=== PATIENT | female | born 1950 | race Two or more races ===

== ENCOUNTER 2024-03-17 09:12 | Outpatient (RCR) | payer MEDICARE, MEDICAID, SELFPAY ==
[2024-03-17 10:40] LABS: Basophils # (Auto) 0.1 Thou/mm3 (0.0-0.2); Basophils % (Auto) 2 % (0-2.5); Eosinophils # (Auto) 0.1 Thou/mm3 (0.0-0.5); Eosinophils % (Auto) 2 % (0-10); Hematocrit 37.4 % (36.0-46.0); Immature Granulocytes % (Auto) 0 % (0-0); Immature Granulocytes Auto 0.01 Thou/mm3 (0.00-0.00); Lymphocytes % (Auto) 27 % (10-50); Mean Corpuscular HGB Conc 34.8 g/dl (31.0-37.0); Mean Corpuscular Hemoglobin 37.8 pg (25.0-35.0); Mean Corpuscular Volume 109 fL (80-100); Monocytes # (Auto) 0.4 Thou/mm3 (0.0-0.8); Monocytes % (Auto) 12 % (0-12); Neutrophils # (Auto) 2.1 Thou/mm3 (1.8-7.7); Neutrophils % (Auto) 57 % (37-80); Nucleated Red Blood Cell % 0 /100 WBC (0); Platelet Count 168 Thou/mm3 (140-440); RDW Standard Deviation 58.7 fL (36.4-46.3); Red Blood Count 3.44 Miln/mm3 (4.00-5.20); White Blood Count 3.6 Thou/mm3 (3.6-11.0)
[2024-03-17 10:59] LABS: Alanine Aminotransferase 16 U/L (10-49); Albumin, Serum 4.3 gm/dL (3.4-4.8); Albumin/Globulin Ratio 1.4 (1.2-2.2); Alkaline Phosphatase 94 U/L (46-116); Anion Gap 7 (7-16); Aspartate Amino Transferase 24 U/L (0-34); BUN/Creatinine Ratio 22 Ratio (12-20); Bilirubin,Total 1.1 mg/dL (0.3-1.2); Blood Urea Nitrogen 22 mg/dL (9-23); Calcium 9.2 mg/dL (8.3-10.6); Calcium (Corrected) 9.2 mg/dL (8.5-10.1); Carbon Dioxide 28.1 mMol/L (20.0-31.0); Chloride 105 mMol/L (98-107); Glucose 103 mg/dL (74-106); Osmolality,Calculated 282 (275-295); Potassium 3.9 mMol/L (3.4-5.1); Sodium 140 mMol/L (136-145); Total Protein 7.3 gm/dL (5.7-8.2); eGFR 59 See Note
== END 2024-03-20 23:59 | disposition home or self-care (01) ==
LOC: SCTC 09:12
PROVIDERS: PCP Internal Medicine; Referring Provider Internal Medicine; Visit Provider Internal Medicine Hematology & Oncology
DX: C50.212 Malignant neoplasm of upper-inner quadrant of left female breast (principal); Z17.0 Estrogen receptor positive status [ER+]; Z17.22 Progesterone receptor negative status; Z17.32 Human epidermal growth factor receptor 2 negative status; R91.8 Other nonspecific abnormal finding of lung field; R59.0 Localized enlarged lymph nodes; Z90.12 Acquired absence of left breast and nipple; Z79.811 Long term (current) use of aromatase inhibitors; N64.89 Other specified disorders of breast; E66.9 Obesity, unspecified; Z68.45 Body mass index [BMI] 70 or greater, adult
CPT/HCPCS: 36591; 80053; 85025; A4216; J1642

== ENCOUNTER 2024-04-16 09:35 | Outpatient (RCR) | payer MEDICARE, MEDICAID, SELFPAY ==
--- NOTE | 2024-04-04 18:53 | CTCFLWUP_ITS ---
Patient: JOSHUA HOWARD : 1950 Page 2 of 2 FOLLOW UP NOTE Echocardiogram MRI DATE OF SERVICE: 03/23/2024 NAME: JOSHUA HOWARD ACCOUNT: [id number] : 1950 AGE: 73 REASON FOR VISIT: Follow up ONCOLOGY HISTORY: DATE OF DIAGNOSIS: 12/30/2022 STAGE/TNM: Radiographic stage IV IN 2020 ER/TN positive HER2 negative locally advanced invasive ductal carcinoma of the left breast and found to be ER/TN HER2 positive in 2022 on the left breast mastectomy with th e s/p chemotherapy and noted to have reduce in size of pulmonary nodules and lymphadenopathy TREATMENT HISTORY: Care?Plan Start?Date Cycle Day Intent DOCEtaxel?75,?Cyclophosphamide?600 05/28/2021 1 21 Curative?(primary) Trastuzumab?6?mg/kg? 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 2019:Patient had bilateral mammograms according to her that were nondiagnostic. 10/10/2020: Patient was seen in the emergency room here at [facility] cancer center be cause of mid lower chest pain. 10/10/2020: Chest x-ray? 10/10/2020: CT scan of the chest abdomen and pelvis with IV contrast? 10/17/2020: Left breast ultrasound? 10/17/2020: Bilateral diagnostic mammograms? 10/05/2020: Core needle biopsy of the left breast mass? 02/16/2021: PET CT scan? 03/09/2021: CT scan of the chest without contrast? 03/22/2021 ultrasound of the extremity anterior pelvic wall? 04/18/2021: CT scan of the chest abdomen and pelvis with IV contrast? 04/19/2021: CT scan of the chest abdomen and pelvis with IV contrast? 04/19/2021: Echocardiogram? 05/28/2021: Ms. Howard received first cycle of TC chemotherapy. 05/31/2021?06/13/2021: Ms. Howard was admitted to [facility] because of diarrhea, nause a and vomiting as well as cytopenias. 07/10/2021: CT scan of the chest with IV contrast 07/24/2021: Patient is started on anastrozole as well as palbociclib. 08/11/2021: PET/CT scan which was compared to previous PET/CT scan of February 16, 2021 as well as CTA of the chest of July 24, 2021.? 02/08/2022: CT scan of the chest abdomen and pelvis with IV contrast? 10/31/2022: PET/CT scan? 12/30/2022: Ms. Howard had left modified radical mastectomy 04/02/2023: Ms. Howard had 1 infusion of Trastuzumab(Herceptin).-Into the infusion patient started de veloping chills, rigors as well as mild shortness of breath. Infusion was discontinued and patient w as sent to the emergency room. She was observed for few hours. 07/31/2023: PET/CT scan done 10/16/2023: Right breast mammogram? DIAGNOSIS: S/p left modified radical mastectomy (12/30/2022), ER positive, TN negative, HER2/zenia 3+ Radiographic stage IV ER positive TN positive HER-2/zenai negative locally advanced invasive ductal car cinoma of the left breast with suspicious right hilar adenopathy (02/16/2021). S/p 1 cycle of TC chemotherapy (05/28/2021) which was complicated by diarrhea, nausea and vomiting requ iring her to be admitted to the hospital Patient is started on anastrozole and Ibrance on 07/24/2021. Unable to tolerate Trastuzumab(Herceptin) which caused chills, rigors as well as mild shortness of br eath (04/02/2023) requiring her to go to the emergency room. Obesity. History of gastric bypass surgery in nineteen ninety. OTHER MEDICAL HISTORY/CONDITIONS: FAMILY HISTORY: ?Clone Family Hx? 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 albuterol sulfate - 0.63 mg/3 mL As directed 2. anastrozole - 1 mg 1 tab Daily 3. Benadryl - 50 mg 1 Capsule As directed 4. famotidine - 40 mg 1 tab Daily 5. gabapentin - 100 mg 2 Capsule Three times a day 6. Gemtesa - 75 mg 1 tab Every day before sleep 7. Ibrance - 125 mg 1 tab Daily 8. Lipitor - 10 mg 1 tab Every day before sleep 9. Maxzide-25mg - 37.5-25 mg 1 tab Daily 10. metoprolol succinate - 25 mg 1 tab Every day before sleep 11. metoprolol succinate - 50 mg 1 tab In the morning 12. multivitamin - 1 Capsule Daily 13. Oyster Calcium - 500 mg 1 tab Twice a Day 14. predniSONE - 50 mg 1 tab Daily 15. promethazine - 25 mg 1 tab As needed 16. tizanidine - 4 mg Every 6 Hours 17. Tylenol-Codeine No.3 - 300-30 mg 1 tab As directed 18. Vitamin D2 - 25,000 unit 1 Capsule Weekly 19. Zofran - 8 mg 1 tab As needed 20. Zoloft - 25 mg 1 tab Daily?Palabra Meds? Medications Last Reconciled by Liza Georges MA on 03/23/2024 ALLERGIES: nuts; alendronate; lisinopril; iodine REVIEW OF SYSTEMS: A complete 14-point review of systems was performed and is negative except as noted in interval histo ry. PHYSICAL EXAMINATION:?CloneBlock PE? VITAL SIGNS: Temperature?98.8, B/P?127/77, Oxygen?Saturation?97% Weight?271?lbs (Change?since? 4:?-1.2?lbs) PAIN: 2 - Mild pain Alert and oriented x 4 CHEST: Clear to auscultation. No wheezes or rales audible. No masses palpable on the left chest wall. No areas of tenderness. CARDIAC: Rhythm regular, no murmurs or gallops present. ABDOMEN: Soft. No hepatomegaly. No splenomegaly. EXTREMITIES: 1+ pitting LE. LABORATORY DATA: I have personally reviewed and interpreted each of the patient?s relevant lab tests, abnormal finding s are below: Date 03/17/24 ??WHITE?BLOOD?COUNT?(Thou/mm3) 3.6 ??RED?BLOOD?COUNT?(Miln/mm3) 3.44?L ??HEMOGLOBIN?(gm/dl) 13.0 ??HEMATOCRIT?(%) 37.4 ??PLATELET?COUNT?(Thou/mm3) 168 ??NEUTROPHILS?%,?AUTO?(%) 57 ??LYMPH?%,?AUTO?(%) 27 ??NEUTROPHILS,?AUTO?(Thou/mm3) 2.1 IMPRESSION/PLAN: Stage IV breast cancer ER/TN positive HER2 negative but later on mastectomy found to be HER2 positive in 2022 on initial biopsy in 2020 Patient had left breast mastectomy and was found to be ER/TN HER2 positive Lymph node and lung nodules were never biopsied but they reduced in size on the first cycle of chemot herapy Patient received first cycle of chemotherapy on May 2021 and was complicated with a diarrhea ranjith sea vomiting and admitted to the hospital and she decided not to take further chemotherapy Patient had great improvement with chemotherapy Patient underwent left radical mastectomy and at that time was noted to have HER2 positive disease Patient received Herceptin but had reaction in March 2023 and further treatment was stopped Patient was started on anastrozole and Ibrance PET CT scan in July 2023 shows 6 mm weekly hypermetabolic left lower lateral neck lymph node and no other metastatic disease Will repeat imaging now Continue Ibrance and anastrozole ORDERS: CT chest abdomen pelvis with IV contrast to evaluate for metastatic disease and response to treatmTo rule out metastatic disease MRI brain ordered CBC CMP CEA CA 15-3 RETURN TO CLINIC: I will see her back in the clinic in 2 months. With above imaging BILLING AND COMPLIANCE: I reviewed external records from providers outside my specialty as summarized above. I spent a total of 50 minutes on this patient?s care on the day of their visit excluding time spent related to any bi lled procedures. This time includes time spent with the patient as well as time spent documenting in the medical record, reviewing patients records and tests, obtaining history, placing orders, communi cating with other healthcare professionals, counseling the patient, family or caregiver, and/or care coordination for the diagnoses above. Electronically Signed by: Ranjit Andrade MD T: 6:51 PM CC: Eugene?WAYNE Dacosta PCP: Eugene Dacosta Referring: Eugene Dacosta This document was completed utilizing speech recognition software. Grammatical errors, random word in sertions, pronoun errors, and incomplete sentences are an occasional consequence of this system due t o software limitations, ambient noise, and hardware issues. Any formal questions or concerns about th e content, text or information contained within the body of this dictation should be directly address ed to the provider for clarification.
[2024-04-16 11:24] LABS: Basophils # (Auto) 0.1 Thou/mm3 (0.0-0.2); Basophils % (Auto) 2 % (0-2.5); Eosinophils # (Auto) 0.1 Thou/mm3 (0.0-0.5); Eosinophils % (Auto) 2 % (0-10); Hematocrit 38.7 % (36.0-46.0); Hemoglobin 13.1 g/dL (12.0-16.0); Immature Granulocytes % (Auto) 0 % (0-0); Immature Granulocytes Auto 0.01 Thou/mm3 (0.00-0.00); Lymphocytes # (Auto) 1.5 Thou/mm3 (1.0-4.8); Lymphocytes % (Auto) 46 % (10-50); Mean Corpuscular HGB Conc 33.9 g/dl (31.0-37.0); Mean Corpuscular Hemoglobin 36.3 pg (25.0-35.0); Mean Corpuscular Volume 107 fL (80-100); Monocytes # (Auto) 0.2 Thou/mm3 (0.0-0.8); Monocytes % (Auto) 6 % (0-12); Neutrophils # (Auto) 1.4 Thou/mm3 (1.8-7.7); Neutrophils % (Auto) 44 % (37-80); Nucleated Red Blood Cell % 0 /100 WBC (0); Platelet Count 123 Thou/mm3 (140-440); RDW Standard Deviation 55.8 fL (36.4-46.3); Red Blood Count 3.61 Miln/mm3 (4.00-5.20); White Blood Count 3.2 Thou/mm3 (3.6-11.0)
[2024-04-16 11:59] LABS: Alanine Aminotransferase 8 U/L (10-49); Albumin, Serum 4.5 gm/dL (3.4-4.8); Albumin/Globulin Ratio 1.5 (1.2-2.2); Alkaline Phosphatase 91 U/L (46-116); Anion Gap 8 (7-16); Aspartate Amino Transferase 13 U/L (0-34); BUN/Creatinine Ratio 32 Ratio (12-20); Bilirubin,Total 1.3 mg/dL (0.3-1.2); Blood Urea Nitrogen 32 mg/dL (9-23); Calcium 9.7 mg/dL (8.3-10.6); Calcium (Corrected) 9.7 mg/dL (8.5-10.1); Carbon Dioxide 26.7 mMol/L (20.0-31.0); Chloride 105 mMol/L (98-107); Globulin 3.1 gm/dL (2.3-3.5); Glucose 100 mg/dL (74-106); Osmolality,Calculated 286 (275-295); Sodium 140 mMol/L (136-145); Total Protein 7.6 gm/dL (5.7-8.2); eGFR 59 See Note
[2024-04-16 12:11] LABS: CA 15-3 25.9 U/mL (<32.4)
[2024-04-16 16:53] LABS: Basophils (Manual) 2 % (0-2); Eosinophils (Manual) 2 % (0-4); Lymphocytes (Manual) 52 % (20-44); Monocytes (Manual) 2 % (2-9); Neutrophils (Manual) 42 % (50-70)
== END 2024-04-20 23:59 | disposition home or self-care (01) ==
LOC: SCTC 09:35
PROVIDERS: PCP Internal Medicine; Referring Provider Internal Medicine; Visit Provider Internal Medicine Hematology & Oncology
DX: C50.212 Malignant neoplasm of upper-inner quadrant of left female breast (principal); Z17.0 Estrogen receptor positive status [ER+]; Z17.21 Progesterone receptor positive status; Z17.31 Human epidermal growth factor receptor 2 positive status; Z90.12 Acquired absence of left breast and nipple; Z79.811 Long term (current) use of aromatase inhibitors
CPT/HCPCS: 36591; 80053; 85025; 86300; 99212; A4216; J1642; G0463

== ENCOUNTER → 2024-04-23 | Outpatient (CLI) | payer MEDICARE, MEDICAID, SELFPAY ==
--- NOTE | 2024-04-23 14:31 | XR_ITS ---
Examination: CT chest with intravenous contrast CT abdomen with intravenous contrast CT pelvis with intravenous contrast 2-D coronal and sagittal reconstructions Time of exam: April 23, 2024 1507 hours Comparison February 08, 2022 INDICATIONS: Diagnosis malignant neoplasm upper inner quadrant left female breast 2020, restaging CTDI: vol (mGy) : 20.7 DLP: (mGycm): 1603 Technique: Multiple axial images of the chest, abdomen and pelvis with intravenous contrast, 3.0 mm slice thickness. Images obtained post intravenous injection Isovue 370 60 cc. 2-D sagittal and coronal reconstructions. Low dose protocols were performed. One or more of the following dose reduction techniques were used; automated exposure control, adjustment of the mA and/or KV according to patient size, use of iterative reconstruction technique. Findings: Postsurgical changes left breast No thoracic aortic aneurysm dilatation No pulmonary artery emboli on this non-CTA study No pneumonia, pulmonary edema, pulmonary nodules or pleural disease No mediastinal lymphadenopathy No axillary lymphadenopathy Interval 10 mm upper posterior right lobe liver lesion No biliary tract dilatation Absent gallbladder Spleen not enlarged Gastric sutures No interval abdominal or pelvic lymphadenopathy No hydronephrosis Right lateral abdominal wall hernia defect again noted containing bowel but no incarcerated bowel or bowel obstruction Normal appendix Also umbilical hernia defect containing bowel no incarcerated bowel Atrophic uterus Urinary bladder intact Severe osteopenia IMPRESSION: Interval 10 mm right lobe liver lesion, recommend MRI abdomen liver follow-up, pre and postcontrast, to exclude hepatic metastasis
== END | disposition home or self-care (01) ==
PROVIDERS: PCP Internal Medicine; Referring Provider Internal Medicine Hematology & Oncology; Visit Provider Internal Medicine Hematology & Oncology
DX: K76.9 Liver disease, unspecified (principal); C50.212 Malignant neoplasm of upper-inner quadrant of left female breast
CPT/HCPCS: 71260; 74177; A4649; Q9967

== ENCOUNTER → 2024-05-05 | Outpatient (CLI) | payer MEDICARE, MEDICAID, SELFPAY ==
--- NOTE | 2024-05-05 14:00 | ECHO_ITS ---
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 16 - 28 cm?/m? M-MODE Aortic Root Diameter MM 3.3 cm LA Systolic Diameter MM 3.6 cm LA Ao Ratio MM 1.1 AV Cusp Separation MM 2.1 cm DOPPLER AV Peak Velocity 353.3 cm/s AV Peak Gradient 49.9 mmHg AV Mean Gradient 28.3 mmHg AV Velocity Time Integral 68.5 cm AI Peak Velocity 378.0 cm/s AI Peak Gradient 57.2 mmHg AI Pressure Half Time 525.0 ms LVOT Peak Velocity 113.0 cm/s LVOT Peak Gradient 5.1 mmHg LVOT Velocity Time Integral 26.9 cm AV Area Cont Eq vti 1.2 cm? AV Area Cont Eq pk 1.0 cm? MV Peak Velocity 126.0 cm/s MV Peak Gradient 6.4 mmHg MV Mean Velocity 65.9 cm/s MV Mean Gradient 2.0 mmHg MV Area PHT 2.8 cm? Mitral E Point Velocity 79.1 cm/s Mitral A Point Velocity 120.0 cm/s Mitral E to A Ratio 0.7 LV E' Lateral Velocity 8.1 cm/s Mitral E to LV E' Lateral Ratio 9.8 LV E' Septal Velocity 7.2 cm/s Mitral E to LV E' Septal Ratio 11.0 FINDINGS Left Ventricle Normal left ventricular size, systolic function with no obvious regional wall motion abnormalities. Mild LVH. The ejection fraction is visually estimated at 60-65%. Right Ventricle The right ventricle is normal in size and systolic function. Left Atrium The left atrium is normal by two-dimensional, color flow and Doppler imaging with no structural abnormalities, no thrombus formation present. Right Atrium The right atrium is normal by two-dimensional imaging, color flow and Doppler imaging with no struct ural abnormalities, no thrombus formation present. Atrial Septum The interatrial septum appears normal with no evidence of a shunt. Aorta The aorta is normal by two-dimensional, color flow and Doppler interrogation. Mitral Valve The mitral valve is normal by two-dimensional, color flow and Doppler interrogation. There is no sig nificant mitral valve regurgitation. Aortic Valve The aortic valve is trileaflet. Moderate stenosis, mean gradient 34mmHg, vmax 3.6m/s. There is mild aortic valve regurgitation. Tricuspid Valve The tricuspid valve is normal by two-dimensional, color flow and Doppler interrogation. There is tra ce tricuspid valve regurgitation. Pulmonic Valve The pulmonic valve is normal by two-dimensional, color flow and Doppler interrogation. There is no significant pulmonic valve regurgitation. Vessels The pulmonary artery appears normal. The inferior vena cava pulmonary and hepatic veins appear claudio l. Pericardium The pericardium is normal by two-dimensional imaging. There is no significant pericardial effusion. CONCLUSIONS Suboptimal images due to body habitus. Normal LV size and function. Mild LVH. Estimated EF 60-65% Normal RV size and function Moderate AV stenosis, mean gradient 34mmHg, vmax 3.6m/s. Mild AI. Trace TR. Ofelia Cerna (Electronically Signed) Final Date: 06 May 2024 12:15
--- NOTE | 2024-05-05 14:30 | XR_ITS ---
Examination: MRI of brain without intravenous contrast. MRI brain with intravenous contrast. Date and time of exam:May 05, 2024 1558 hours INDICATIONS: Diagnosis malignant neoplasm upper inner quadrant left female breast, mastectomy one year ago, onset numbness in the left hand beginning 6 months ago Technique: Multiple axial and sagittal images of the brain to been obtained. Siemens high-resolution 1.52 Zo short bore scanner utilized. Sagittal sections, T1 weighted images, TR 500, TE 14, are performed. Axial sections proton-density and T2-weighted images have been obtained. Inversion recovery axial images, TR 9260, TE 111, TR 2500. Diffusion weighted images, axial sections, TR 4800, TE 128, B value 1000. Axial sections, ADC map, TR 4800, TE 128. Axial and coronal images were also obtained post 20 cc gadolinium administered intravenously. Findings:: Enlargement of the sella turcica is not present. The optic chiasm and infundibular stalk are not remarkable. There is no localized enlargement of the medulla or andreas. Fourth ventricle and cerebellar tonsils appear normal in position. No subacute area of hemorrhage density is seen. Fourth ventricle is midline. Mass in the cerebellopontine angle region is not evident. 7th and 8th nerve complexes exhibit symmetry Globes are symmetrical Orbital musculature including medial lateral rectus muscles do not exhibit abnormality Increased white matter signal is mild Effacement of the cortical sulcal markings is not identified. Mass effect upon the ventricular system is not identified. Diffusion-weighted images demonstrate no focus of restricted diffusion Contrast images demonstrate no abnormal enhancing cerebellar or cerebral lesions Impression: Negative for acute hemorrhage mass effect or midline shift No acute infarct Mild chronic microvascular white matter change No abnormal enhancing cerebellar or cerebral lesions
== END | disposition home or self-care (01) ==
PROVIDERS: Referring Provider Internal Medicine Hematology & Oncology; Visit Provider Internal Medicine Hematology & Oncology
DX: I08.2 Rheumatic disorders of both aortic and tricuspid valves (principal); R90.82 White matter disease, unspecified; C50.212 Malignant neoplasm of upper-inner quadrant of left female breast
CPT/HCPCS: 70553; 93306; A9579

== ENCOUNTER 2024-05-14 09:53 | Outpatient (RCR) | payer MEDICARE, MEDICAID, SELFPAY ==
[2024-05-14 11:57] LABS: Basophils # (Auto) 0.1 Thou/mm3 (0.0-0.2); Basophils % (Auto) 2 % (0-2.5); Eosinophils % (Auto) 1 % (0-10); Immature Granulocytes % (Auto) 0 % (0-0); Immature Granulocytes Auto 0.01 Thou/mm3 (0.00-0.00); Lymphocytes % (Auto) 31 % (10-50); Mean Corpuscular HGB Conc 35.1 g/dl (31.0-37.0); Mean Corpuscular Hemoglobin 37.5 pg (25.0-35.0); Mean Corpuscular Volume 107 fL (80-100); Monocytes # (Auto) 0.1 Thou/mm3 (0.0-0.8); Monocytes % (Auto) 3 % (0-12); Neutrophils % (Auto) 62 % (37-80); Nucleated Red Blood Cell % 0 /100 WBC (0); Platelet Count 142 Thou/mm3 (140-440); RDW Standard Deviation 60.7 fL (36.4-46.3); Red Blood Count 3.47 Miln/mm3 (4.00-5.20); White Blood Count 3.2 Thou/mm3 (3.6-11.0)
[2024-05-14 12:11] LABS: Magnesium 1.5 mg/dL (1.6-2.6)
[2024-05-14 12:13] LABS: Alanine Aminotransferase 11 U/L (10-49); Albumin, Serum 4.6 gm/dL (3.4-4.8); Albumin/Globulin Ratio 1.5 (1.2-2.2); Alkaline Phosphatase 86 U/L (46-116); Anion Gap 12 (7-16); Aspartate Amino Transferase 19 U/L (0-34); BUN/Creatinine Ratio 16 Ratio (12-20); Bilirubin,Total 2.2 mg/dL (0.3-1.2); Blood Urea Nitrogen 18 mg/dL (9-23); Calcium 9.7 mg/dL (8.3-10.6); Calcium (Corrected) 9.7 mg/dL (8.5-10.1); Carbon Dioxide 24.6 mMol/L (20.0-31.0); Chloride 104 mMol/L (98-107); Creatinine (Component) 1.1 mg/dL (0.6-1.3); Glucose 100 mg/dL (74-106); Osmolality,Calculated 283 (275-295); Potassium 3.6 mMol/L (3.4-5.1); Sodium 141 mMol/L (136-145); Total Protein 7.6 gm/dL (5.7-8.2); eGFR 53 See Note
[2024-05-14 12:28] LABS: CA 15-3 34.5 U/mL (<32.4); Carcinoembryonic Antigen 29.6 ng/mL (0.0-5.0)
== END 2024-05-21 23:59 | disposition home or self-care (01) ==
LOC: SCTC 09:53
PROVIDERS: PCP Internal Medicine; Referring Provider Internal Medicine; Visit Provider Internal Medicine Hematology & Oncology
DX: C50.212 Malignant neoplasm of upper-inner quadrant of left female breast (principal); Z17.0 Estrogen receptor positive status [ER+]; Z17.21 Progesterone receptor positive status; Z17.31 Human epidermal growth factor receptor 2 positive status; Z79.811 Long term (current) use of aromatase inhibitors
CPT/HCPCS: 36591; 80053; 82378; 83735; 85025; 86300; A4216; J1642

== ENCOUNTER 2024-06-17 09:36 | Outpatient (RCR) | payer MEDICARE, MEDICAID, SELFPAY ==
--- NOTE | 2024-05-31 14:29 | CTCFLWUP_ITS ---
Patient: JOSHUA HOWARD : 1950 Page 2 of 2 FOLLOW UP NOTE DATE OF SERVICE: 05/31/2024 NAME: JOSHUA HOWARD ACCOUNT: [id number] : 1950 AGE: 73 INTERVAL HISTORY: Patient recently had a PET CT scan and here for review. Patient has been on Ibrance and anastrozole and tolerating well. ONCOLOGY HISTORY: DATE OF DIAGNOSIS: 12/30/2022 STAGE/TNM: Radiographic stage IV IN 2020 ER/PA positive HER2 negative locally advanced invasive ductal carcinoma of the left breast and found to be ER/PA HER2 positive in 2022 on the left breast mastectomy with the s/p chemotherapy and noted to have reduce in size of pulmonary nodules and lymphadenopathy TREATMENT HISTORY: Care?Plan Start?Date Cycle Day Intent DOCEtaxel?75,?Cyclophosphamide?600 05/28/2021 1 21 Curative?(primary) Trastuzumab?6?mg/kg? 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 2019:Patient had bilateral mammograms according to her that were nondiagnostic. 10/10/2020: Patient was seen in the emergency room here at [facility] cancer center because of mid lower chest pain. 10/10/2020: Chest x-ray? 10/10/2020: CT scan of the chest abdomen and pelvis with IV contrast? 10/17/2020: Left breast ultrasound? 10/17/2020: Bilateral diagnostic mammograms? 10/05/2020: Core needle biopsy of the left breast mass? 02/16/2021: PET CT scan? 03/09/2021: CT scan of the chest without contrast? 03/22/2021 ultrasound of the extremity anterior pelvic wall? 04/18/2021: CT scan of the chest abdomen and pelvis with IV contrast? 04/19/2021: CT scan of the chest abdomen and pelvis with IV contrast? 04/19/2021: Echocardiogram? 05/28/2021: Ms. Howard received first cycle of TC chemotherapy. 05/31/2021?06/13/2021: Ms. Howard was admitted to [facility] because of diarrhea, nausea and vomiting as well as cytopenias. 07/10/2021: CT scan of the chest with IV contrast 07/24/2021: Patient is started on anastrozole as well as palbociclib. 08/11/2021: PET/CT scan which was compared to previous PET/CT scan of February 16, 2021 as well as CTA of the chest of July 24, 2021.? 02/08/2022: CT scan of the chest abdomen and pelvis with IV contrast? 10/31/2022: PET/CT scan? 12/30/2022: Ms. Howard had left modified radical mastectomy 04/02/2023: Ms. Howard had 1 infusion of Trastuzumab(Herceptin).-Into the infusion patient started developing chills, rigors as well as mild shortness of breath. Infusion was discontinued and patient was sent to the emergency room. She was observed for few hours. 07/31/2023: PET/CT scan done 10/16/2023: Right breast mammogram? OTHER MEDICAL HISTORY/CONDITIONS: FAMILY HISTORY: SOCIAL HISTORY: MED PEDS HISTORY: MEDICATIONS: 1. abemaciclib - 150 mg 1 tab Daily 2. albuterol sulfate - 0.63 mg/3 mL As directed 3. anastrozole - 1 mg 1 tab Daily 4. Benadryl - 50 mg 1 Capsule As directed 5. Celexa - 20 mg 1 tab Daily 6. famotidine - 40 mg 1 tab Daily 7. gabapentin - 100 mg 2 Capsule Three times a day 8. Gemtesa - 75 mg 1 tab Every day before sleep 9. Ibrance - 125 mg 1 tab Daily 10. Lipitor - 10 mg 1 tab Every day before sleep 11. Maxzide-25mg - 37.5-25 mg 1 tab Daily 12. metoprolol succinate - 25 mg 1 tab Every day before sleep 13. metoprolol succinate - 50 mg 1 tab In the morning 14. multivitamin - 1 Capsule Daily 15. Oyster Calcium - 500 mg 1 tab Twice a Day 16. predniSONE - 50 mg 1 tab As directed 17. tizanidine - 4 mg Every 6 Hours 18. Tylenol-Codeine No.3 - 300-30 mg 1 tab As directed 19. Vitamin D2 - 25,000 unit 1 Capsule Weekly 20. Zofran - 8 mg 1 tab As needed 21. Zoloft - 25 mg 1 tab Daily Medications Last Reconciled by Liza Georges MA on 05/31/2024 ALLERGIES: nuts; alendronate; lisinopril; iodine REVIEW OF SYSTEMS: A complete 14-point review of systems was performed and is negative except as noted in interval history. PHYSICAL EXAMINATION: VITAL SIGNS: Temperature?98.3, B/P?141/89, Oxygen?Saturation?96% PAIN: 0 - No pain Alert and oriented x 4 CHEST: Clear to auscultation. No wheezes or rales audible. No masses palpable on the left chest wall. No areas of tenderness. CARDIAC: Rhythm regular, no murmurs or gallops present. ABDOMEN: Soft. No hepatomegaly. No splenomegaly. EXTREMITIES: 1+ pitting LE. LABORATORY DATA: I have personally reviewed and interpreted each of the patient?s relevant lab tests, abnormal findings are below: Date 05/14/24 ??GLUCOSE,RANDOM?(mg/dL) 100 ??BLOOD?UREA?NITROGEN?(mg/dL) 18 ??CREATININE?(mg/dL) 1.10 ??SODIUM?(mmol/L) 141 ??POTASSIUM?(mmol/L) 3.6 ??CHLORIDE?(mmol/L) 104 ??CrCl?(CandG)?(ml/min) 86.24 ??AST/SGOT?(Unit/L) 19 ??ALT/SGPT?(Unit/L) 11 ??ALKALINE?PHOSPHATASE?(Unit/L) 86 ??BILIRUBIN,?TOTAL?(mg/dL) 2.2?H ??PROTEIN?TOTAL?(gm/dl) 7.6 ??ALBUMIN,?SERUM?(gm/dl) 4.6 ??GLOBULIN?(gm/dl) 3.0 ??ALBUMIN/GLOBULIN?RATIO 1.5 ??CALCIUM,?SERUM?(mg/dL) 9.7 ??CALCIUM?SERUM?(CORRECTED)?(mg/dL) 9.7 ASSESSMENT/PLAN: Stage IV breast cancer ER/PA positive HER2 negative but later on mastectomy found to be HER2 positive in 2022 on initial biopsy in 2020 Patient had left breast mastectomy and was found to be ER/PA HER2 positive Lymph node and lung nodules were never biopsied but they reduced in size on the first cycle of chemotherapy Patient received first cycle of chemotherapy on May 2021 and was complicated with a diarrhea nausea vomiting and admitted to the hospital and she decided not to take further chemotherapy Patient had great improvement with chemotherapy Patient underwent left radical mastectomy and at that time was noted to have HER2 positive disease Patient received Herceptin but had reaction in March 2023 and further treatment was stopped Patient was started on anastrozole and Ibrance PET CT scan in July 2023 shows 6 mm weekly hypermetabolic left lower lateral neck lymph node and no other metastatic disease 05/05/2024 MRI brain is negative for any cancer CT chest abdomen and pelvis Interval 10 mm right lobe liver lesion, recommend MRI abdomen liver follow-up, pre and postcontrast, to exclude hepatic metastasis Patient s tumor marker is rising up Patient likely have progression of cancer Will change treatment to Herceptin Will change to amebaciclib and fulvestrant in third line option MRI liver ORDERS: Cbc,cmp RETURN TO CLINIC: 4 weeks BILLING AND COMPLIANCE: I reviewed external records from providers outside my specialty as summarized above. I spent a total of 50 minutes on this patient?s care on the day of their visit excluding time spent related to any billed procedures. This time includes time spent with the patient as well as time spent documenting in the medical record, reviewing patients records and tests, obtaining history, placing orders, communicating with other healthcare professionals, counseling the patient, family or caregiver, and/or care coordination for the diagnoses above. Electronically Signed by: Ranjit Andrade MD T: 2:27 PM CC: Eugene?Praneeth,? PCP: Eugene Dacosta Referring: Eugene Dacosta This document was completed utilizing speech recognition software. Grammatical errors, random word insertions, pronoun errors, and incomplete sentences are an occasional consequence of this system due to software limitations, ambient noise, and hardware issues. Any formal questions or concerns about the content, text or information contained within the body of this dictation should be directly addressed to the provider for clarification.
[2024-06-17 12:59] LABS: Basophils # (Auto) 0.1 Thou/mm3 (0.0-0.2); Basophils % (Auto) 2 % (0-2.5); Eosinophils # (Auto) 0.1 Thou/mm3 (0.0-0.5); Eosinophils % (Auto) 2 % (0-10); Hematocrit 33.4 % (36.0-46.0); Hemoglobin 11.6 g/dL (12.0-16.0); Immature Granulocytes % (Auto) 0 % (0-0); Immature Granulocytes Auto 0.01 Thou/mm3 (0.00-0.00); Lymphocytes % (Auto) 31 % (10-50); Mean Corpuscular HGB Conc 34.7 g/dl (31.0-37.0); Mean Corpuscular Hemoglobin 37.9 pg (25.0-35.0); Mean Corpuscular Volume 109 fL (80-100); Monocytes # (Auto) 0.2 Thou/mm3 (0.0-0.8); Monocytes % (Auto) 5 % (0-12); Neutrophils % (Auto) 60 % (37-80); Nucleated Red Blood Cell % 0 /100 WBC (0); Platelet Count 116 Thou/mm3 (140-440); RDW Standard Deviation 64.7 fL (36.4-46.3); Red Blood Count 3.06 Miln/mm3 (4.00-5.20); White Blood Count 3.3 Thou/mm3 (3.6-11.0)
[2024-06-17 13:15] LABS: Alanine Aminotransferase 30 U/L (10-49); Albumin, Serum 4.1 gm/dL (3.4-4.8); Albumin/Globulin Ratio 1.5 (1.2-2.2); Alkaline Phosphatase 82 U/L (46-116); Anion Gap 10 (7-16); Aspartate Amino Transferase 18 U/L (0-34); BUN/Creatinine Ratio 33 Ratio (12-20); Bilirubin,Total 0.8 mg/dL (0.3-1.2); Blood Urea Nitrogen 33 mg/dL (9-23); Calcium 9.6 mg/dL (8.3-10.6); Calcium (Corrected) 9.6 mg/dL (8.5-10.1); Chloride 104 mMol/L (98-107); Globulin 2.8 gm/dL (2.3-3.5); Glucose 91 mg/dL (74-106); Osmolality,Calculated 290 (275-295); Potassium 4.4 mMol/L (3.4-5.1); Sodium 142 mMol/L (136-145); Total Protein 6.9 gm/dL (5.7-8.2); eGFR 59 See Note
[2024-06-17 13:32] LABS: CA 15-3 36.1 U/mL (<32.4); Carcinoembryonic Antigen 36.2 ng/mL (0.0-5.0)
== END 2024-06-18 23:59 | disposition home or self-care (01) ==
LOC: SCTC 09:36
PROVIDERS: PCP Internal Medicine; Referring Provider Internal Medicine; Visit Provider Internal Medicine Hematology & Oncology
DX: C50.212 Malignant neoplasm of upper-inner quadrant of left female breast (principal); Z17.0 Estrogen receptor positive status [ER+]; Z17.31 Human epidermal growth factor receptor 2 positive status; Z17.21 Progesterone receptor positive status; Z92.21 Personal history of antineoplastic chemotherapy; Z90.12 Acquired absence of left breast and nipple; R91.8 Other nonspecific abnormal finding of lung field; Z79.818 Long term (current) use of other agents affecting estrogen receptors and estrogen levels; K76.89 Other specified diseases of liver
CPT/HCPCS: 36591; 80053; 82378; 85025; 86300; 99212; A4216; J1642; G0463

== ENCOUNTER → 2024-07-05 | Outpatient (CLI) | payer MEDICARE, MEDICAID, SELFPAY ==
--- NOTE | 2024-07-05 10:30 | XR_ITS ---
Examination: MRI abdomen, with intravenous contrast Date and time of exam: July 05, 2024 1117 hours Comparison PET/CT scan July 31, 2023, MRI abdomen August 20, 2022 INDICATIONS: Diagnosis malignant neoplasm upper inner quadrant left female breast, restaging Technique: Multiple axial sagittal and coronal images of the 20 have been obtained with the Siemens high-resolution 1.5 Zo MRI scanner. Axial coronal images post intravenous administration 20 cc gadolinium Findings: 27 x 23 mm rim-enhancing lesion posterior upper right lobe of the liver, not seen on the August 20, 2022 exam Spleen is not enlarged No pancreatic mass Adrenal glands normal size Aorta normal size 6 mm posterior left lateral periaortic lymph node, not seen on August 20, 2022 No ascites No hydronephrosis No bowel obstruction Abundant stool in the right colon Homogeneous marrow signal IMPRESSION: 27 x 33 mm rim-enhancing lesion posterior upper right lobe of the liver, not seen on the MRI study August 20, 2022, differential would include hepatic metastasis 6 mm left posterior lateral para-aortic lymph node, not seen on the August 20, 2022 exam
== END | disposition home or self-care (01) ==
LOC: SMRI 10:08
PROVIDERS: PCP Internal Medicine; Referring Provider Internal Medicine Hematology & Oncology; Visit Provider Internal Medicine Hematology & Oncology
DX: K76.9 Liver disease, unspecified (principal); C50.212 Malignant neoplasm of upper-inner quadrant of left female breast
CPT/HCPCS: 74182; A4699; A9579

== ENCOUNTER → 2024-07-06 | Outpatient (CLI) | payer MEDICARE, MEDICAID, SELFPAY ==
--- NOTE | 2024-07-06 13:10 | XR_ITS ---
Examination: PA lateral chest 2 views TECHNIQUE: Upright PA lateral chest 2 views Exam date and time: July 06, 2024 1320 hours Comparison June 11, 2023 INDICATIONS: Diagnosis malignant neoplasm upper inner quadrant left female breast, SOB 2 weeks. FINDINGS: Accentuation basilar bronchovascular markings. No pulmonary edema or lobar pneumonia. Mild prominence left ventricle Right subclavian Port-A-Cath tip SVC satisfactory position Prominent osteopenia IMPRESSION: Basilar bronchitis pattern
== END | disposition home or self-care (01) ==
LOC: SDIM 13:01
PROVIDERS: PCP Internal Medicine; Referring Provider Internal Medicine Hematology & Oncology; Visit Provider Internal Medicine Hematology & Oncology
DX: C50.212 Malignant neoplasm of upper-inner quadrant of left female breast (principal)
CPT/HCPCS: 71046

== ENCOUNTER 2024-07-19 14:01 | Outpatient (RCR) | payer MEDICARE, MEDICAID, SELFPAY ==
[2024-07-01 10:02] LABS: Basophils # (Auto) 0.1 Thou/mm3 (0.0-0.2); Basophils % (Auto) 2 % (0-2.5); Eosinophils # (Auto) 0.1 Thou/mm3 (0.0-0.5); Eosinophils % (Auto) 3 % (0-10); Hematocrit 36.2 % (36.0-46.0); Hemoglobin 12.3 g/dL (12.0-16.0); Immature Granulocytes % (Auto) 0 % (0-0); Immature Granulocytes Auto 0.02 Thou/mm3 (0.00-0.00); Lymphocytes # (Auto) 0.9 Thou/mm3 (1.0-4.8); Lymphocytes % (Auto) 18 % (10-50); Mean Corpuscular Hemoglobin 37.8 pg (25.0-35.0); Mean Corpuscular Volume 111 fL (80-100); Monocytes # (Auto) 0.3 Thou/mm3 (0.0-0.8); Monocytes % (Auto) 5 % (0-12); Neutrophils # (Auto) 3.7 Thou/mm3 (1.8-7.7); Neutrophils % (Auto) 73 % (37-80); Nucleated Red Blood Cell % 0 /100 WBC (0); Platelet Count 190 Thou/mm3 (140-440); RDW Standard Deviation 66.5 fL (36.4-46.3); Red Blood Count 3.25 Miln/mm3 (4.00-5.20); White Blood Count 5.1 Thou/mm3 (3.6-11.0)
[2024-07-01 10:21] LABS: Alanine Aminotransferase 36 U/L (10-49); Albumin, Serum 4.4 gm/dL (3.4-4.8); Albumin/Globulin Ratio 1.3 (1.2-2.2); Alkaline Phosphatase 89 U/L (46-116); Aspartate Amino Transferase 59 U/L (0-34); BUN/Creatinine Ratio 25 Ratio (12-20); Bilirubin,Total 1.2 mg/dL (0.3-1.2); Blood Urea Nitrogen 32 mg/dL (9-23); Chloride 104 mMol/L (98-107); Creatinine (Component) 1.3 mg/dL (0.6-1.3); Globulin 3.3 gm/dL (2.3-3.5); Glucose 94 mg/dL (74-106); Osmolality,Calculated 291 (275-295); Potassium 3.9 mMol/L (3.4-5.1); Sodium 143 mMol/L (136-145); Total Protein 7.7 gm/dL (5.7-8.2); eGFR 43 See Note
[2024-07-01 10:54] LABS: Anion Gap 10 (7-16); Carbon Dioxide 28.7 mMol/L (20.0-31.0)
[2024-07-01 15:24] LABS: Cardiac Risk Estimate 2.2 RATIO (3.7-5.6); Cholesterol 111 mg/dL (132-200); HDL Cholesterol 50 mg/dL (40-60); LDL Cholesterol,Calculated 42 mg/dL (0-130); Triglycerides 93 mg/dL (30-150)
--- NOTE | 2024-07-06 23:49 | CTCFLWUP_ITS ---
Patient: JOSHUA TRIPATHI : 1950 Page 10 of 13 FOLLOW UP NOTE DATE OF SERVICE: 07/06/2024 NAME: JOSHUA TRIPATHI ACCOUNT: [id number] : 1950 AGE: 73 INTERVAL HISTORY: Patient was started on abemaciclib and Faslodex e at the last visit. Patient is yet to receive Faslodex but has started abemaciclib. Patient in the meantime was advised to continue anastrozole. As Ms. Tripathi have HER2 disease was also started on Herceptin. Patient received first dose of Herceptin on 07/01/2024. Patient says that she has been sick for last 2 to 3 weeks. 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 2019:Patient had bilateral mammograms according to her that were nondiagnostic. 10/10/2020: Patient was seen in the emergency room here at [facility] because of mid lower chest pain. 10/10/2020: Chest x-ray? 10/10/2020: CT scan of the chest abdomen and pelvis with IV contrast? 10/17/2020: Left breast ultrasound? 10/17/2020: Bilateral diagnostic mammograms? 10/05/2020: Core needle biopsy of the left breast mass? 02/16/2021: PET CT scan? 03/09/2021: CT scan of the chest without contrast? 03/22/2021 ultrasound of the extremity anterior pelvic wall? 04/18/2021: CT scan of the chest abdomen and pelvis with IV contrast? 04/19/2021: CT scan of the chest abdomen and pelvis with IV contrast? 04/19/2021: Echocardiogram? 05/28/2021: Ms. Tripathi received first cycle of TC chemotherapy. 05/31/2021?06/13/2021: Ms. Tripathi was admitted to [facility] because of diarrhea, nausea and vomiting as well as cytopenias. 07/10/2021: CT scan of the chest with IV contrast 07/24/2021: Patient is started on anastrozole as well as palbociclib. 08/11/2021: PET/CT scan which was compared to previous PET/CT scan of February 16, 2021 as well as CTA of the chest of July 24, 2021.? 02/08/2022: CT scan of the chest abdomen and pelvis with IV contrast? 10/31/2022: PET/CT scan? 12/30/2022: Ms. Tripathi had left modified radical mastectomy 04/02/2023: Ms. Tripathi had 1 infusion of Trastuzumab(Herceptin).-Into the infusion patient started developing chills, rigors as well as mild shortness of breath. Infusion was discontinued and patient was sent to the emergency room. She was observed for few hours. 07/31/2023: PET/CT scan done 10/16/2023: Right breast mammogram? 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 albuterol sulfate - 0.63 mg/3 mL As directed 2. anastrozole - 1 mg 1 tab Daily 3. Benadryl - 50 mg 1 Capsule As directed 4. Celexa - 20 mg 1 tab Daily 5. famotidine - 40 mg 1 tab Daily 6. gabapentin - 100 mg 2 Capsule Three times a day 7. Gemtesa - 75 mg 1 tab Every day before sleep 8. Ibrance - 125 mg 1 tab Daily 9. Lasix - 20 mg 1 tab Daily 10. levoFLOXacin - 750 mg 1 tab Daily 11. Lipitor - 10 mg 1 tab Every day before sleep 12. Maxzide-25mg - 37.5-25 mg 1 tab Daily 13. metoprolol succinate - 25 mg 1 tab Every day before sleep 14. metoprolol succinate - 50 mg 1 tab In the morning 15. multivitamin - 1 Capsule Daily 16. Oyster Calcium - 500 mg 1 tab Twice a Day 17. predniSONE - 50 mg 1 tab As directed 18. tizanidine - 4 mg Every 6 Hours 19. Tylenol-Codeine No.3 - 300-30 mg 1 tab As directed 20. Verzenio - 150 mg 1 tab Twice a Day 21. Vitamin D2 - 25,000 unit 1 Capsule Weekly 22. Zofran - 8 mg 1 tab As needed 23. Zoloft - 25 mg 1 tab Daily Medications Last Reconciled by Liza Georges MA on 07/06/2024 ALLERGIES: nuts; alendronate; lisinopril; iodine REVIEW OF SYSTEMS: A complete 14-point review of systems was performed and is negative except as noted in interval history. PHYSICAL EXAMINATION: VITAL SIGNS: Temperature?98.1, B/P?147/79, Oxygen?Saturation?95% Weight?279?lbs (Change?since?07/01/24:?6?lbs) PAIN: None ECOG Performance Status: 1 - Symptomatic; ambulatory; restricted in strenuous activity Alert and oriented x 4 CHEST: Decreased air entry at the bases No masses palpable on the left chest wall. No areas of tenderness. CARDIAC: Rhythm regular, no murmurs or gallops present. ABDOMEN: Soft. No hepatomegaly. No splenomegaly. EXTREMITIES: 1+ pitting LE. LABORATORY DATA: I have personally reviewed and interpreted each of the patient?s relevant lab tests, abnormal findings are below: Date 06/17/24 07/01/24 ??WHITE?BLOOD?COUNT?(Thou/mm3) 3.3?L 5.1 ??RED?BLOOD?COUNT?(Miln/mm3) 3.06?L 3.25?L ??HEMOGLOBIN?(gm/dl) 11.6?L 12.3 ??HEMATOCRIT?(%) 33.4?L 36.2 ??PLATELET?COUNT?(Thou/mm3) 116?L 190 ??NEUTROPHILS?%,?AUTO?(%) 60 73 ??LYMPH?%,?AUTO?(%) 31 18 ??NEUTROPHILS,?AUTO?(Thou/mm3) 2.0 3.7 ??GLUCOSE,RANDOM?(mg/dL) 91 94 ??BLOOD?UREA?NITROGEN?(mg/dL) 33?H 32?H ??CREATININE?(mg/dL) 1.00 1.30 ??SODIUM?(mmol/L) 142 143 ??POTASSIUM?(mmol/L) 4.4 3.9 ??CHLORIDE?(mmol/L) 104 104 ??CrCl?(CandG)?(ml/min) 99.10 74.22 ??AST/SGOT?(Unit/L) 18 59?H ??ALT/SGPT?(Unit/L) 30 36 ??ALKALINE?PHOSPHATASE?(Unit/L) 82 89 ??BILIRUBIN,?TOTAL?(mg/dL) 0.8 1.2 ??PROTEIN?TOTAL?(gm/dl) 6.9 7.7 ??ALBUMIN,?SERUM?(gm/dl) 4.1 4.4 ??GLOBULIN?(gm/dl) 2.8 3.3 ??ALBUMIN/GLOBULIN?RATIO 1.5 1.3 ??CALCIUM,?SERUM?(mg/dL) 9.6 10.0 ??CALCIUM?SERUM?(CORRECTED)?(mg/dL) 9.6 10.0 ASSESSMENT/PLAN: Stage IV breast cancer ER/ME positive HER2 negative but later on mastectomy found to be HER2 positive in 2022 on initial biopsy in 2020 Patient had left breast mastectomy and was found to be ER/ME HER2 positive Lymph node and lung nodules were never biopsied but they reduced in size on the first cycle of chemotherapy Patient received first cycle of chemotherapy on May 2021 and was complicated with a diarrhea nausea vomiting and admitted to the hospital and she decided not to take further chemotherapy Patient had great improvement with chemotherapy Patient underwent left radical mastectomy and at that time was noted to have HER2 positive disease Patient received Herceptin but had reaction in March 2023 and further treatment was stopped Patient was started on anastrozole and Ibrance PET CT scan in July 2023 shows 6 mm weekly hypermetabolic left lower lateral neck lymph node and no other metastatic disease 05/05/2024 MRI brain is negative for any cancer CT chest abdomen and pelvis Interval 10 mm right lobe liver lesion, recommend MRI abdomen liver follow-up, pre and postcontrast, to exclude hepatic metastasis Patient s tumor marker is rising up Patient's liver lesion 23 mm. Patient was changed to Herceptin along with the antiendocrine therapy changed to to amebaciclib and fulvestrant in third line option I will send Ms. Tripathi for SBRT to the liver lesion while continuing the current therapy I will repeat echocardiogram to see if any changes in the heart function I am concerned if Herceptin has caused any changes to the cardiac function Bronchitis Started on levofloxacin Will proceed with the next Herceptin only after patient is symptomatically better Patient received abemaciclib and Herceptin after the start of symptoms Will do foundation testing to see any targetable mutation ORDERS: Order # Description [id number] Follow Up Appointment [id number] CA 15-3 [id number] Foundation One Liquid CDX [id number] CXR PA and Lat [id number] CBC + Comprehensive Metabolic Panel [id number] Lab Appointment [id number] Follow Up Appointment [id number] Cardiac ECHO [id number] Infusion 1 Hour [id number] Infusion 1 Hour [id number] CBC + Comprehensive Metabolic Panel [id number] Lab Appointment [id number] Follow Up Appointment [id number] Infusion 1 Hour [id number] CBC + Comprehensive Metabolic Panel [id number] Lab Appointment [id number] Follow Up Appointment [id number] Infusion 1 Hour [id number] CBC + Comprehensive Metabolic Panel [id number] Lab Appointment [id number] Follow Up Appointment [id number] Infusion 1 Hour [id number] Infusion 1 Hour [id number] Infusion 1 Hour [id number] Infusion 1 Hour RETURN TO CLINIC: BILLING AND COMPLIANCE: I reviewed external records from providers outside my specialty as summarized above. I spent a total of 50 minutes on this patient?s care on the day of their visit excluding time spent related to any billed procedures. This time includes time spent with the patient as well as time spent documenting in the medical record, reviewing patients records and tests, obtaining history, placing orders, communicating with other healthcare professionals, counseling the patient, family or caregiver, and/or care coordination for the diagnoses above. Electronically Signed by: {Object.Sanct_ID*[email or web address]@M}, {Object.Sanct_ID*PnP.Suffix@U} D: {Object.Sanct_Date} T: {Object.Sanct_Time} CC: Eugene?Praneeth,? PCP: Ranjit Andrade Referring: Ranjit Andrade This document was completed utilizing speech recognition software. Grammatical errors, random word insertions, pronoun errors, and incomplete sentences are an occasional consequence of this system due to software limitations, ambient noise, and hardware issues. Any formal questions or concerns about the content, text or information contained within the body of this dictation should be directly addressed to the provider for clarification.
[2024-07-19 15:29] LABS: Basophils # (Auto) 0.1 Thou/mm3 (0.0-0.2); Basophils % (Auto) 1 % (0-2.5); Eosinophils # (Auto) 0.3 Thou/mm3 (0.0-0.5); Eosinophils % (Auto) 4 % (0-10); Hematocrit 31.3 % (36.0-46.0); Hemoglobin 10.6 g/dL (12.0-16.0); Immature Granulocytes % (Auto) 0 % (0-0); Immature Granulocytes Auto 0.02 Thou/mm3 (0.00-0.00); Lymphocytes # (Auto) 1.1 Thou/mm3 (1.0-4.8); Lymphocytes % (Auto) 17 % (10-50); Mean Corpuscular HGB Conc 33.9 g/dl (31.0-37.0); Mean Corpuscular Hemoglobin 37.1 pg (25.0-35.0); Mean Corpuscular Volume 109 fL (80-100); Monocytes # (Auto) 0.5 Thou/mm3 (0.0-0.8); Monocytes % (Auto) 7 % (0-12); Neutrophils # (Auto) 4.6 Thou/mm3 (1.8-7.7); Neutrophils % (Auto) 70 % (37-80); Nucleated Red Blood Cell % 0 /100 WBC (0); Platelet Count 127 Thou/mm3 (140-440); RDW Standard Deviation 60.4 fL (36.4-46.3); Red Blood Count 2.86 Miln/mm3 (4.00-5.20); White Blood Count 6.5 Thou/mm3 (3.6-11.0)
[2024-07-19 15:41] LABS: Alanine Aminotransferase 22 U/L (10-49); Albumin, Serum 4.1 gm/dL (3.4-4.8); Albumin/Globulin Ratio 1.4 (1.2-2.2); Alkaline Phosphatase 89 U/L (46-116); Anion Gap 8 (7-16); Aspartate Amino Transferase 32 U/L (0-34); BUN/Creatinine Ratio 28 Ratio (12-20); Blood Urea Nitrogen 48 mg/dL (9-23); Calcium 9.6 mg/dL (8.3-10.6); Calcium (Corrected) 9.6 mg/dL (8.5-10.1); Carbon Dioxide 31.3 mMol/L (20.0-31.0); Chloride 104 mMol/L (98-107); Creatinine (Component) 1.7 mg/dL (0.6-1.3); Glucose 96 mg/dL (74-106); Osmolality,Calculated 297 (275-295); Potassium 3.8 mMol/L (3.4-5.1); Sodium 143 mMol/L (136-145); Total Protein 7.1 gm/dL (5.7-8.2); eGFR 31 See Note
== END 2024-07-19 23:59 | disposition home or self-care (01) ==
LOC: SCTC 14:01
PROVIDERS: PCP Internal Medicine; Referring Provider Internal Medicine Hematology & Oncology; Visit Provider Internal Medicine Hematology & Oncology
DX: Z51.11 Encounter for antineoplastic chemotherapy (principal); C50.212 Malignant neoplasm of upper-inner quadrant of left female breast; Z90.12 Acquired absence of left breast and nipple; Z17.0 Estrogen receptor positive status [ER+]; Z17.21 Progesterone receptor positive status; Z17.31 Human epidermal growth factor receptor 2 positive status; K76.89 Other specified diseases of liver; J40 Bronchitis, not specified as acute or chronic; Z79.811 Long term (current) use of aromatase inhibitors
CPT/HCPCS: 36415; 36591; 80053; 80061; 85025; 96375; 96402; 96413; 96415; 99212; A4216; J1200; J1642; J3490; J7050; J9395; Q5117; G0463

== ENCOUNTER → 2024-07-22 | Outpatient (CLI) | payer MEDICARE, MEDICAID, SELFPAY ==
--- NOTE | 2024-07-22 14:00 | ECHO_ITS ---
Transthoracic Echo Report Ht (in): 61 Wt (lb): 240 Exam Location: Echo Lab Status: Outpatient Compounder Helper: MAGY Ayoub^^^^ Indications: Procedure Performed: BP: 132 / 78 HR: 65 Technical Quality: Fair MEASUREMENTS (Male / Female) Normal Values 2D ECHO LV Diastolic Diameter PLAX 3.6 cm 4.2 - 5.9 / 3.9 - 5.3 cm LV Systolic Diameter PLAX 2.3 cm IVS Diastolic Thickness 1.0 cm 0.6 - 1.0 / 0.6 - 0.9 cm LVPW Diastolic Thickness 0.9 cm 0.6 - 1.0 / 0.6 - 0.9 cm LV Relative Wall Thickness 0.5 LVOT Diameter 1.4 cm Aortic Root Diameter 2.7 cm LA Systolic Diameter LX 3.4 cm 3.0 - 4.0 / 2.7 - 3.8 cm LV Ejection Fraction MOD 4C 59.5 % LV Cardiac Index MOD 4C 3655.7 cm?/min?m? LV Ejection Fraction 4C AL 60.5 % LV Cardiac Index 4C AL 3859.3 cm?/min?m? Ascending Aorta Diameter 3.0 cm DOPPLER AV Peak Velocity 312.8 cm/s AV Peak Gradient 39.1 mmHg AV Mean Gradient 25.5 mmHg AV Velocity Time Integral 68.5 cm LVOT Peak Velocity 110.0 cm/s LVOT Peak Gradient 4.8 mmHg LVOT Velocity Time Integral 32.4 cm LVOT Cardiac Index 1452.8 cm?/min?m? AV Area Cont Eq vti 0.7 cm? AV Area Cont Eq pk 0.5 cm? MV Area PHT 3.1 cm? Mitral E Point Velocity 58.0 cm/s Mitral A Point Velocity 80.4 cm/s Mitral E to A Ratio 0.7 LV E' Lateral Velocity 6.9 cm/s Mitral E to LV E' Lateral Ratio 8.4 LV E' Septal Velocity 14.2 cm/s Mitral E to LV E' Septal Ratio 4.1 TR Peak Velocity 246.5 cm/s TR Peak Gradient 24.3 mmHg PV Peak Velocity 103.0 cm/s PV Peak Gradient 4.2 mmHg RVOT Peak Velocity 39.2 cm/s FINDINGS Left Ventricle Normal left ventricular size, wall thickness, systolic function with no obvious regional wall motion abnormalities. There is grade I diastolic dysfunction of the left ventricle (impaired relaxation pattern). The left ventricular ejection fraction is normal, estimated at 55-60%. Right Ventricle The right ventricle is normal in size and systolic function. The estimated right ventricular systolic pressure, 25 mmHg. Left Atrium The left atrium is normal by two-dimensional, color flow and Doppler imaging with no structural abnormalities, no thrombus formation present. Right Atrium The right atrium is normal by two-dimensional imaging, color flow and Doppler imaging with no structural abnormalities, no thrombus formation present. Atrial Septum The interatrial septum appears normal with no evidence of a shunt. Aorta The aorta is normal by two-dimensional, color flow and Doppler interrogation. Mitral Valve Mild mitral regurgitation. Mild mitral annular calcification. Aortic Valve Severe aortic valve stenosis, mean gradient 25.5 mmHg, MAIKOL 0.73 cm?. Tricuspid Valve There is mild tricuspid valve regurgitation. Pulmonic Valve Trivial pulmonic valve regurgitation. Vessels The pulmonary artery appears normal. The inferior vena cava pulmonary and hepatic veins appear normal. Pericardium The pericardium is normal by two-dimensional imaging. There is no significant pericardial effusion. CONCLUSIONS Indication:Malignant neoplasm of upper-inner quadrant of left female breast Poor quality images mostly secondary to body habitus Normal evidence of infection with an estimated EF of 55 to 60%. Mild LVH. Diastolic function stage I. Normal RV size and function. RVSP estimated at 25 from 30 mmHg. Moderate to severe aortic stenosis with peak velocity of 3.6 m/s and mean gradient of 25 mmHg but the valve area is only 0.5 cm?. Mild MAC and mild MR with mild TR Juarez Marcial (Electronically Signed) Final Date: 26 July 2024 01:23
== END | disposition home or self-care (01) ==
LOC: SDIM 13:33
PROVIDERS: PCP Internal Medicine; Referring Provider Internal Medicine Hematology & Oncology; Visit Provider Internal Medicine Hematology & Oncology
DX: I08.1 Rheumatic disorders of both mitral and tricuspid valves (principal); C50.212 Malignant neoplasm of upper-inner quadrant of left female breast
CPT/HCPCS: 93306

== ENCOUNTER → 2024-08-13 | Outpatient (CLI) | payer MEDICARE, MEDICAID, SELFPAY ==
--- NOTE | 2024-08-13 14:00 | XR_ITS ---
Examination: Venous duplex lower extremity sonogram, bilateral. Date and time of exam: August 13, 2024 1418 hours INDICATIONS: Bilateral leg swelling beginning one week ago Technique: Multiple sonographic images of the deep venous system have been obtained. B-mode/2-D grayscale imaging of vascular structures and Doppler spectral analysis (waveforms) and color performed Both legs are examined. Findings: Deep venous systems do not demonstrate abnormal echogenicity. All visualized deep veins exhibit compressibility. All visualized deep veins exhibit augmentation. Impression: Negative for deep vein thrombosis
== END | disposition home or self-care (01) ==
PROVIDERS: PCP Internal Medicine; Referring Provider Internal Medicine; Visit Provider Internal Medicine
DX: M79.89 Other specified soft tissue disorders (principal)
CPT/HCPCS: 93970

== ENCOUNTER 2024-08-17 08:47 | Outpatient (RCR) | payer MEDICARE, MEDICAID, SELFPAY ==
[2024-07-26 10:56] LABS: Basophils # (Auto) 0.1 Thou/mm3 (0.0-0.2); Basophils % (Auto) 1 % (0-2.5); Eosinophils # (Auto) 0.2 Thou/mm3 (0.0-0.5); Eosinophils % (Auto) 3 % (0-10); Hematocrit 29.8 % (36.0-46.0); Hemoglobin 10.1 g/dL (12.0-16.0); Immature Granulocytes % (Auto) 1 % (0-0); Immature Granulocytes Auto 0.03 Thou/mm3 (0.00-0.00); Lymphocytes # (Auto) 0.8 Thou/mm3 (1.0-4.8); Lymphocytes % (Auto) 15 % (10-50); Mean Corpuscular HGB Conc 33.9 g/dl (31.0-37.0); Mean Corpuscular Hemoglobin 37.5 pg (25.0-35.0); Mean Corpuscular Volume 111 fL (80-100); Monocytes # (Auto) 0.3 Thou/mm3 (0.0-0.8); Monocytes % (Auto) 6 % (0-12); Neutrophils # (Auto) 4.2 Thou/mm3 (1.8-7.7); Neutrophils % (Auto) 75 % (37-80); Nucleated Red Blood Cell % 0 /100 WBC (0); Platelet Count 155 Thou/mm3 (140-440); RDW Standard Deviation 61.5 fL (36.4-46.3); Red Blood Count 2.69 Miln/mm3 (4.00-5.20); White Blood Count 5.6 Thou/mm3 (3.6-11.0)
[2024-07-26 11:33] LABS: Alanine Aminotransferase 20 U/L (10-49); Albumin, Serum 3.9 gm/dL (3.4-4.8); Albumin/Globulin Ratio 1.3 (1.2-2.2); Alkaline Phosphatase 99 U/L (46-116); Anion Gap 9 (7-16); Aspartate Amino Transferase 36 U/L (0-34); BUN/Creatinine Ratio 20 Ratio (12-20); Bilirubin,Total 0.9 mg/dL (0.3-1.2); Blood Urea Nitrogen 26 mg/dL (9-23); Calcium 9.1 mg/dL (8.3-10.6); Calcium (Corrected) 9.2 mg/dL (8.5-10.1); Carbon Dioxide 27.8 mMol/L (20.0-31.0); Chloride 103 mMol/L (98-107); Creatinine (Component) 1.3 mg/dL (0.6-1.3); Glucose 114 mg/dL (74-106); Osmolality,Calculated 285 (275-295); Potassium 3.4 mMol/L (3.4-5.1); Sodium 140 mMol/L (136-145); Total Protein 6.9 gm/dL (5.7-8.2); eGFR 43 See Note
[2024-07-26 11:38] LABS: CA 15-3 33.6 U/mL (<32.4); Carcinoembryonic Antigen 17.8 ng/mL (0.0-5.0)
[2024-07-26 11:39] LABS: B-Type Natriuretic Peptide 95 pg/mL (0-100)
[2024-08-11 12:03] LABS: Basophils % (Auto) 1 % (0-2.5); Eosinophils # (Auto) 0.1 Thou/mm3 (0.0-0.5); Eosinophils % (Auto) 2 % (0-10); Hematocrit 30.8 % (36.0-46.0); Hemoglobin 10.4 g/dL (12.0-16.0); Immature Granulocytes % (Auto) 0 % (0-0); Immature Granulocytes Auto 0.02 Thou/mm3 (0.00-0.00); Lymphocytes # (Auto) 0.7 Thou/mm3 (1.0-4.8); Lymphocytes % (Auto) 13 % (10-50); Mean Corpuscular HGB Conc 33.8 g/dl (31.0-37.0); Mean Corpuscular Volume 110 fL (80-100); Monocytes # (Auto) 0.3 Thou/mm3 (0.0-0.8); Monocytes % (Auto) 5 % (0-12); Neutrophils # (Auto) 4.2 Thou/mm3 (1.8-7.7); Neutrophils % (Auto) 78 % (37-80); Nucleated Red Blood Cell % 0 /100 WBC (0); Platelet Count 161 Thou/mm3 (140-440); RDW Standard Deviation 62.1 fL (36.4-46.3); Red Blood Count 2.81 Miln/mm3 (4.00-5.20); White Blood Count 5.4 Thou/mm3 (3.6-11.0)
[2024-08-11 12:19] LABS: Alanine Aminotransferase 24 U/L (10-49); Albumin, Serum 4.1 gm/dL (3.4-4.8); Albumin/Globulin Ratio 1.2 (1.2-2.2); Alkaline Phosphatase 104 U/L (46-116); Anion Gap 7 (7-16); Aspartate Amino Transferase 44 U/L (0-34); BUN/Creatinine Ratio 15 Ratio (12-20); Bilirubin,Total 1.2 mg/dL (0.3-1.2); Blood Urea Nitrogen 23 mg/dL (9-23); Calcium 9.4 mg/dL (8.3-10.6); Calcium (Corrected) 9.4 mg/dL (8.5-10.1); Carbon Dioxide 31.7 mMol/L (20.0-31.0); Chloride 104 mMol/L (98-107); Creatinine (Component) 1.5 mg/dL (0.6-1.3); Globulin 3.3 gm/dL (2.3-3.5); Glucose 94 mg/dL (74-106); Osmolality,Calculated 288 (275-295); Potassium 3.9 mMol/L (3.4-5.1); Sodium 143 mMol/L (136-145); Total Protein 7.4 gm/dL (5.7-8.2); eGFR 36 See Note
[2024-08-16 13:42] LABS: Basophils # (Auto) 0.1 Thou/mm3 (0.0-0.2); Basophils % (Auto) 1 % (0-2.5); Eosinophils # (Auto) 0.1 Thou/mm3 (0.0-0.5); Eosinophils % (Auto) 1 % (0-10); Hematocrit 30.6 % (36.0-46.0); Hemoglobin 10.5 g/dL (12.0-16.0); Immature Granulocytes % (Auto) 0 % (0-0); Immature Granulocytes Auto 0.02 Thou/mm3 (0.00-0.00); Lymphocytes # (Auto) 0.8 Thou/mm3 (1.0-4.8); Lymphocytes % (Auto) 14 % (10-50); Mean Corpuscular HGB Conc 34.3 g/dl (31.0-37.0); Mean Corpuscular Hemoglobin 38.2 pg (25.0-35.0); Mean Corpuscular Volume 111 fL (80-100); Monocytes # (Auto) 0.3 Thou/mm3 (0.0-0.8); Monocytes % (Auto) 5 % (0-12); Neutrophils # (Auto) 4.4 Thou/mm3 (1.8-7.7); Neutrophils % (Auto) 79 % (37-80); Nucleated Red Blood Cell % 0 /100 WBC (0); Platelet Count 154 Thou/mm3 (140-440); RDW Standard Deviation 63.3 fL (36.4-46.3); Red Blood Count 2.75 Miln/mm3 (4.00-5.20); White Blood Count 5.6 Thou/mm3 (3.6-11.0)
[2024-08-16 14:03] LABS: Alanine Aminotransferase 59 U/L (10-49); Albumin, Serum 4.1 gm/dL (3.4-4.8); Albumin/Globulin Ratio 1.2 (1.2-2.2); Alkaline Phosphatase 155 U/L (46-116); Anion Gap 10 (7-16); Aspartate Amino Transferase 86 U/L (0-34); BUN/Creatinine Ratio 16 Ratio (12-20); Bilirubin,Total 1.1 mg/dL (0.3-1.2); Blood Urea Nitrogen 24 mg/dL (9-23); Calcium 8.4 mg/dL (8.3-10.6); Calcium (Corrected) 8.4 mg/dL (8.5-10.1); Carbon Dioxide 28.5 mMol/L (20.0-31.0); Chloride 101 mMol/L (98-107); Creatinine (Component) 1.5 mg/dL (0.6-1.3); Globulin 3.5 gm/dL (2.3-3.5); Glucose 124 mg/dL (74-106); Osmolality,Calculated 282 (275-295); Potassium 3.5 mMol/L (3.4-5.1); Sodium 139 mMol/L (136-145); Total Protein 7.6 gm/dL (5.7-8.2); eGFR 36 See Note
[2024-08-16 14:20] LABS: CA 15-3 29.2 U/mL (<32.4); Carcinoembryonic Antigen 13.2 ng/mL (0.0-5.0)
[2024-08-16 15:51] LABS: Path Review Blood Smear Sent to Pathologist
== END 2024-08-18 23:59 | disposition home or self-care (01) ==
LOC: SCTC 08:47
PROVIDERS: Internal Medicine Hematology & Oncology; PCP Internal Medicine; Referring Provider Internal Medicine; Visit Provider Radiology Therapeutic Radiology
DX: Z51.0 Encounter for antineoplastic radiation therapy (principal); Z51.11 Encounter for antineoplastic chemotherapy; C50.212 Malignant neoplasm of upper-inner quadrant of left female breast; C78.7 Secondary malignant neoplasm of liver and intrahepatic bile duct; Z17.410 Hormone receptor positive with human epidermal growth factor receptor 2 positive status; Z90.12 Acquired absence of left breast and nipple; Z79.811 Long term (current) use of aromatase inhibitors
CPT/HCPCS: 36591; 77014; 77290; 77300; 77301; 77334; 77338; 77373; 80053; 82378; 83880; 85025; 86300; 96365; 96367; 96375; 96402; 96413; 99213; A4216; J1200; J1642; J2405; J3489; J3490; J7050; J9395; Q5117; G0463

== ENCOUNTER 2024-09-03 10:09 | Emergency (ER) | payer MEDICARE, SELFPAY ==
[2024-09-03 10:13] VITALS: BP 109/52; PULSE 66; RESP 18; TEMP 37; O2SAT 95; BMI 50.1
[2024-09-03 10:25] VITALS: PULSE 82; RESP 18; O2SAT 98; BMI 48.2
--- NOTE | 2024-09-03 11:22 | XR_ITS ---
Examination: Knee, left , 3 views Technique: Knee AP, lateral, oblique 3 views Date and time of exam: September 03, 2024 1127 hours INDICATIONS: Patient fell today with injury to the knee, knee pain. FINDINGS: Total left knee arthroplasty with satisfactory alignment No acute fracture IMPRESSION: No acute fracture Given the severe osteopenia, suggest short-term follow-up knee films as clinically warranted
--- NOTE | 2024-09-03 11:22 | XR_ITS ---
Examination: Left ankle 2 views Technique one AP lateral left ankle 2 views Date and time: September 03, 2024 1134 hours INDICATIONS: Patient fell today with injury to the ankle, ankle pain. FINDINGS: No fracture or dislocation No foreign body IMPRESSION: No fracture or dislocation
--- NOTE | 2024-09-03 11:24 | EKG_ITS ---
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
--- NOTE | 2024-09-03 11:25 | EDNOTE_ITS ---
<Statement entered by Isabella Price MD - 09/14/24 06:17> As co-signing physician, I was present and available for consult prn. I concur with the plan and care as documented by the midlevel provider. ED Fall Injury RME/HPI General Chief Complaint: Fall Stated Complaint: FALL Time Seen by Provider: 09/03/24 11:17 Arrival date/time: 09/03/24 10:09 RME / HPI RME / HPI Narrative: 73-year-old female patient with significant history of breast cancer, with mets to the liver, hypertension diabetes mellitus, came in for evaluation regarding fall. Apparently patient was trying to go to her MD appointment, and sustained a ground-level fall after patient lost balance patient is complaining of pain to the left ankle left knee, described as dull ache, severity moderate. Patient denies any hip pain. Denies any neck pain. Denies any headache denies any chest pain or back pain. Patient told me that she did not lost consciousness. She did not hit her head. Patient is not taking any blood thinner. Related Data Home Medications ?Medication ?Instructions ?Recorded ?Confirmed hydrocodone 5 mg-acetaminophen 325 1 tab PO Q6H PRN Pa in 10/10/20 06/10/23 mg tablet triamterene 37.5 1 tab PO QDAY 10/10/2006/10 mg-hydrochlorothiazide 25 mg tablet albuterol sulfate 2.5 mg/3 mL 2.5 mg inhalation Q6HR 0 06/01/21 06/10/23 (0.083 %) solution for nebulization calcium carbonate 500 mg PO BID 06/01/2106/10 metoprolol tartrate 25 mg tablet 50 mg PO BID 06/01/21 06/10/23 ondansetron HCl 8 mg tablet 8 mg PO BID PRN Nausea And Vomiting 06/01/21 06/10/23 atorvastatin 10 mg tablet (Lipitor) 10 mg PO QDAY 04/2106/10/23 palbociclib 125 mg capsule 125 mg PO QDAY 05/09/22 (Ibrance) anastrozole 1 mg tablet 1 mg PO DAILY 02/27/2306/10 cephalexin 500 mg capsule 500 mg PO TID PRN Muscle Spa sm 02/27/23 06/10/23 Previous Rx's ?Medication ?Instructions ?Recorded cefuroxime axetil 500 mg tablet 500 mg PO BID #14 tabs 04/02/23 Allergies Allergy/AdvReac Type Severity Reaction Status Date / Time alendronate sodium (From Allergy Severe Chest Pain Verified 06/10/23 07:52 Fosamax) Iodinated Contrast Media Allergy Intermediate Anaphylaxis Verified 06/10/23 07:52 iodine Allergy Intermediate Anaphylaxis Verified 06/10/23 07:52 lisinopril Allergy Mild Cough Verified 06/10/23 07:52 nut - unspecified Allergy Rash Verified 06/10/23 07:52 Review of Systems Review of Systems Narrative Review of Systems: Review of system reviewed and within normal limits except mentioned in HPI ED Exam Narrative Physical exam: VITAL SIGNS: Reviewed. GENERAL APPEARANCE: Alert and interactive, follows commands, no acute distress, HEAD AND FACE: Non-traumatic. ENT: PERRL, pink conjunctivitis, eyelid no trauma, Mucous membrane moist. NECK: Supple, nontender, no nuchal rigidity. CHEST: No tenderness, no crepitus, no paradoxical movement, no retractions. LUNGS: Clear, well ventilated, symmetric, no rales, no wheezing, no ronchi, no stridor, good breath sounds bilaterally. HEART: Regular rate, regular rhythm, no murmur, no gallops. ABDOMEN: Soft, positive bowel sounds, nondistended, no guarding, nontender, no rebound, no masses, RECTAL: Deferred. GENITAL: Deferred. NEUROLOGICAL: Gross motor function intact sensory function intact, Appropriate for age. MUSCULOSKELETAL: low back nontender, full range of motion. EXTREMITIES: Left ankle tenderness, left knee tenderness, no deformity no swelling, full range of motion. SKIN: Color pink, dry, no rash, no lacerations, no abrasions, no contusions. LYMPHATICS: Deferred. Course Quality Measures none Orders Category Date Time Status EKG (ED ONLY) *Do not use* NOW Care 09/03/24 11:25 Completed craig wrap [Splint / Immobilizer] STAT Care 09/03/24 15:45 Active EKG (ED Only) Stat Exams 09/03/24 11:24 Draft XR ankle LT 2V Stat Exams 09/03/24 11:22 Completed XR knee LT 3V Stat Exams 09/03/24 11:22 Completed CBC [CBC] Stat Lab 09/03/24 11:50 Completed CMP [Comprehensive Metabolic Panel] Stat Lab 09/03/24 11:50 Completed UA, C/S IF [Urinalysis, C/S if Indicated] Stat Lab 09/03/24 11:24 Stop Req HYDROcodone*/APAP 5/325 [[place] 5/325] Med 09/03/24 11:23 Discontinued 1 tab PO X1 ONE Vital Signs Vital signs: Vital Signs Temperature 98.6 F 09/03/24 10:13 Pulse Rate 66 09/03/24 10:13 Respiratory Rate 18 09/03/24 10:13 Blood Pressure 109/52 L 09/03/24 10:13 Pulse Oximetry (%) 95 09/03/24 10:13 Oxygen Delivery Method Room Air 09/03/24 10:13 Fall MDM Narrative MDM Narrative:: 73-year-old female patient with significant history of breast cancer, with mets to the liver, hypertension diabetes mellitus, came in for evaluation regarding fall. Apparently patient was trying to go to her MD appointment, and sustained a ground-level fall after patient lost balance patient is complaining of pain to the left ankle left knee, described as dull ache, severity moderate. Patient denies any hip pain. Denies any neck pain. Denies any headache denies any chest pain or back pain. Patient told me that she did not lost consciousness. She did not hit her head. Patient is not taking any blood thinner. EKG as interpreted by me shows sinus rhythm, ventricular rate of 64 bpm, no ST segment elevation or depression noted. X-ray of the ankle, unremarkable x-ray of the knee came back unremarkable. Patient's hemoglobin is slightly anemic 9.6 hematocrit of 27.1. CMP unremarkable. Sent for creatinine 1.6 which is her baseline. Results discussed with the patient. Patient data External records reviewed:: None Clinical information provided by:: patient Social determinants that could affect healthcare access:: none Patient has the following chronic illnesses:: Chronic pain syndrome diabetes mellitus, How is presenting disease/condition affected by chronic disease/condition?: uneffected by Evaluation data The following diagnostics were reviewed and interpreted by me:: lab results, radiology exam(s) and EKG tracing(s) Lab and/or radiology exams considered but not ordered:: None Interpretation Summary: See results in MDM Medications / Prescriptions Medications or Prescriptions considered but not ordered:: None Medication administrations:: Medication Administration History Discontinued Medications Hydrocodone Bitart/Acetaminophen (Hydrocodone/Apap 5/325 Tablet) 1 tab PO X1 ONE Stop: 09/03/24 11:24 Last Admin: 09/03/24 11:42 Dose: 1 tab Documented By: MANUELITO Naidu Consultations Consultation(s) initiated? (list below): No Diagnosis Fall Differential Diagnosis: other (Ankle fracture ankle dislocation, fall) Most likely diagnosis given after review of the tests above:: Alcohol sprain, status post fall Admission Indicated Admission indicated?: not indicated Admission Request Was there a request for admission?: No Disposition Plan Disposition Plan: Discharge Discharge Attestation Discharge Attestation: The patient was given an opportunity to ask questions and understood the discharge instructions. Discharge instructions specifically effects, indications for sooner follow up or return to the emergency department, and the expected course of current diagnosis. Patient condition: Stable Discharge Plan Plan Patient Disposition: HOME (Self Care) Discharge Disposition comment: Stable Prescriptions/Referrals Prescriptions/Med Rec: No Action atorvastatin [Lipitor] 10 mg tablet 10 mg PO QDAY Ibrance 125 mg capsule 125 mg PO QDAY Rx Instructions: administer on days 1 through 21 of a 28-day treatment cycle hydrocodone-acetaminophen 5-325 mg tablet 1 tab PO Q6H PRN (Reason: Pain) Patient Comments: TAKE 1 TABLET BY ORAL ROUTE EVERY 6 HOURS NEEDED FOR PAIN NEEDED Rx Instructions: back pain triamterene-hydrochlorothiazid 37.5-25 mg tablet 1 tab PO QDAY Patient Comments: TAKE 1 TABLET BY MOUTH EVERY DAY ondansetron HCl 8 mg Tablet 8 mg PO BID PRN (Reason: Nausea And Vomiting) metoprolol tartrate 25 mg tablet 50 mg PO BID Patient Comments: TAKE 1 TABLET BY MOUTH TWICE A DAY calcium carbonate 500 mg calcium (1,250 mg) tablet 500 mg PO BID Patient Comments: TAKE 1 TABLET BY MOUTH TWICE A DAY albuterol sulfate 2.5 mg /3 mL (0.083 %) solution for nebulization 2.5 mg inhalation Q6HR cephalexin 500 mg capsule 500 mg PO TID PRN (Reason: Muscle Spasm) anastrozole 1 mg tablet 1 mg PO DAILY cefuroxime axetil 500 mg tablet 500 mg PO BID Qty: 14 0RF Referrals: No Primary/Family,Physician [Primary Care Provider] - In 1 week Problem List Clinical Impression: Ankle sprain, Fall Patient/Caregiver Discharge Instructions Discharge Activity: activity as tolerated Education Materials: ED Ankle Sprain (Adult) Additional Instructions: Thank you for the opportunity for serving you today. You are stable for discharged . You are advised to: Follow-up with your PCP in 1 to 2 days Return to ED for worsening of symptoms Increase oral fluids Take your pain medication as needed Craig wrap as needed Print Language: Malagasy Stand Alone Forms: Gema Award Info., Patient Portal Info Letter PA/LEGAL PARAPROFESSIONAL Supervising Physician PA/LEISA Supervising Physician: MD Dee
[2024-09-03 11:42] VITALS: BP 120/75; PULSE 68; RESP 19; TEMP 36.9; O2SAT 95
[2024-09-03] MEDS: HYDROcodone/APAP 5/325 TABLET 1 TAB PO (11:42)
[2024-09-03 12:25] LABS: Basophils # (Auto) 0.1 Thou/mm3 (0.0-0.2); Basophils % (Auto) 1 % (0-2.5); Eosinophils # (Auto) 0.1 Thou/mm3 (0.0-0.5); Eosinophils % (Auto) 2 % (0-10); Hematocrit 27.1 % (36.0-46.0); Hemoglobin 9.6 g/dL (12.0-16.0); Immature Granulocytes % (Auto) 1 % (0-0); Immature Granulocytes Auto 0.05 Thou/mm3 (0.00-0.00); Lymphocytes # (Auto) 0.6 Thou/mm3 (1.0-4.8); Lymphocytes % (Auto) 9 % (10-50); Mean Corpuscular HGB Conc 35.4 g/dl (31.0-37.0); Mean Corpuscular Hemoglobin 37.8 pg (25.0-35.0); Mean Corpuscular Volume 107 fL (80-100); Monocytes # (Auto) 0.4 Thou/mm3 (0.0-0.8); Monocytes % (Auto) 7 % (0-12); Neutrophils # (Auto) 5.2 Thou/mm3 (1.8-7.7); Neutrophils % (Auto) 81 % (37-80); Nucleated Red Blood Cell % 0 /100 WBC (0); Platelet Count 164 Thou/mm3 (140-440); RDW Standard Deviation 59.5 fL (36.4-46.3); Red Blood Count 2.54 Miln/mm3 (4.00-5.20); White Blood Count 6.5 Thou/mm3 (3.6-11.0)
[2024-09-03 13:07] LABS: Alanine Aminotransferase 21 U/L (10-49); Albumin/Globulin Ratio 1.2 (1.2-2.2); Alkaline Phosphatase 127 U/L (46-116); Anion Gap 8 (7-16); Aspartate Amino Transferase 40 U/L (0-34); BUN/Creatinine Ratio 11 Ratio (12-20); Bilirubin,Total 1.3 mg/dL (0.3-1.2); Blood Urea Nitrogen 17 mg/dL (9-23); Calcium 8.7 mg/dL (8.3-10.6); Calcium (Corrected) 8.7 mg/dL (8.5-10.1); Carbon Dioxide 33.7 mMol/L (20.0-31.0); Chloride 102 mMol/L (98-107); Creatinine (Component) 1.6 mg/dL (0.6-1.3); Estimated Creatinine Clearance 36.5 mL/min (>60); Globulin 3.3 gm/dL (2.3-3.5); Glucose 105 mg/dL (74-106); Osmolality,Calculated 288 (275-295); Potassium 3.4 mMol/L (3.4-5.1); Sodium 144 mMol/L (136-145); Total Protein 7.3 gm/dL (5.7-8.2); eGFR 34 See Note
[2024-09-03 14:43] VITALS: BP 114/56; PULSE 69; RESP 17; TEMP 36.9; O2SAT 96
== END 2024-09-03 16:04 | disposition home or self-care (01) ==
PROVIDERS: Nurse Practitioner Family; Emergency Provider Emergency Medicine
DX: S93.402A Sprain of unspecified ligament of left ankle, initial encounter (principal); S89.92XA Unspecified injury of left lower leg, initial encounter; W18.30XA Fall on same level, unspecified, initial encounter
CPT/HCPCS: 36415; 73562; 73600; 80053; 81001; 85025; 93005; 99283; A9270

== ENCOUNTER 2024-09-16 13:46 | Outpatient (RCR) | payer MEDICARE, MEDICAID, SELFPAY ==
--- NOTE | 2024-09-09 14:18 | CTCFLWUP_ITS ---
Patient: JOSHUA HOWARD : 1950 Page 2 of 2 FOLLOW UP NOTE DATE OF SERVICE: 09/06/2024 NAME: JOSHUA HOWARD ACCOUNT: [id number] : 1950 AGE: 73 INTERVAL HISTORY: Patient was started on abemaciclib and Faslodex e at the last visit. As Ms. Howard have HER2 disease was also started on Herceptin. Patient received first dose of Herceptin on 07/01/2024. 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 She has completed two radiation treatments and one chemotherapy session for a newly discovered liver metastasis. Ms. Howard reports tolerating her current treatment with the Herceptin regimen well. She is taking her prescribed medication Verzenio twice daily and has experienced only mild nausea, which she was informed is common with liver radiation. She is scheduled for her third radiation treatment tomorrow, with two more to follow, totaling five treatments of 5000 centigrade in 5 fractions. The patient also mentions receiving Herceptin without any problems. Bhumi notes significant improvement in her overall health status. She states, I feel a lot better now, in contrast to her previous visit where she experienced shortness of breath. She has noticed visible weight loss, though the exact amount was not specified. The patient denies any chest pain or current respiratory issues, recalling a past episode of pneumonia that resolved with antibiotic treatment. The patient reports experiencing heavy anxiety, particularly at the beginning of her treatment. However, she indicates that her anxiety levels have improved over time. She continues to take anastrozole and abemaciclib as part of her breast cancer treatment. Regarding lifestyle, Bhumi mentions that she primarily eats vegetables, chicken, and tuna, consuming more vegetables than meat. Medications and Supplements - Anastrozole - Taking twice a day - Abemaciclib - Herceptin - No problems reported - Minocycline Review of Systems General: Negative for fever, chills. Positive for weight loss. Cardiovascular: Negative for chest pain. Respiratory: Negative for shortness of breath. Gastrointestinal: Positive for mild nausea. Musculoskeletal: Negative for leg swelling. Psychiatric: Positive for anxiety. Objective: Physical Examination General: Patient appears visibly reduced in weight. Musculoskeletal: Patient able to move leg. Laboratory, Imaging, and Diagnostic Test Results - MRI (07/05/2024): 27 x 33 mm rim-enhancing lesion in posterior upper lobe of right liver, new liver metastasis - PET scan (July 2023): Performed, specific results not mentioned - CEA: Elevated (specific value not provided) - Liver panel: Performed, results not specified - Kidney function: Impaired (specific values not provided) - Heart function: Normal - Colonoscopy (2009): Normal ONCOLOGY HISTORY:?[facility] Oncology Hx? DATE OF DIAGNOSIS: 12/30/2022 STAGE/TNM: Radiographic stage IV IN 2020 ER/WY positive HER2 negative locally advanced invasive ductal carcinoma of the left breast and found to be ER/WY HER2 positive in 2022 on the left breast mastectomy with the s/p chemotherapy and noted to have reduce in size of pulmonary nodules and lymphadenopathy TREATMENT HISTORY: Care?Plan Start?Date Cycle Day Intent DOCEtaxel?75,?Cyclophosphamide?600 05/28/2021 1 21 Curative?(primary) Trastuzumab?6?mg/kg? 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 2019:Patient had bilateral mammograms according to her that were nondiagnostic. 10/10/2020: Patient was seen in the emergency room here at [facility] cancer center because of mid lower chest pain. 10/10/2020: Chest x-ray? 10/10/2020: CT scan of the chest abdomen and pelvis with IV contrast? 10/17/2020: Left breast ultrasound? 10/17/2020: Bilateral diagnostic mammograms? 10/05/2020: Core needle biopsy of the left breast mass? 02/16/2021: PET CT scan? 03/09/2021: CT scan of the chest without contrast? 03/22/2021 ultrasound of the extremity anterior pelvic wall? 04/18/2021: CT scan of the chest abdomen and pelvis with IV contrast? 04/19/2021: CT scan of the chest abdomen and pelvis with IV contrast? 04/19/2021: Echocardiogram? 05/28/2021: Ms. Howard received first cycle of TC chemotherapy. 05/31/2021?06/13/2021: Ms. Howard was admitted to [facility] because of diarrhea, nausea and vomiting as well as cytopenias. 07/10/2021: CT scan of the chest with IV contrast 07/24/2021: Patient is started on anastrozole as well as palbociclib. 08/11/2021: PET/CT scan which was compared to previous PET/CT scan of February 16, 2021 as well as CTA of the chest of July 24, 2021.? 02/08/2022: CT scan of the chest abdomen and pelvis with IV contrast? 10/31/2022: PET/CT scan? 12/30/2022: Ms. Howard had left modified radical mastectomy 04/02/2023: Ms. Howard had 1 infusion of Trastuzumab(Herceptin).-Into the infusion patient started developing chills, rigors as well as mild shortness of breath. Infusion was discontinued and patient was sent to the emergency room. She was observed for few hours. 07/31/2023: PET/CT scan done 10/16/2023: Right breast mammogram? OTHER MEDICAL HISTORY/CONDITIONS: LEFT BREAST CANCER BRONCHITIS/ASTHMA CARDIAC ARRHYTHMIAS HYPERTENSION HIGH CHOLESTEROL OBESITY GERD URINARY INCONTINENCE GASTIC SURGERY 1991 CHOLECYSTECTOMY APPENDECTOMY BREAST BIOPSY UMBILICAL HERNIA REPAIR LEFT KNEE SX COLONOSCOPY/EGD ?Clone Other Med Hx? FAMILY HISTORY: Father: PATERNAL GRANDMA CERVICAL CANCER Mother:?DENIES Sibling: SISTER CERVICAL CANCER, BROTHER LIVER CANCER Children:?DENIES Cancer?History:?HX?BREAST?CANCER ?Clone Family Hx? 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 MEDICATIONS: 1. albuterol sulfate - 0.63 mg/3 mL As directed 2. Benadryl - 50 mg 1 Capsule As directed 3. Celexa - 20 mg 1 tab Daily 4. famotidine - 40 mg 1 tab Daily 5. gabapentin - 100 mg 2 Capsule Three times a day 6. Gemtesa - 75 mg 1 tab Every day before sleep 7. Ibrance - 125 mg 1 tab Daily 8. Lasix - 20 mg 1 tab Daily 9. levoFLOXacin - 750 mg 1 tab Daily 10. Lipitor - 10 mg 1 tab Every day before sleep 11. metoprolol succinate - 25 mg 1 tab Every day before sleep 12. metoprolol succinate - 50 mg 1 tab In the morning 13. multivitamin - 1 Capsule Daily 14. Oyster Calcium - 500 mg 1 tab Twice a Day 15. predniSONE - 50 mg 1 tab As directed 16. tizanidine - 4 mg Every 6 Hours 17. Tylenol-Codeine No.3 - 300-30 mg 1 tab As directed 18. Verzenio - 150 mg 1 tab Twice a Day 19. Vitamin D2 - 25,000 unit 1 Capsule Weekly 20. Zofran - 8 mg 1 tab As needed 21. Zoloft - 25 mg 1 tab Daily?Palabra Meds? Medications Last Reconciled by Yeimy Valdez MA on 09/06/2024 ALLERGIES: nuts; alendronate; lisinopril; iodine REVIEW OF SYSTEMS: A complete 14-point review of systems was performed and is negative except as noted in interval history. PHYSICAL EXAMINATION:?[facility] PE? VITAL SIGNS: Temperature?99, B/P?141/79, Oxygen?Saturation?93% PAIN: 0 - No pain Alert and oriented x 4 CHEST: Decreased air entry at the bases No masses palpable on the left chest wall. No areas of tenderness. CARDIAC: Rhythm regular, no murmurs or gallops present. ABDOMEN: Soft. No hepatomegaly. No splenomegaly. EXTREMITIES: 1+ pitting LE. LABORATORY DATA: I have personally reviewed and interpreted each of the patient?s relevant lab tests, abnormal findings are below: Date 08/16/24 09/03/24 ??WHITE?BLOOD?COUNT?(Thou/mm3) ? 6.5 ??RED?BLOOD?COUNT?(Miln/mm3) ? 2.54?L ??HEMOGLOBIN?(gm/dl) ? 9.6?L ??HEMATOCRIT?(%) ? 27.1?L ??PLATELET?COUNT?(Thou/mm3) ? 164 ??NEUTROPHILS?%,?AUTO?(%) ? 81?H ??LYMPH?%,?AUTO?(%) ? 9?L ??NEUTROPHILS,?AUTO?(Thou/mm3) ? 5.2 ??GLUCOSE,RANDOM?(mg/dL) 124?H 105 ??BLOOD?UREA?NITROGEN?(mg/dL) 24?H 17 ??CREATININE?(mg/dL) 1.50?H 1.60?H ??SODIUM?(mmol/L) 139 144 ??POTASSIUM?(mmol/L) 3.5 3.4 ??CHLORIDE?(mmol/L) 101 102 ??CrCl?(CandG)?(ml/min) 41.12 38.23 ??AST/SGOT?(Unit/L) 86?H 40?H ??ALT/SGPT?(Unit/L) 59?H 21 ??ALKALINE?PHOSPHATASE?(Unit/L) 155?H 127?H ??BILIRUBIN,?TOTAL?(mg/dL) 1.1 1.3?H ??PROTEIN?TOTAL?(gm/dl) 7.6 7.3 ??ALBUMIN,?SERUM?(gm/dl) 4.1 4.0 ??GLOBULIN?(gm/dl) 3.5 3.3 ??ALBUMIN/GLOBULIN?RATIO 1.2 1.2 ??CALCIUM,?SERUM?(mg/dL) 8.4 8.7 ??CALCIUM?SERUM?(CORRECTED)?(mg/dL) 8.4?L 8.7 ??CEA?(O*)?(ng/ml) 13.2?H ? ASSESSMENT/PLAN:?Vivian Andrade Assessment/Plan? Stage IV breast cancer ER/WY positive HER2 negative but later on mastectomy found to be HER2 positive in 2022 on initial biopsy in 2020 Patient had left breast mastectomy and was found to be ER/WY HER2 positive Lymph node and lung nodules were never biopsied but they reduced in size on the first cycle of chemotherapy Patient received first cycle of chemotherapy on May 2021 and was complicated with a diarrhea nausea vomiting and admitted to the hospital and she decided not to take further chemotherapy Patient had great improvement with chemotherapy Patient underwent left radical mastectomy and at that time was noted to have HER2 positive disease Patient received Herceptin but had reaction in March 2023 and further treatment was stopped Patient was started on anastrozole and Ibrance PET CT scan in July 2023 shows 6 mm weekly hypermetabolic left lower lateral neck lymph node and no other metastatic disease 05/05/2024 MRI brain is negative for any cancer CT chest abdomen and pelvis Interval 10 mm right lobe liver lesion, recommend MRI abdomen liver follow-up, pre and postcontrast, to exclude hepatic metastasis Patient s tumor marker is rising up Patient's liver lesion 23 mm. Patient was changed to Herceptin along with the antiendocrine therapy changed to to amebaciclib and fulvestrant in third line option Assessment and Plan: Bhumi prado is a 73-year-old female with stage 4 triple-positive left breast cancer, status post mastectomy, currently undergoing radiation therapy and chemotherapy. Stage 4 triple-positive left breast cancer Assessment: Patient has stage 4 triple-positive left breast cancer, status post left mastectomy. She is currently undergoing radiation therapy for liver metastasis, with 2 out of 5 planned SBRT treatments completed (5000 cGy in 5 fractions). A recent MRI on 07-05-2024 showed a 27x33 mm rim-enhancing lesion in the posterior upper right lobe of the liver, which was not previously seen. The patient is tolerating radiation well, with only mild nausea reported. She is also receiving chemotherapy, including Herceptin, without significant issues. Current medications include anastrozole and abemaciclib. The cancer marker CEA is elevated, which is likely due to the breast cancer. A PET scan is planned for further evaluation. Plan: - Continue anastrozole and abemaciclib as prescribed - Complete remaining 3 SBRT treatments for liver metastasis - Continue Herceptin infusions as scheduled - Schedule PET scan for after October 08 (patient's 74th birthday) - Follow up after PET scan results are available - Monitor CEA levels - Encourage adequate hydration, especially before scans - Advised to wear compression stockings and move legs to prevent blood clots Renal function impairment Assessment: Patient has a history of impaired renal function. Previous power system dispatcher (Dr. Degroot) had indicated that the patient would be stable for approximately 5 years without significant issues. Current kidney function is noted to be not great and requires monitoring, especially in the context of frequent imaging studies. Plan: - Monitor renal function with regular blood tests - Encourage increased water intake, especially before and after imaging studies - Consider referral to a power system dispatcher for further evaluation and management Elevated CEA Assessment: Patient's CEA (carcinoembryonic antigen) level is elevated. This is likely related to the known breast cancer rather than indicating colon cancer. However, given the elevated CEA and recent weight loss, further gastrointestinal evaluation is warranted. Plan: - Refer to hoist mechanic (Dr. Currie) for evaluation and colonoscopy - Continue monitoring CEA levels Anxiety Assessment: Patient reports a history of significant anxiety, particularly at the beginning of her cancer treatment. Current anxiety levels appear to have improved but may still be present. Plan: - Continue to monitor anxiety levels at follow-up appointments - Consider referral for mental health support if anxiety worsens or impacts daily functioning Bronchitis X-ray chest was obtained by me today in the clinic as patient have been having cough and sputum production and was treated with antibiotics levofloxacin Patient is now doing better bronchitis resolved ORDERS: Order # Description [id number] CBC + Comprehensive Metabolic Panel [id number] Lab Appointment [id number] Follow Up Appointment [id number] Infusion 1 Hour [id number] CBC + Comprehensive Metabolic Panel [id number] Lab Appointment [id number] Follow Up Appointment [id number] Cardiac ECHO [id number] Infusion 1 Hour [id number] CBC + Comprehensive Metabolic Panel [id number] Lab Appointment [id number] Follow Up Appointment [id number] Infusion 1 Hour [id number] CBC + Comprehensive Metabolic Panel [id number] Lab Appointment [id number] Follow Up Appointment [id number] Infusion 1 Hour [id number] CBC + Comprehensive Metabolic Panel [id number] Lab Appointment [id number] Follow Up Appointment [id number] Infusion 1 Hour [id number] CBC + Comprehensive Metabolic Panel [id number] Lab Appointment [id number] Follow Up Appointment [id number] Infusion 1 Hour [id number] CBC + Comprehensive Metabolic Panel [id number] Lab Appointment [id number] Follow Up Appointment [id number] Cardiac ECHO [id number] Infusion 1 Hour [id number] Infusion 1 Hour [id number] CBC + Comprehensive Metabolic Panel [id number] Lab Appointment [id number] Follow Up Appointment [id number] Infusion 1 Hour [id number] CBC + Comprehensive Metabolic Panel [id number] Lab Appointment [id number] Follow Up Appointment [id number] Infusion 1 Hour [id number] CBC + Comprehensive Metabolic Panel [id number] Lab Appointment [id number] Follow Up Appointment [id number] Cardiac ECHO [id number] Infusion 1 Hour [id number] CBC + Comprehensive Metabolic Panel [id number] Lab Appointment [id number] Follow Up Appointment [id number] Infusion 1 Hour [id number] CBC + Comprehensive Metabolic Panel [id number] Lab Appointment [id number] Follow Up Appointment [id number] Infusion 1 Hour [id number] CBC + Comprehensive Metabolic Panel [id number] Lab Appointment [id number] Follow Up Appointment [id number] Infusion 1 Hour [id number] CBC + Comprehensive Metabolic Panel [id number] Lab Appointment [id number] Follow Up Appointment [id number] Infusion 1 Hour [id number] CBC + Comprehensive Metabolic Panel [id number] Lab Appointment [id number] Follow Up Appointment [id number] Cardiac ECHO [id number] Infusion 1 Hour [id number] CBC + Comprehensive Metabolic Panel [id number] Lab Appointment [id number] Infusion 1 Hour [id number] Follow Up Appointment [id number] Infusion 1 Hour [id number] CBC + Comprehensive Metabolic Panel [id number] Lab Appointment [id number] Follow Up Appointment [id number] Infusion 1 Hour [id number] CBC + Comprehensive Metabolic Panel [id number] Lab Appointment [id number] Follow Up Appointment [id number] Infusion 1 Hour [id number] Infusion 1 Hour [id number] CBC + Comprehensive Metabolic Panel [id number] Lab Appointment [id number] Follow Up Appointment [id number] CBC + Comprehensive Metabolic Panel [id number] Lab Appointment [id number] Follow Up Appointment [id number] Cardiac ECHO [id number] Infusion 1 Hour [id number] CBC + Comprehensive Metabolic Panel [id number] Lab Appointment [id number] Follow Up Appointment [id number] Infusion 1 Hour [id number] CBC + Comprehensive Metabolic Panel [id number] Lab Appointment [id number] Follow Up Appointment [id number] Infusion 1 Hour [id number] CBC + Comprehensive Metabolic Panel [id number] Lab Appointment [id number] Follow Up Appointment [id number] Infusion 1 Hour [id number] Infusion 1 Hour [id number] Infusion 1 Hour RETURN TO CLINIC: BILLING AND COMPLIANCE: I reviewed external records from providers outside my specialty as summarized above. I spent a total of 50 minutes on this patient?s care on the day of their visit excluding time spent related to any billed procedures. This time includes time spent with the patient as well as time spent documenting in the medical record, reviewing patients records and tests, obtaining history, placing orders, communicating with other healthcare professionals, counseling the patient, family or caregiver, and/or care coordination for the diagnoses above. Electronically Signed by: Ranjit Andrade MD T: 1:32 PM CC: Eugene?Praneeth,? PCP: Eugene Dacosta Referring: Eugene Dacosta This document was completed utilizing speech recognition software. Grammatical errors, random word insertions, pronoun errors, and incomplete sentences are an occasional consequence of this system due to software limitations, ambient noise, and hardware issues. Any formal questions or concerns about the content, text or information contained within the body of this dictation should be directly addressed to the provider for clarification.
== END 2024-09-18 23:59 | disposition home or self-care (01) ==
LOC: SCTC 13:46
PROVIDERS: PCP Internal Medicine; Referring Provider Internal Medicine; Visit Provider Internal Medicine Hematology & Oncology
DX: Z51.0 Encounter for antineoplastic radiation therapy (principal); Z51.11 Encounter for antineoplastic chemotherapy; C50.212 Malignant neoplasm of upper-inner quadrant of left female breast; Z17.410 Hormone receptor positive with human epidermal growth factor receptor 2 positive status; Z90.12 Acquired absence of left breast and nipple; R91.8 Other nonspecific abnormal finding of lung field; Z79.811 Long term (current) use of aromatase inhibitors; R97.0 Elevated carcinoembryonic antigen [CEA]; F41.9 Anxiety disorder, unspecified
CPT/HCPCS: 77336; 77373; 96367; 96375; 96413; 99212; A4216; J1200; J1642; J2405; J3490; J7040; J7050; Q5117; G0463

== ENCOUNTER 2024-10-04 08:28 | Outpatient (RCR) | payer MEDICARE, SELFPAY ==
[2024-10-01 11:10] LABS: Basophils # (Auto) 0.1 Thou/mm3 (0.0-0.2); Basophils % (Auto) 2 % (0-2.5); Eosinophils # (Auto) 0.1 Thou/mm3 (0.0-0.5); Eosinophils % (Auto) 2 % (0-10); Hematocrit 30.9 % (36.0-46.0); Hemoglobin 10.7 g/dL (12.0-16.0); Immature Granulocytes % (Auto) 0 % (0-0); Immature Granulocytes Auto 0.01 Thou/mm3 (0.00-0.00); Lymphocytes # (Auto) 0.9 Thou/mm3 (1.0-4.8); Lymphocytes % (Auto) 21 % (10-50); Mean Corpuscular HGB Conc 34.6 g/dl (31.0-37.0); Mean Corpuscular Hemoglobin 38.4 pg (25.0-35.0); Mean Corpuscular Volume 111 fL (80-100); Monocytes # (Auto) 0.3 Thou/mm3 (0.0-0.8); Monocytes % (Auto) 8 % (0-12); Neutrophils # (Auto) 2.8 Thou/mm3 (1.8-7.7); Neutrophils % (Auto) 67 % (37-80); Nucleated Red Blood Cell % 0 /100 WBC (0); Platelet Count 142 Thou/mm3 (140-440); Red Blood Count 2.79 Miln/mm3 (4.00-5.20); White Blood Count 4.2 Thou/mm3 (3.6-11.0)
[2024-10-01 11:35] LABS: Alanine Aminotransferase 15 U/L (10-49); Albumin/Globulin Ratio 1.3 (1.2-2.2); Alkaline Phosphatase 206 U/L (46-116); Anion Gap 12 (7-16); Aspartate Amino Transferase 44 U/L (0-34); BUN/Creatinine Ratio 12 Ratio (12-20); Blood Urea Nitrogen 16 mg/dL (9-23); Calcium 9.3 mg/dL (8.3-10.6); Calcium (Corrected) 9.3 mg/dL (8.5-10.1); Carbon Dioxide 29.1 mMol/L (20.0-31.0); Chloride 101 mMol/L (98-107); Creatinine (Component) 1.3 mg/dL (0.6-1.3); Globulin 3.2 gm/dL (2.3-3.5); Glucose 104 mg/dL (74-106); Osmolality,Calculated 284 (275-295); Potassium 3.5 mMol/L (3.4-5.1); Sodium 142 mMol/L (136-145); Thyroid Stimulating Hormone 2.85 uIU/mL (0.55-4.78); Total Protein 7.2 gm/dL (5.7-8.2); eGFR 43 See Note
[2024-10-01 11:51] LABS: CA 15-3 20.7 U/mL (<32.4); Carcinoembryonic Antigen 13.9 ng/mL (0.0-5.0)
== END 2024-10-18 23:59 | disposition home or self-care (01) ==
LOC: SCTC 08:28
PROVIDERS: PCP Internal Medicine; Referring Provider Internal Medicine; Visit Provider Internal Medicine Hematology & Oncology
DX: Z51.11 Encounter for antineoplastic chemotherapy (principal); C50.212 Malignant neoplasm of upper-inner quadrant of left female breast; Z17.410 Hormone receptor positive with human epidermal growth factor receptor 2 positive status; F41.9 Anxiety disorder, unspecified; Z79.818 Long term (current) use of other agents affecting estrogen receptors and estrogen levels; Z79.811 Long term (current) use of aromatase inhibitors; Z90.12 Acquired absence of left breast and nipple
CPT/HCPCS: 36591; 80053; 82378; 84443; 84450; 85025; 86300; 96361; 96375; 96413; A4216; J1200; J1642; J2405; J3490; J7040; J7050; Q5117

== ENCOUNTER 2024-10-25 11:05 | Emergency (ER) | payer MEDICARE, MEDICAID, SELFPAY ==
[2024-10-25] VITALS (7 sets, daily range): BP systolic 101–143; BP diastolic 51–84; PULSE 76–105; RESP 15–22; TEMP 36.3–36.7; O2SAT 94–99; BMI 46.6
--- NOTE | 2024-10-25 17:48 | PC.NURSE ---
Patient to er from [facility] and taken to rm 17. Patient sent by [facility] for abnormal labs. Patient being treated at [facility] for Left breast CA and a spot on her liver. Patient had radiation tx last on October 17 for spot on liver and takes oral chemo for left breast cancer. Currently patient alert and oriented x 3, c/o generalized body pain 6/10, patient states she takes hydrocodone for chronic pain, skin is warm dry and pink. Chart up to be seen by er provider. Per patient states she has had intermittently n/vomiting x days and diarrhea since yesterday. Will await further orders.
[2024-10-25] MEDS: POTASSIUM CHL 10 mEq IVPB 10 MEQ/100 ML BAG 100 MEQ IV ×3 (19:05→21:28)
[2024-10-25] MEDS: SODIUM CHLORIDE 0.9% 1000 ML 1,000 ML 999 ML IV (19:07)
[2024-10-25] MEDS: ONDANSETRON INJ 2 MG/ML INJ 2 ML 4 MG IVP ×2 (19:08→21:31)
[2024-10-25 20:40] LABS: Collection Type, Urine Catheter
[2024-10-25 21:10] LABS: Bacteria,Urine 4+; Bilirubin,Urine 1+ (Negative); Blood,Urine Negative (Negative); Clarity,Urine Turbid (Clear/Hazy); Color,Urine Yellow (Lt Yel-Yel); Glucose, Urine Negative (Negative); Ketones,Urine Negative (Negative); Leukocyte Esterase,Urine Positive (Negative); Nitrite,Urine Negative (Negative); PH,Urine 5.0 (5.0-7.0); Protein,Urine 1+ (Neg - Trace); RBC,Urine 5 /hpf (0-3); Specific Gravity,Urine 1.023 (1.001-1.035); Squamous Epithelial Cell,Urine < 1 /hpf (0-5); Urobilinogen,Urine 3.0 mg/dL (0.0-1.0); WBC,Urine 193 /hpf (0-5)
[2024-10-25 21:15] LABS: Culture Indicated,Urine Yes
--- NOTE | 2024-10-25 21:26 | PD.EDADULT ---
ED General RME/HPI General Chief complaint: General Adult/Misc Complain Stated complaint: ABNORMAL LABS, DRAWN TODAY Time Seen by Provider: 10/25/24 12:01 Source: patient Arrival date/time: 10/25/24 11:05 Limitations: no limitations RME / HPI RME / HPI narrative: 74-year-old female was sent here for hypokalemia. She was found to have a potassium of 2.7 and a creatinine of 1.5 earlier today. She was sent here for IV fluids and potassium replacement. Patient states she has had mild diarrhea for last 2 to 3 days. She has had no blood with her bowel movements. She endorses mild urinary frequency. She has no fevers or chills. She has no abdominal pain. She has no other acute complaints or concerns. Related Data Home Medications ?Medication ?Instructions ?Recorded ?Confirmed hydrocodone 5 mg-acetaminophen 325 1 tab PO Q6H PRN Pain 10/10/20 06/10/23 mg tablet triamterene 37.5 1 tab PO QDAY 10/10/20 06/10/23 mg-hydrochlorothiazide 25 mg tablet albuterol sulfate 2.5 mg/3 mL 2.5 mg inhalation Q6HR 06/01/21 06/10/23 (0.083 %) solution for nebulization calcium carbonate 500 mg PO BID 06/01/21 06/10/23 metoprolol tartrate 25 mg tablet 50 mg PO BID 06/01/21 06/10/23 ondansetron HCl 8 mg tablet 8 mg PO BID PRN Nausea And Vomiting 06/01/21 06/10/23 atorvastatin 10 mg tablet (Lipitor) 10 mg PO QDAY 05/09/22 06/10/23 palbociclib 125 mg capsule 125 mg PO QDAY 05/09/22 06/10/23 (Ibrance) anastrozole 1 mg tablet 1 mg PO DAILY 02/27/23 06/10/23 cephalexin 500 mg capsule 500 mg PO TID PRN Muscle Spasm 02/27/23 06/10/23 Previous Rx's ?Medication ?Instructions ?Recorded cefuroxime axetil 500 mg tablet 500 mg PO BID #14 tabs 04/02/23 cephalexin 500 mg capsule 500 mg PO Q8H 7 days #21 caps 10/25/24 Allergies Allergy/AdvReac Type Severity Reaction Status Date / Time alendronate sodium (From Allergy Severe Chest Pain Verified 10/25/24 11:07 Fosamax) nut - unspecified Allergy Severe Rash Verified 10/25/24 11:07 Iodinated Contrast Media Allergy Intermediate Anaphylaxis Verified 10/25/24 11:07 iodine Allergy Intermediate Anaphylaxis Verified 10/25/24 11:07 lisinopril Allergy Mild Cough Verified 10/25/24 11:07 Review of Systems Review of Systems Systems Reviewed: All systems reviewed, normal except as documented ED Exam General Limitations: Present no limitations General appearance: Present alert and in no apparent distress Head Head exam: Present atraumatic Eye Eye exam: Present normal appearance, PERRL and EOMI ENT ENT exam: Present normal exam, normal oropharynx and mucous membranes moist Neck Neck exam: Present normal inspection, full ROM and trachea midline Chest Chest inspection: Present normal inspection and symmetric chest wall rise Respiratory Respiratory exam: Present normal lung sounds bilaterally Cardiovascular Cardiovascular exam: Present regular rate, normal rhythm and normal heart sounds Abdominal Exam Abdominal exam: Present soft; Absent tenderness or guarding Extremities Exam Extremities exam: Present normal inspection and full ROM Back Exam Back exam: Present normal inspection and full ROM Neurological Exam Neurological exam: Present alert and oriented X3 Psychiatric Psychiatric exam: Present normal affect and normal mood Skin Skin exam: Present warm, dry, intact and normal color Course Quality Measures none 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 START 00 Care 10/25/24 12:05 Active EKG (ED ONLY) *Do not use* NOW Care 10/25/24 12:44 Completed In and Out Catheter X1 Care 10/25/24 20:19 Completed May Access Port-A-Cath NOW Care 10/25/24 12:15 Ordered EKG (ED Only) Stat Exams 10/25/24 12:44 Ordered Urinalysis, C/S if Indicated Stat Lab 10/25/24 20:25 Completed Urine Culture Stat Lab 10/25/24 20:25 Received Heparin Sod Lock Syr [Hep-Lock 100 UNIT/ML SYR] Med 10/25/24 22:38 Once 500 unit IV X1 ONE Ondansetron Inj [Zofran Inj] Med 10/25/24 21:25 Discontinued 4 mg .ROUTE .STK-MED ONE Ondansetron Inj [Zofran Inj] Med 10/25/24 12:02 Discontinued 4 mg IVP X1 ONE Ondansetron Inj [Zofran Inj] Med 10/25/24 19:15 Discontinued 4 mg IVP X1 ONE POTASSIUM CHL 10 mEq IVPB [Kcl Ivpb] Med 10/25/24 12:04 Discontinued 10 meq in 100 ml IV Q1H POTASSIUM CHL 10 mEq IVPB [Kcl Ivpb] Med 10/25/24 21:21 Discontinued 10 meq in 100 ml IV X1 Potassium Chloride [K-Dur] Med 10/25/24 20:23 Discontinued 20 meq PO X1 ONE Potassium Chloride [K-Dur] Med 10/25/24 21:21 Discontinued 20 meq PO X1 ONE Sodium Chloride 0.9% 1000 ml [Ns] 1,000 ml Med 10/25/24 19:15 Discontinued IV 999 mls/hr cephALEXin [Keflex] Med 10/25/24 21:31 Discontinued 500 mg PO X1 ONE Vital Signs Vital signs: Vital Signs Temperature 97.4 F 10/25/24 11:20 Pulse Rate 105 H 10/25/24 11:20 Respiratory Rate 19 10/25/24 11:20 Blood Pressure 101/66 10/25/24 11:20 Pulse Oximetry (%) 94 L 10/25/24 11:20 Oxygen Delivery Method Room Air 10/25/24 11:20 Discharge Plan Plan Patient Disposition: HOME (Self Care) Patient condition on transfer: Stable Prescriptions/Referrals Prescriptions/Med Rec: New cephalexin 500 mg capsule 500 mg PO Q8H 7 Days Qty: 21 0RF No Action atorvastatin [Lipitor] 10 mg tablet 10 mg PO QDAY Ibrance 125 mg capsule 125 mg PO QDAY Rx Instructions: administer on days 1 through 21 of a 28-day treatment cycle hydrocodone-acetaminophen 5-325 mg tablet 1 tab PO Q6H PRN (Reason: Pain) Patient Comments: TAKE 1 TABLET BY ORAL ROUTE EVERY 6 HOURS NEEDED FOR PAIN NEEDED Rx Instructions: back pain triamterene-hydrochlorothiazid 37.5-25 mg tablet 1 tab PO QDAY Patient Comments: TAKE 1 TABLET BY MOUTH EVERY DAY ondansetron HCl 8 mg Tablet 8 mg PO BID PRN (Reason: Nausea And Vomiting) metoprolol tartrate 25 mg tablet 50 mg PO BID Patient Comments: TAKE 1 TABLET BY MOUTH TWICE A DAY calcium carbonate 500 mg calcium (1,250 mg) tablet 500 mg PO BID Patient Comments: TAKE 1 TABLET BY MOUTH TWICE A DAY albuterol sulfate 2.5 mg /3 mL (0.083 %) solution for nebulization 2.5 mg inhalation Q6HR cephalexin 500 mg capsule 500 mg PO TID PRN (Reason: Muscle Spasm) anastrozole 1 mg tablet 1 mg PO DAILY cefuroxime axetil 500 mg tablet 500 mg PO BID Qty: 14 0RF Referrals: Eugene Dacosta MD [Primary Care Provider] - In 1 week Problem List Clinical Impression: Acute hypokalemia, Acute UTI Patient/Caregiver Discharge Instructions Education Materials: ED Hypokalemia, ED CYSTITIS Female Adult Additional Instructions: - Maintain oral hydration use the provided antibiotic as prescribed. - Consume potassium rich foods. - Follow-up with your primary clinic this week for recheck. - Return here at anytime for any worsening or emergent changes. Print Language: [place] Stand Alone Forms: Gema Award Info., Patient Portal Info Letter MDM Medication Administration(s) Medication Administration History Heparin Sodium (Beef Lung) (Heparin Sod Lock Syr 100 Unit/Ml) 500 unit IV X1 ONE Stop: 10/25/24 22:39 Discontinued Medications Cephalexin HCl (Cephalexin 250 Mg Capsule) 500 mg PO X1 ONE Stop: 10/25/24 21:32 Last Admin: 10/25/24 21:44 Dose: 500 mg Documented By: MANUELITO Potassium Chloride (Kcl Ivpb) 10 meq in 100 mls @ 100 mls/hr IV Q1H MARY Stop: 10/25/24 16:03 Last Admin: 10/25/24 21:23 Dose: Not Given Documented By: MANUELITO Non-Admin Reason: Cancelled by Provider Admin: 10/25/24 21:23 Dose: Not Given Documented By: MANUELITO Non-Admin Reason: Cancelled by Provider Infusion: 10/25/24 21:06 Dose: Infused Documented By: Admin: 10/25/24 20:05 Dose: 100 mls/hr Documented By: Infusion: 10/25/24 20:05 Dose: Infused Documented By: Admin: 10/25/24 19:05 Dose: 100 mls/hr Documented By: STEVIE Sodium Chloride (Ns) 1,000 mls @ 999 mls/hr IV .Q1H1M ONE Stop: 10/25/24 20:15 Last Infusion: 10/25/24 21:23 Dose: Infused Documented By: Admin: 10/25/24 19:07 Dose: 999 mls/hr Documented By: STEVIE Potassium Chloride (Kcl Ivpb) 10 meq in 100 mls @ 100 mls/hr IV X1 ONE Stop: 10/25/24 22:20 Last Infusion: 10/25/24 22:30 Dose: Infused Documented By: Admin: 10/25/24 21:28 Dose: 100 mls/hr Documented By: MANUELITO Ondansetron HCl (Ondansetron Inj 2 Mg/Ml Inj 2 Ml) 4 mg IVP X1 ONE; Protocol Stop: 10/25/24 12:03 Last Admin: 10/25/24 19:08 Dose: 4 mg Documented By: STEVIE Ondansetron HCl (Ondansetron Inj 2 Mg/Ml Inj 2 Ml) 4 mg IVP X1 ONE; Protocol Stop: 10/25/24 19:16 Last Admin: 10/25/24 21:31 Dose: 4 mg Documented By: MANUELITO Ondansetron HCl (Ondansetron Inj 2 Mg/Ml Inj 2 Ml) Confirm Administered Dose 4 mg .ROUTE .STK-MED ONE Stop: 10/25/24 21:26 Last Admin: 10/25/24 21:36 Dose: Not Given Documented By: MANUELITO Non-Admin Reason: Duplicate Medication on eMAR Potassium Chloride (Potassium Chloride 20 Meq Tabcr) 20 meq PO X1 ONE Stop: 10/25/24 20:24 Last Admin: 10/25/24 21:19 Dose: 20 meq Documented By: MANUELITO Potassium Chloride (Potassium Chloride 20 Meq Tabcr) 20 meq PO X1 ONE Stop: 10/25/24 21:22 Last Admin: 10/25/24 21:26 Dose: 20 meq Documented By: MANUELITO
[2024-10-25] MEDS: HEPARIN SOD LOCK SYR 100 UNIT/ML 500 UNIT IV (23:04)
== END 2024-10-25 23:16 | disposition home or self-care (01) ==
PROVIDERS: Emergency Provider Physician Assistant Medical; PCP Internal Medicine
DX: E87.6 Hypokalemia (principal); N39.0 Urinary tract infection, site not specified
CPT/HCPCS: 51701; 81001; 87077; 87086; 87186; 93005; 96361; 96365; 96367; 96375; 96376; 99284; J1642; J2405; J3480; J7030; A9270

== ENCOUNTER 2024-11-03 09:07 | Outpatient (RCR) | payer MEDICARE, SELFPAY ==
[2024-10-25 09:59] LABS: Basophils # (Auto) 0.1 Thou/mm3 (0.0-0.2); Basophils % (Auto) 2 % (0-2.5); Eosinophils # (Auto) 0.1 Thou/mm3 (0.0-0.5); Eosinophils % (Auto) 1 % (0-10); Hematocrit 35.5 % (36.0-46.0); Hemoglobin 12.4 g/dL (12.0-16.0); Immature Granulocytes Auto 0.03 Thou/mm3 (0.00-0.00); Lymphocytes # (Auto) 1.0 Thou/mm3 (1.0-4.8); Lymphocytes % (Auto) 24 % (10-50); Mean Corpuscular HGB Conc 34.9 g/dl (31.0-37.0); Mean Corpuscular Hemoglobin 37.9 pg (25.0-35.0); Mean Corpuscular Volume 109 fL (80-100); Monocytes # (Auto) 0.3 Thou/mm3 (0.0-0.8); Monocytes % (Auto) 8 % (0-12); Neutrophils # (Auto) 2.7 Thou/mm3 (1.8-7.7); Neutrophils % (Auto) 65 % (37-80); Nucleated Red Blood Cell # 0.00 Thou/mm3 (0.00-0.00); Nucleated Red Blood Cell % 0 /100 WBC (0); Platelet Count 134 Thou/mm3 (140-440); RDW Standard Deviation 52.3 fL (36.4-46.3); Red Blood Count 3.27 Miln/mm3 (4.00-5.20); White Blood Count 4.2 Thou/mm3 (3.6-11.0)
[2024-10-25 10:23] LABS: Cardiac Risk Estimate 4.8 RATIO (3.7-5.6); Cholesterol 182 mg/dL (132-200); Folate 19.74 ng/mL (>5.38); HDL Cholesterol 38 mg/dL (40-60); LDL Cholesterol,Calculated 111 mg/dL (0-130); Thyroid Stimulating Hormone 2.89 uIU/mL (0.55-4.78); Triglycerides 166 mg/dL (30-150); Vitamin B12 595 pg/mL (211-911)
[2024-10-25 10:34] LABS: Alanine Aminotransferase 23 U/L (10-49); Albumin, Serum 4.1 gm/dL (3.4-4.8); Albumin/Globulin Ratio 1.1 (1.2-2.2); Alkaline Phosphatase 170 U/L (46-116); Anion Gap 15 (7-16); Aspartate Amino Transferase 58 U/L (0-34); BUN/Creatinine Ratio 9 Ratio (12-20); Bilirubin,Total 2.4 mg/dL (0.3-1.2); Blood Urea Nitrogen 14 mg/dL (9-23); Calcium 9.4 mg/dL (8.3-10.6); Calcium (Corrected) 9.4 mg/dL (8.5-10.1); Carbon Dioxide 27.0 mMol/L (20.0-31.0); Chloride 102 mMol/L (98-107); Creatinine (Component) 1.5 mg/dL (0.6-1.3); Globulin 3.7 gm/dL (2.3-3.5); Glucose 114 mg/dL (74-106); Osmolality,Calculated 288 (275-295); Sodium 144 mMol/L (136-145); Total Protein 7.8 gm/dL (5.7-8.2); eGFR 36 See Note
[2024-10-25 10:37] LABS: CA 15-3 28.4 U/mL (<32.4); Carcinoembryonic Antigen 17.9 ng/mL (0.0-5.0)
[2024-10-25 10:38] LABS: Potassium 2.7 mMol/L (3.4-5.1)
[2024-10-25 11:19] LABS: Glucose Estimated Average 74 mg/dL (80-131); Hemoglobin A1C 4.2 % Hgb (4.8-6.0)
[2024-11-02 12:24] LABS: Basophils # (Auto) 0.1 Thou/mm3 (0.0-0.2); Basophils % (Auto) 2 % (0-2.5); Eosinophils # (Auto) 0.1 Thou/mm3 (0.0-0.5); Eosinophils % (Auto) 3 % (0-10); Hematocrit 31.8 % (36.0-46.0); Hemoglobin 11.0 g/dL (12.0-16.0); Immature Granulocytes Auto 0.01 Thou/mm3 (0.00-0.00); Lymphocytes # (Auto) 1.1 Thou/mm3 (1.0-4.8); Lymphocytes % (Auto) 32 % (10-50); Mean Corpuscular HGB Conc 34.6 g/dl (31.0-37.0); Mean Corpuscular Hemoglobin 38.2 pg (25.0-35.0); Mean Corpuscular Volume 110 fL (80-100); Monocytes # (Auto) 0.2 Thou/mm3 (0.0-0.8); Monocytes % (Auto) 7 % (0-12); Neutrophils # (Auto) 1.9 Thou/mm3 (1.8-7.7); Neutrophils % (Auto) 56 % (37-80); Nucleated Red Blood Cell # 0.00 Thou/mm3 (0.00-0.00); Nucleated Red Blood Cell % 0 /100 WBC (0); Platelet Count 121 Thou/mm3 (140-440); RDW Standard Deviation 54.6 fL (36.4-46.3); Red Blood Count 2.88 Miln/mm3 (4.00-5.20); White Blood Count 3.4 Thou/mm3 (3.6-11.0)
[2024-11-02 12:43] LABS: Alanine Aminotransferase 22 U/L (10-49); Albumin, Serum 3.7 gm/dL (3.4-4.8); Albumin/Globulin Ratio 1.1 (1.2-2.2); Alkaline Phosphatase 185 U/L (46-116); Anion Gap 10 (7-16); Aspartate Amino Transferase 59 U/L (0-34); BUN/Creatinine Ratio 15 Ratio (12-20); Bilirubin,Total 1.0 mg/dL (0.3-1.2); Blood Urea Nitrogen 16 mg/dL (9-23); Calcium 9.2 mg/dL (8.3-10.6); Calcium (Corrected) 9.4 mg/dL (8.5-10.1); Carbon Dioxide 25.4 mMol/L (20.0-31.0); Chloride 108 mMol/L (98-107); Creatinine (Component) 1.1 mg/dL (0.6-1.3); Globulin 3.4 gm/dL (2.3-3.5); Glucose 102 mg/dL (74-106); Osmolality,Calculated 286 (275-295); Potassium 3.5 mMol/L (3.4-5.1); Sodium 143 mMol/L (136-145); Total Protein 7.1 gm/dL (5.7-8.2); eGFR 52 See Note
== END 2024-11-18 23:59 | disposition home or self-care (01) ==
LOC: SCTC 09:07
PROVIDERS: Internal Medicine Hematology & Oncology; PCP Internal Medicine; Referring Provider Internal Medicine; Visit Provider Radiology Therapeutic Radiology
DX: Z51.11 Encounter for antineoplastic chemotherapy (principal); C50.212 Malignant neoplasm of upper-inner quadrant of left female breast; C78.7 Secondary malignant neoplasm of liver and intrahepatic bile duct; Z17.410 Hormone receptor positive with human epidermal growth factor receptor 2 positive status; Z90.12 Acquired absence of left breast and nipple; Z79.811 Long term (current) use of aromatase inhibitors; R97.0 Elevated carcinoembryonic antigen [CEA]; F41.9 Anxiety disorder, unspecified
CPT/HCPCS: 36591; 80053; 80061; 82378; 82607; 82746; 83036; 84443; 85025; 86300; 96367; 96375; 96413; 99213; A4216; J1200; J1642; J2405; J3490; J7040; J7050; Q5117; G0463

== ENCOUNTER → 2024-11-07 | Outpatient (CLI) | payer MEDICARE, MEDICAID, SELFPAY ==
--- NOTE | 2024-11-07 13:30 | ECHO_ITS ---
Transthoracic Echo Report Ht (in): 61 Wt (lb): 257 Exam Location: Echo Lab Status: Preadmit Broth Mixer: Elle Mckeon Indications: Procedure Performed: BP: / HR: Technical Quality: Very technically difficult study MEASUREMENTS (Male / Female) Normal Values DOPPLER AV Peak Velocity 249.0 cm/s AV Peak Gradient 24.8 mmHg AV Mean Gradient 16.0 mmHg AV Velocity Time Integral 64.7 cm FINDINGS Left Ventricle Normal left ventricular size, systolic function with no obvious regional wall motion abnormalities. LVH. The ejection fraction is visually estimated at 65%. Right Ventricle The right ventricle is normal in size and systolic function. Left Atrium The left atrium is normal by two-dimensional, color flow and Doppler imaging with no structural abnormalities, no thrombus formation present. Right Atrium The right atrium is normal by two-dimensional imaging, color flow and Doppler imaging with no structural abnormalities, no thrombus formation present. Atrial Septum The interatrial septum appears normal with no evidence of a shunt. Aorta The aorta is normal by two-dimensional, color flow and Doppler interrogation. Mitral Valve Mild mitral annular calcification. Mild mitral regurgitation. Aortic Valve Moderate aortic valve stenosis. Tricuspid Valve The tricuspid valve is normal by two-dimensional, color flow and Doppler interrogation. There is no significant tricuspid valve regurgitation. Pulmonic Valve The pulmonic valve is not well visualized. There is no significant pulmonic valve regurgitation. Vessels The pulmonary artery appears normal. The inferior vena cava pulmonary and hepatic veins appear normal. Pericardium The pericardium is normal by two-dimensional imaging. There is no significant pericardial effusion. CONCLUSIONS Indication: Malignant neoplasm of upper inner quadrant of left female breast Normal LV size and function. Estimated EF at 60-65%. The RV is normal in size and systolic function. Moderate calcific aortic valve stenosis. Trace mitral and trace tricuspid regurgitation Amy Herrera (Electronically Signed) Final Date: 07 November 2024 16:42
== END | disposition home or self-care (01) ==
LOC: SDIM 12:49
PROVIDERS: Referring Provider Internal Medicine Hematology & Oncology; Visit Provider Internal Medicine Hematology & Oncology
DX: I08.3 Combined rheumatic disorders of mitral, aortic and tricuspid valves (principal); C50.212 Malignant neoplasm of upper-inner quadrant of left female breast
CPT/HCPCS: 93306

== ENCOUNTER → 2024-11-18 | Outpatient (CLI) | payer MEDICARE, MEDICAID, SELFPAY ==
--- NOTE | 2024-11-18 09:30 | XR_ITS ---
EXAMINATION: PET/CT FUSION SKULL TO THIGH EXAM DATE AND TIME: November 18, 2024, [address] chest abdomen pelvis April 23, 2024, MRI abdomen July 05, 2024, CT chest April 23, 2024 INDICATIONS: Diagnosis malignant neoplasm upper inner quadrant left female breast, MRI liver July 05, 2024 27 x 33 mm rim-like enhancing lesion posterior upper right lobe of the liver, 6 mm left posterior lateral periaortic lymph node CTDI:vol (mGy) 10.86 DLP: (mGycm) 992 PROCEDURE: 17.2 mCi FDG was administered intravenously To allow for distribution and uptake of radiotracer, the patient was allowed to rest quietly in a shielded room. Imaging was performed on an integrated 16-slice PET/CT scanner, with scanning from the skull base to the mid thigh. Serum blood glucose at the time of the injection was measured 101 mg/dL. CT scanning was performed without oral or intravenous contrast material. FINDINGS: The baseline used axial image settings are increased on this study with multiple artifacts in the right mediastinum and liver Head and Neck: There is no ruby hypermetabolism in the neck. The visualized portions of the brain are normal in appearance on CT. Chest: There is no ruby hypermetabolism in the chest. There are no pulmonary nodules. Small right pleural effusion Abdomen and Pelvis: There is no ruby hypermetabolism in retroperitoneal or pelvic chains. The spleen is normal in size and FDG avidity. Musculoskeletal: Marrow uptake is within normal range. IMPRESSION: Small right pleural effusion This is a significantly technically limited study, recommend repeat MRI abdomen liver follow-up to assess the 27 x 33 mm rim-like enhancing lesion in the upper right lobe of the liver Recommend repeat CT abdomen pelvis follow-up to assess stability of this 6 mm left posterior lateral periaortic lymph node noted on the MR abdomen July 05, 2024
== END | disposition home or self-care (01) ==
PROVIDERS: PCP Internal Medicine; Referring Provider Internal Medicine Hematology & Oncology; Visit Provider Internal Medicine Hematology & Oncology
DX: J90 Pleural effusion, not elsewhere classified (principal); K76.9 Liver disease, unspecified; C50.212 Malignant neoplasm of upper-inner quadrant of left female breast; C78.7 Secondary malignant neoplasm of liver and intrahepatic bile duct
CPT/HCPCS: 78815; A9552

== ENCOUNTER 2024-12-15 08:52 | Outpatient (RCR) | payer MEDICARE, MEDICAID, SELFPAY ==
[2024-11-23 11:50] LABS: Basophils # (Auto) 0.1 Thou/mm3 (0.0-0.2); Basophils % (Auto) 1 % (0-2.5); Eosinophils # (Auto) 0.1 Thou/mm3 (0.0-0.5); Eosinophils % (Auto) 3 % (0-10); Hematocrit 36.8 % (36.0-46.0); Hemoglobin 12.0 g/dL (12.0-16.0); Immature Granulocytes Auto 0.03 Thou/mm3 (0.00-0.00); Lymphocytes # (Auto) 1.0 Thou/mm3 (1.0-4.8); Lymphocytes % (Auto) 20 % (10-50); Mean Corpuscular HGB Conc 32.6 g/dl (31.0-37.0); Mean Corpuscular Hemoglobin 36.9 pg (25.0-35.0); Mean Corpuscular Volume 113 fL (80-100); Monocytes # (Auto) 0.2 Thou/mm3 (0.0-0.8); Monocytes % (Auto) 5 % (0-12); Neutrophils # (Auto) 3.5 Thou/mm3 (1.8-7.7); Neutrophils % (Auto) 71 % (37-80); Nucleated Red Blood Cell # 0.00 Thou/mm3 (0.00-0.00); Nucleated Red Blood Cell % 0 /100 WBC (0); Platelet Count 154 Thou/mm3 (140-440); RDW Standard Deviation 57.1 fL (36.4-46.3); Red Blood Count 3.25 Miln/mm3 (4.00-5.20); White Blood Count 4.9 Thou/mm3 (3.6-11.0)
[2024-11-23 12:06] LABS: Carcinoembryonic Antigen 27.5 ng/mL (0.0-5.0)
[2024-11-23 12:08] LABS: Alanine Aminotransferase 16 U/L (10-49); Albumin, Serum 3.8 gm/dL (3.4-4.8); Albumin/Globulin Ratio 1.1 (1.2-2.2); Alkaline Phosphatase 200 U/L (46-116); Anion Gap 10 (7-16); Aspartate Amino Transferase 58 U/L (0-34); BUN/Creatinine Ratio 16 Ratio (12-20); Bilirubin,Total 1.6 mg/dL (0.3-1.2); Blood Urea Nitrogen 21 mg/dL (9-23); Calcium 9.3 mg/dL (8.3-10.6); Calcium (Corrected) 9.5 mg/dL (8.5-10.1); Carbon Dioxide 30.7 mMol/L (20.0-31.0); Chloride 101 mMol/L (98-107); Creatinine (Component) 1.3 mg/dL (0.6-1.3); Globulin 3.4 gm/dL (2.3-3.5); Glucose 132 mg/dL (74-106); Osmolality,Calculated 288 (275-295); Potassium 3.6 mMol/L (3.4-5.1); Sodium 142 mMol/L (136-145); Total Protein 7.2 gm/dL (5.7-8.2); eGFR 43 See Note
[2024-11-24 09:07] LABS: Bilirubin,Total 1.6 mg/dL (0.3-1.2)
--- NOTE | 2024-12-06 11:05 | CTCFLWUP_ITS ---
Patient: JOSHUA HOWARD : 1950 Page 12 of 14 FOLLOW UP NOTE DATE OF SERVICE: 12/06/2024 NAME: JOSHUA HOWARD ACCOUNT: [id number] : 1950 AGE: 74 INTERVAL HISTORY: Patient was started on abemaciclib and Faslodex e and tolerating well. As Ms. Howard have HER2 disease was also started on Herceptin. Patient received first dose of Herceptin on 07/01/2024.patient doing well. Subjective: Chief Complaint Follow-up for stage 4 triple positive left breast cancer, ongoing radiation and chemotherapy treatment, anxiety History of Present Illness Bhumi prado is a 74-year-old female with a history of stage 4 triple-positive left breast cancer, presenting for follow-up of her ongoing treatment. She has completed two radiation treatments and one chemotherapy session for a newly discovered liver metastasis. Ms. Howard reports tolerating her current treatment with the Herceptin regimen well. She is taking her prescribed medication Verzenio twice daily and has experienced only mild nausea, which she was informed is common with liver radiation. She is scheduled for her third radiation treatment tomorrow, with two more to follow, totaling five treatments of 5000 centigrade in 5 fractions. The patient also mentions receiving Herceptin without any problems. Bhumi notes significant improvement in her overall health status. She states, I feel a lot better now, in contrast to her previous visit where she experienced shortness of breath. She has noticed visible weight loss, though the exact amount was not specified. The patient denies any chest pain or current respiratory issues, recalling a past episode of pneumonia that resolved with antibiotic treatment. The patient reports experiencing heavy anxiety, particularly at the beginning of her treatment. However, she indicates that her anxiety levels have improved over time. She continues to take anastrozole and abemaciclib as part of her breast cancer treatment. Regarding lifestyle, Bhumi mentions that she primarily eats vegetables, chicken, and tuna, consuming more vegetables than meat. Medications and Supplements - Anastrozole - Taking twice a day - Abemaciclib - Herceptin - No problems reported - Minocycline Review of Systems General: Negative for fever, chills. Positive for weight loss. Cardiovascular: Negative for chest pain. Respiratory: Negative for shortness of breath. Gastrointestinal: Positive for mild nausea. Musculoskeletal: Negative for leg swelling. Psychiatric: Positive for anxiety. Objective: Physical Examination General: Patient appears visibly reduced in weight. Musculoskeletal: Patient able to move leg. Laboratory, Imaging, and Diagnostic Test Results - MRI (07/05/2024): 27 x 33 mm rim-enhancing lesion in posterior upper lobe of right liver, new liver metastasis - PET scan (July 2023): Performed, specific results not mentioned - CEA: Elevated (specific value not provided) - Liver panel: Performed, results not specified - Kidney function: Impaired (specific values not provided) - Heart function: Normal - Colonoscopy (2009): Normal ONCOLOGY HISTORY:?[facility] Hx? DATE OF DIAGNOSIS: 12/30/2022 STAGE/TNM: Radiographic stage IV IN 2020 ER/AR positive HER2 negative locally advanced invasive ductal carcinoma of the left breast and found to be ER/AR HER2 positive in 2022 on the left breast mastectomy with the s/p chemotherapy and noted to have reduce in size of pulmonary nodules and lymphadenopathy TREATMENT HISTORY: Care?Plan Start?Date Cycle Day Intent DOCEtaxel?75,?Cyclophosphamide?600 05/28/2021 1 21 Curative?(primary) Trastuzumab?6?mg/kg? 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 2019:Patient had bilateral mammograms according to her that were nondiagnostic. 10/10/2020: Patient was seen in the emergency room here at [facility] cancer [facility] because of mid lower chest pain. 10/10/2020: Chest x-ray? 10/10/2020: CT scan of the chest abdomen and pelvis with IV contrast? 10/17/2020: Left breast ultrasound? 10/17/2020: Bilateral diagnostic mammograms? 10/05/2020: Core needle biopsy of the left breast mass? 02/16/2021: PET CT scan? 03/09/2021: CT scan of the chest without contrast? 03/22/2021 ultrasound of the extremity anterior pelvic wall? 04/18/2021: CT scan of the chest abdomen and pelvis with IV contrast? 04/19/2021: CT scan of the chest abdomen and pelvis with IV contrast? 04/19/2021: Echocardiogram? 05/28/2021: Ms. Howard received first cycle of TC chemotherapy. 05/31/2021?06/13/2021: Ms. Howard was admitted to [facility] because of diarrhea, nausea and vomiting as well as cytopenias. 07/10/2021: CT scan of the chest with IV contrast 07/24/2021: Patient is started on anastrozole as well as palbociclib. 08/11/2021: PET/CT scan which was compared to previous PET/CT scan of February 16, 2021 as well as CTA of the chest of July 24, 2021.? 02/08/2022: CT scan of the chest abdomen and pelvis with IV contrast? 10/31/2022: PET/CT scan? 12/30/2022: Ms. Howard had left modified radical mastectomy 04/02/2023: Ms. Howard had 1 infusion of Trastuzumab(Herceptin).-Into the infusion patient started developing chills, rigors as well as mild shortness of breath. Infusion was discontinued and patient was sent to the emergency room. She was observed for few hours. 07/31/2023: PET/CT scan done 10/16/2023: Right breast mammogram? OTHER MEDICAL HISTORY/CONDITIONS: LEFT BREAST CANCER BRONCHITIS/ASTHMA CARDIAC ARRHYTHMIAS HYPERTENSION HIGH CHOLESTEROL OBESITY GERD URINARY INCONTINENCE GASTIC SURGERY 1991 CHOLECYSTECTOMY APPENDECTOMY BREAST BIOPSY UMBILICAL HERNIA REPAIR LEFT KNEE SX COLONOSCOPY/EGD ?Clone Other Med Hx? FAMILY HISTORY: Father: PATERNAL GRANDMA CERVICAL CANCER Mother:?DENIES Sibling: SISTER CERVICAL CANCER, BROTHER LIVER CANCER Children:?DENIES Cancer?History:?HX?BREAST?CANCER ?Clone Family Hx? 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 EXPORT AGENT HISTORY: Menarche?-?Age:?8 Menopause:?48 Hormone?Use:?DENIES :?0 Live?Births:?0 Gynecological?Note:?MAMMOGRAM?01/20/24 ?Clone EXPORT AGENT Hx? MEDICATIONS: 1. albuterol sulfate - 0.63 mg/3 mL As directed 2. Benadryl - 50 mg 1 Capsule As directed 3. Celexa - 20 mg 1 tab Daily 4. gabapentin - 100 mg 2 Capsule Three times a day 5. Lasix - 20 mg 1 tab Daily 6. Lipitor - 10 mg 1 tab Every day before sleep 7. metoprolol succinate - 25 mg 1 tab Every day before sleep 8. metoprolol succinate - 50 mg 1 tab In the morning 9. multivitamin - 1 Capsule Daily 10. ondansetron - 8 mg 1 tab as needed 11. Oyster Calcium - 500 mg 1 tab Twice a Day 12. Potassium Chloride ER - Daily 13. tizanidine - 4 mg As needed 14. Tylenol-Codeine No.3 - 300-30 mg 1 tab As directed 15. Verzenio - 150 mg 1 tab Twice a Day 16. Vitamin D2 - 25,000 unit 1 Capsule Weekly 17. Zoloft - 25 mg 1 tab Daily?Palabra Meds? Medications Last Reconciled by Yeimy Valdez MA on 12/06/2024 ALLERGIES: nuts; alendronate; lisinopril; iodine REVIEW OF SYSTEMS: A complete 14-point review of systems was performed and is negative except as noted in interval history. PHYSICAL EXAMINATION:?[facility] PE? VITAL SIGNS: Temperature?99.9, B/P?134/81, Oxygen?Saturation?95% PAIN: 0 - No pain Alert and oriented x 4 CHEST: Decreased air entry at the bases No masses palpable on the left chest wall. No areas of tenderness. CARDIAC: Rhythm regular, no murmurs or gallops present. ABDOMEN: Soft. No hepatomegaly. No splenomegaly. EXTREMITIES: 1+ pitting LE. LABORATORY DATA: I have personally reviewed and interpreted each of the patient?s relevant lab tests, abnormal findings are below: Date 11/23/24 11/24/24 ??WHITE?BLOOD?COUNT?(Thou/mm3) 4.9 ? ??RED?BLOOD?COUNT?(Miln/mm3) 3.25?L ? ??HEMOGLOBIN?(gm/dl) 12.0 ? ??HEMATOCRIT?(%) 36.8 ? ??PLATELET?COUNT?(Thou/mm3) 154 ? ??NEUTROPHILS?%,?AUTO?(%) 71 ? ??LYMPH?%,?AUTO?(%) 20 ? ??NEUTROPHILS,?AUTO?(Thou/mm3) 3.5 ? ??GLUCOSE,RANDOM?(mg/dL) 132?H ? ??BLOOD?UREA?NITROGEN?(mg/dL) 21 ? ??CREATININE?(mg/dL) 1.30 ? ??SODIUM?(mmol/L) 142 ? ??POTASSIUM?(mmol/L) 3.6 ? ??CHLORIDE?(mmol/L) 101 ? ??CrCl?(CandG)?(ml/min) 45.67 ? ??AST/SGOT?(Unit/L) 58?H ? ??ALT/SGPT?(Unit/L) 16 ? ??ALKALINE?PHOSPHATASE?(Unit/L) 200?H ? ??BILIRUBIN,?TOTAL?(mg/dL) 1.6?H 1.6?H ??PROTEIN?TOTAL?(gm/dl) 7.2 ? ??ALBUMIN,?SERUM?(gm/dl) 3.8 ? ??GLOBULIN?(gm/dl) 3.4 ? ??ALBUMIN/GLOBULIN?RATIO 1.1?L ? ??CALCIUM,?SERUM?(mg/dL) 9.3 ? ??CALCIUM?SERUM?(CORRECTED)?(mg/dL) 9.5 ? ??CEA?(O*)?(ng/ml) 27.5?H ? ASSESSMENT/PLAN:?Vivian Andrade Assessment/Plan? Stage IV breast cancer ER/AR positive HER2 negative but later on mastectomy found to be HER2 positive in 2022 on initial biopsy in 2020 Patient had left breast mastectomy and was found to be ER/AR HER2 positive Lymph node and lung nodules were never biopsied but they reduced in size on the first cycle of chemotherapy Patient received first cycle of chemotherapy on May 2021 and was complicated with a diarrhea nausea vomiting and admitted to the hospital and she decided not to take further chemotherapy Patient had great improvement with chemotherapy Patient underwent left radical mastectomy and at that time was noted to have HER2 positive disease Patient received Herceptin but had reaction in March 2023 and further treatment was stopped Patient was started on anastrozole and Ibrance PET CT scan in July 2023 shows 6 mm weekly hypermetabolic left lower lateral neck lymph node and no other metastatic disease 05/05/2024 MRI brain is negative for any cancer CT chest abdomen and pelvis Interval 10 mm right lobe liver lesion, recommend MRI abdomen liver follow-up, pre and postcontrast, to exclude hepatic metastasis Patient s tumor marker is rising up Patient's liver lesion 23 mm. Patient was changed to Herceptin along with the antiendocrine therapy changed to to amebaciclib and fulvestrant in third line option Pet ct non diagnostic Ordered ct abdomen and pelvis Naterra ordered Renal function impairment Assessment: Patient has a history of impaired renal function. Previous social media marketing specialist (Dr. Degroot) had indicated that the patient would be stable for approximately 5 years without significant issues. Current kidney function is noted to be not great and requires monitoring, especially in the context of frequent imaging studies. Plan: - Monitor renal function with regular blood tests - Encourage increased water intake, especially before and after imaging studies - Consider referral to a social media marketing specialist for further evaluation and management Elevated CEA Assessment: Patient's CEA (carcinoembryonic antigen) level is elevated. This is likely related to the known breast cancer rather than indicating colon cancer. However, given the elevated CEA and recent weight loss, further gastrointestinal evaluation is warranted. Plan: - Refer to greenskeeper (Dr. Currie) for evaluation and colonoscopy. Scheduled to see - Continue monitoring CEA levels ORDERS: Order # Description [id number] CT Scan + Abdomen and Pelvis [id number] CT Scan + Abdomen + With W/O Contrast [id number] + CA 15-3 [id number] CBC + Comprehensive Metabolic Panel + CEA + CA 27.29 [id number] Lab Appointment [id number] CBC + Comprehensive Metabolic Panel [id number] Lab Appointment [id number] Follow Up Appointment [id number] Infusion 1 Hour [id number] CBC + Comprehensive Metabolic Panel [id number] Lab Appointment [id number] Follow Up Appointment [id number] Infusion 1 Hour [id number] CBC + Comprehensive Metabolic Panel + CEA + CA 27.29 [id number] Lab Appointment [id number] CBC + Comprehensive Metabolic Panel [id number] Lab Appointment [id number] Follow Up Appointment [id number] Infusion 1 Hour [id number] CBC + Comprehensive Metabolic Panel + CEA + CA 27.29 [id number] Lab Appointment [id number] Infusion 1 Hour [id number] CBC + Comprehensive Metabolic Panel [id number] Lab Appointment [id number] Follow Up Appointment [id number] Cardiac ECHO [id number] Infusion 1 Hour [id number] CBC + Comprehensive Metabolic Panel + CEA + CA 27.29 [id number] Lab Appointment [id number] CBC + Comprehensive Metabolic Panel [id number] Lab Appointment [id number] Follow Up Appointment [id number] Infusion 1 Hour [id number] CBC + Comprehensive Metabolic Panel [id number] Lab Appointment [id number] Follow Up Appointment [id number] Infusion 1 Hour [id number] CBC + Comprehensive Metabolic Panel + CEA + CA 27.29 [id number] Lab Appointment [id number] CBC + Comprehensive Metabolic Panel [id number] Lab Appointment [id number] Follow Up Appointment [id number] Cardiac ECHO [id number] Infusion 1 Hour [id number] CBC + Comprehensive Metabolic Panel + CEA + CA 27.29 [id number] Lab Appointment [id number] CBC + Comprehensive Metabolic Panel [id number] Lab Appointment [id number] Follow Up Appointment [id number] Infusion 1 Hour [id number] CBC + Comprehensive Metabolic Panel [id number] Lab Appointment [id number] Follow Up Appointment [id number] Infusion 1 Hour [id number] CBC + Comprehensive Metabolic Panel + CEA + CA 27.29 [id number] Lab Appointment [id number] CBC + Comprehensive Metabolic Panel [id number] Lab Appointment [id number] Follow Up Appointment [id number] Infusion 1 Hour [id number] CBC + Comprehensive Metabolic Panel + CEA + CA 27.29 [id number] Lab Appointment [id number] CBC + Comprehensive Metabolic Panel [id number] Lab Appointment [id number] Follow Up Appointment [id number] Infusion 1 Hour [id number] CBC + Comprehensive Metabolic Panel [id number] Lab Appointment [id number] Follow Up Appointment [id number] Cardiac ECHO [id number] Infusion 1 Hour [id number] CBC + Comprehensive Metabolic Panel + CEA + CA 27.29 [id number] Lab Appointment [id number] Infusion 1 Hour [id number] CBC + Comprehensive Metabolic Panel [id number] Lab Appointment [id number] Follow Up Appointment [id number] Infusion 1 Hour [id number] CBC + Comprehensive Metabolic Panel + CEA + CA 27.29 [id number] Lab Appointment [id number] CBC + Comprehensive Metabolic Panel [id number] Lab Appointment [id number] Follow Up Appointment [id number] Infusion 1 Hour [id number] CBC + Comprehensive Metabolic Panel + CEA + CA 27.29 [id number] Lab Appointment [id number] CBC + Comprehensive Metabolic Panel [id number] Lab Appointment [id number] Follow Up Appointment [id number] Infusion 1 Hour [id number] Infusion 1 Hour [id number] CBC + Comprehensive Metabolic Panel [id number] Lab Appointment [id number] Follow Up Appointment [id number] CBC + Comprehensive Metabolic Panel + CEA + CA 27.29 [id number] Lab Appointment [id number] CBC + Comprehensive Metabolic Panel [id number] Lab Appointment [id number] Follow Up Appointment [id number] Cardiac ECHO [id number] Infusion 1 Hour [id number] CBC + Comprehensive Metabolic Panel [id number] Lab Appointment [id number] Follow Up Appointment [id number] Infusion 1 Hour [id number] CBC + Comprehensive Metabolic Panel [id number] Lab Appointment [id number] Follow Up Appointment [id number] Infusion 1 Hour [id number] CBC + Comprehensive Metabolic Panel [id number] Lab Appointment [id number] Follow Up Appointment [id number] Cardiac ECHO [id number] Infusion 1 Hour [id number] CBC + Comprehensive Metabolic Panel [id number] Lab Appointment [id number] Follow Up Appointment [id number] Infusion 1 Hour [id number] Infusion 1 Hour [id number] CBC + Comprehensive Metabolic Panel [id number] Lab Appointment [id number] Follow Up Appointment [id number] Infusion 1 Hour [id number] CBC + Comprehensive Metabolic Panel [id number] Lab Appointment [id number] Follow Up Appointment [id number] Infusion 1 Hour [id number] CBC + Comprehensive Metabolic Panel [id number] Lab Appointment [id number] Follow Up Appointment [id number] Infusion 1 Hour [id number] CBC + Comprehensive Metabolic Panel [id number] Lab Appointment [id number] Follow Up Appointment [id number] Cardiac ECHO [id number] Infusion 1 Hour [id number] CBC + Comprehensive Metabolic Panel [id number] Lab Appointment [id number] Follow Up Appointment [id number] Infusion 1 Hour [id number] CBC + Comprehensive Metabolic Panel [id number] Lab Appointment [id number] Follow Up Appointment [id number] Infusion 1 Hour [id number] CBC + Comprehensive Metabolic Panel [id number] Lab Appointment [id number] Follow Up Appointment [id number] Infusion 1 Hour [id number] CBC + Comprehensive Metabolic Panel [id number] Lab Appointment [id number] Follow Up Appointment [id number] Infusion 1 Hour [id number] Infusion 1 Hour [id number] CBC + Comprehensive Metabolic Panel [id number] Lab Appointment [id number] Follow Up Appointment [id number] Cardiac ECHO [id number] Infusion 1 Hour [id number] CBC + Comprehensive Metabolic Panel [id number] Lab Appointment [id number] Follow Up Appointment [id number] Infusion 1 Hour [id number] CBC + Comprehensive Metabolic Panel [id number] Lab Appointment [id number] Follow Up Appointment [id number] Infusion 1 Hour [id number] CBC + Comprehensive Metabolic Panel [id number] Lab Appointment [id number] Follow Up Appointment [id number] Infusion 1 Hour RETURN TO CLINIC: I reviewed the diagnosis, prognosis, and recommended treatment/procedure options with the patient (and/or their legal sales representative consultant), including the potential benefits, risks, side effects and alternative therapies. We also discussed the option of no treatment and the possibility of clinical trial participation, if applicable. All questions were addressed, and they demonstrated understanding. They provided informed consent to proceed with the proposed plan of care. BILLING AND COMPLIANCE: I reviewed external records from providers outside my specialty as summarized above. I spent a total of 50 minutes on this patient?s care on the day of their visit excluding time spent related to any billed procedures. This time includes time spent with the patient as well as time spent documenting in the medical record, reviewing patients records and tests, obtaining history, placing orders, communicating with other healthcare professionals, counseling the patient, family or caregiver, and/or care coordination for the diagnoses above. Electronically Signed by: Ranjit Andrade MD T: 11:03 AM CC: Eugene?WAYNE Dacosta PCP: Eugene Dacosta Referring: Eugene Dacosta This document was completed utilizing speech recognition software. Grammatical errors, random word insertions, pronoun errors, and incomplete sentences are an occasional consequence of this system due to software limitations, ambient noise, and hardware issues. Any formal questions or concerns about the content, text or information contained within the body of this dictation should be directly addressed to the provider for clarification.
[2024-12-14 13:38] LABS: Basophils # (Auto) 0.1 Thou/mm3 (0.0-0.2); Basophils % (Auto) 1 % (0-2.5); Eosinophils # (Auto) 0.1 Thou/mm3 (0.0-0.5); Eosinophils % (Auto) 3 % (0-10); Hematocrit 33.1 % (36.0-46.0); Hemoglobin 11.1 g/dL (12.0-16.0); Immature Granulocytes Auto 0.01 Thou/mm3 (0.00-0.00); Lymphocytes # (Auto) 0.8 Thou/mm3 (1.0-4.8); Lymphocytes % (Auto) 23 % (10-50); Mean Corpuscular HGB Conc 33.5 g/dl (31.0-37.0); Mean Corpuscular Hemoglobin 37.5 pg (25.0-35.0); Mean Corpuscular Volume 112 fL (80-100); Monocytes # (Auto) 0.2 Thou/mm3 (0.0-0.8); Monocytes % (Auto) 7 % (0-12); Neutrophils # (Auto) 2.3 Thou/mm3 (1.8-7.7); Neutrophils % (Auto) 65 % (37-80); Nucleated Red Blood Cell # 0.00 Thou/mm3 (0.00-0.00); Nucleated Red Blood Cell % 0 /100 WBC (0); Platelet Count 121 Thou/mm3 (140-440); RDW Standard Deviation 57.8 fL (36.4-46.3); Red Blood Count 2.96 Miln/mm3 (4.00-5.20); White Blood Count 3.5 Thou/mm3 (3.6-11.0)
[2024-12-14 13:59] LABS: Alanine Aminotransferase 23 U/L (10-49); Albumin, Serum 3.8 gm/dL (3.4-4.8); Albumin/Globulin Ratio 1.2 (1.2-2.2); Alkaline Phosphatase 231 U/L (46-116); Anion Gap 10 (7-16); Aspartate Amino Transferase 68 U/L (0-34); BUN/Creatinine Ratio 14 Ratio (12-20); Bilirubin,Total 1.5 mg/dL (0.3-1.2); Blood Urea Nitrogen 14 mg/dL (9-23); Calcium 9.9 mg/dL (8.3-10.6); Calcium (Corrected) 10.1 mg/dL (8.5-10.1); Carbon Dioxide 29.2 mMol/L (20.0-31.0); Chloride 103 mMol/L (98-107); Creatinine (Component) 1.0 mg/dL (0.6-1.3); Globulin 3.3 gm/dL (2.3-3.5); Glucose 95 mg/dL (74-106); Osmolality,Calculated 283 (275-295); Potassium 3.9 mMol/L (3.4-5.1); Sodium 142 mMol/L (136-145); Total Protein 7.1 gm/dL (5.7-8.2); eGFR 59 See Note
== END 2024-12-19 23:59 | disposition home or self-care (01) ==
LOC: SCTC 08:52
PROVIDERS: PCP Internal Medicine; Referring Provider Internal Medicine; Visit Provider Internal Medicine Hematology & Oncology
DX: Z51.11 Encounter for antineoplastic chemotherapy (principal); C50.212 Malignant neoplasm of upper-inner quadrant of left female breast; C78.7 Secondary malignant neoplasm of liver and intrahepatic bile duct; Z17.410 Hormone receptor positive with human epidermal growth factor receptor 2 positive status; Z90.12 Acquired absence of left breast and nipple; F41.9 Anxiety disorder, unspecified; Z79.811 Long term (current) use of aromatase inhibitors; R97.0 Elevated carcinoembryonic antigen [CEA]
CPT/HCPCS: 36591; 80053; 82247; 82378; 85025; 96375; 96402; 96413; 99212; A4216; J1200; J1642; J2405; J3490; J7040; J7050; J9395; Q5117; A9270; G0463

== ENCOUNTER 2025-01-17 14:51 | Emergency (ER) | payer MEDICARE, MEDICAID, SELFPAY ==
[2025-01-17 15:14] VITALS: BP 126/84; PULSE 100; RESP 18; TEMP 37.4; O2SAT 90
--- NOTE | 2025-01-17 15:22 | EKG_ITS ---
[facility] Test Date: 2025-01-17 Pat Name: JOSHUA HOWARD Department: Room: - Gender: Female Manager Telecom: : 1950 Requested By: Jenaro Cortes Order Number: [id number] Reading MD: Jenaro Cortes Measurements Intervals [place] Rate: 104 P: -19 [place]: 162 QRS: -49 QRSD: 98 T: 44 QT: 336 QTc: 442 Interpretive Statements SINUS TACHYCARDIA WITH OCCASIONAL SUPRAVENTRICULAR PREMATURE COMPLEXES LEFT ANTERIOR FASCICULAR BLOCK [QRS AXIS <= -45, QR IN I, RS IN II] POSSIBLE ANTERIOR MYOCARDIAL INFARCTION , PROBABLY OLD [30 ms Q WAVE IN V3/V4, OR R < 0.2 mV IN V4] Compared to ECG 09/03/2024 11:39:21 Left anterior fascicular block now present Myocardial infarct finding now present Sinus rhythm no longer present /store/S0/[id number]/[id number].pdf
--- NOTE | 2025-01-17 15:22 | XR_ITS ---
Examination: CT abdomen and pelvis without contrast. Coronal 3-D reconstructions. Sagittal 2-D reconstructions. Date and time of exam:January 17, 2025, 1603 hrs. Comparison: PET CT scan November 18, 2024 Indications: Diagnosis malignant neoplasm upper inner quadrant left female breast, MRI liver July 05, 2024 33 mm enhancing lesion upper right lobe the liver 6 mm left posterior lateral periaortic lymph node on PET CT scan November 18, 2024, right-sided abdominal pain today CTDI: vol (mGy): 17.4 DLP: (mGycm): 1089 Technique: Axial images of the abdomen have been obtained, 3 mm slice thickness Intravenous contrast material has not been administered. Low dose protocols were performed. One or more of the following dose reduction techniques were used; automated exposure control, adjustment of the mA and/or KV according to patient size, use of iterative reconstruction technique. Findings: Atelectasis versus mild pneumonia right base Small right pleural effusion Multiple hepatic metastases, 25 mm, 21 mm anterior right lobe the liver, 22 mm upper posterior right lobe the liver, 30 mm left lobe of the liver, 30 mm lower right lobe of the liver Spleen is not enlarged No pancreatic mass Left adrenal mass 20 mm No hydronephrosis 6 mm left lateral periaortic lymph node 5 cm umbilical hernia defect containing small bowel but no incarcerated bowel Left lateral inferior umbilical hernia defect, containing fat, 30 mm Irregular soft tissue mass anterior lower abdominal wall, 5 cm, likely soft tissue metastatic deposit Normal appendix No bowel obstruction Atrophic uterus Contracted urinary bladder Moderate osteopenia Impression: Atelectasis versus pneumonia right base, recommend PA chest follow-up Multiple hepatic metastases Left adrenal 20 mm metastatic mass 6 mm left lateral periaortic lymph node Hernia defects as above, the umbilical hernia containing small bowel but no incarcerated bowel Irregular soft tissue metastatic mass anterior abdominal wall, 5 cm Normal appendix No bowel obstruction
--- NOTE | 2025-01-17 15:23 | PD.EDRME ---
Rapid Medical Screening Exam RME Arrival date/time: 01/17/25 14:51 This is a case of 70-year-old female with history of breast cancer on chemotherapy cholecystectomy came in in the emergency room due to right-sided abdominal pain with nausea vomiting radiating to the right chest worsening of the symptoms this patient decided to start consult here in the emergency room Chief Complaint: Abdominal Pain Time Seen by Provider: 01/17/25 14:52 Vital signs: Vital Signs Temperature 99.4 F 01/17/25 15:14 Pulse Rate 100 01/17/25 15:14 Respiratory Rate 18 01/17/25 15:14 Blood Pressure 126/84 01/17/25 15:14 Pulse Oximetry (%) 90 L 01/17/25 15:14 Oxygen Delivery Method Room Air 01/17/25 15:14
[2025-01-17 16:13] LABS: Collection Type, Urine Clean Catch
[2025-01-17 16:17] LABS: Basophils # (Auto) 0.1 Thou/mm3 (0.0-0.2); Basophils % (Auto) 1 % (0-2.5); Eosinophils # (Auto) 0.1 Thou/mm3 (0.0-0.5); Eosinophils % (Auto) 1 % (0-10); Hematocrit 38.6 % (36.0-46.0); Hemoglobin 13.2 g/dL (12.0-16.0); Immature Granulocytes Auto 0.02 Thou/mm3 (0.00-0.00); Lymphocytes # (Auto) 0.9 Thou/mm3 (1.0-4.8); Lymphocytes % (Auto) 16 % (10-50); Mean Corpuscular HGB Conc 34.2 g/dl (31.0-37.0); Mean Corpuscular Hemoglobin 37.8 pg (25.0-35.0); Mean Corpuscular Volume 111 fL (80-100); Monocytes # (Auto) 0.5 Thou/mm3 (0.0-0.8); Monocytes % (Auto) 9 % (0-12); Neutrophils # (Auto) 4.3 Thou/mm3 (1.8-7.7); Neutrophils % (Auto) 73 % (37-80); Nucleated Red Blood Cell # 0.00 Thou/mm3 (0.00-0.00); Nucleated Red Blood Cell % 0 /100 WBC (0); Platelet Count 141 Thou/mm3 (140-440); RDW Standard Deviation 53.0 fL (36.4-46.3); Red Blood Count 3.49 Miln/mm3 (4.00-5.20); White Blood Count 5.9 Thou/mm3 (3.6-11.0)
[2025-01-17 16:41] LABS: Alanine Aminotransferase 23 U/L (10-49); Albumin, Serum 3.9 gm/dL (3.4-4.8); Albumin/Globulin Ratio 1.1 (1.2-2.2); Alkaline Phosphatase 227 U/L (46-116); Anion Gap 11 (7-16); Aspartate Amino Transferase 72 U/L (0-34); BUN/Creatinine Ratio 11 Ratio (12-20); Bilirubin,Total 1.8 mg/dL (0.3-1.2); Blood Urea Nitrogen 11 mg/dL (9-23); Calcium 9.9 mg/dL (8.3-10.6); Calcium (Corrected) 10.0 mg/dL (8.5-10.1); Carbon Dioxide 28.2 mMol/L (20.0-31.0); Chloride 104 mMol/L (98-107); Creatinine (Component) 1.0 mg/dL (0.6-1.3); Globulin 3.5 gm/dL (2.3-3.5); Glucose 122 mg/dL (74-106); Lipase 26 U/L (12-53); Osmolality,Calculated 285 (275-295); Potassium 3.3 mMol/L (3.4-5.1); Sodium 143 mMol/L (136-145); Total Protein 7.4 gm/dL (5.7-8.2); Troponin I < 0.020 ng/mL (0.0-0.045); eGFR 59 See Note
[2025-01-17 16:47] LABS: Bacteria,Urine 2+; Bilirubin,Urine Negative (Negative); Blood,Urine Negative (Negative); Clarity,Urine Turbid (Clear/Hazy); Color,Urine Yellow (Lt Yel-Yel); Glucose, Urine Negative (Negative); Hyaline Casts,Urine < 1 /hpf (0-1); Ketones,Urine Negative (Negative); Leukocyte Esterase,Urine Positive (Negative); Nitrite,Urine Positive (Negative); PH,Urine 6.0 (5.0-7.0); Protein,Urine 1+ (Neg - Trace); RBC,Urine 5 /hpf (0-3); Specific Gravity,Urine 1.028 (1.001-1.035); Squamous Epithelial Cell,Urine 2 /hpf (0-5); Urobilinogen,Urine 3.0 mg/dL (0.0-1.0); WBC,Urine 108 /hpf (0-5)
--- NOTE | 2025-01-17 17:33 | PD.EDADULT ---
ED General RME/HPI General Chief complaint: Abdominal Pain Stated complaint: RUQ ABD PAIN, 01/28 Time Seen by Provider: 01/17/25 14:52 Arrival date/time: 01/17/25 14:51 CC: Right sided cough and chest pain HPI ongoing for the past 2 weeks, the right side chest pain has been intermittent for months but in the last 2 weeks has gotten significantly worse along with a cough which is new. Patient denies shortness of breath difficulty breathing or chest pain patient denies painful urination bloody urination. Patient is currently being treated for breast cancer seen by Dr. Mckinley oncology. Patient is awake alert oriented nontoxic-appearing not in any acute distress. RME / HPI RME / HPI narrative: 01/17/25 14:51 This is a case of 70-year-old female with history of breast cancer on chemotherapy cholecystectomy came in in the emergency room due to right-sided abdominal pain with nausea vomiting radiating to the right chest worsening of the symptoms this patient decided to start consult here in the emergency room Related Data Home Medications ?Medication ?Instructions ?Recorded ?Confirmed hydrocodone 5 mg-acetaminophen 325 1 tab PO Q6H PRN Pain 10/10/20 06/10/23 mg tablet triamterene 37.5 1 tab PO QDAY 10/10/20 06/10/23 mg-hydrochlorothiazide 25 mg tablet albuterol sulfate 2.5 mg/3 mL 2.5 mg inhalation Q6HR 06/01/21 06/10/23 (0.083 %) solution for nebulization calcium carbonate 500 mg PO BID 06/01/21 06/10/23 metoprolol tartrate 25 mg tablet 50 mg PO BID 06/01/21 06/10/23 ondansetron HCl 8 mg tablet 8 mg PO BID PRN Nausea And Vomiting 06/01/21 06/10/23 atorvastatin 10 mg tablet (Lipitor) 10 mg PO QDAY 05/09/22 06/10/23 palbociclib 125 mg capsule 125 mg PO QDAY 05/09/22 06/10/23 (Ibrance) anastrozole 1 mg tablet 1 mg PO DAILY 02/27/23 06/10/23 cephalexin 500 mg capsule 500 mg PO TID PRN Muscle Spasm 02/27/23 06/10/23 Previous Rx's ?Medication ?Instructions ?Recorded cefuroxime axetil 500 mg tablet 500 mg PO BID #14 tabs 04/02/23 levofloxacin 750 mg tablet 750 mg PO Q24H 10 days #10 tabs 01/17/25 Allergies Allergy/AdvReac Type Severity Reaction Status Date / Time alendronate sodium (From Allergy Severe Chest Pain Verified 01/17/25 14:54 Fosamax) nut - unspecified Allergy Severe Rash Verified 01/17/25 14:54 Iodinated Contrast Media Allergy Intermediate Anaphylaxis Verified 01/17/25 14:54 iodine Allergy Intermediate Anaphylaxis Verified 01/17/25 14:54 lisinopril Allergy Mild Cough Verified 01/17/25 14:54 Review of Systems Review of Systems Narrative Review of Systems: GEN: No fever, no chills, no weight loss EYES: No discharge, no visual changes, no pain HEENT: No ear pain, no congestion, no sore throat PULM: No shortness of breath, + cough, no congestion CV: + chest pain, no dyspnea on exertion, no palpitations GI: No nausea, no vomiting, no diarrhea, no pain, no constipation : No frequency, no urgency, no dysuria MUSC/SKEL: No joint pain, no back pain SKIN: No rash PSYCH: No hallucinations, no depression HEME/LYMPH: No easy bleeding or bruising tendencies NEURO: No weakness, no headache Past Medical History Past Medical History NEUROLOGIC: Negative Neurological Disorders or Seizures CARDIAC: Positive Cardiac Disorders, Cardiac Arrhythmia, Hypercholesterolemia, Edema and Hypertension; Negative Heart Murmur or Congestive Heart Failure RESPIRATORY: Positive Asthma and Pneumonia; Negative Chronic Obstructive Pulmonary Disease (COPD) GASTROINTESTINAL: Positive Gastrointestinal Disorders, Hiatal Hernia and Obesity; Negative Hepatitis GENITOURINARY: Negative Genitourinary Disorders or Renal Disease REPRODUCTIVE: Positive Breast Cancer; Negative Endometriosis or Previous Pregnancies MUSCULOSKELETAL: Positive Musculoskeletal Disorders and Arthritis ENDOCRINE: Negative Endocrine Disorders, Diabetes Mellitus Type 1 or Diabetes Mellitus Type 2 HEMATOLOGIC: Negative Blood Disorders or Sickle Cell Disease PSYCHO/SOCIAL: Positive Anxiety OTHER HISTORY: Positive Hospitalization, Falls, Chemotherapy (on oral for left breast cancer), Measles and Breast Cancer; Negative Autoimmune Disease, Shingles, Blood Transfusions, Blood Transfusion Reaction, Anesthesia Reactions, Radiation Therapy, MRSA or Clostridium Difficile Family History FAMILY HISTORY: Positive Family Cardiac Disorders, Family Cancer and Family Surgery; Negative Family Psychiatric Problems, Family Respiratory Disorders, Family Gastrointestinal Problems or Family Anesthesia Reaction Surgical History SURGICAL: Positive Abdominal Surgery, Gastric Bypass Surgery and Mastectomy (Left) Social History SMOKING STATUS: Never smoker SUBSTANCE USE: does not use ED Exam Narrative Physical exam: [General: Morbidly obese not in acute acute distress Head normocephalic HEENT: Within acceptable limits Neck is supple nontender Chest equal chest rise nontender to palpation Respiratory: Clear to auscultation in the upper lobes diminished in the bases secondary to body habitus. CV: Rate rhythm is regular no murmurs rubs or clicks Abdomen is grossly distended secondary to body habitus soft nontender no masses positive bowel sounds all 4 quadrants Back: No CVA tenderness no spinous process tenderness from cervical spine thoracic and lumbar spine Skin: PowerPort in the right anterior chest site clean dry and intact. Otherwise skin is intact no petechiae rash induration ulceration or crepitus Extremities: Moving all extremity against resistance cap refill less than 2 seconds neurosensory intact Neuro: Awake alert oriented x3 Glascow coma 15 no focal deficits] Course Course Course Narrative: Reviewed the patient's microbiology from the last urine specimen culture shows E. coli that is sensitive to Levaquin and Rocephin will start with a single dose of Rocephin in the ER and will discharge her on Levaquin for both potential pneumonia and the urinary tract infection. Quality Measures none Orders Category Date Time Status EKG (ED ONLY) *Do not use* NOW Care 01/17/25 15:22 Completed Saline [Insert IV] NOW Care 01/17/25 17:[address] abdomen pelvis wo con Stat Exams 01/17/25 15:22 Completed EKG (ED Only) Stat Exams 01/17/25 15:22 Draft CBC Stat Lab 01/17/25 15:44 Completed Comprehensive Metabolic Panel Stat Lab 01/17/25 15:44 Completed Lipase Stat Lab 01/17/25 15:44 Completed Troponin I Stat Lab 01/17/25 15:44 Completed Urinalysis Stat Lab 01/17/25 15:50 Completed cefTRIAXone [Rocephin] 1,000 mg Med 01/17/25 17:33 Ordered Lidocaine 1% 20 ml [Xylocaine 1% 20 ML] 2.1 ml IM X1 cefTRIAXone/D5w 1gm IV premix [Rocephin/D5w 1gm IV Med 01/17/25 17:23 Discontinued premix] 1 gm in 50 ml IV X1 Vital Signs Vital signs: Vital Signs Temperature 99.4 F 01/17/25 15:14 Pulse Rate 100 01/17/25 15:14 Respiratory Rate 18 01/17/25 15:14 Blood Pressure 126/84 01/17/25 15:14 Pulse Oximetry (%) 90 L 01/17/25 15:14 Oxygen Delivery Method Room Air 01/17/25 15:14 Discharge Plan Plan Patient Disposition: HOME (Self Care) Patient condition on transfer: Stable Prescriptions/Referrals Prescriptions/Med Rec: New levofloxacin 750 mg tablet 750 mg PO Q24H 10 Days Qty: 10 0RF No Action atorvastatin [Lipitor] 10 mg tablet 10 mg PO QDAY Ibrance 125 mg capsule 125 mg PO QDAY Rx Instructions: administer on days 1 through 21 of a 28-day treatment cycle hydrocodone-acetaminophen 5-325 mg tablet 1 tab PO Q6H PRN (Reason: Pain) Patient Comments: TAKE 1 TABLET BY ORAL ROUTE EVERY 6 HOURS NEEDED FOR PAIN NEEDED Rx Instructions: back pain triamterene-hydrochlorothiazid 37.5-25 mg tablet 1 tab PO QDAY Patient Comments: TAKE 1 TABLET BY MOUTH EVERY DAY ondansetron HCl 8 mg Tablet 8 mg PO BID PRN (Reason: Nausea And Vomiting) metoprolol tartrate 25 mg tablet 50 mg PO BID Patient Comments: TAKE 1 TABLET BY MOUTH TWICE A DAY calcium carbonate 500 mg calcium (1,250 mg) tablet 500 mg PO BID Patient Comments: TAKE 1 TABLET BY MOUTH TWICE A DAY albuterol sulfate 2.5 mg /3 mL (0.083 %) solution for nebulization 2.5 mg inhalation Q6HR cephalexin 500 mg capsule 500 mg PO TID PRN (Reason: Muscle Spasm) anastrozole 1 mg tablet 1 mg PO DAILY cefuroxime axetil 500 mg tablet 500 mg PO BID Qty: 14 0RF Referrals: Eugene Dacosta MD [Primary Care Provider] - In 1 week Problem List Clinical Impression: UTI (urinary tract infection), Pneumonia Patient/Caregiver Discharge Instructions Other Activity Instructions:: Please take all medications as prescribed if there is a worsening of symptoms in spite of the medications return immediately to the emergency room for reevaluation. Education Materials: ED Pneumonia (Adult), ED CYSTITIS Female Adult Print Language: Sami Stand Alone Forms: Gema Award Info., Patient Portal Info Letter PA/APARTMENT LEASING AGENT Supervising Physician PA/APARTMENT LEASING AGENT Supervising Physician: Dave Maya ENP MDM Clinical Information Provided by: patient Medical Records reviewed [facility] Meds/Rx considered, not ordered None Labs/Rad/Tests considered, not ordered None Chronic Illness/Social Conditions Explain: Breast cancer Labs Labs: interpreted by me Lab(s) Interpretation(s): CBC shows no leukocytosis anemia thrombocytopenia CMP shows a potassium of 3.3 s glucose of 133 no other electrolyte imbalances no renal impairment T. bili at 1.8, AST at 72 ALT 23 alk phos at 227. Troponin is within acceptable limits. Urine is turbid 1+ protein and 108 WBCs 5 RBCs 2+ bacteria leukocyte and nitrite positive. Imaging Imaging interpretation: interpreted by id Imaging Interpretation(s): CT of the chest abdomen pelvis shows multiple lymph nodes, question of atelectasis versus a right base pneumonia. No other acute findings that require emergent or immediate intervention. Medication Administration(s) none Medication Administration History Ceftriaxone Sodium 1,000 mg/ (Lidocaine HCl 2.1 ml) 0 mg IM X1 ONE Stop: 01/17/25 17:34 Discontinued Medications Ceftriaxone Sodium/Dextrose (Rocephin/D5w 1gm Iv Premix) 1 gm in 50 mls @ 100 mls/hr IV X1 ONE Stop: 01/17/25 17:52 Diagnosis Differential Diagnosis ED Complaint MDM: Pneumonia UTI pyelonephritis
[2025-01-17] MEDS: cefTRIAXone 1,000 MG, LIDOCAINE 1% 20 ML 2.1 ML IM (17:45)
[2025-01-17 17:54] VITALS: BP 144/84; PULSE 96; RESP 16; TEMP 37.3; O2SAT 99
== END 2025-01-17 17:55 | disposition home or self-care (01) ==
PROVIDERS: Nurse Practitioner Family; Emergency Provider Family Medicine; PCP Internal Medicine
DX: N39.0 Urinary tract infection, site not specified (principal); J18.9 Pneumonia, unspecified organism; R00.0 Tachycardia, unspecified; I49.1 Atrial premature depolarization; I44.4 Left anterior fascicular block; R10.9 Unspecified abdominal pain; E78.00 Pure hypercholesterolemia, unspecified; I10 Essential (primary) hypertension
CPT/HCPCS: 36415; 74176; 80053; 81001; 83690; 84484; 85025; 93005; 96372; 99283; J0696; J3490

== ENCOUNTER 2025-01-18 10:42 | Outpatient (RCR) | payer MEDICARE, MEDICAID, SELFPAY ==
[2025-01-04 14:03] LABS: Basophils # (Auto) 0.1 Thou/mm3 (0.0-0.2); Basophils % (Auto) 1 % (0-2.5); Eosinophils # (Auto) 0.1 Thou/mm3 (0.0-0.5); Eosinophils % (Auto) 2 % (0-10); Hematocrit 37.0 % (36.0-46.0); Hemoglobin 12.5 g/dL (12.0-16.0); Immature Granulocytes Auto 0.01 Thou/mm3 (0.00-0.00); Lymphocytes # (Auto) 0.9 Thou/mm3 (1.0-4.8); Lymphocytes % (Auto) 18 % (10-50); Mean Corpuscular HGB Conc 33.8 g/dl (31.0-37.0); Mean Corpuscular Hemoglobin 37.1 pg (25.0-35.0); Mean Corpuscular Volume 110 fL (80-100); Monocytes # (Auto) 0.3 Thou/mm3 (0.0-0.8); Monocytes % (Auto) 7 % (0-12); Neutrophils # (Auto) 3.7 Thou/mm3 (1.8-7.7); Neutrophils % (Auto) 72 % (37-80); Nucleated Red Blood Cell # 0.00 Thou/mm3 (0.00-0.00); Nucleated Red Blood Cell % 0 /100 WBC (0); Platelet Count 136 Thou/mm3 (140-440); RDW Standard Deviation 56.1 fL (36.4-46.3); Red Blood Count 3.37 Miln/mm3 (4.00-5.20); White Blood Count 5.1 Thou/mm3 (3.6-11.0)
[2025-01-04 14:22] LABS: Alanine Aminotransferase 23 U/L (10-49); Albumin, Serum 3.9 gm/dL (3.4-4.8); Albumin/Globulin Ratio 1.1 (1.2-2.2); Alkaline Phosphatase 243 U/L (46-116); Anion Gap 11 (7-16); Aspartate Amino Transferase 72 U/L (0-34); BUN/Creatinine Ratio 12 Ratio (12-20); Bilirubin,Total 2.2 mg/dL (0.3-1.2); Blood Urea Nitrogen 14 mg/dL (9-23); Calcium 10.1 mg/dL (8.3-10.6); Calcium (Corrected) 10.2 mg/dL (8.5-10.1); Carbon Dioxide 30.8 mMol/L (20.0-31.0); Chloride 100 mMol/L (98-107); Creatinine (Component) 1.2 mg/dL (0.6-1.3); Globulin 3.5 gm/dL (2.3-3.5); Glucose 105 mg/dL (74-106); Osmolality,Calculated 283 (275-295); Potassium 3.1 mMol/L (3.4-5.1); Sodium 142 mMol/L (136-145); Total Protein 7.4 gm/dL (5.7-8.2); eGFR 47 See Note
[2025-01-05 09:06] LABS: Bilirubin,Direct 0.9 mg/dL (0.0-0.3); Bilirubin,Total 2.3 mg/dL (0.3-1.2)
[2025-01-14 09:40] LABS: Basophils # (Auto) 0.1 Thou/mm3 (0.0-0.2); Basophils % (Auto) 1 % (0-2.5); Eosinophils # (Auto) 0.1 Thou/mm3 (0.0-0.5); Eosinophils % (Auto) 2 % (0-10); Hematocrit 38.0 % (36.0-46.0); Hemoglobin 12.9 g/dL (12.0-16.0); Immature Granulocytes Auto 0.03 Thou/mm3 (0.00-0.00); Lymphocytes # (Auto) 1.1 Thou/mm3 (1.0-4.8); Lymphocytes % (Auto) 19 % (10-50); Mean Corpuscular HGB Conc 33.9 g/dl (31.0-37.0); Mean Corpuscular Hemoglobin 36.8 pg (25.0-35.0); Mean Corpuscular Volume 108 fL (80-100); Monocytes # (Auto) 0.5 Thou/mm3 (0.0-0.8); Monocytes % (Auto) 8 % (0-12); Neutrophils # (Auto) 4.0 Thou/mm3 (1.8-7.7); Neutrophils % (Auto) 69 % (37-80); Nucleated Red Blood Cell # 0.00 Thou/mm3 (0.00-0.00); Nucleated Red Blood Cell % 0 /100 WBC (0); Platelet Count 184 Thou/mm3 (140-440); RDW Standard Deviation 52.9 fL (36.4-46.3); Red Blood Count 3.51 Miln/mm3 (4.00-5.20); White Blood Count 5.8 Thou/mm3 (3.6-11.0)
[2025-01-14 10:01] LABS: Alanine Aminotransferase 26 U/L (10-49); Albumin, Serum 4.0 gm/dL (3.4-4.8); Albumin/Globulin Ratio 1.1 (1.2-2.2); Alkaline Phosphatase 250 U/L (46-116); Anion Gap 13 (7-16); Aspartate Amino Transferase 74 U/L (0-34); BUN/Creatinine Ratio 9 Ratio (12-20); Bilirubin,Direct 0.9 mg/dL (0.0-0.3); Bilirubin,Indirect 1.4 mg/dL (0.0-1.1); Bilirubin,Total 2.3 mg/dL (0.3-1.2); Blood Urea Nitrogen 11 mg/dL (9-23); Calcium 10.3 mg/dL (8.3-10.6); Calcium (Corrected) 10.3 mg/dL (8.5-10.1); Carbon Dioxide 25.1 mMol/L (20.0-31.0); Chloride 105 mMol/L (98-107); Creatinine (Component) 1.2 mg/dL (0.6-1.3); Globulin 3.5 gm/dL (2.3-3.5); Glucose 112 mg/dL (74-106); Osmolality,Calculated 285 (275-295); Potassium 3.5 mMol/L (3.4-5.1); Sodium 143 mMol/L (136-145); Total Protein 7.5 gm/dL (5.7-8.2); eGFR 47 See Note
[2025-01-14 10:17] LABS: CA 15-3 104.5 U/mL (<32.4)
--- NOTE | 2025-01-23 20:09 | CTCFLWUP_ITS ---
Patient: JOSHUA HOWARD : 1950 Page 2 of 2 FOLLOW UP NOTE DATE OF SERVICE: 01/17/2025 NAME: JOSHUA HOWARD ACCOUNT: [id number] : 1950 AGE: 74 INTERVAL HISTORY: Patient was started on abemaciclib and Faslodex e and tolerating well. As Ms. Howard have HER2 disease was also started on Herceptin. Patient received first dose of Herceptin on 07/01/2024. Patient have missed 4 cycles of Faslodex and received the last cycle. Patient's Verzenio was held at this cycle secondary to elevated liver enzymes awaiting imaging. Patient's imaging showed progression of cancer in the liver. Patient's cancer markers have also worsened. Patient has been on and off her medication. Subjective: Chief Complaint Follow-up for stage 4 triple positive left breast cancer, ongoing radiation and chemotherapy treatment, anxiety History of Present Illness Bhumi prado is a 74-year-old female with a history of stage 4 triple-positive left breast cancer, presenting for follow-up of her ongoing treatment. June 2024 patient's MRI of the liver showed liver lesion 27 x 333 mm rim-enhancing in the right upper lobe of the liver. Patient was started on Herceptin. Patient was also changed to Verzenio and Faslodex. Patient has been noncompliant. Some injections were canceled by nursing after patient was found to be unfit for interim muscular injection secondary to poor hygiene. Patient wear a diaper because of stool incontinence. Medications and Supplements - Anastrozole - Taking twice a day - Abemaciclib - Herceptin - No problems reported - Minocycline Review of Systems General: Negative for fever, chills. Positive for weight loss. Cardiovascular: Negative for chest pain. Respiratory: Negative for shortness of breath. Gastrointestinal: Positive for mild nausea. Musculoskeletal: Negative for leg swelling. Psychiatric: Positive for anxiety. Objective: Physical Examination General: Patient appears visibly reduced in weight. Musculoskeletal: Patient able to move leg. Laboratory, Imaging, and Diagnostic Test Results - MRI (07/05/2024): 27 x 33 mm rim-enhancing lesion in posterior upper lobe of right liver, new liver metastasis - PET scan (July 2023): Performed, specific results not mentioned - CEA: Elevated (specific value not provided) - Liver panel: Performed, results not specified - Kidney function: Impaired (specific values not provided) - Heart function: Normal - Colonoscopy (2009): Normal ONCOLOGY HISTORY:?[facility] Hx? 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 2019:Patient had bilateral mammograms according to her that were nondiagnostic. 10/10/2020: Patient was seen in the emergency room here at [facility] cancer center because of mid lower chest pain. 10/10/2020: Chest x-ray? 10/10/2020: CT scan of the chest abdomen and pelvis with IV contrast? 10/17/2020: Left breast ultrasound? 10/17/2020: Bilateral diagnostic mammograms? 10/05/2020: Core needle biopsy of the left breast mass? 02/16/2021: PET CT scan? 03/09/2021: CT scan of the chest without contrast? 03/22/2021 ultrasound of the extremity anterior pelvic wall? 04/18/2021: CT scan of the chest abdomen and pelvis with IV contrast? 04/19/2021: CT scan of the chest abdomen and pelvis with IV contrast? 04/19/2021: Echocardiogram? 05/28/2021: Ms. Howard received first cycle of TC chemotherapy. 05/31/2021?06/13/2021: Ms. Howard was admitted to [facility] because of diarrhea, nausea and vomiting as well as cytopenias. 07/10/2021: CT scan of the chest with IV contrast 07/24/2021: Patient is started on anastrozole as well as palbociclib. 08/11/2021: PET/CT scan which was compared to previous PET/CT scan of February 16, 2021 as well as CTA of the chest of July 24, 2021.? 02/08/2022: CT scan of the chest abdomen and pelvis with IV contrast? 10/31/2022: PET/CT scan? 12/30/2022: Ms. Howard had left modified radical mastectomy 04/02/2023: Ms. Howard had 1 infusion of Trastuzumab(Herceptin).-Into the infusion patient started developing chills, rigors as well as mild shortness of breath. Infusion was discontinued and patient was sent to the emergency room. She was observed for few hours. 07/31/2023: PET/CT scan done 10/16/2023: Right breast mammogram? OTHER MEDICAL HISTORY/CONDITIONS: LEFT BREAST CANCER BRONCHITIS/ASTHMA CARDIAC ARRHYTHMIAS HYPERTENSION HIGH CHOLESTEROL OBESITY GERD URINARY INCONTINENCE GASTIC SURGERY 1991 CHOLECYSTECTOMY APPENDECTOMY BREAST BIOPSY UMBILICAL HERNIA REPAIR LEFT KNEE SX COLONOSCOPY/EGD ?Clone Other Med Hx? FAMILY HISTORY: Father: PATERNAL GRANDMA CERVICAL CANCER Mother:?DENIES Sibling: SISTER CERVICAL CANCER, BROTHER LIVER CANCER Children:?DENIES Cancer?History:?HX?BREAST?CANCER ?Clone Family Hx? 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 MEDICATIONS: 1. albuterol sulfate - 0.63 mg/3 mL As directed 2. Benadryl - 50 mg 1 Capsule As directed 3. Celexa - 20 mg 1 tab Daily 4. gabapentin - 100 mg 2 Capsule Three times a day 5. Lasix - 20 mg 1 tab Daily 6. Lipitor - 10 mg 1 tab Every day before sleep 7. metoprolol succinate - 25 mg 1 tab Every day before sleep 8. metoprolol succinate - 50 mg 1 tab In the morning 9. multivitamin - 1 Capsule Daily 10. ondansetron - 8 mg 1 tab as needed 11. Oyster Calcium - 500 mg 1 tab Twice a Day 12. Potassium Chloride ER - Daily 13. tizanidine - 4 mg As needed 14. Tylenol-Codeine No.3 - 300-30 mg 1 tab As directed 15. Verzenio - 150 mg 1 tab Twice a Day 16. Vitamin D2 - 25,000 unit 1 Capsule Weekly 17. Zoloft - 25 mg 1 tab Daily?Palabra Meds? Medications Last Reconciled by Yeimy Reilly MD on 01/17/2025 ALLERGIES: REVIEW OF SYSTEMS: A complete 14-point review of systems was performed and is negative except as noted in interval history. PHYSICAL EXAMINATION:?Vivian MARTINEZ? VITAL SIGNS: Temperature?98.6, B/P?119/74, Oxygen?Saturation?98% Weight?240?lbs (Change?since?01/14/25:?-3?lbs) PAIN: 0 - No pain ECOG Performance Status: 2 - Symptomatic; ambulatory; capable of self-care; >50% of waking hrs. not in bed Alert and oriented x 4 CHEST: Decreased air entry at the bases No masses palpable on the left chest wall. No areas of tenderness. CARDIAC: Rhythm regular, no murmurs or gallops present. ABDOMEN: Soft. No hepatomegaly. No splenomegaly. EXTREMITIES: 1+ pitting LE. LABORATORY DATA: I have personally reviewed and interpreted each of the patient?s relevant lab tests, abnormal findings are below: Date ASSESSMENT/PLAN:?Vivian Andrade Assessment/Plan? Stage IV breast cancer ER/ME positive HER2 negative but later on mastectomy found to be HER2 positive in 2022 on initial biopsy in 2020 Patient had left breast mastectomy and was found to be ER/ME HER2 positive Lymph node and lung nodules were never biopsied but they reduced in size on the first cycle of chemotherapy Patient received first cycle of chemotherapy on May 2021 and was complicated with a diarrhea nausea vomiting and admitted to the hospital and she decided not to take further chemotherapy Patient had great improvement with chemotherapy Patient underwent left radical mastectomy and at that time was noted to have HER2 positive disease Patient received Herceptin for only 1 cycle but had reaction in March 2023 and further treatment was stopped Patient was started on anastrozole and Ibrance PET CT scan in July 2023 shows 6 mm weekly hypermetabolic left lower lateral neck lymph node and no other metastatic disease 05/05/2024 MRI brain is negative for any cancer CT chest abdomen and pelvis Interval 10 mm right lobe liver lesion, recommend MRI abdomen liver follow-up, pre and postcontrast, to exclude hepatic metastasis Patient s tumor marker is rising up Patient's liver lesion 23 mm in June 2024. Patient was changed to Herceptin along with the antiendocrine therapy changed to to amebaciclib and fulvestrant in third line option October [address] scan is not diagnostic. Patient's CT DNA is rising likely from her noncompliance to the medication. I will get liver biopsy done ZURI MRI of the liver Need ER/ME HER2 status on the liver Patient may need chemotherapy Patient was unable to tolerate chemotherapy and received only 1 cycle of TCH Patient is having elevated liver enzymes Will give Faslodex and Herceptinschedule for liver biopsy zuri Renal function impairment Assessment: Patient has a history of impaired renal function. Previous container washer (Dr. Degroot) had indicated that the patient would be stable for approximately 5 years without significant issues. Current kidney function is noted to be not great and requires monitoring, especially in the context of frequent imaging studies. Plan: - Monitor renal function with regular blood tests - Encourage increased water intake, especially before and after imaging studies - Consider referral to a container washer for further evaluation and management Elevated CEA Assessment: Patient's CEA (carcinoembryonic antigen) level is elevated. This is likely related to the known breast cancer rather than indicating colon cancer. However, given the elevated CEA and recent weight loss, further gastrointestinal evaluation is warranted. Plan: - Refer to mold yard supervisor (Dr. Currie) for evaluation and colonoscopy. Scheduled to see - Continue monitoring CEA levels ORDERS: Order # Description [id number] Follow Up 4 Week [id number] CBC + Comprehensive Metabolic Panel + CEA + CA 27.29 [id number] Lab Appointment RETURN TO CLINIC: I reviewed the diagnosis, prognosis, and recommended treatment/procedure options with the patient (and/or their legal account executive sales representative), including the potential benefits, risks, side effects and alternative therapies. We also discussed the option of no treatment and the possibility of clinical trial participation, if applicable. All questions were addressed, and they demonstrated understanding. They provided informed consent to proceed with the proposed plan of care. BILLING AND COMPLIANCE: I reviewed external records from providers outside my specialty as summarized above. I spent a total of 50 minutes on this patient?s care on the day of their visit excluding time spent related to any billed procedures. This time includes time spent with the patient as well as time spent documenting in the medical record, reviewing patients records and tests, obtaining history, placing orders, communicating with other healthcare professionals, counseling the patient, family or caregiver, and/or care coordination for the diagnoses above. Electronically Signed by: Ranjit Andrade MD T: 8:06 PM CC: Eugene?WAYNE Dacosta PCP: Eugene Dacosta Referring: Eugene Dacosta This document was completed utilizing speech recognition software. Grammatical errors, random word insertions, pronoun errors, and incomplete sentences are an occasional consequence of this system due to software limitations, ambient noise, and hardware issues. Any formal questions or concerns about the content, text or information contained within the body of this dictation should be directly addressed to the provider for clarification.
== END 2025-01-18 23:59 | disposition home or self-care (01) ==
LOC: SCTC 10:42
PROVIDERS: PCP Internal Medicine; Referring Provider Internal Medicine; Visit Provider Internal Medicine Hematology & Oncology
DX: Z51.11 Encounter for antineoplastic chemotherapy (principal); C50.212 Malignant neoplasm of upper-inner quadrant of left female breast; Z17.0 Estrogen receptor positive status [ER+]; Z17.21 Progesterone receptor positive status; Z17.31 Human epidermal growth factor receptor 2 positive status; Z90.12 Acquired absence of left breast and nipple; R97.0 Elevated carcinoembryonic antigen [CEA]; K76.89 Other specified diseases of liver; R91.8 Other nonspecific abnormal finding of lung field; N28.89 Other specified disorders of kidney and ureter
CPT/HCPCS: 36591; 80053; 82247; 82248; 85025; 86300; 96361; 96365; 96402; 99212; A4216; J1642; J2405; J7030; J7050; J9395; Q5117; G0463

== ENCOUNTER → 2025-01-28 | Outpatient (CLI) | payer MEDICARE, MEDICAID, SELFPAY ==
--- NOTE | 2025-01-28 10:55 | XR_ITS ---
EXAMINATION: AP chest single view TECHNIQUE: AP semiupright portable chest single view Date and time: January 28, 2025, 1108 hours, comparison July 06, 2024 INDICATIONS: Cough and congestion shortness of breath this week, breast carcinoma diagnosis FINDINGS: Pneumonia right perihilar and left base Mild vascular congestion. Right internal jugular Port-A-Cath tip satisfactory position Mild prominence left ventricle Left axillary surgical clips Prominent osteopenia IMPRESSION: Right perihilar left basilar pneumonia
== END | disposition home or self-care (01) ==
LOC: CDIM 10:36
PROVIDERS: PCP Internal Medicine; Referring Provider Internal Medicine; Visit Provider Internal Medicine
DX: J18.9 Pneumonia, unspecified organism (principal)
CPT/HCPCS: 71046

== ENCOUNTER 2025-01-31 11:39 | Emergency (ER) | payer MEDICARE, MEDICAID, SELFPAY ==
[2025-01-31 11:40] VITALS: BMI 45.7
[2025-01-31 12:32] VITALS: BP 149/94; PULSE 104; RESP 20; TEMP 36.9; O2SAT 94
--- NOTE | 2025-01-31 12:39 | PD.EDADULT ---
ED General RME/HPI General Chief complaint: Abdominal Pain Stated complaint: ABD PAIN, NO BM x 7 DAYS, GETTING OVER PNEUMONIA Time Seen by Provider: 01/31/25 12:34 Arrival date/time: 01/31/25 11:39 CC: Abdominal pain no bowel movement in 7 days patient presents to the ER for from over the cancer treatment center after the stated complaints. Patient denies fever chills shortness of breath or difficulty breathing. Patient has a history of breast cancer. Mode of arrival: wheelchair Related Data Home Medications ?Medication ?Instructions ?Recorded ?Confirmed hydrocodone 5 mg-acetaminophen 325 1 tab PO Q6H PRN Pain 10/10/20 06/10/23 mg tablet triamterene 37.5 1 tab PO QDAY 10/10/20 06/10/23 mg-hydrochlorothiazide 25 mg tablet albuterol sulfate 2.5 mg/3 mL 2.5 mg inhalation Q6HR 06/01/21 06/10/23 (0.083 %) solution for nebulization calcium carbonate 500 mg PO BID 06/01/21 06/10/23 metoprolol tartrate 25 mg tablet 50 mg PO BID 06/01/21 06/10/23 ondansetron HCl 8 mg tablet 8 mg PO BID PRN Nausea And Vomiting 06/01/21 06/10/23 atorvastatin 10 mg tablet (Lipitor) 10 mg PO QDAY 05/09/22 06/10/23 palbociclib 125 mg capsule 125 mg PO QDAY 05/09/22 06/10/23 (Ibrance) anastrozole 1 mg tablet 1 mg PO DAILY 02/27/23 06/10/23 cephalexin 500 mg capsule 500 mg PO TID PRN Muscle Spasm 02/27/23 06/10/23 Previous Rx's ?Medication ?Instructions ?Recorded cefuroxime axetil 500 mg tablet 500 mg PO BID #14 tabs 04/02/23 docusate calcium 240 mg capsule 240 mg PO QDAY #30 caps 01/31/25 Allergies Allergy/AdvReac Type Severity Reaction Status Date / Time alendronate sodium (From Allergy Severe Chest Pain Verified 01/31/25 11:43 Fosamax) Iodinated Contrast Media Allergy Severe Anaphylaxis Verified 01/31/25 11:43 iodine Allergy Severe Anaphylaxis Verified 01/31/25 11:43 lisinopril Allergy Severe Cough Verified 01/31/25 11:43 nut - unspecified Allergy Severe Rash Verified 01/31/25 11:43 Review of Systems Review of Systems Narrative Review of Systems: GEN: No fever, no chills, no weight loss EYES: No discharge, no visual changes, no pain HEENT: No ear pain, no congestion, no sore throat PULM: No shortness of breath, no cough, no congestion CV: No chest pain, no dyspnea on exertion, no palpitations GI: No nausea, no vomiting, no diarrhea, + pain, no constipation : No frequency, no urgency, no dysuria MUSC/SKEL: No joint pain, no back pain SKIN: No rash PSYCH: No hallucinations, no depression HEME/LYMPH: No easy bleeding or bruising tendencies NEURO: No weakness, no headache Past Medical History Past Medical History NEUROLOGIC: Negative Neurological Disorders or Seizures CARDIAC: Positive Cardiac Disorders, Cardiac Arrhythmia, Hypercholesterolemia, Edema and Hypertension; Negative Heart Murmur or Congestive Heart Failure RESPIRATORY: Positive Asthma and Pneumonia; Negative Chronic Obstructive Pulmonary Disease (COPD) GASTROINTESTINAL: Positive Gastrointestinal Disorders, Hiatal Hernia and Obesity; Negative Hepatitis GENITOURINARY: Negative Genitourinary Disorders or Renal Disease REPRODUCTIVE: Positive Breast Cancer; Negative Endometriosis or Previous Pregnancies MUSCULOSKELETAL: Positive Musculoskeletal Disorders and Arthritis ENDOCRINE: Negative Endocrine Disorders, Diabetes Mellitus Type 1 or Diabetes Mellitus Type 2 HEMATOLOGIC: Negative Blood Disorders or Sickle Cell Disease PSYCHO/SOCIAL: Positive Anxiety OTHER HISTORY: Positive Hospitalization, Falls, Chemotherapy (on oral for left breast cancer), Measles and Breast Cancer; Negative Autoimmune Disease, Shingles, Blood Transfusions, Blood Transfusion Reaction, Anesthesia Reactions, Radiation Therapy, MRSA or Clostridium Difficile Family History FAMILY HISTORY: Positive Family Cardiac Disorders, Family Cancer and Family Surgery; Negative Family Psychiatric Problems, Family Respiratory Disorders, Family Gastrointestinal Problems or Family Anesthesia Reaction Surgical History SURGICAL: Positive Abdominal Surgery, Gastric Bypass Surgery and Mastectomy (Left) Social History SMOKING STATUS: Never smoker SUBSTANCE USE: does not use ED Exam Narrative Physical exam: [General: Morbidly obese not in any acute distress Head normocephalic HEENT: Eyes pupils are PERRLA EOMs are intact mouth pink moist membranes uvula is midline swallow symmetrical. All other subsystems of HEENT are within acceptable limits Neck is supple nontender Chest equal chest rise nontender to palpation Respiratory: Clear to auscultation no wheezes crackles or rubs CV: Rate rhythm is regular no murmurs rubs or clicks Abdomen is grossly distended secondary to body habitus soft, diffusely tender throughout, no reflexive guarding rebound tenderness, no masses, positive bowel sounds all 4 quadrants Back: No CVA tenderness no spinous process tenderness from cervical spine thoracic and lumbar spine Skin: Intact no petechiae rash induration ulceration or crepitus Extremities: Moving all extremity against resistance cap refill less than 2 seconds neurosensory intact Neuro: Awake alert oriented x3 Glascow coma 15 no focal deficits] Course Course Course Narrative: After fleets enema the patient has small amount of stool without complication patient will be discharged home with constipation. There is no obstruction Quality Measures none Orders Category Date Time Status Enema Administration NOW Care 01/31/25 13:49 Active XR abdomen series w chest 1V Stat Exams 01/31/25 12:42 Completed ACETAMINOPHEN w/COD 300-30 [Tylenol w/Cod #3] Med 01/31/25 14:18 Discontinued 1 tab PO X1 ONE Potassium Chloride [K-Dur] Med 01/31/25 12:45 Discontinued 40 meq PO X1 ONE Vital Signs Vital signs: Vital Signs Temperature 98.4 F 01/31/25 12:32 Pulse Rate 104 H 01/31/25 12:32 Respiratory Rate 20 01/31/25 12:32 Blood Pressure 149/94 H 01/31/25 12:32 Pulse Oximetry (%) 94 L 01/31/25 12:32 Oxygen Delivery Method Room Air 01/31/25 12:32 Discharge Plan Plan Patient Disposition: HOME (Self Care) Patient condition on transfer: Stable Prescriptions/Referrals Prescriptions/Med Rec: New docusate calcium 240 mg capsule 240 mg PO QDAY Qty: 30 0RF No Action atorvastatin [Lipitor] 10 mg tablet 10 mg PO QDAY Ibrance 125 mg capsule 125 mg PO QDAY Rx Instructions: administer on days 1 through 21 of a 28-day treatment cycle hydrocodone-acetaminophen 5-325 mg tablet 1 tab PO Q6H PRN (Reason: Pain) Patient Comments: TAKE 1 TABLET BY ORAL ROUTE EVERY 6 HOURS NEEDED FOR PAIN NEEDED Rx Instructions: back pain triamterene-hydrochlorothiazid 37.5-25 mg tablet 1 tab PO QDAY Patient Comments: TAKE 1 TABLET BY MOUTH EVERY DAY ondansetron HCl 8 mg Tablet 8 mg PO BID PRN (Reason: Nausea And Vomiting) metoprolol tartrate 25 mg tablet 50 mg PO BID Patient Comments: TAKE 1 TABLET BY MOUTH TWICE A DAY calcium carbonate 500 mg calcium (1,250 mg) tablet 500 mg PO BID Patient Comments: TAKE 1 TABLET BY MOUTH TWICE A DAY albuterol sulfate 2.5 mg /3 mL (0.083 %) solution for nebulization 2.5 mg inhalation Q6HR cephalexin 500 mg capsule 500 mg PO TID PRN (Reason: Muscle Spasm) anastrozole 1 mg tablet 1 mg PO DAILY cefuroxime axetil 500 mg tablet 500 mg PO BID Qty: 14 0RF Referrals: Doc Cornejo MD [Physician, Family Practice] - In 1 week No Primary/Family,Physician [Primary Care Provider] - In 1 week Problem List Clinical Impression: Constipation Impression comment: Eat more fiber, use the docusate as needed for constipation. Patient/Caregiver Discharge Instructions Education Materials: Treating Constipation, Eating a High-Fiber Diet, ED Constipation (Adult) Print Language: [place] Stand Alone Forms: Gema Award Info., Patient Portal Info Letter PA/LEISA Supervising Physician PA/LEISA Supervising Physician: Dave Maya ENP [facility] Clinical Information Provided by: patient and friend Medical Records reviewed [facility] Meds/Rx considered, not ordered None Labs/Rad/Tests considered, not ordered None Chronic Illness/Social Conditions Explain: Breast cancer EKG EKG not done Labs Labs: interpreted by me Lab(s) Interpretation(s): CBC shows no acute leukocytosis anemia thrombocytopenia CMP shows potassium 3.2 no other significant electrolyte imbalances renal impairment transaminitis or T. bili elevation. Medication Administration(s) Medication Administration History Discontinued Medications Acetaminophen/Codeine Phosphate (Acetaminophen W/Cod 300-30 Tablet) 1 tab PO X1 ONE Stop: 01/31/25 14:19 Last Admin: 01/31/25 15:24 Dose: 1 tab Documented By: KDC Potassium Chloride (Potassium Chloride 20 Meq Tabcr) 40 meq PO X1 ONE Stop: 01/31/25 12:46 Last Admin: 01/31/25 12:54 Dose: 40 meq Documented By: EF
--- NOTE | 2025-01-31 12:42 | XR_ITS ---
EXAMINATION: Abdominal series 3 views including AP chest TECHNIQUE: AP portable semiupright chest, AP upright AP supine abdomen 3 views Date and time: January 31, 2025, 1250 hours INDICATIONS: Abdominal pain and no bowel movement beginning 7 days ago. FINDINGS: No significant cardiac enlargement Ectatic thoracic aorta. Prominent vascular congestion. Left axillary surgical clips. Surgical clips upper abdomen Moderate stool in the colon No obstruction No free air Prominent osteopenia IMPRESSION: Nonobstructive bowel gas pattern Prominent vascular congestion
--- NOTE | 2025-01-31 13:40 | PC.NURSE ---
Pt. here from home to room 16, pt. states she was sent here to r/o SBO, pt. states she has had no BM for 7 days. Pt. states she has had nausea and vomiting. Pt. states 2 weeks ago she had PNA, pt. states she completed 10 days of antibiotics and her primary gave her 5 more days of antibiotics. Pt. family is bedside, pt. states she ambulates with a walker.
[2025-01-31] MEDS: ACETAMINOPHEN w/COD 300-30 TABLET 1 TAB PO (15:24)
[2025-01-31 15:35] VITALS: BP 136/70; PULSE 97; RESP 18; TEMP 36.8; O2SAT 95
--- NOTE | 2025-01-31 16:38 | PC.NURSE ---
Pt. had a BM on bed carvalho, pt. BM medium amount and brown. Pt. cleaned.
[2025-01-31 16:53] VITALS: BP 124/82; PULSE 100; RESP 18; TEMP 36.8; O2SAT 97
[2025-01-31 17:30] VITALS: BP 124/82; PULSE 96; RESP 20; TEMP 37.1; O2SAT 98
== END 2025-01-31 17:41 | disposition home or self-care (01) ==
PROVIDERS: Emergency Provider Family Medicine
DX: K59.00 Constipation, unspecified (principal)
CPT/HCPCS: 74022; 99283; A9270

== ENCOUNTER 2025-02-17 09:37 | Outpatient (RCR) | payer MEDICARE, MEDICAID, SELFPAY ==
[2025-01-31 12:27] LABS: Basophils # (Auto) 0.1 Thou/mm3 (0.0-0.2); Basophils % (Auto) 1 % (0-2.5); Eosinophils # (Auto) 0.0 Thou/mm3 (0.0-0.5); Eosinophils % (Auto) 0 % (0-10); Hematocrit 38.5 % (36.0-46.0); Hemoglobin 13.1 g/dL (12.0-16.0); Immature Granulocytes Auto 0.04 Thou/mm3 (0.00-0.00); Lymphocytes # (Auto) 0.8 Thou/mm3 (1.0-4.8); Lymphocytes % (Auto) 9 % (10-50); Mean Corpuscular HGB Conc 34.0 g/dl (31.0-37.0); Mean Corpuscular Hemoglobin 36.0 pg (25.0-35.0); Mean Corpuscular Volume 106 fL (80-100); Monocytes # (Auto) 0.8 Thou/mm3 (0.0-0.8); Monocytes % (Auto) 9 % (0-12); Neutrophils # (Auto) 7.1 Thou/mm3 (1.8-7.7); Neutrophils % (Auto) 80 % (37-80); Nucleated Red Blood Cell # 0.00 Thou/mm3 (0.00-0.00); Nucleated Red Blood Cell % 0 /100 WBC (0); Platelet Count 140 Thou/mm3 (140-440); RDW Standard Deviation 50.8 fL (36.4-46.3); Red Blood Count 3.64 Miln/mm3 (4.00-5.20); White Blood Count 8.9 Thou/mm3 (3.6-11.0)
[2025-01-31 12:39] LABS: Alanine Aminotransferase 14 U/L (10-49); Albumin, Serum 3.9 gm/dL (3.4-4.8); Albumin/Globulin Ratio 1.1 (1.2-2.2); Alkaline Phosphatase 210 U/L (46-116); Anion Gap 10 (7-16); Aspartate Amino Transferase 62 U/L (0-34); BUN/Creatinine Ratio 18 Ratio (12-20); Bilirubin,Total 1.2 mg/dL (0.3-1.2); Blood Urea Nitrogen 16 mg/dL (9-23); Calcium 10.0 mg/dL (8.3-10.6); Calcium (Corrected) 10.1 mg/dL (8.5-10.1); Carbon Dioxide 28.7 mMol/L (20.0-31.0); Chloride 102 mMol/L (98-107); Creatinine (Component) 0.9 mg/dL (0.6-1.3); Globulin 3.4 gm/dL (2.3-3.5); Glucose 105 mg/dL (74-106); Osmolality,Calculated 282 (275-295); Potassium 3.2 mMol/L (3.4-5.1); Sodium 141 mMol/L (136-145); Total Protein 7.3 gm/dL (5.7-8.2); eGFR > 60 See Note
[2025-01-31 13:14] LABS: Bilirubin,Direct 0.5 mg/dL (0.0-0.3); Bilirubin,Indirect 0.7 mg/dL (0.0-1.1); Bilirubin,Total 1.2 mg/dL (0.3-1.2)
[2025-01-31 14:02] LABS: AFP Non-Pregnant 4.30 ng/mL (<8.10)
[2025-01-31 14:24] LABS: CA 15-3 136.6 U/mL (<32.4); Carcinoembryonic Antigen 185.1 ng/mL (0.0-5.0)
[2025-02-04 06:20] LABS: CA 27.29* 414 U/mL (LESS THAN 38)
[2025-02-17 10:30] LABS: Basophils # (Auto) 0.1 Thou/mm3 (0.0-0.2); Basophils % (Auto) 1 % (0-2.5); Eosinophils # (Auto) 0.1 Thou/mm3 (0.0-0.5); Eosinophils % (Auto) 1 % (0-10); Hematocrit 36.9 % (36.0-46.0); Hemoglobin 12.1 g/dL (12.0-16.0); Immature Granulocytes Auto 0.04 Thou/mm3 (0.00-0.00); Lymphocytes # (Auto) 1.0 Thou/mm3 (1.0-4.8); Lymphocytes % (Auto) 10 % (10-50); Mean Corpuscular HGB Conc 32.8 g/dl (31.0-37.0); Mean Corpuscular Hemoglobin 34.9 pg (25.0-35.0); Mean Corpuscular Volume 106 fL (80-100); Monocytes # (Auto) 0.7 Thou/mm3 (0.0-0.8); Monocytes % (Auto) 7 % (0-12); Neutrophils # (Auto) 8.6 Thou/mm3 (1.8-7.7); Neutrophils % (Auto) 82 % (37-80); Nucleated Red Blood Cell # 0.00 Thou/mm3 (0.00-0.00); Nucleated Red Blood Cell % 0 /100 WBC (0); Platelet Count 138 Thou/mm3 (140-440); RDW Standard Deviation 51.8 fL (36.4-46.3); Red Blood Count 3.47 Miln/mm3 (4.00-5.20); White Blood Count 10.5 Thou/mm3 (3.6-11.0)
[2025-02-17 10:46] LABS: AFP Non-Pregnant 2.80 ng/mL (<8.10); Bilirubin,Direct 0.8 mg/dL (0.0-0.3); Bilirubin,Indirect 0.7 mg/dL (0.0-1.1); Bilirubin,Total 1.5 mg/dL (0.3-1.2)
[2025-02-17 10:47] LABS: Alanine Aminotransferase 23 U/L (10-49); Albumin, Serum 3.4 gm/dL (3.4-4.8); Albumin/Globulin Ratio 1.1 (1.2-2.2); Alkaline Phosphatase 268 U/L (46-116); Anion Gap 10 (7-16); Aspartate Amino Transferase 112 U/L (0-34); BUN/Creatinine Ratio 32 Ratio (12-20); Bilirubin,Total 1.5 mg/dL (0.3-1.2); Blood Urea Nitrogen 32 mg/dL (9-23); Calcium 9.1 mg/dL (8.3-10.6); Calcium (Corrected) 9.6 mg/dL (8.5-10.1); Carbon Dioxide 35.1 mMol/L (20.0-31.0); Chloride 99 mMol/L (98-107); Creatinine (Component) 1.0 mg/dL (0.6-1.3); Globulin 3.0 gm/dL (2.3-3.5); Glucose 132 mg/dL (74-106); Osmolality,Calculated 295 (275-295); Potassium 3.9 mMol/L (3.4-5.1); Sodium 144 mMol/L (136-145); Total Protein 6.4 gm/dL (5.7-8.2); eGFR 59 See Note
[2025-02-17 11:12] LABS: CA 15-3 193.5 U/mL (<32.4); Carcinoembryonic Antigen 274.3 ng/mL (0.0-5.0)
[2025-02-22 06:18] LABS: CA 27.29* 463 U/mL (LESS THAN 38)
== END 2025-02-18 23:59 | disposition home or self-care (01) ==
LOC: SCTC 09:37
PROVIDERS: PCP Internal Medicine; Referring Provider Internal Medicine; Visit Provider Internal Medicine Hematology & Oncology
DX: Z51.11 Encounter for antineoplastic chemotherapy (principal); C50.212 Malignant neoplasm of upper-inner quadrant of left female breast; Z17.410 Hormone receptor positive with human epidermal growth factor receptor 2 positive status; Z90.12 Acquired absence of left breast and nipple; K76.89 Other specified diseases of liver; R74.8 Abnormal levels of other serum enzymes; N28.89 Other specified disorders of kidney and ureter; R97.0 Elevated carcinoembryonic antigen [CEA]
CPT/HCPCS: 36591; 80053; 82105; 82247; 82248; 82378; 85025; 86300; 96402; 96413; A4216; J1642; J7040; J7050; J9395; Q5117

== ENCOUNTER 2025-03-01 10:08 | Inpatient (IN) | payer MEDICARE, SELFPAY ==
[2025-03-01] VITALS (12 sets, daily range): BP systolic 108–132; BP diastolic 58–83; PULSE 67–98; RESP 18–24; TEMP 36.6–37.1; O2SAT 95–98; BMI 46.7
--- NOTE | 2025-03-01 10:57 | PC.NURSE ---
PATIENT JEROME FROM [facility]. PATIENT HAS HAD INCREASED SWELLING TO EXTREMITIES WELL MORE LETHARGIC. PATIENT IS CURRENTLY [facility] 13. PATIENT LETHARGIC BUT AROUSABLE. PATIENT FAMILY AT BEDSIDE STATES PATIENT'S SPEECH IS MORE SLURRED THAN NORMAL AND THERE IS INCREASED SWELLING IN HER EXTREMITIES. VITALS ARE STABLE.
--- NOTE | 2025-03-01 10:58 | XR_ITS ---
EXAMINATION: AP chest single view TECHNIQUE: Portable sitting AP chest single view Date and time: March 01, 2025, 11:53 a.m. INDICATIONS: Chest pain today. FINDINGS: Opacity in the right upper lobe consistent with pneumonia Prominent right paratracheal region Layered right pleural fluid Right internal jugular Port-A-Cath tip right atrium Mild enlargement cardiac contour Moderate vascular congestion IMPRESSION: Right upper lobe pneumonia Suspicious for right mediastinal lymphadenopathy Mild heart failure with layered right pleural fluid
--- NOTE | 2025-03-01 10:58 | EKG_ITS ---
[facility] Test Date: 2025-03-01 Pat Name: JOSHUA HOWARD Department: Room: - Gender: Female Parts Room Clerk: : 1950 Requested By: Isabella Diallo Order Number: [id number] Reading MD: Isabella Diallo Measurements Intervals [place] Rate: 68 P: -19 ME: 168 QRS: -17 QRSD: 96 T: 22 QT: 429 QTc: 457 Interpretive Statements SINUS RHYTHM WITH SINUS ARRHYTHMIA Compared to ECG 01/17/2025 15:23:46 Sinus tachycardia no longer present Left anterior fascicular block no longer present Myocardial infarct finding no longer present /store/S0/[id number].pdf
[2025-03-01 11:19] LABS: Collection Type, Urine Catheter; Squamous Epithelial Cell,Urine 0 /hpf (0-5)
[2025-03-01 11:21] LABS: Basophils # (Auto) 0.0 Thou/mm3 (0.0-0.2); Basophils % (Auto) 0 % (0-2.5); Eosinophils # (Auto) 0.1 Thou/mm3 (0.0-0.5); Eosinophils % (Auto) 1 % (0-10); Hematocrit 35.1 % (36.0-46.0); Hemoglobin 11.3 g/dL (12.0-16.0); Immature Granulocytes Auto 0.03 Thou/mm3 (0.00-0.00); Lymphocytes # (Auto) 0.9 Thou/mm3 (1.0-4.8); Lymphocytes % (Auto) 9 % (10-50); Mean Corpuscular HGB Conc 32.2 g/dl (31.0-37.0); Mean Corpuscular Hemoglobin 34.2 pg (25.0-35.0); Mean Corpuscular Volume 106 fL (80-100); Monocytes # (Auto) 0.8 Thou/mm3 (0.0-0.8); Monocytes % (Auto) 8 % (0-12); Neutrophils # (Auto) 7.5 Thou/mm3 (1.8-7.7); Neutrophils % (Auto) 81 % (37-80); Nucleated Red Blood Cell # 0.00 Thou/mm3 (0.00-0.00); Nucleated Red Blood Cell % 0 /100 WBC (0); Platelet Count 132 Thou/mm3 (140-440); RDW Standard Deviation 55.5 fL (36.4-46.3); Red Blood Count 3.30 Miln/mm3 (4.00-5.20); White Blood Count 9.3 Thou/mm3 (3.6-11.0)
[2025-03-01 11:25] LABS: Bilirubin,Urine Negative (Negative); Blood,Urine Negative (Negative); Clarity,Urine Clear (Clear/Hazy); Color,Urine Yellow (Lt Yel-Yel); Culture Indicated,Urine Not Indicated; Glucose, Urine Negative (Negative); Hyaline Casts,Urine < 1 /hpf (0-1); Ketones,Urine Negative (Negative); Leukocyte Esterase,Urine Negative (Negative); Nitrite,Urine Negative (Negative); PH,Urine 6.0 (5.0-7.0); Protein,Urine Negative (Neg - Trace); RBC,Urine 1 /hpf (0-3); Specific Gravity,Urine 1.014 (1.001-1.035); Urobilinogen,Urine Negative mg/dL (0.0-1.0); WBC,Urine 2 /hpf (0-5)
[2025-03-01 11:33] LABS: INR 1.1 (0.9-1.3); Partial Thromboplastin Time 48.4 Seconds (22.0-36.0); Prothrombin Time 11.9 Seconds (9.0-12.2)
[2025-03-01 11:35] LABS: B-Type Natriuretic Peptide 50 pg/mL (0-100)
[2025-03-01 11:36] LABS: Alanine Aminotransferase 38 U/L (10-49); Albumin, Serum 3.6 gm/dL (3.4-4.8); Albumin/Globulin Ratio 1.3 (1.2-2.2); Alkaline Phosphatase 345 U/L (46-116); Anion Gap 5 (7-16); Aspartate Amino Transferase 145 U/L (0-34); BUN/Creatinine Ratio 34 Ratio (12-20); Bilirubin,Total 1.0 mg/dL (0.3-1.2); Blood Urea Nitrogen 34 mg/dL (9-23); Calcium 9.4 mg/dL (8.3-10.6); Calcium (Corrected) 9.7 mg/dL (8.5-10.1); Carbon Dioxide 38.2 mMol/L (20.0-31.0); Chloride 97 mMol/L (98-107); Creatinine (Component) 1.0 mg/dL (0.6-1.3); Estimated Creatinine Clearance 56.5 mL/min (>60); Globulin 2.8 gm/dL (2.3-3.5); Glucose 107 mg/dL (74-106); Lipase 116 U/L (12-53); Magnesium 1.7 mg/dL (1.6-2.6); Osmolality,Calculated 287 (275-295); Potassium 3.6 mMol/L (3.4-5.1); Sodium 140 mMol/L (136-145); Total Protein 6.4 gm/dL (5.7-8.2); Troponin I < 0.020 ng/mL (0.0-0.045); eGFR 59 See Note
--- NOTE | 2025-03-01 11:50 | PD.EDAMS ---
Altered Mental Status RME/HPI General Chief Complaint: Altered Mental Status Stated Complaint: LETHARGIC, INCREASED SWELLING Time Seen by Provider: 03/01/25 10:58 Arrival date/time: 03/01/25 10:08 RME / HPI RME / HPI narrative: 74 year old female with history of stage IV breast cancer with mets to liver, lungs, and lymph nodes, s/p left breast mastectomy, s/p chemotherapy, hypertension, hyperlipidemia presents to the ED [facility] from [facility] for evaluation of worsening global weakness and altered mental status today. Per sister at bedside, the patient is currently at [facility] to receive rehab for lower extremity weakness. States while visiting with her yesterday her entire appeared to be swollen. Today the provider at the facility evaluated the patient and advised she come here for further evaluation and treatment. The sister additionally reports patient appears to be incoherent and lethargic, intermittently over the last 2 days. No fevers reported. In the ED, patient states she feels okay and has no complaints. Denies any pain. Related Data Home Medications ?Medication ?Instructions ?Recorded ?Confirmed hydrocodone 5 mg-acetaminophen 325 1 tab PO Q6H PRN Pain 10/10/20 06/10/23 mg tablet triamterene 37.5 1 tab PO QDAY 10/10/20 06/10/23 mg-hydrochlorothiazide 25 mg tablet albuterol sulfate 2.5 mg/3 mL 2.5 mg inhalation Q6HR 06/01/21 06/10/23 (0.083 %) solution for nebulization calcium carbonate 500 mg PO BID 06/01/21 06/10/23 metoprolol tartrate 25 mg tablet 50 mg PO BID 06/01/21 06/10/23 ondansetron HCl 8 mg tablet 8 mg PO BID PRN Nausea And Vomiting 06/01/21 06/10/23 atorvastatin 10 mg tablet (Lipitor) 10 mg PO QDAY 05/09/22 06/10/23 palbociclib 125 mg capsule 125 mg PO QDAY 05/09/22 06/10/23 (Ibrance) anastrozole 1 mg tablet 1 mg PO DAILY 02/27/23 06/10/23 cephalexin 500 mg capsule 500 mg PO TID PRN Muscle Spasm 02/27/23 06/10/23 Previous Rx's ?Medication ?Instructions ?Recorded cefuroxime axetil 500 mg tablet 500 mg PO BID #14 tabs 04/02/23 docusate calcium 240 mg capsule 240 mg PO QDAY #30 caps 01/31/25 Allergies Allergy/AdvReac Type Severity Reaction Status Date / Time alendronate sodium (From Allergy Severe Chest Pain Verified 03/01/25 10:28 Fosamax) Iodinated Contrast Media Allergy Severe Anaphylaxis Verified 03/01/25 10:28 iodine Allergy Severe Anaphylaxis Verified 03/01/25 10:28 lisinopril Allergy Severe Cough Verified 03/01/25 10:28 nut - unspecified Allergy Severe Rash Verified 03/01/25 10:28 Review of Systems Review of Systems Systems Reviewed: All systems reviewed, normal except as documented Past Medical History Past Medical History CARDIAC: Positive Cardiac Disorders, Cardiac Arrhythmia, Hypercholesterolemia, Edema and Hypertension RESPIRATORY: Positive Asthma and Pneumonia GASTROINTESTINAL: Positive Gastrointestinal Disorders, Hiatal Hernia and Obesity MUSCULOSKELETAL: Positive Musculoskeletal Disorders and Arthritis PSYCHO/SOCIAL: Positive Anxiety OTHER HISTORY: Positive Hospitalization, Falls, Chemotherapy (on oral for left breast cancer) and Measles Family History FAMILY HISTORY: Positive Family Cardiac Disorders, Family Cancer and Family Surgery Surgical History SURGICAL: Positive Abdominal Surgery, Gastric Bypass Surgery and Mastectomy (Left) Social History SMOKING STATUS: Unknown if ever smoked SUBSTANCE USE: does not use ED Exam Narrative Physical exam: GENERAL APPEARANCE: awake and oriented x 4, slow to respond, well-developed, well-nourished, obese HEENT: Normocephalic, atraumatic; pupils equal, round, reactive to light; EOMI; mucous membranes pink, moist; oropharynx clear NECK: Supple LUNGS: CTABL; no wheezes, no rales, no rhonchi HEART: Regular rate, regular rhythm; normal S1, S2; no murmurs ABDOMEN: diastasis recti abdominis; umbilical hernia that is reducible; non distended; normal BS; soft, no tenderness, no guarding, no rebound; no masses, no organomegaly, no hernia EXTREMITIES: atraumatic; no edema NEUROLOGIC: awake; alert and oriented x4; cranial nerves II-XII grossly intact; no focal sensory or motor deficits PSYCHIATRIC: appropriate mood and affect SKIN: warm, dry, normal color; no rashes Course Quality Measures none Orders Category Date Time Status Bedside COVID-19 Antigen Test NOW Care 03/01/25 15:48 Active Fancy Packer NOW Care 03/01/25 10:58 Active EKG (ED ONLY) *Do not use* NOW Care 03/01/25 10:[address] chest abdomen pelvis wo Stat Exams 03/01/25 13:[address] head/brain wo con Stat Exams 03/01/25 12:50 Completed EKG (ED Only) Stat Exams 03/01/25 10:58 Draft XR chest 1V portable Stat Exams 03/01/25 10:58 Completed ABG [Arterial Blood Gas] Stat Lab 03/01/25 16:22 Completed Ammonia Stat Lab 03/01/25 11:45 Completed B-Type Natriuretic Peptide Stat Lab 03/01/25 10:35 Completed CBC Stat Lab 03/01/25 10:35 Completed Comprehensive Metabolic Panel Stat Lab 03/01/25 10:35 Completed Influenza A & B Rapid Panel Stat Lab 03/01/25 16:00 Completed Lipase Stat Lab 03/01/25 10:35 Completed Magnesium Stat Lab 03/01/25 10:35 Completed Partial Thromboplastin Time Stat Lab 03/01/25 10:35 Completed Prothrombin Time with INR Stat Lab 03/01/25 10:35 Completed Troponin I Stat Lab 03/01/25 10:35 Completed UA, C/S IF [Urinalysis, C/S if Indicated] Stat Lab 03/01/25 11:06 Completed Azithromycin Inj [Zithromax Inj] 500 mg Med 03/01/25 15:47 Discontinued Sodium Chloride 0.9% 250 ml [Ns] 250 ml IV X1 cefTRIAXone/D5w 1gm IV premix [Rocephin/D5w 1gm IV Med 03/01/25 15:47 Discontinued premix] 1 gm in 50 ml IV X1 BiPAP / CPAP NOW RT 03/01/25 16:42 Active Vital Signs Vital signs: Vital Signs Temperature 98.5 F 03/01/25 10:37 Pulse Rate 67 03/01/25 10:37 Respiratory Rate 20 03/01/25 10:37 Blood Pressure 108/69 03/01/25 10:37 Pulse Oximetry (%) 96 03/01/25 10:37 Oxygen Delivery Method Nasal Cannula 03/01/25 10:37 Oxygen Flow Rate 3 03/01/25 10:37 Altered Mental Status MDM Narrative MDM Narrative:: Yelitza Snell am scribing for and in the presence of Dr. Price. Patient data External records reviewed:: [facility] previous records Clinical information provided by:: patient Social determinants that could affect healthcare access:: none Patient has the following chronic illnesses:: stage IV breast cancer with mets to liver, lungs, and lymph nodes, s/p left breast mastectomy, s/p chemotherapy, hypertension, hyperlipidemia How is presenting disease/condition affected by chronic disease/condition?: exacerbated by Evaluation data The following diagnostics were reviewed and interpreted by me:: lab results, radiology exam(s) and EKG tracing(s) (EKG @ 11:27 AM. Normal sinus rhythm, rate 68, no STEMI. ) Lab and/or radiology exams considered but not ordered:: none Interpretation Summary: Ordering Physician: Isabella Price MD Date of Service: 03/01/25 Procedure(s): XR chest 1V portable Accession Number(s): [id number] cc: Boyd Elaine MD; Isabella Price MD~ EXAMINATION: AP chest single view TECHNIQUE: Portable sitting AP chest single view Date and time: March 01, 2025, 11:53 a.m. INDICATIONS: Chest pain today. FINDINGS: Opacity in the right upper lobe consistent with pneumonia Prominent right paratracheal region Layered right pleural fluid Right internal jugular Port-A-Cath tip right atrium Mild enlargement cardiac contour Moderate vascular congestion IMPRESSION: Right upper lobe pneumonia Suspicious for right mediastinal lymphadenopathy Mild heart failure with layered right pleural fluid Dictated By: Boyd Elaine MD Signed By: <Electronically signed by Boyd Elaine MD in OV> 03/01/25 1239 Ordering Physician: Isabella Price MD Date of Service: 03/01/25 Procedure(s): CT head/brain wo con Accession Number(s): [id number] cc: Zaid Austin MD; Byod Elaine MD; Isabella Price MD~ Examination: CT brain head without contrast. 2-D sagittal coronal reconstructions Date and time of exam: March 01, 2025, 1356 hours INDICATIONS: Diagnosis malignant neoplasm of upper-inner quadrant left female breast, liver metastases, adrenal metastasis, onset altered mental status today CTDI: vol (mGy): 64.9 DLP: (mGycm): 1308 Technique: Multiple CT axial sections of the brain have been obtained, 5 mm slice thickness. Contrast has not been administered. 2-D sagittal, coronal reconstructions have been obtained Low dose protocols were performed. One or more of the following dose reduction techniques were used; automated exposure control, adjustment of the mA and/or KV according to patient size, use of iterative reconstruction technique. Findings: No significant ventricular enlargement. Intra-axial or extra-axial hemorrhage density is not seen. No mass effect or midline shift Basal cisterns are not remarkable. Fourth ventricle is midline. Cranial vault intact. Chronic mastoiditis Impression: Negative for acute hemorrhage, mass effect or midline shift Advise clinical correlation and follow-up accordingly Dictated By: Boyd Elaine MD Signed By: <Electronically signed by Boyd Elaine MD in OV> 03/01/25 1518 Ordering Physician: Isabella Price MD Date of Service: 03/01/25 Procedure(s): CT chest abdomen pelvis wo Accession Number(s): [id number] cc: Zaid Austin MD; Boyd Elaine MD; Isabella Price MD~ Examination: CT chest, without intravenous contrast. CT abdomen, without intravenous contrast. CT pelvis, without intravenous contrast. 2-D sagittal and coronal reconstructions. 3-D reconstructions. Date and time of exam: March 01, 2025, 1400 hours, comparison 01/13/2025 INDICATIONS: Abdominal distention, breast carcinoma diagnosis with metastases, history hepatic metastases 20 mm left adrenal metastatic mass 6 mm left lateral para-aortic lymph node on CT abdomen pelvis January 17, 2025 CTDI vol (mgy) 18.7 DLP (MGycm) 1391 Technique: Multiple CT images, 3.0 mm slice thickness, obtained chest, abdomen, pelvis, with the high-resolution 64 slice scanner.. Sagittal and coronal 2-D reconstructions are obtained. 3-D reconstructions Low dose protocols were performed. One or more of the following dose reduction techniques were used; automated exposure control, adjustment of the mA and/or KV according to patient size, use of iterative reconstruction technique. Findings: No thoracic aortic aneurysmal dilatation Pulmonary artery segments are not enlarged Moderate calcification left anterior descending coronary artery Trace pericardial effusion Multiple bilateral pulmonary nodules, including 4 mm in the left upper lobe, 5 mm in the right upper lobe, 10 mm in the left lower lobe, 15 mm in the left lower lobe, 6 mm in the lingular segment Pneumonia at both bases with moderate right and mild left pleural fluid Multiple hepatic metastases, poorly defined on this noncontrast study, the largest in the anterior liver measuring 7 cm 27 mm left adrenal metastatic mass Pancreas is not enlarged Moderate renal scarring no hydronephrosis Abdominal aortic calcification no aneurysmal dilatation Left lateral para-aortic lymph nodes, the largest 5 mm 5.5 cm supra umbilical hernia defect containing colon, no incarcerated colon or bowel obstruction Normal appendix 26 mm fat-containing umbilical hernia Abundant stool in the rectum with thickening of the rectal wall Atrophic uterus No adnexal mass Severe osteopenia Bones of the pelvis hips intact IMPRESSION: Noncalcified metastatic pulmonary nodules Pneumonia both bases moderate right mild left pleural fluid Multiple hepatic metastases, the largest 7 cm 27 mm left adrenal metastatic mass No bowel obstruction Moderate renal scarring Small periaortic lymph nodes Hernia defects as above including supraumbilical hernia defect containing colon but no incarcerated colon or bowel obstruction Abundant stool in the rectum with thickening of the rectal wall, differential would include proctitis Dictated By: Boyd Elaine MD Signed By: <Electronically signed by Boyd Elaine MD in OV> 03/01/25 1514 Medications / Prescriptions Medications or Prescriptions considered but not ordered:: None Medication administrations:: Medication Administration History Discontinued Medications Azithromycin 500 mg/ Sodium (Chloride) 250 mls @ 250 mls/hr IV X1 ONE Stop: 03/01/25 16:46 Ceftriaxone Sodium/Dextrose (Rocephin/D5w 1gm Iv Premix) 1 gm in 50 mls @ 100 mls/hr IV X1 ONE Stop: 03/01/25 16:16 Last Admin: 03/01/25 16:01 Dose: 100 mls/hr Documented By: IBRAHIMA See above Consultations Consultation(s) initiated? (list below): Yes Consultation #1 (Physician, Specialty, Details): I spoke with hospitalist team B for admission. Discussed patients PMHx, HPI, ED course, exam findings, labs, and radiology results. The hospitalist agree to accept the patient for admission. Diagnosis Most likely diagnosis given after review of the tests above:: Pneumonia Hypercapnia AMS Admission Indicated Admission indicated?: indicated Admission Request Was there a request for admission?: Yes Admission Attestation Admission request attestation: Discussed case with [] from Hospitalist service regarding admission. Discussed patients ED course, exam findings, labs, and radiology results. The Hospitalist [agrees,declines] to accept the patient for admission. Disposition Plan Disposition Plan: Admit Discharge Plan Plan Patient Disposition: Admit Acute Care w/in Hospital Prescriptions/Referrals Prescriptions/Med Rec: No Action atorvastatin [Lipitor] 10 mg tablet 10 mg PO QDAY Ibrance 125 mg capsule 125 mg PO QDAY Rx Instructions: administer on days 1 through 21 of a 28-day treatment cycle hydrocodone-acetaminophen 5-325 mg tablet 1 tab PO Q6H PRN (Reason: Pain) Patient Comments: TAKE 1 TABLET BY ORAL ROUTE EVERY 6 HOURS NEEDED FOR PAIN NEEDED Rx Instructions: back pain triamterene-hydrochlorothiazid 37.5-25 mg tablet 1 tab PO QDAY Patient Comments: TAKE 1 TABLET BY MOUTH EVERY DAY ondansetron HCl 8 mg Tablet 8 mg PO BID PRN (Reason: Nausea And Vomiting) metoprolol tartrate 25 mg tablet 50 mg PO BID Patient Comments: TAKE 1 TABLET BY MOUTH TWICE A DAY calcium carbonate 500 mg calcium (1,250 mg) tablet 500 mg PO BID Patient Comments: TAKE 1 TABLET BY MOUTH TWICE A DAY albuterol sulfate 2.5 mg /3 mL (0.083 %) solution for nebulization 2.5 mg inhalation Q6HR cephalexin 500 mg capsule 500 mg PO TID PRN (Reason: Muscle Spasm) anastrozole 1 mg tablet 1 mg PO DAILY docusate calcium 240 mg capsule 240 mg PO QDAY Qty: 30 0RF cefuroxime axetil 500 mg tablet 500 mg PO BID Qty: 14 0RF Referrals: Zaid Austin MD [Primary Care Provider] - In 1 week Problem List Clinical Impression: Pneumonia, Hypercapnia, AMS (altered mental status) Patient/Caregiver Discharge Instructions Print Language: Estonian Stand Alone Forms: [employer]ema Award Info., Patient Portal Info Letter
[2025-03-01 12:10] LABS: Ammonia 29 uMol/L (11-32)
--- NOTE | 2025-03-01 12:50 | XR_ITS ---
Examination: CT brain head without contrast. 2-D sagittal coronal reconstructions Date and time of exam: March 01, 2025, 1356 hours INDICATIONS: Diagnosis malignant neoplasm of upper-inner quadrant left female breast, liver metastases, adrenal metastasis, onset altered mental status today CTDI: vol (mGy): 64.9 DLP: (mGycm): 1308 Technique: Multiple CT axial sections of the brain have been obtained, 5 mm slice thickness. Contrast has not been administered. 2-D sagittal, coronal reconstructions have been obtained Low dose protocols were performed. One or more of the following dose reduction techniques were used; automated exposure control, adjustment of the mA and/or KV according to patient size, use of iterative reconstruction technique. Findings: No significant ventricular enlargement. Intra-axial or extra-axial hemorrhage density is not seen. No mass effect or midline shift Basal cisterns are not remarkable. Fourth ventricle is midline. Cranial vault intact. Chronic mastoiditis Impression: Negative for acute hemorrhage, mass effect or midline shift Advise clinical correlation and follow-up accordingly
--- NOTE | 2025-03-01 13:41 | XR_ITS ---
Examination: CT chest, without intravenous contrast. CT abdomen, without intravenous contrast. CT pelvis, without intravenous contrast. 2-D sagittal and coronal reconstructions. 3-D reconstructions. Date and time of exam: March 01, 2025, 1400 hours, comparison 01/13/2025 INDICATIONS: Abdominal distention, breast carcinoma diagnosis with metastases, history hepatic metastases 20 mm left adrenal metastatic mass 6 mm left lateral para-aortic lymph node on CT abdomen pelvis January 17, 2025 CTDI vol (mgy) 18.7 DLP (MGycm) 1391 Technique: Multiple CT images, 3.0 mm slice thickness, obtained chest, abdomen, pelvis, with the high-resolution 64 slice scanner.. Sagittal and coronal 2-D reconstructions are obtained. 3-D reconstructions Low dose protocols were performed. One or more of the following dose reduction techniques were used; automated exposure control, adjustment of the mA and/or KV according to patient size, use of iterative reconstruction technique. Findings: No thoracic aortic aneurysmal dilatation Pulmonary artery segments are not enlarged Moderate calcification left anterior descending coronary artery Trace pericardial effusion Multiple bilateral pulmonary nodules, including 4 mm in the left upper lobe, 5 mm in the right upper lobe, 10 mm in the left lower lobe, 15 mm in the left lower lobe, 6 mm in the lingular segment Pneumonia at both bases with moderate right and mild left pleural fluid Multiple hepatic metastases, poorly defined on this noncontrast study, the largest in the anterior liver measuring 7 cm 27 mm left adrenal metastatic mass Pancreas is not enlarged Moderate renal scarring no hydronephrosis Abdominal aortic calcification no aneurysmal dilatation Left lateral para-aortic lymph nodes, the largest 5 mm 5.5 cm supra umbilical hernia defect containing colon, no incarcerated colon or bowel obstruction Normal appendix 26 mm fat-containing umbilical hernia Abundant stool in the rectum with thickening of the rectal wall Atrophic uterus No adnexal mass Severe osteopenia Bones of the pelvis hips intact IMPRESSION: Noncalcified metastatic pulmonary nodules Pneumonia both bases moderate right mild left pleural fluid Multiple hepatic metastases, the largest 7 cm 27 mm left adrenal metastatic mass No bowel obstruction Moderate renal scarring Small periaortic lymph nodes Hernia defects as above including supraumbilical hernia defect containing colon but no incarcerated colon or bowel obstruction Abundant stool in the rectum with thickening of the rectal wall, differential would include proctitis
[2025-03-01] MEDS: cefTRIAXone/D5w 1gm IV premix 1 GM/50 ML BAG IV ×2 (16:01→19:51)
[2025-03-01 16:28] LABS: Allen Test Not Performed; Base Excess 8 (-3-3); HCO3 35 mEq/L (20-26); Inspired O2, VO2 Liters 1 L/min; O2 Saturation 95 % (91-98); PCO2 60 mmHg (32.0-48.0); PO2 71 mmHg (83-108); Puncture Site Left Radial; pH, Arterial 7.38 (7.35-7.45)
[2025-03-01 16:42] LABS: Influenza A Ag Negative; Influenza B Ag Negative
[2025-03-01] MEDS: AZITHROMYCIN INJ 500 MG in SODIUM CHLORIDE 0.9% 250 ML 250 ML 250 MG IV (16:49)
[2025-03-01] MEDS: ONDANSETRON INJ 2 MG/ML INJ 2 ML 4 MG IVP (17:10)
--- NOTE | 2025-03-01 18:13 | ESHP_ITS ---
<Statement entered by Cristo Zhou MD - 03/02/25 13:41> Patient seen and examined at bedside. I discussed and supervised with the product management internship physician who took care of this patient. I personally saw and examined the patient. I agree with most of the assessment and plan. Plan of care discussed with attending Dr. Callahan. Cristo Zhou MD PGY-2 Documentation for date of: 03/01/25 HPI History of Present Illness History of present illness: A 74-year-old female with past medical history of unspecified HF, pituitary- dependent Monica disease, stage IV left breast cancer status post left mastectomy, radiation, on chemotherapy with aubrie Oakley BIBA from [facility] presented with worsening weakness and altered mental status. Patient is currently getting rehab since 02/12 for lower extremity weakness due to a recent fall. Per sister, patient has waxing and waning mentation at baseline, never diagnosed with dementia. Patient has recently developed whole body swelling for the past 2 days with lethargic she was new. Reported patient has stopped eating recently. Since patient fell down at home last time, patient can bear weight, was previously using walker at baseline. Reported having chemotherapy session tomorrow with Dr. Andrade. Per sister, breast cancer metastasis to liver, spleen, top of aorta, lungs, lumbar spine. In ED, normotensive 108/69 heart rate 67 afebrile, respiratory rate 20, currently on BiPAP. Labs: WBC 9.3 Hgb 11.3 MVC 106 PTT 48.4 PT 11.9 INR 1.1 ABG pH 7.38 pCO2 60 pO2 71 bicarb 35 AST 145 ALT 38 alk phos 345 lipase 116 UA negative, influenza negative. Imaging: CXR right upper lobe pneumonia, mild heart failure with layered right pleural fluid. EKG A-fib. Head CT negative. CTAP noncalcified metastatic pulmonary nodule, pulmonary both bases moderate right mild left pleural fluid, multiple hepatic metastasis largest 7 cm, 27 mm left adrenal metastasis mass, no bowel obstruction, moderate renal scarring, small periaortic lymph nodes, hernia defects including supraumbilical hernia defect containing colon but no incarcerated colon or bowel obstruction, abundant stool in the rectum with thickening of rectal wall. Patient is AO x 1. Patient has no complaints in ED, denies any pain. Patient has difficulty answering all questions due to being on BiPAP. Sister by bedside answering most questions. Review of Systems Review of Systems ROS Unobtainable: unobtainable due to mental status Exam Vital Signs Temp Pulse Resp BP Pulse Ox O2 Del Method O2 Flow Rate 98.7 F 75 21 H 123/58 L 98 BiPAP 2 03/01/25 16:03 03/01/25 17:39 03/01/25 17:39 03/01/25 17:17 03/01/25 17:39 03/01/25 17:17 03/01/25 16:03 FiO2 30 03/01/25 17:39 Narrative Exam GENERAL APPEARANCE: awake and oriented x 1, well-developed, well-nourished, obese, on BiPAP HEENT: Normocephalic, atraumatic; pupils equal, round, reactive to light; EOMI; mucous membranes pink, moist; oropharynx clear NECK: Supple, large neck circumference LUNGS: Wheezes bilaterally, decrease breath sound on right side HEART: Regular rate, regular rhythm; normal S1, S2; no murmur ABDOMEN: diastasis recti abdominis; umbilical hernia that is reducible; non distended; normal BS; soft, no tenderness, no guarding, no rebound. Right port covered in dressing. Left mastectomy scar. EXTREMITIES: atraumatic; +4 bilateral pitting edema NEUROLOGIC: awake; alert and oriented x1; cranial nerves II-XII grossly intact; no focal sensory or motor deficits PSYCHIATRIC: appropriate mood and affect SKIN: warm, dry, normal color; no rashes Results: Labs 03/02/25 04:47 03/02/25 04:47 Labs: Short CBC 03/01/25 Range/Units 10:35 WBC 9.3 (3.6-11.0) Thou/mm3 Hgb 11.3 L (12.0-16.0) g/dL Hct 35.1 L (36.0-46.0) % Plt Count 132 L (140-440) Thou/mm3 BMP 03/01/25 10:35 Sodium 140 Potassium 3.6 Chloride 97 L Carbon Dioxide 38.2 H BUN 34 H Creatinine 1.0 Glucose 107 H Calcium 9.4 Cardiac Enzymes 03/01/25 Range/Units 10:35 Troponin I < 0.020 (0.0-0.045) ng/mL Liver Function 03/01/25 Range/Units 10:35 Total Bilirubin 1.0 (0.3-1.2) mg/dL AST 145 H (0-34) U/L ALT 38 (10-49) U/L Alkaline Phosphatase 345 H (46-116) U/L Albumin 3.6 (3.4-4.8) gm/dL Urine 03/01/25 Range/Units 11:06 Urine Color Yellow (Lt Yel-Yel) Urine Clarity Clear (Clear/Hazy) Urine pH 6.0 (5.0-7.0) Ur Specific [place] 1.014 (1.001-1.035) Urine Protein Negative (Neg - Trace) Urine Glucose (UA) Negative (Negative) ABG Interpretation ABG results: 03/01/25 16:22 ABG pH 7.38 ABG pCO2 60 H ABG pO2 71 L ABG HCO3 35 H ABG O2 Saturation 95 ABG Base Excess 8 H Quality Measures Quality Measures VTE prophylaxis Advance care planning discussed with:: patient and sibling Medications Home Medications and Allergies Home Medications ?Medication ?Instructions ?Recorded ?Confirmed ?Type hydrocodone 5 mg-acetaminophen 325 1 tab PO Q6H PRN Pa in 10/10/20 06/10/23 History mg tablet triamterene 37.5 1 tab PO QDAY 10/10/2006/10 History mg-hydrochlorothiazide 25 mg tablet albuterol sulfate 2.5 mg/3 mL 2.5 mg inhalation Q6HR 0 06/01/21 06/10/23 History (0.083 %) solution for nebulization calcium carbonate 500 mg PO BID 06/01/2106/10 History metoprolol tartrate 25 mg tablet 50 mg PO BID 06/01/21 06/10/23 History ondansetron HCl 8 mg tablet 8 mg PO BID PRN Nausea And Vomiting 06/01/21 06/10/23 History atorvastatin 10 mg tablet (Lipitor) 10 mg PO QDAY 04/2106/10/23 History palbociclib 125 mg capsule 125 mg PO QDAY 05/09/22 History (Ibrance) anastrozole 1 mg tablet 1 mg PO DAILY 02/27/2306/10 History cephalexin 500 mg capsule 500 mg PO TID PRN Muscle Spa sm 02/27/23 06/10/23 History Allergies Allergy/AdvReac Type Severity Reaction Status Date / Time alendronate sodium (From Allergy Severe Chest Pain Verified 03/01/25 10:28 Fosamax) Iodinated Contrast Media Allergy Severe Anaphylaxis Verified 03/01/25 10:28 iodine Allergy Severe Anaphylaxis Verified 03/01/25 10:28 lisinopril Allergy Severe Cough Verified 03/01/25 10:28 nut - unspecified Allergy Severe Rash Verified 03/01/25 10:28 Visit Medications Acetaminophen (Acetaminophen 325 Mg Tablet) 650 mg PO Q6H PRN PRN Reason: Fever >101.5 Stop: 03/31/25 17:45 Hydrocodone Bitart/Acetaminophen (Hydrocodone/Apap 5/325 Tablet) 1 tab PO Q4HR PRN PRN Reason: PAIN SCALE 4-10(Mod-Sev Stop: 03/06/25 17:45 Furosemide (Furosemide Inj 10 Mg/Ml 4ml Vial) 40 mg IVP BID MARY Stop: 03/31/25 20:59 Heparin Sodium (Porcine) (Heparin Sod Inj 5000 Unit/Ml Vial) 5,000 unit SC Q12HR MARY Stop: 03/15/25 20:59 Metoprolol Tartrate (Metoprolol Tartrate Inj 1 Mg/Ml Amp 5 Ml) 2.5 mg IVP Q6H MARY Stop: 03/31/25 18:14 Ondansetron HCl (Ondansetron Inj 2 Mg/Ml Inj 2 Ml) 4 mg IVP Q6H PRN; Protocol PRN Reason: NAUSEA OR VOMITING Stop: 03/31/25 17:45 Sennosides (Senna Tablet) 1 tab PO QDAY PRN; Protocol PRN Reason: constipation Stop: 03/31/25 17:45 Sertraline HCl (Sertraline Hcl 25 Mg Tablet) 25 mg PO DAILY MARY Stop: 04/01/25 08:59 Discontinued Medications Azithromycin 500 mg/ Sodium (Chloride) 250 mls @ 250 mls/hr IV X1 ONE Stop: 03/01/25 16:46 Last Infusion: 03/01/25 17:49 Dose: Infused Ceftriaxone Sodium/Dextrose (Rocephin/D5w 1gm Iv Premix) 1 gm in 50 mls @ 100 mls/hr IV X1 ONE Stop: 03/01/25 16:16 Last Infusion: 03/01/25 16:31 Dose: Infused Ondansetron HCl (Ondansetron Inj 2 Mg/Ml Inj 2 Ml) 4 mg IVP X1 ONE; Protocol Stop: 03/01/25 17:08 Last Admin: 03/01/25 17:10 Dose: 4 mg Assessment & Plan Plan #Altered mental status #Chronic hypercapnic respiratory failure #Right upper lobe pneumonia 74-year-old female with past medical history of unspecified HF, stage IV left breast cancer presented with altered mental status, baseline waxing and waning with new lethargy for the past 2 days. Sister reported whole body swelling positive for pitting edema. ABG pH 7.38 pCO2 60 pO2 71 bicarb 35, likely chronic compensated respiratory acidosis CXR right upper lobe pneumonia, mild heart failure with layered right pleural fluid. EKG A-fib. Head CT negative. 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 Plan: -Started on supplemental oxygen, BiPAP at bedtime -Repeat VBG tomorrow -Hold home acetozolamide #Unspecified HF #Afib #Bilateral pitting edema Plan: -Restart home metoprolol tartrate but IV 2.5 Q6H -Lasix 40mg IV BID -Fluid restriction #History of Left breast cancer #Metastasis Per sister, breast cancer metastasis to liver, spleen, top of aorta, lungs, lumbar spine. 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 Status post L mastectomy, liver radiation, currently on chemotherapy Plan: -Contact Dr. Andrade tomorrow, chemotherapy scheduled 03/02 Health Maintenance: Code status: Full DVT prophylaxis: Heparin GI prophylaxis: None Diet: NPO Damico: None Lines: PIV Supplemental O2: None Disposition: Tele bed Assessment and plan discussed with my attending physician Dr. Callahan and Dr. hZou (PGY-2). Dr. Gómez (PGY-1) ? vice president Attending Provider Attestation/Addendum I have seen and examined the patient. I was physically present for the dalal portions of the services provided including history, physical exam, diagnosis, treatment plans and orders. I agree with assessment and plan of care as documented by residents. After examination of the patient and review of the clinical data I feel that this patient needs admission to the hospital for further treatment/evaluation. Even though this this note was carefully revised there may still be minor errors in pouako kura kaup[place] maori due to voice recognition software. Sean Callahan MD
[2025-03-01 18:20] LABS: Base Excess, Venous 8 (-3-3); O2 Saturation, Venous 88 % (96-97); PCO2, Venous 52 mmHg (36-56); PO2, Venous 49 mmHg (15-58); pH, Venous 7.43 (7.33-7.66)
[2025-03-01] MEDS: METOPROLOL TARTRATE INJ 1 MG/ML AMP 5 ML 2.5 MG IVP (18:32)
[2025-03-01] MEDS: FUROSEMIDE INJ 10 MG/ML 4ML VIAL 40 MG IVP (20:33)
[2025-03-01] MEDS: HEPARIN SOD INJ 5000 UNIT/ML VIAL SC (20:37)
[2025-03-02] VITALS (14 sets, daily range): BP systolic 106–136; BP diastolic 62–78; PULSE 77–109; RESP 13–22; TEMP 36.1–36.8; O2SAT 91–98; BMI 46.7
--- NOTE | 2025-03-02 | XR_ITS ---
Examination: MRI brain without intravenous contrast. Date and time of exam: March 02, 2025, 1737 hours, comparison May 05, 2024 INDICATIONS: Breast carcinoma diagnosis, metastatic pulmonary nodules on CT chest March 01, 2025, 27 mm left adrenal metastatic mass, staging Technique: Multiple axial and sagittal images of the brain obtained. Siemens high-resolution 1.5 Zo short bore scanners utilized. Sagittal sections, T1-weighted, TR 500, TE 14, are performed. Axial sections proton-density and T2-weighted have been obtained. Inversion recovery axial images, TR 9, 260, TE 111, TI 2500. Diffusion weighted images, axial sections, TR 4800, TE 128, B value 1000 Axial sections, ADC map, TR 4800, TE 128 Findings: Enlargement of the sella turcica is not present. The optic chiasm and infundibular are not remarkable. Prepontine and interpeduncular cisterns are not enlarged. There is no localized enlargement of the medulla or andreas. Fourth ventricle and cerebellar tonsils appear normal in position. No subacute area of hemorrhage density is seen. Mass in the cerebellopontine angle region is not evident. Globes symmetrical. Orbital musculature including medial lateral rectus muscles do not exhibit abnormality. Diffusion-weighted images demonstrate no focus of restricted diffusion. Increased white matter signal mild Mass effect upon the ventricular system is not identified. Impression: Negative for acute hemorrhage mass effect or midline shift No acute infarct No focal areas of edema characteristic for metastatic lesions on this limited noncontrast study
[2025-03-02 06:09] LABS: Vitamin B12 1256 pg/mL (211-911)
[2025-03-02 06:14] LABS: Alanine Aminotransferase 32 U/L (10-49); Albumin, Serum 3.5 gm/dL (3.4-4.8); Albumin/Globulin Ratio 1.3 (1.2-2.2); Alkaline Phosphatase 313 U/L (46-116); Anion Gap 10 (7-16); Aspartate Amino Transferase 124 U/L (0-34); BUN/Creatinine Ratio 30 Ratio (12-20); Bilirubin,Total 0.9 mg/dL (0.3-1.2); Blood Urea Nitrogen 27 mg/dL (9-23); Calcium 8.9 mg/dL (8.3-10.6); Calcium (Corrected) 9.3 mg/dL (8.5-10.1); Carbon Dioxide 37.1 mMol/L (20.0-31.0); Chloride 98 mMol/L (98-107); Creatinine (Component) 0.9 mg/dL (0.6-1.3); Estimated Creatinine Clearance 62.8 mL/min (>60); Globulin 2.6 gm/dL (2.3-3.5); Glucose 89 mg/dL (74-106); Magnesium 1.6 mg/dL (1.6-2.6); Osmolality,Calculated 292 (275-295); Phosphorous 3.4 mg/dL (2.4-5.1); Potassium 3.3 mMol/L (3.4-5.1); Sodium 145 mMol/L (136-145); Total Protein 6.1 gm/dL (5.7-8.2); eGFR > 60 See Note
[2025-03-02 06:29] LABS: Thyroid Stimulating Hormone 2.50 uIU/mL (0.55-4.78)
[2025-03-02 06:35] LABS: Basophils # (Auto) 0.0 Thou/mm3 (0.0-0.2); Basophils % (Auto) 0 % (0-2.5); Eosinophils # (Auto) 0.1 Thou/mm3 (0.0-0.5); Eosinophils % (Auto) 1 % (0-10); Hematocrit 36.1 % (36.0-46.0); Hemoglobin 11.7 g/dL (12.0-16.0); Immature Granulocytes Auto 0.02 Thou/mm3 (0.00-0.00); Lymphocytes # (Auto) 0.8 Thou/mm3 (1.0-4.8); Lymphocytes % (Auto) 9 % (10-50); Mean Corpuscular HGB Conc 32.4 g/dl (31.0-37.0); Mean Corpuscular Hemoglobin 34.3 pg (25.0-35.0); Mean Corpuscular Volume 106 fL (80-100); Monocytes # (Auto) 0.7 Thou/mm3 (0.0-0.8); Monocytes % (Auto) 8 % (0-12); Neutrophils # (Auto) 6.9 Thou/mm3 (1.8-7.7); Neutrophils % (Auto) 81 % (37-80); Nucleated Red Blood Cell # 0.00 Thou/mm3 (0.00-0.00); Nucleated Red Blood Cell % 0 /100 WBC (0); Platelet Count 106 Thou/mm3 (140-440); RDW Standard Deviation 56.2 fL (36.4-46.3); Red Blood Count 3.41 Miln/mm3 (4.00-5.20); White Blood Count 8.4 Thou/mm3 (3.6-11.0)
[2025-03-02] MEDS: FUROSEMIDE INJ 10 MG/ML 4ML VIAL 40 MG IVP (08:29)
[2025-03-02] MEDS: cefTRIAXone/D5w 1gm IV premix 1 GM/50 ML BAG IV (08:30)
[2025-03-02] MEDS: HEPARIN SOD INJ 5000 UNIT/ML VIAL SC (08:31)
--- NOTE | 2025-03-02 09:04 | PC.SS ---
CRYPTOLOGICAL TECHNICIAN conducted phone contact with the patient?s sister Kenyon Landaverde to conduct initial assessment and to discuss discharge planning on behalf of the patient.? Patient is a resident of [facility].? Patient has been at the [facility] for approximately 3 weeks.? Patient utilizes a wheelchair to assist with mobility.? Patient utilizes oxygen at the [facility].? Patient requires assistance with the completion of ADL?s.? Patient?s medical surrogate decision maker is sister, Kenyon Landaverde.? Facility PCP is Dr. Austin.? Patient?s java j2ee architect is Dr. Welsh.? Plan is for the patient to return to [facility] at the time of discharge.? environmental services specialist to assist with arranging transportation on behalf of the patient. ?No discharge needs identified by the patient. ?No further intervention required at this time, social studies teacher will be available to address any further concerns.? Next of Kin: Kenyon Landaverde D/C Plan: [facility]
--- NOTE | 2025-03-02 09:34 | ESPR_ITS ---
<Statement entered by Cristo Zhou MD - 03/02/25 16:36> Patient seen and examined at bedside. I discussed and supervised with the strategy intern physician who took care of this patient. I personally saw and examined the patient. I agree with most of the assessment and plan. Plan of care discussed with attending Dr. Callahan. Cristo Zhou MD PGY-2 Documentation for date of: 03/02/25 Subjective Subjective Interval history: Patient reported not sleeping well last night. AOx3 this morning. Was still on BiPAP when patient was seen and examined this morning, will discontinue. Bilateral pitting edema improved with Lasix 1V. Echo done last July suggested diastolic HF, moderate-severe . Echo done last October reported technical difficulty. Will repeat Echo due to recent HF seen on imaging during this admission. Oncologist, Dr. Reyes, consulted, appreciate recs: MRI brain, liver lesion biopsy to see if receptors are changed. Exam Vital Signs Temp Pulse Resp BP Pulse Ox O2 Del Method O2 Flow Rate 98.2 F 80 13 114/67 98 BiPAP 2 03/02/25 08:00 03/02/25 08:29 03/02/25 08:00 03/02/25 08:29 03/02/25 08:00 03/02/25 08:00 03/02/25 08:00 FiO2 30 03/02/25 08:00 Narrative Exam GENERAL APPEARANCE: awake and oriented x 3, well-developed, well-nourished, obese, on BiPAP HEENT: Normocephalic, atraumatic; pupils equal, round, reactive to light; EOMI; mucous membranes pink, moist; oropharynx clear NECK: Supple, large neck circumference LUNGS: Wheezes bilaterally, breath sound equal bilaterally HEART: Regular rate, regular rhythm; normal S1, S2; no murmur ABDOMEN: diastasis recti abdominis; umbilical hernia that is reducible, mild tenderness to palpation; normal BS; soft, no guarding, no rebound. Right port covered in dressing. Left mastectomy scar. EXTREMITIES: atraumatic; +1 bilateral pitting edema NEUROLOGIC: awake; alert and oriented x3; cranial nerves II-XII grossly intact; no focal sensory or motor deficits PSYCHIATRIC: appropriate mood and affect SKIN: warm, dry, normal color; no rashes Objective Labs 03/02/25 04:47 03/02/25 04:47 Labs: Laboratory Results - last 24 hr 03/01/25 03/01/25 03/01/25 10:35 11:06 11:45 WBC 9.3 RBC 3.30 L Hgb 11.3 L Hct 35.1 L MCV 106 H MCH 34.2 MCHC 32.2 RDW Std Deviation 55.5 H Plt Count 132 L Neut % (Auto) 81 H Lymph % (Auto) 9 L [place] % (Auto) 8 Eos % (Auto) 1 Baso % (Auto) 0 Neut # (Auto) 7.5 Lymph # (Auto) 0.9 L [place] # (Auto) 0.8 Eos # (Auto) 0.1 Baso # (Auto) 0.0 Immature Gran # (Auto) 0.03 H Absolute Nucleated RBC 0.00 Immature Gran % 0 Nucleated RBC % 0 PT 11.9 INR 1.1 APTT 48.4 H Puncture Site ABG pH ABG pCO2 ABG pO2 ABG HCO3 ABG O2 Saturation ABG Base Excess VBG pH VBG pCO2 VBG pO2 VBG O2 Sat (Dominic) VBG Base Excess Oxygen Liter Flow Sodium 140 Potassium 3.6 Chloride 97 L Carbon Dioxide 38.2 H Anion Gap 5 L BUN 34 H Creatinine 1.0 Estim Creat Clear Calc 56.5 L eGFR 59 L BUN/Creatinine Ratio 34 H Glucose 107 H Calculated Osmolality 287 Calcium 9.4 Corrected Calcium 9.7 Phosphorus Magnesium 1.7 Total Bilirubin 1.0 AST 145 H ALT 38 Alkaline Phosphatase 345 H Ammonia 29 Troponin I < 0.020 B-Natriuretic Peptide 50 Total Protein 6.4 Albumin 3.6 Globulin 2.8 Albumin/Globulin Ratio 1.3 Lipase 116 H Vitamin B12 TSH Ur Collection Type Catheter Urine Color Yellow Urine Clarity Clear Urine pH 6.0 Ur Specific [place] 1.014 Urine Protein Negative Urine Glucose (UA) Negative Urine Ketones Negative Urine Blood Negative Urine Nitrite Negative Urine Bilirubin Negative Urine Urobilinogen (Auto) Negative Ur Leukocyte Esterase Negative Urine RBC 1 Urine WBC 2 Ur Squamous Epith Cells 0 Urine Bacteria None Hyaline Casts < 1 Ur Culture Indicated? Not Indicated Influenza A (Rapid) Influenza B (Rapid) 03/01/25 03/01/25 03/01/25 16:00 16:22 18:16 WBC RBC Hgb Hct MCV MCH MCHC RDW Std Deviation Plt Count Neut % (Auto) Lymph % (Auto) [place] % (Auto) Eos % (Auto) Baso % (Auto) Neut # (Auto) Lymph # (Auto) [place] # (Auto) Eos # (Auto) Baso # (Auto) Immature Gran # (Auto) Absolute Nucleated RBC Immature Gran % Nucleated RBC % PT INR APTT Puncture Site Left Radial ABG pH 7.38 ABG pCO2 60 H ABG pO2 71 L ABG HCO3 35 H ABG O2 Saturation 95 ABG Base Excess 8 H VBG pH 7.43 VBG pCO2 52 VBG pO2 49 VBG O2 Sat (Dominic) 88 L VBG Base Excess 8 H Oxygen Liter Flow 1 Sodium Potassium Chloride Carbon Dioxide Anion Gap BUN Creatinine Estim Creat Clear Calc eGFR BUN/Creatinine Ratio Glucose Calculated Osmolality Calcium Corrected Calcium Phosphorus Magnesium Total Bilirubin AST ALT Alkaline Phosphatase Ammonia Troponin I B-Natriuretic Peptide Total Protein Albumin Globulin Albumin/Globulin Ratio Lipase Vitamin B12 TSH Ur Collection Type Urine Color Urine Clarity Urine pH Ur Specific [place] Urine Protein Urine Glucose (UA) Urine Ketones Urine Blood Urine Nitrite Urine Bilirubin Urine Urobilinogen (Auto) Ur Leukocyte Esterase Urine RBC Urine WBC Ur Squamous Epith Cells Urine Bacteria Hyaline Casts Ur Culture Indicated? Influenza A (Rapid) Negative Influenza B (Rapid) Negative 03/02/25 04:47 WBC 8.4 RBC 3.41 L Hgb 11.7 L Hct 36.1 MCV 106 H MCH 34.3 MCHC 32.4 RDW Std Deviation 56.2 H Plt Count 106 L Neut % (Auto) 81 H Lymph % (Auto) 9 L [place] % (Auto) 8 Eos % (Auto) 1 Baso % (Auto) 0 Neut # (Auto) 6.9 Lymph # (Auto) 0.8 L [place] # (Auto) 0.7 Eos # (Auto) 0.1 Baso # (Auto) 0.0 Immature Gran # (Auto) 0.02 H Absolute Nucleated RBC 0.00 Immature Gran % 0 Nucleated RBC % 0 PT INR APTT Puncture Site ABG pH ABG pCO2 ABG pO2 ABG HCO3 ABG O2 Saturation ABG Base Excess VBG pH VBG pCO2 VBG pO2 VBG O2 Sat (Dominic) VBG Base Excess Oxygen Liter Flow Sodium 145 Potassium 3.3 L Chloride 98 Carbon Dioxide 37.1 H Anion Gap 10 BUN 27 H Creatinine 0.9 Estim Creat Clear Calc 62.8 eGFR > 60 BUN/Creatinine Ratio 30 H Glucose 89 Calculated Osmolality 292 Calcium 8.9 Corrected Calcium 9.3 Phosphorus 3.4 Magnesium 1.6 Total Bilirubin 0.9 AST 124 H ALT 32 Alkaline Phosphatase 313 H D Ammonia Troponin I B-Natriuretic Peptide Total Protein 6.1 Albumin 3.5 Globulin 2.6 Albumin/Globulin Ratio 1.3 Lipase Vitamin B12 1256 H TSH 2.50 Ur Collection Type Urine Color Urine Clarity Urine pH Ur Specific [place] Urine Protein Urine Glucose (UA) Urine Ketones Urine Blood Urine Nitrite Urine Bilirubin Urine Urobilinogen (Auto) Ur Leukocyte Esterase Urine RBC Urine WBC Ur Squamous Epith Cells Urine Bacteria Hyaline Casts Ur Culture Indicated? Influenza A (Rapid) Influenza B (Rapid) ABG Interpretation ABG results: 03/01/25 03/01/25 16:22 18:16 ABG pH 7.38 ABG pCO2 60 H ABG pO2 71 L ABG HCO3 35 H ABG O2 Saturation 95 ABG Base Excess 8 H VBG pH 7.43 VBG pCO2 52 VBG pO2 49 VBG Base Excess 8 H Quality Measures Quality Measures VTE prophylaxis Advance care planning discussed with:: patient and sibling Assessment & Plan Assessment Current Active Medications: Generic Name Dose Route Start Last Admin Trade Name Freq PRN Reason Stop Dose Admin Acetaminophen 650 mg 03/01/25 17:46 Acetaminophen 325 Mg Tablet PO 03/31/25 17:45 Q6H PRN Fever >101.5 Hydrocodone Bitart/Acetaminophen 1 tab 03/01/25 17:46 Hydrocodone/Apap 5/325 Tablet PO 03/06/25 17:45 Q4HR PRN PAIN SCALE 4-10(Mod-Sev Furosemide 40 mg 03/01/25 21:00 03/02/25 08:29 Furosemide Inj 10 Mg/Ml 4ml Vial IVP 03/31/25 20:59 40 mg BID MARY Administration Heparin Sodium (Porcine) 5,000 unit 03/01/25 21:00 03/02/25 08:31 Heparin Sod Inj 5000 Unit/Ml Vial SC 03/15/25 20:59 5,000 unit Q12HR MARY Administration Ceftriaxone Sodium/Dextrose 1 gm in 50 mls @ 100 mls/hr 03/01/25 19:18 03/02/25 08:30 Rocephin/D5w 1gm Iv Premix IV 03/08/25 19:17 100 mls/hr QDAY MARY Administration Azithromycin 500 mg/ Sodium 250 mls @ 250 mls/hr 03/02/25 09:00 Chloride IV 03/04/25 08:59 QDAY MARY Metoprolol Tartrate 50 mg 03/01/25 21:00 Metoprolol Tartrate 25 Mg Tablet PO 03/31/25 20:59 BID MARY Ondansetron HCl 4 mg 03/01/25 17:46 Ondansetron Inj 2 Mg/Ml Inj 2 Ml IVP 03/31/25 17:45 Q6H PRN NAUSEA OR VOMITING Protocol Sennosides 1 tab 03/01/25 17:46 Senna Tablet PO 03/31/25 17:45 QDAY PRN constipation Protocol Sertraline HCl 25 mg 03/02/25 09:00 Sertraline Hcl 25 Mg Tablet PO 04/01/25 08:59 DAILY MARY Plan #Altered mental status #Chronic compensated respiratory acidosis #Right upper lobe pneumonia 74-year-old female with past medical history of unspecified HF, stage IV left breast cancer presented with altered mental status, baseline waxing and waning with new lethargy for the past 2 days. Sister reported whole body swelling positive for pitting edema. ABG pH 7.38 pCO2 60 pO2 71 bicarb 35, likely chronic compensated respiratory acidosis CXR right upper lobe pneumonia, mild heart failure with layered right pleural fluid. EKG A-fib. Head CT negative. 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 03/02: Patient AOx3. VBG showed CO2 improved Plan: -BiPAP at night only -Discontinue home acetozolamide -Continue Rocephin 1g #Diastolic HF #Aotic stenosis #Afib #Bilateral pitting edema Plan: -Continue home metoprolol tartrate 50 PO BID -Continue Lasix 40mg IV BID -Fluid restriction -Pending Echo -Currently NPO for liver biopsy, if not going today, Diet Cardiac #History of Left breast cancer #Metastasis Per sister, breast cancer metastasis to liver, spleen, top of aorta, lungs, lumbar spine. 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 Status post L mastectomy, liver radiation, currently on chemotherapy. Oncologist, Dr. Reyes, consulted, appreciate recs: MRI brain, liver lesion biopsy to see if receptors are changed. Plan: -Pending MRI brain -Pending liver lesion biopsy Health Maintenance: Code status: Full DVT prophylaxis: Heparin GI prophylaxis: None Diet: NPO Damico: None Lines: PIV Supplemental O2: None Disposition: Tele bed Assessment and plan discussed with my attending physician Dr. Callahan and Dr. Zhou (PGY-2). Dr. Gómez (PGY-1) ? vice president of engineering Attending Provider Attestation/Addendum I have seen and examined the patient. I was physically present for the dalal portions of the services provided including history, physical exam, diagnosis, treatment plans and orders. I agree with assessment and plan of care as documented by residents. Patient seen and examined at bedside this morning. Appears comfortable and states that she is feeling better compared to yesterday. She is alert and oriented, able to answer questions and follow command appropriately. Noted to have improving edema on bilateral upper and lower extremities. Discussed with oncology, recommended brain MRI, biopsy of liver lesion, appreciate recommendations. We will continue with IV diuresis, supplemental oxygen, nightly BiPAP and IV Rocephin. We will continue to monitor ESHA's strictly and obtain a gram. Even though this this note was carefully revised there may still be minor errors in handicraft or hobby shop manager due to voice recognition software. Sean Callahan MD
[2025-03-02] MEDS: AZITHROMYCIN INJ 500 MG in SODIUM CHLORIDE 0.9% 250 ML 250 ML 250 MG IV (09:39)
[2025-03-02] MEDS: SERTRALINE HCL 25 MG TABLET PO (09:39)
[2025-03-02] MEDS: HYDROcodone/APAP 5/325 TABLET 1 TAB PO ×2 (09:52→19:02)
--- NOTE | 2025-03-02 10:22 | ECHO_ITS ---
Patient Info Name: Briseida Tripathi Age: 74 years : 1950 Gender: Female Ht: 155 cm Wt: 111 kg BSA: 2.26 m2 BP: 114 / 67 mmHg HR: 92 bpm Exam Date: 03/02/2025 11:16 AM Admit Date: 03/01/2025 Site: [facility] Room Number: [id number] Patient Status: I Technical Quality: Poor Exam Type: CA echo doppler complete Reason for Poor Study: body habitus Biller: Lu Beltran Ordering Physician: Rylee Real Study Info Indications CHF - Primary Location: S2NX Left Ventricular Outflow Tract Name Value Normal LVOT 2D LVOT Diameter 1.9 cm LVOT Doppler LVOT Peak Velocity 162 cm/s LVOT Mean Gradient 6 mmHg LVOT VTI 33 cm LVOT VTI/AV VTI Ratio 1.0 LVOT Stroke Volume 94 ml Pulmonic Valve Name Value Normal PV Doppler PV Peak Velocity 141 cm/s Mitral Valve Name Value Normal MV Doppler MV Decel [place] 350 cm/s2 MV PHT 47 ms MV Area (PHT) 4.7 cm2 4.0-5.0 MV Diastolic Function MV E Peak Velocity 57 cm/s MV A Peak Velocity 98 cm/s MV E/A 0.6 Tricuspid Valve Name Value Normal TV Regurgitation Doppler TR Peak Velocity 205 cm/s Estimated PAP/RSVP RA Pressure 8 mmHg <=5 PA Systolic Pressure 25 mmHg <36 RV Systolic Pressure 25 mmHg <36 Aortic Valve Name Value Normal AV Doppler AV Peak Velocity 291 cm/s AV Mean Gradient 10 mmHg AV VTI 34 cm AV Area (Cont Eq VTI) 2.8 cm2 >=3.0 AV Area (Cont Eq Jw) 1.6 cm2 AV DI (Jw) 0.56 AV Regurgitation 2D LVOT Area 2.8 cm2 Ventricles Name Value Normal LV Dimensions 2D/MM IVS Diastolic Thickness (2D) 0.8 cm 0.6-0.9 LVID Diastole (2D) 4.6 cm 3.8-5.2 LVIW Diastolic Thickness (2D) 1.0 cm 0.6-0.9 LVID Systole (2D) 3.3 cm 2.2-3.5 LVOT Diameter 1.9 cm LV Mass (2D Cubed) 137.72 g 67.00-162.00 LV Mass Index (2D Cubed) 61 g/m2 43-95 Relative Wall Thickness (2D) 0.43 <=0.42 IVS/LVIW Diastolic Thickness (2D) 0.80 0.00-1.50 LV Fractional Shortening/Ejection Fraction 2D/MM LV Fractional Shortening (2D) 28 % 27-45 LV EF (2D Teichholz) 55 % Atria Name Value Normal LA Dimensions LA Volume (4C A-L) 43 ml Left Ventricle Left ventricular chamber dimension is normal. Left ventricular systolic function is normal with visually estimated ejection fraction of 55-60%. There is concentric remodeling noted in the left ventricle. Left ventricular segmental wall motion is normal. There is grade I diastolic dysfunction in the left ventricle. Right Ventricle Right ventricular chamber dimension is normal. Right ventricular systolic function is normal. Left Atrium Left atrial chamber dimension is normal. Right Atrium Right atrial chamber dimension is normal. Aortic Valve The aortic valve is trileaflet. There is mild aortic valve sclerosis. There is mild aortic valve stenosis with a peak velocity of 291 cm/s, mean gradient of 10 mmHg, and aortic valve area of 2.8 cm2. There is no aortic valve regurgitation. Pulmonic Valve The pulmonic valve is normal. There is no pulmonic valve stenosis. There is no pulmonic regurgitation. Mitral Valve The mitral valve has thickened leaflets. There is no mitral valve stenosis. There is mild mitral valve regurgitation. Tricuspid Valve The tricuspid valve leaflets are normal. There is no tricuspid valve stenosis. There is mild tricuspid valve regurgitation. No pulmonary hypertension, estimated pulmonary arterial systolic pressure is 25 mmHg and systemic blood pressure of 114 mmHg in systole. Pericardium/Pleural Pleural effusion visualized. Inferior Vena Cava Normal inferior vena cava with >50% collapse upon inspiration consistent with normal right atrial pressure, 8 mmHg. Aorta The aortic measurements are indexed to age and body surface area. The aortic root at the sinus of Valsalva is not well visualized. The prox ascending aorta is not well visualized. Summary 1. Left ventricle size is normal and systolic function is normal. Estimated ejection fraction is 55-60%. There is grade I diastolic dysfunction. There is concentric remodeling noted. 2. Right ventricle chamber size is normal and systolic function is normal. Estimated RVSP is 25 mmHg. 3. There is mild aortic valve sclerosis with mild stenosis and no regurgitation. 4. There is mild mitral valve regurgitation. 5. The mitral valve has thickened leaflets. 6. There is mild tricuspid valve regurgitation. 7. The left atrium is normal. The right atrium is normal. 8. Normal IVC with estimated RA pressure 8 mmHg. 9. Pleural effusion visualized. Report Signatures Finalized by Elvi Frank on 03/04/2025 05:19 PM
[2025-03-02] MEDS: Magnesium Sulfate 4 GM Ivpb 4 GM/50 ML BAG IV (10:51)
--- NOTE | 2025-03-02 12:01 | PC.NURSE ---
Pt. BP 114/67, giving lasix, will hold metoprolol. notified.
[2025-03-02] MEDS: METOPROLOL TARTRATE 25 MG TABLET 50 MG PO (21:02)
[2025-03-03] VITALS (13 sets, daily range): BP systolic 104–124; BP diastolic 56–71; PULSE 61–101; RESP 13–31; TEMP 35.9–36.4; O2SAT 90–99
[2025-03-03 06:39] LABS: Alanine Aminotransferase 28 U/L (10-49); Albumin, Serum 3.4 gm/dL (3.4-4.8); Albumin/Globulin Ratio 1.3 (1.2-2.2); Alkaline Phosphatase 284 U/L (46-116); Anion Gap 9 (7-16); Aspartate Amino Transferase 112 U/L (0-34); BUN/Creatinine Ratio 27 Ratio (12-20); Bilirubin,Total 0.9 mg/dL (0.3-1.2); Blood Urea Nitrogen 24 mg/dL (9-23); Calcium 8.8 mg/dL (8.3-10.6); Calcium (Corrected) 9.3 mg/dL (8.5-10.1); Carbon Dioxide 38.5 mMol/L (20.0-31.0); Chloride 98 mMol/L (98-107); Creatinine (Component) 0.9 mg/dL (0.6-1.3); Estimated Creatinine Clearance 62.5 mL/min (>60); Globulin 2.7 gm/dL (2.3-3.5); Glucose 90 mg/dL (74-106); Magnesium 2.2 mg/dL (1.6-2.6); Osmolality,Calculated 292 (275-295); Phosphorous 2.7 mg/dL (2.4-5.1); Potassium 3.9 mMol/L (3.4-5.1); Sodium 145 mMol/L (136-145); Total Protein 6.1 gm/dL (5.7-8.2); eGFR > 60 See Note
[2025-03-03] MEDS: cefTRIAXone/D5w 1gm IV premix 1 GM/50 ML BAG IV (08:20)
[2025-03-03] MEDS: FUROSEMIDE INJ 10 MG/ML 4ML VIAL 40 MG IVP ×2 (08:25→20:14)
[2025-03-03] MEDS: AZITHROMYCIN INJ 500 MG in SODIUM CHLORIDE 0.9% 250 ML 250 ML 250 MG IV (08:25)
[2025-03-03] MEDS: SERTRALINE HCL 25 MG TABLET PO (08:25)
[2025-03-03 08:36] LABS: Basophils # (Auto) 0.0 Thou/mm3 (0.0-0.2); Basophils % (Auto) 0 % (0-2.5); Eosinophils # (Auto) 0.1 Thou/mm3 (0.0-0.5); Eosinophils % (Auto) 1 % (0-10); Hematocrit 35.4 % (36.0-46.0); Hemoglobin 11.3 g/dL (12.0-16.0); Immature Granulocytes Auto 0.02 Thou/mm3 (0.00-0.00); Lymphocytes # (Auto) 0.9 Thou/mm3 (1.0-4.8); Lymphocytes % (Auto) 11 % (10-50); Mean Corpuscular HGB Conc 31.9 g/dl (31.0-37.0); Mean Corpuscular Hemoglobin 34.3 pg (25.0-35.0); Mean Corpuscular Volume 108 fL (80-100); Monocytes # (Auto) 0.8 Thou/mm3 (0.0-0.8); Monocytes % (Auto) 10 % (0-12); Neutrophils # (Auto) 6.4 Thou/mm3 (1.8-7.7); Neutrophils % (Auto) 78 % (37-80); Nucleated Red Blood Cell # 0.00 Thou/mm3 (0.00-0.00); Nucleated Red Blood Cell % 0 /100 WBC (0); Platelet Count 101 Thou/mm3 (140-440); RDW Standard Deviation 56.6 fL (36.4-46.3); Red Blood Count 3.29 Miln/mm3 (4.00-5.20); White Blood Count 8.2 Thou/mm3 (3.6-11.0)
--- NOTE | 2025-03-03 09:52 | PC.NURSE ---
Revwd case with Dr. maya, because patient had heparin injection yesterday (03/02/25) he would like to wait a few days to do the procedure. He stated Friday would be more appropriate due to risk of bleeding. Called Elizabeth GR and made her aware.
--- NOTE | 2025-03-03 10:58 | ESPR_ITS ---
<Statement entered by Cristo Zhou MD - 03/04/25 18:03> Patient seen and examined at bedside. I discussed and supervised with the purchasing internship physician who took care of this patient. I personally saw and examined the patient. I agree with most of the assessment and plan. Plan of care discussed with attending Dr. Callahan. Cristo Zhou MD PGY-2 Documentation for date of: 03/03/25 Subjective Subjective Interval history: Patient seen and examined by bedside. Plan was to have CT biopsy liver today, however last heparin was 8 AM yesterday morning. If PT PTT INR are normal tomorrow morning, plan for CT liver biopsy by Dr. White. Per Dr. White, will give Solu-Cortef for MRI contrast to rule out brain metastasis. Exam Vital Signs Temp Pulse Resp BP Pulse Ox O2 Del Method O2 Flow Rate 96.7 F L 72 19 104/56 L 99 Nasal Cannula 4 03/03/25 08:00 03/03/25 08:25 03/03/25 08:00 03/03/25 08:25 03/03/25 08:00 03/03/25 08:00 03/03/25 08:00 FiO2 30 03/03/25 06:34 Narrative Exam GENERAL APPEARANCE: awake and oriented x 3, well-developed, well-nourished, obese, comfortable on NC HEENT: Normocephalic, atraumatic; pupils equal, round, reactive to light; EOMI; mucous membranes pink, moist; oropharynx clear NECK: Supple, large neck circumference LUNGS: Wheezes bilaterally, breath sound equal bilaterally HEART: Regular rate, regular rhythm; normal S1, S2; no murmur ABDOMEN: diastasis recti abdominis; umbilical hernia that is reducible, mild tenderness to palpation; normal BS; soft, no guarding, no rebound. Right port covered in dressing. Left mastectomy scar. EXTREMITIES: atraumatic; trace bilateral pitting edema NEUROLOGIC: awake; alert and oriented x3; cranial nerves II-XII grossly intact; no focal sensory or motor deficits PSYCHIATRIC: appropriate mood and affect SKIN: warm, dry, normal color; no rashes Objective Labs 03/07/25 04:28 03/07/25 04:28 Labs: Laboratory Results - last 24 hr 03/03/25 03/03/25 05:34 05:37 WBC 8.2 RBC 3.29 L Hgb 11.3 L Hct 35.4 L MCV 108 H MCH 34.3 MCHC 31.9 RDW Std Deviation 56.6 H Plt Count 101 L Neut % (Auto) 78 Lymph % (Auto) 11 [place] % (Auto) 10 Eos % (Auto) 1 Baso % (Auto) 0 Neut # (Auto) 6.4 Lymph # (Auto) 0.[address] [place] # (Auto) 0.8 Eos # (Auto) 0.1 Baso # (Auto) 0.0 Immature Gran # (Auto) 0.02 H Absolute Nucleated RBC 0.00 Immature Gran % 0 Nucleated RBC % 0 Sodium 145 Potassium 3.9 D Chloride 98 Carbon Dioxide 38.5 H Anion Gap 9 BUN 24 H Creatinine 0.9 Estim Creat Clear Calc 62.5 eGFR > 60 BUN/Creatinine Ratio 27 H Glucose 90 Calculated Osmolality 292 Calcium 8.8 Corrected Calcium 9.3 Phosphorus 2.7 Magnesium 2.2 Total Bilirubin 0.9 AST 112 H ALT 28 Alkaline Phosphatase 284 H D Total Protein 6.1 Albumin 3.4 Globulin 2.7 Albumin/Globulin Ratio 1.3 ABG Interpretation ABG results: 03/01/25 03/01/25 16:22 18:16 ABG pH 7.38 ABG pCO2 60 H ABG pO2 71 L ABG HCO3 35 H ABG O2 Saturation 95 ABG Base Excess 8 H VBG pH 7.43 VBG pCO2 52 VBG pO2 49 VBG Base Excess 8 H Quality Measures Quality Measures VTE prophylaxis Advance care planning discussed with:: patient and sibling Assessment & Plan Assessment Current Active Medications: Generic Name Dose Route Start Last Admin Trade Name Freq PRN Reason Stop Dose Admin Acetaminophen 650 mg 03/01/25 17:46 Acetaminophen 325 Mg Tablet PO 03/31/25 17:45 Q6H PRN Fever >101.5 Hydrocodone Bitart/Acetaminophen 1 tab 03/01/25 17:46 03/02/25 19:02 Hydrocodone/Apap 5/325 Tablet PO 03/06/25 17:45 1 tab Q4HR PRN Administration PAIN SCALE 4-10(Mod-Sev Furosemide 40 mg 03/01/25 21:00 03/03/25 08:25 Furosemide Inj 10 Mg/Ml 4ml Vial IVP 03/31/25 20:59 40 mg BID MARY Administration Heparin Sodium (Porcine) 5,000 unit 03/01/25 21:00 03/02/25 08:31 Heparin Sod Inj 5000 Unit/Ml Vial SC 03/15/25 20:59 5,000 unit On Hold: 03/02/25 16:13 Q12HR MARY Administration Ceftriaxone Sodium/Dextrose 1 gm in 50 mls @ 100 mls/hr 03/01/25 19:18 03/03/25 08:20 Rocephin/D5w 1gm Iv Premix IV 03/08/25 19:17 100 mls/hr QDAY MARY Administration Azithromycin 500 mg/ Sodium 250 mls @ 250 mls/hr 03/02/25 09:00 03/03/25 08:25 Chloride IV 03/04/25 08:59 250 mls/hr QDAY MARY Administration Metoprolol Tartrate 50 mg 03/01/25 21:00 03/02/25 21:02 Metoprolol Tartrate 25 Mg Tablet PO 03/31/25 20:59 50 mg BID MARY Administration Ondansetron HCl 4 mg 03/01/25 17:46 Ondansetron Inj 2 Mg/Ml Inj 2 Ml IVP 03/31/25 17:45 Q6H PRN NAUSEA OR VOMITING Protocol Sennosides 1 tab 03/01/25 17:46 Senna Tablet PO 03/31/25 17:45 QDAY PRN constipation Protocol Sertraline HCl 25 mg 03/02/25 09:00 03/03/25 08:25 Sertraline Hcl 25 Mg Tablet PO 04/01/25 08:59 25 mg DAILY MARY Administration Plan #Altered mental status #Chronic compensated respiratory acidosis #Right upper lobe pneumonia 74-year-old female with past medical history of unspecified HF, stage IV left breast cancer presented with altered mental status, baseline waxing and waning with new lethargy for the past 2 days. Sister reported whole body swelling positive for pitting edema. ABG pH 7.38 pCO2 60 pO2 71 bicarb 35, likely chronic compensated respiratory acidosis CXR right upper lobe pneumonia, mild heart failure with layered right pleural fluid. EKG A-fib. Head CT negative. 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 03/03: Patient AOx3. Comfortable on NC Plan: -BiPAP at night only -Discontinue home acetozolamide -Continue Rocephin 1g -Continue Azithromycin 500mg daily #Diastolic HF #Aotic stenosis #Afib #Bilateral pitting edema Plan: -Continue home metoprolol tartrate 50 PO BID -Continue Lasix 40mg IV BID -Fluid restriction -Pending Echo -NPO midnight for liver biopsy, if not going, Diet Cardiac #History of Left breast cancer #Metastasis Per sister, breast cancer metastasis to liver, spleen, top of aorta, lungs, lumbar spine. 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 Status post L mastectomy, liver radiation, currently on chemotherapy. Oncologist, Dr. Reyes, consulted, appreciate recs: MRI brain, liver lesion biopsy to see if receptors are changed. MRI non-contrast negative. Per IR, MRI contrast can be done with Solu-Cortef Plan: -Pending MRI brain contrast with Solu-Cortef for anaphylaxis prevention -Pending liver lesion biopsy Health Maintenance: Code status: Full DVT prophylaxis: Heparin - hold for biopsy GI prophylaxis: None Diet: NPO Damico: None Lines: PIV Supplemental O2: None Disposition: Tele bed Assessment and plan discussed with my attending physician Dr. Callahan and Dr. Zhou (PGY-2). Dr. Gómez (PGY-1) ? residential sales representative Attending Provider Attestation/Addendum I have seen and examined the patient. I was physically present for the dalal portions of the services provided including history, physical exam, diagnosis, treatment plans and orders. I agree with assessment and plan of care as documented by residents. Even though this this note was carefully revised there may still be minor errors in precipitator supervisor due to voice recognition software. Sean Callahan MD
[2025-03-03] MEDS: HYDROcodone/APAP 5/325 TABLET 1 TAB PO ×2 (13:12→20:14)
[2025-03-03 16:31] LABS: INR 1.1 (0.9-1.3); Partial Thromboplastin Time 30.3 Seconds (22.0-36.0); Prothrombin Time 12.0 Seconds (9.0-12.2)
[2025-03-03] MEDS: METOPROLOL TARTRATE 25 MG TABLET 50 MG PO (21:52)
[2025-03-04] VITALS (14 sets, daily range): BP systolic 100–141; BP diastolic 59–83; PULSE 67–92; RESP 12–25; TEMP 35.8–36.4; O2SAT 93–96; BMI 45.9; BMI 45.8
--- NOTE | 2025-03-04 | XR_ITS ---
EXAMINATION: MRI brain with intravenous contrast TECHNIQUE: Multiple axial sagittal and coronal brain MRI images post intravenous administration 20 cc gadolinium INDICATIONS: Breast carcinoma diagnosis with metastatic pulmonary nodules on CT chest March 01, 2025 left adrenal metastasis, staging Date and time: March 04, 2025, 1324 hours FINDINGS: Ventricles are not enlarged Abnormal enhancing left basal ganglia lesion 7 mm No mass effect upon the ventricular system No effacement cortical sulci Pituitary is not enlarged IMPRESSION: 7 mm enhancing lesion in the left basal ganglia most consistent with metastasis
[2025-03-04 06:30] LABS: INR 1.1 (0.9-1.3); Partial Thromboplastin Time 31.0 Seconds (22.0-36.0); Prothrombin Time 11.9 Seconds (9.0-12.2)
[2025-03-04 06:42] LABS: Basophils # (Auto) 0.0 Thou/mm3 (0.0-0.2); Basophils % (Auto) 1 % (0-2.5); Eosinophils # (Auto) 0.1 Thou/mm3 (0.0-0.5); Eosinophils % (Auto) 2 % (0-10); Hematocrit 36.7 % (36.0-46.0); Hemoglobin 11.7 g/dL (12.0-16.0); Immature Granulocytes Auto 0.03 Thou/mm3 (0.00-0.00); Lymphocytes # (Auto) 1.0 Thou/mm3 (1.0-4.8); Lymphocytes % (Auto) 11 % (10-50); Mean Corpuscular HGB Conc 31.9 g/dl (31.0-37.0); Mean Corpuscular Hemoglobin 34.3 pg (25.0-35.0); Mean Corpuscular Volume 108 fL (80-100); Monocytes # (Auto) 0.8 Thou/mm3 (0.0-0.8); Monocytes % (Auto) 9 % (0-12); Neutrophils # (Auto) 6.8 Thou/mm3 (1.8-7.7); Neutrophils % (Auto) 77 % (37-80); Nucleated Red Blood Cell # 0.00 Thou/mm3 (0.00-0.00); Nucleated Red Blood Cell % 0 /100 WBC (0); Platelet Count 122 Thou/mm3 (140-440); RDW Standard Deviation 56.6 fL (36.4-46.3); Red Blood Count 3.41 Miln/mm3 (4.00-5.20); White Blood Count 8.8 Thou/mm3 (3.6-11.0)
[2025-03-04 06:49] LABS: Alanine Aminotransferase 26 U/L (10-49); Albumin, Serum 3.5 gm/dL (3.4-4.8); Albumin/Globulin Ratio 1.2 (1.2-2.2); Alkaline Phosphatase 279 U/L (46-116); Aspartate Amino Transferase 114 U/L (0-34); BUN/Creatinine Ratio 30 Ratio (12-20); Bilirubin,Total 0.8 mg/dL (0.3-1.2); Blood Urea Nitrogen 24 mg/dL (9-23); Calcium 9.1 mg/dL (8.3-10.6); Calcium (Corrected) 9.5 mg/dL (8.5-10.1); Chloride 97 mMol/L (98-107); Creatinine (Component) 0.8 mg/dL (0.6-1.3); Estimated Creatinine Clearance 69.8 mL/min (>60); Globulin 2.9 gm/dL (2.3-3.5); Glucose 106 mg/dL (74-106); Magnesium 1.8 mg/dL (1.6-2.6); Osmolality,Calculated 292 (275-295); Phosphorous 2.8 mg/dL (2.4-5.1); Potassium 3.2 mMol/L (3.4-5.1); Sodium 145 mMol/L (136-145); Total Protein 6.4 gm/dL (5.7-8.2); eGFR > 60 See Note
[2025-03-04 07:00] LABS: Carbon Dioxide 37.8 mMol/L (20.0-31.0)
[2025-03-04 07:05] LABS: Anion Gap 10 (7-16)
[2025-03-04] MEDS: cefTRIAXone/D5w 1gm IV premix 1 GM/50 ML BAG IV (08:34)
[2025-03-04] MEDS: FUROSEMIDE INJ 10 MG/ML 4ML VIAL 40 MG IVP ×2 (08:35→20:25)
[2025-03-04] MEDS: SERTRALINE HCL 25 MG TABLET PO (08:36)
--- NOTE | 2025-03-04 08:44 | ESPR_ITS ---
<Statement entered by Cristo Zhou MD - 03/04/25 18:50> Patient seen and examined at bedside. I discussed and supervised with the quality intern physician who took care of this patient. I personally saw and examined the patient. I agree with most of the assessment and plan. Patient received MRI, shows lesion likely metastasis in basal ganglia. Unable to get liver biopsy, will have patient follow up outpatient, appointment confirmed. Plan of care discussed with attending Dr. Malik. Cristo Zhou MD PGY-2 Documentation for date of: 03/04/25 Subjective Subjective Interval history: MRI brain with contrast showed 7 mm enhancing lesion in the left basal ganglia most consistent with metastasis.? Inpatient IR is unable to perform liver biopsy at this time. ?Outpatient liver biopsy appointment is confirmed for March 21 at 8:30 AM.? Nurse will call patient and family on March 16 for preop information. Patient's initial chief complaint of weakness improved.? Altered mental status is likely due to metastasis to brain versus chronic hypercapnia.? Plan on discharging nursing facility either today or tomorrow. Informed finding and plan for liver biopsy with patient and family.? Oncologist, Dr. Andrade is notified. Exam Vital Signs Temp Pulse Resp BP Pulse Ox O2 Del Method O2 Flow Rate 96.5 F L 78 20 123/65 94 L Nasal Cannula 2 03/04/25 08:00 03/04/25 08:35 03/04/25 08:00 03/04/25 08:35 03/04/25 08:00 03/04/25 08:00 03/04/25 04:00 FiO2 30 03/03/25 06:34 Narrative Exam GENERAL APPEARANCE: awake and oriented x 3, well-developed, well-nourished, obese, comfortable on NC HEENT: Normocephalic, atraumatic; pupils equal, round, reactive to light; EOMI; mucous membranes pink, moist; oropharynx clear NECK: Supple, large neck circumference LUNGS: Wheezes bilaterally, breath sound equal bilaterally HEART: Regular rate, regular rhythm; normal S1, S2; no murmur ABDOMEN: diastasis recti abdominis; umbilical hernia that is reducible, mild tenderness to palpation; normal BS; soft, no guarding, no rebound. Right port covered in dressing. Left mastectomy scar. EXTREMITIES: atraumatic; trace bilateral pitting edema NEUROLOGIC: awake; alert and oriented x3; cranial nerves II-XII grossly intact; no focal sensory or motor deficits PSYCHIATRIC: appropriate mood and affect SKIN: warm, dry, normal color; no rashes Objective Labs 03/05/25 05:47 03/05/25 05:47 Labs: Laboratory Results - last 24 hr 03/03/25 03/03/25 03/04/25 05:37 15:42 05:50 WBC 8.2 8.8 RBC 3.29 L 3.41 L Hgb 11.3 L 11.7 L Hct 35.4 L 36.7 MCV 108 H 108 H MCH 34.3 34.3 MCHC 31.9 31.9 RDW Std Deviation 56.6 H 56.6 H Plt Count 101 L 122 L D Neut % (Auto) 78 77 Lymph % (Auto) 11 11 [place] % (Auto) 10 9 Eos % (Auto) 1 2 Baso % (Auto) 0 1 Neut # (Auto) 6.4 6.8 Lymph # (Auto) 0.9 L 1.0 [place] # (Auto) 0.8 0.8 Eos # (Auto) 0.1 0.1 Baso # (Auto) 0.0 0.0 Immature Gran # (Auto) 0.02 H 0.03 H Absolute Nucleated RBC 0.00 0.00 Immature Gran % 0 0 Nucleated RBC % 0 0 PT 12.0 11.9 INR 1.1 1.1 APTT 30.3 D 31.0 Sodium 145 Potassium 3.2 L D Chloride 97 L Carbon Dioxide 37.8 H Anion Gap 10 BUN 24 H Creatinine 0.8 Estim Creat Clear Calc 69.8 eGFR > 60 BUN/Creatinine Ratio 30 H Glucose 106 Calculated Osmolality 292 Calcium 9.1 Corrected Calcium 9.5 Phosphorus 2.8 Magnesium 1.8 Total Bilirubin 0.8 AST 114 H ALT 26 Alkaline Phosphatase 279 H Total Protein 6.4 Albumin 3.5 Globulin 2.9 Albumin/Globulin Ratio 1.2 ABG Interpretation ABG results: 03/01/25 03/01/25 16:22 18:16 ABG pH 7.38 ABG pCO2 60 H ABG pO2 71 L ABG HCO3 35 H ABG O2 Saturation 95 ABG Base Excess 8 H VBG pH 7.43 VBG pCO2 52 VBG pO2 49 VBG Base Excess 8 H Quality Measures Quality Measures VTE prophylaxis Advance care planning discussed with:: patient and sibling Assessment & Plan Assessment Current Active Medications: Generic Name Dose Route Start Last Admin Trade Name Freq PRN Reason Stop Dose Admin Acetaminophen 650 mg 03/01/25 17:46 Acetaminophen 325 Mg Tablet PO 03/31/25 17:45 Q6H PRN Fever >101.5 Hydrocodone Bitart/Acetaminophen 1 tab 03/01/25 17:46 03/03/25 20:14 Hydrocodone/Apap 5/325 Tablet PO 03/06/25 17:45 1 tab Q4HR PRN Administration PAIN SCALE 4-10(Mod-Sev Furosemide 40 mg 03/01/25 21:00 03/04/25 08:35 Furosemide Inj 10 Mg/Ml 4ml Vial IVP 03/31/25 20:59 40 mg BID MARY Administration Heparin Sodium (Porcine) 5,000 unit 03/01/25 21:00 03/02/25 08:31 Heparin Sod Inj 5000 Unit/Ml Vial SC 03/15/25 20:59 5,000 unit On Hold: 03/02/25 16:13 Q12HR MARY Administration Hydrocortisone Sodium Succinate 100 mg 03/03/25 15:23 Hydrocortisone Sod Succ Inj 100 Mg 2 Ml Vial IV 04/02/25 15:22 X1 PRN For MRI contrast. Dr. White Ceftriaxone Sodium/Dextrose 1 gm in 50 mls @ 100 mls/hr 03/01/25 19:18 03/04/25 08:34 Rocephin/D5w 1gm Iv Premix IV 03/08/25 19:17 100 mls/hr QDAY MARY Administration Azithromycin 500 mg/ Sodium 250 mls @ 250 mls/hr 03/02/25 09:00 03/03/25 08:25 Chloride IV 03/04/25 08:59 250 mls/hr QDAY MARY Administration Metoprolol Tartrate 50 mg 03/01/25 21:00 03/03/25 21:52 Metoprolol Tartrate 25 Mg Tablet PO 03/31/25 20:59 50 mg BID MARY Administration Ondansetron HCl 4 mg 03/01/25 17:46 Ondansetron Inj 2 Mg/Ml Inj 2 Ml IVP 03/31/25 17:45 Q6H PRN NAUSEA OR VOMITING Protocol Sennosides 1 tab 03/01/25 17:46 Senna Tablet PO 03/31/25 17:45 QDAY PRN constipation Protocol Sertraline HCl 25 mg 03/02/25 09:00 03/04/25 08:36 Sertraline Hcl 25 Mg Tablet PO 04/01/25 08:59 25 mg DAILY MARY Administration Plan #Altered mental status #Chronic compensated respiratory acidosis #Right upper lobe pneumonia 74-year-old female with past medical history of unspecified HF, stage IV left breast cancer presented with altered mental status, baseline waxing and waning with new lethargy for the past 2 days. Sister reported whole body swelling positive for pitting edema. ABG pH 7.38 pCO2 60 pO2 71 bicarb 35, likely chronic compensated respiratory acidosis CXR right upper lobe pneumonia, mild heart failure with layered right pleural fluid. EKG A-fib. Head CT negative. 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 03/04: Patient AOx3. Comfortable on NC Plan: -BiPAP at night only -Continue Rocephin 1g -Continue Azithromycin 500mg daily #Diastolic HF #Aotic stenosis #Afib #Bilateral pitting edema Plan: -Continue home metoprolol tartrate 50 PO BID -Continue Lasix 40mg IV BID -Fluid restriction -NPO midnight for liver biopsy, if not going, Diet Cardiac #History of Left breast cancer #Metastasis Per sister, breast cancer metastasis to liver, spleen, top of aorta, lungs, lumbar spine. 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 Status post L mastectomy, liver radiation, currently on chemotherapy. Oncologist, Dr. Reyes, consulted, appreciate recs: MRI brain, liver lesion biopsy to see if receptors are changed. MRI brain with contrast showed 7 mm enhancing lesion in the left basal ganglia most consistent with metastasis.? Inpatient IR is unable to perform liver biopsy at this time. ? Plan: -Outpatient liver biopsy appointment is confirmed for March 21 at 8:30 AM.? Nurse will call patient and family on March 16 for preop information. Health Maintenance: Code status: Full DVT prophylaxis: Heparin GI prophylaxis: None Diet: Dysphagia step 1 Damico: None Lines: PIV Supplemental O2: None Disposition: Tele bed Assessment and plan discussed with my attending physician Dr. Malik and Dr. Zhou (PGY-2). Dr. Gómez (PGY-1) ? certified residential medication aide Attending Provider Attestation/Addendum I, Pam Malik DO, attest that I was physically present for the dalal portions of the service and evaluated the patient with the resident and I reviewed and discussed the case with the resident and agree with the resident's findings and plans of care as documented above Patient seen and eval this a.m. She is A&Ox3, but she states that she is confused due to changes in plan with her liver biopsy. Radiology states that liver biopsy cannot be done as patient had received heparin. The soonest that it can be done will be on Friday. However, patient does have an appointment outpatient for liver biopsy on March 21. They will be contacted on 03/16 by radiology to go over instructions. Explained to patient that she can have her scheduled liver biopsy. MRI of the brain with contrast was done showing 7 mm metastatic lesion in the left basal ganglia. Patient's mental status is back at baseline at this time. Resident discussed plan of care with patient's sister. Patient will follow-up with oncology outpatient. Patient can be discharged to [facility] [place] [facility] facility otherwise. Pending authorization
[2025-03-04] MEDS: HYDROcodone/APAP 5/325 TABLET 1 TAB PO ×2 (08:45→17:37)
--- NOTE | 2025-03-04 08:54 | PC.SS ---
Addendum entered by Magda Little 03/04/25 09:33: SS has sent inquiry to [facility] upon their request using [employer]. Original Note: Follow up not: Liver biopsy pending. On IV diuresis. On IV antibiotic. Pt will return to [facility] upon dc and will require new insurance authorization.
[2025-03-04] MEDS: METOPROLOL TARTRATE 25 MG TABLET 50 MG PO ×2 (09:30→20:26)
--- NOTE | 2025-03-04 15:01 | PC.SS ---
SS has spoken to MOLLY Clark from patient's health insurance [phone] who is aware pt is bedbound (per physician residents) and is returning to [facility]. Per Amber, PT note is not required and will inform her linen room supervisor. SS has faxed d/c orders and inquiry to Amber and is aware pt is ready for d/c today.
[2025-03-04] MEDS: HEPARIN SOD INJ 5000 UNIT/ML VIAL SC (20:28)
[2025-03-05] VITALS (16 sets, daily range): BP systolic 121–145; BP diastolic 63–87; PULSE 64–95; RESP 18–26; TEMP 36.2–36.6; O2SAT 93–96; BMI 45.6
[2025-03-05] MEDS: HYDROcodone/APAP 5/325 TABLET 1 TAB PO ×2 (01:07→10:01)
[2025-03-05 06:09] LABS: Basophils # (Auto) 0.0 Thou/mm3 (0.0-0.2); Basophils % (Auto) 0 % (0-2.5); Eosinophils # (Auto) 0.1 Thou/mm3 (0.0-0.5); Eosinophils % (Auto) 1 % (0-10); Hematocrit 37.0 % (36.0-46.0); Hemoglobin 11.9 g/dL (12.0-16.0); Immature Granulocytes Auto 0.05 Thou/mm3 (0.00-0.00); Lymphocytes # (Auto) 1.1 Thou/mm3 (1.0-4.8); Lymphocytes % (Auto) 11 % (10-50); Mean Corpuscular HGB Conc 32.2 g/dl (31.0-37.0); Mean Corpuscular Hemoglobin 34.6 pg (25.0-35.0); Mean Corpuscular Volume 108 fL (80-100); Monocytes # (Auto) 0.7 Thou/mm3 (0.0-0.8); Monocytes % (Auto) 8 % (0-12); Neutrophils # (Auto) 7.7 Thou/mm3 (1.8-7.7); Neutrophils % (Auto) 80 % (37-80); Nucleated Red Blood Cell # 0.00 Thou/mm3 (0.00-0.00); Nucleated Red Blood Cell % 0 /100 WBC (0); Platelet Count 142 Thou/mm3 (140-440); RDW Standard Deviation 56.3 fL (36.4-46.3); Red Blood Count 3.44 Miln/mm3 (4.00-5.20); White Blood Count 9.7 Thou/mm3 (3.6-11.0)
[2025-03-05 06:47] LABS: Alanine Aminotransferase 26 U/L (10-49); Albumin, Serum 3.6 gm/dL (3.4-4.8); Albumin/Globulin Ratio 1.2 (1.2-2.2); Alkaline Phosphatase 265 U/L (46-116); Anion Gap 12 (7-16); Aspartate Amino Transferase 115 U/L (0-34); BUN/Creatinine Ratio 26 Ratio (12-20); Bilirubin,Total 0.8 mg/dL (0.3-1.2); Blood Urea Nitrogen 18 mg/dL (9-23); Calcium 9.4 mg/dL (8.3-10.6); Calcium (Corrected) 9.7 mg/dL (8.5-10.1); Carbon Dioxide 37.4 mMol/L (20.0-31.0); Chloride 97 mMol/L (98-107); Creatinine (Component) 0.7 mg/dL (0.6-1.3); Estimated Creatinine Clearance 79.6 mL/min (>60); Globulin 2.9 gm/dL (2.3-3.5); Glucose 97 mg/dL (74-106); Magnesium 1.5 mg/dL (1.6-2.6); Osmolality,Calculated 292 (275-295); Phosphorous 2.4 mg/dL (2.4-5.1); Potassium 3.2 mMol/L (3.4-5.1); Sodium 146 mMol/L (136-145); Total Protein 6.5 gm/dL (5.7-8.2); eGFR > 60 See Note
[2025-03-05] MEDS: METOPROLOL TARTRATE 25 MG TABLET 50 MG PO ×2 (09:01→20:16)
[2025-03-05] MEDS: FUROSEMIDE INJ 10 MG/ML 4ML VIAL 40 MG IVP ×2 (09:02→20:15)
[2025-03-05] MEDS: SERTRALINE HCL 25 MG TABLET PO (09:02)
[2025-03-05] MEDS: cefTRIAXone/D5w 1gm IV premix 1 GM/50 ML BAG IV (09:03)
[2025-03-05] MEDS: HEPARIN SOD INJ 5000 UNIT/ML VIAL SC ×2 (09:03→20:15)
[2025-03-05] MEDS: Magnesium Sulfate 4 GM Ivpb 4 GM/50 ML BAG IV (10:01)
--- NOTE | 2025-03-05 10:08 | PC.SS ---
Addendum entered by Kierra Kay 03/05/25 14:52: Clinicals submitted to [facility], she stated BiPAP will not be delivered today, she will attempt to have it ready for 03/06/25. [facility] Angely contacted discharge canceled due to SNF not having BiPAP today. MAILE Ferrera and patient sibling Kenyon informed. Addendum entered by [place] Eliza 03/05/25 12:50: [facility] Cpnta Informed by Dr. Real patient is needing BiPAP at [facility]. [facility] contacted and she stated they currently do not have BiPAP for patient. BiPAP may be ordered and delivered. BiPAP settings and DC Summary requested to be sent to [facility]. Sujata requesting [phone] ETA for transportation to allow time for BiPAP delivery, if not delivered discharge will be canceled. Kenyon contacted SS and informed her ETA for transportation is now 1999, Mary [facility] also informed. Dr. Zhou informed and will update DC Orders to reflect BiPAP need. Addendum entered by Kierralan Kay 03/05/25 11:52: PCS form submitted to [facility] via Angely Hare confirmed receipt of PCS form and scheduled transportation to [facility] for 1400. MAILE Escobar informed. Unable to connect with patient's daughter Kenyon Landaverde, a message was left explaining purpose of call. [facility] also informed of ETA. Addendum entered by Kierralan Kay 03/05/25 10:11: DINA Santa informed mortgage loan underwriter patient's medically clear to discharge today, 03/05/25. Original Note: Informed by [facility] SNF admin. she has insurance auth. for patient and can accept her today, 03/05/25. Informed MAILE Ferrera transportation will be arranged and she will be notified when completed.
--- NOTE | 2025-03-05 14:04 | ESDS_ITS ---
<Statement entered by Pam Malik DO - 03/05/25 15:38> I, Pam Malik DO, attest that I was physically present for the dalal portions of the service and evaluated the patient with the resident and I reviewed and discussed the case with the resident and agree with the resident's findings and plans of care as documented above Planned Discharge Date 03/05/25 DS: Providers Provider Date of admission: 03/01/25 18:19 Primary care physician: Zaid Austin MD Admitting Provider: Sean Callahan MD Attending Provider on Admission: Sean Callahan MD Consults: 03/04/25 14:50 Referral Physical Therapy Routine Comment: Physician Instructions: Attending Provider on DC: Pam Malik DO Discharging Provider: Cristo Zhou MD DS: Diagnosis Problem List Completed Was Problem List Reviewed/Reconciled?: Yes Hospital Course Hospital Course Hospital course: 74-year-old female with past medical history of unspecified HF, 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 Andrade, JEROME alfred from [facility] presented with worsening weakness and altered mental status. Admitted for acute encephalopathy in setting of fluid overload and pneumonia. Started on IV antibiotics, diuretics. Patient was started on CPAP at night for chronic respiratory acidosis liekly due to OSH/LOYD. Patient mental status improved during course of stay. Patient care discussed with oncologist Dr. Andrade, MRI brain showed metastatic lesion left basal ganglia. Patient improved in mental status back to baseline. Patient medically stable and cleared for discharge. Diagnoses: #Acute encephalopathy #Chronic compensated respiratory acidosis #Right upper lobe pneumonia #Diastolic HF #Aotic stenosis #Afib #History of Left breast cancer w/ metastasis Discharge plan: You have been started on the following medications: - Augmentin 875-125 BID for three more days to complete treatment for UTI/PNA Please continue taking all other medications as previously prescribed. Please follow up with your primary doctor in 7-10 days. Please follow up on outpatient liver biopsy. Call IR to make an outpatient appointment. Please follow up with Dr. Andrade. Please stop acetazolamide outpatient. Return to ED if you develop new or worsening symptoms. Please continue to use CPAP at night: FiO2 30%. EPAP 7 mmHg Plan of care discussed with attending Dr. Malik. Cristo Zhou MD PGY-2 Status at Discharge Overall status at discharge: patient is progressing back to baseline Time Spent with Patient Time attestation: Total time spent providing and/or coordinating discharge services: Time spent: Greater than 30 minutes Exam Vital Signs Temp Pulse Resp BP Pulse Ox O2 Del Method O2 Flow Rate 97.4 F 76 18 145/75 H 95 Nasal Cannula 2 03/05/25 12:00 03/05/25 12:00 03/05/25 12:00 03/05/25 12:00 03/05/25 12:00 03/05/25 07:48 03/05/25 07:48 FiO2 30 03/04/25 22:20 Narrative Exam GENERAL APPEARANCE: awake and oriented x 3, well-developed, well-nourished, obese, comfortable on NC HEENT: Normocephalic, atraumatic; pupils equal, round, reactive to light; EOMI; mucous membranes pink, moist; oropharynx clear NECK: Supple, large neck circumference LUNGS: Wheezes bilaterally, breath sound equal bilaterally HEART: Regular rate, regular rhythm; normal S1, S2; no murmur ABDOMEN: diastasis recti abdominis; umbilical hernia that is reducible, mild tenderness to palpation; normal BS; soft, no guarding, no rebound. Right port covered in dressing. Left mastectomy scar. EXTREMITIES: atraumatic; trace bilateral pitting edema NEUROLOGIC: awake; alert and oriented x3; cranial nerves II-XII grossly intact; no focal sensory or motor deficits PSYCHIATRIC: appropriate mood and affect SKIN: warm, dry, normal color; no rashes Discharge Plan Plan Patient Disposition: [facility] Patient condition on transfer: Stable Care Plan Goals: You have been started on the following medications: - Augmentin 875-125 BID for three more days to complete treatment for UTI/PNA Please continue taking all other medications as previously prescribed. Please follow up with your primary doctor in 7-10 days. Please follow up on outpatient liver biopsy. Call IR to make an outpatient appointment. Please follow up with Dr. Andrade. Please stop acetazolamide outpatient. Return to ED if you develop new or worsening symptoms. Please continue to use CPAP at night: FiO2 30%. EPAP 7 mmHg Prescriptions/Referrals Prescriptions/Med Rec: New amoxicillin-pot clavulanate 875-125 mg tablet 1 tab PO Q12H 3 Days Qty: 6 0RF Continued metoprolol tartrate 50 mg tablet 50 mg PO BID Patient Comments: TAKE 1 TABLET BY MOUTH TWICE A DAY WITH MEALS sertraline [Zoloft] 25 mg tablet 25 mg PO QDAY potassium chloride 20 mEq tablet,ER particles/crystals 20 meq PO QDAY Patient Comments: TAKE 1 TABLET BY MOUTH EVERY DAY alprazolam [Xanax] 0.25 mg tablet 0.25 mg PO BID docusate sodium [Colace] 100 mg capsule 100 mg PO BID furosemide [Lasix] 40 mg tablet 40 mg PO BID magnesium oxide 400 mg magnesium capsule 400 mg PO BID multivitamin Tablet 1 tab PO QDAY hydrocodone-acetaminophen 10-325 mg tablet 1 tab PO Q6H Zofran 4 mg PO Q6HR PRN (Reason: nausea and vomiting) magnesium hydroxide 400 mg/5 mL suspension 1,200 mg PO Q72H PRN (Reason: constipation) Fleet Enema 19-7 gram/118 mL enema 118 ml MN QDAY PRN (Reason: constipation) Vitamin D3 1.25 mg PO QWEEK calcium 600 mg capsule 600 mg PO QDAY acetaminophen 325 mg capsule 650 mg PO Q4H PRN (Reason: fever) Patient Comments: give 2 tablet by mouth every 4 hours as needed for mild pain and as needed for elevated temperature acetaminophen [Tylenol] 325 mg tablet 325 mg PO Q6H PRN (Reason: pain) Patient Comments: give 1 tablet by mouth every 6 hours as needed for mild pain 1-3 Referrals: Ranjit Andrade MD [Physician, Hematology & Oncology] Zaid Austin MD [Primary Care Provider] Patient/Caregiver Discharge Instructions Discharge Activity: activity as tolerated Education Materials: Normal Breathing During Sleep, Treating Pneumonia Print Language: Albanian Stand Alone Forms: [employer]ema Award Info., Patient Portal Info Letter Discharge Order Discharge Orders: Discharge (Routine); Ordered 03/05/25 Ordered By: Rylee Real Quality Discharge Quality Measures VTE prophylaxis
[2025-03-06] VITALS (15 sets, daily range): BP systolic 121–146; BP diastolic 59–84; PULSE 76–96; RESP 16–24; TEMP 36.2–37.2; O2SAT 94–98
[2025-03-06 05:44] LABS: Basophils # (Auto) 0.0 Thou/mm3 (0.0-0.2); Basophils % (Auto) 0 % (0-2.5); Eosinophils # (Auto) 0.1 Thou/mm3 (0.0-0.5); Eosinophils % (Auto) 1 % (0-10); Hematocrit 37.2 % (36.0-46.0); Hemoglobin 12.0 g/dL (12.0-16.0); Immature Granulocytes Auto 0.05 Thou/mm3 (0.00-0.00); Lymphocytes # (Auto) 1.2 Thou/mm3 (1.0-4.8); Lymphocytes % (Auto) 11 % (10-50); Mean Corpuscular HGB Conc 32.3 g/dl (31.0-37.0); Mean Corpuscular Hemoglobin 34.6 pg (25.0-35.0); Mean Corpuscular Volume 107 fL (80-100); Monocytes # (Auto) 0.9 Thou/mm3 (0.0-0.8); Monocytes % (Auto) 8 % (0-12); Neutrophils # (Auto) 8.7 Thou/mm3 (1.8-7.7); Neutrophils % (Auto) 79 % (37-80); Nucleated Red Blood Cell # 0.00 Thou/mm3 (0.00-0.00); Nucleated Red Blood Cell % 0 /100 WBC (0); Platelet Count 133 Thou/mm3 (140-440); RDW Standard Deviation 56.4 fL (36.4-46.3); Red Blood Count 3.47 Miln/mm3 (4.00-5.20); White Blood Count 11.0 Thou/mm3 (3.6-11.0)
[2025-03-06 06:13] LABS: Anion Gap 13 (7-16); BUN/Creatinine Ratio 31 Ratio (12-20); Blood Urea Nitrogen 22 mg/dL (9-23); Calcium 9.5 mg/dL (8.3-10.6); Carbon Dioxide 37.1 mMol/L (20.0-31.0); Chloride 96 mMol/L (98-107); Creatinine (Component) 0.7 mg/dL (0.6-1.3); Estimated Creatinine Clearance 79.2 mL/min (>60); Glucose 105 mg/dL (74-106); Osmolality,Calculated 293 (275-295); Potassium 3.3 mMol/L (3.4-5.1); Sodium 146 mMol/L (136-145); eGFR > 60 See Note
[2025-03-06] MEDS: FUROSEMIDE INJ 10 MG/ML 4ML VIAL 40 MG IVP (08:32)
[2025-03-06] MEDS: SERTRALINE HCL 25 MG TABLET PO (08:33)
[2025-03-06] MEDS: ONDANSETRON INJ 2 MG/ML INJ 2 ML 4 MG IVP (08:33)
[2025-03-06] MEDS: HEPARIN SOD INJ 5000 UNIT/ML VIAL SC (08:34)
[2025-03-06] MEDS: METOPROLOL TARTRATE 25 MG TABLET 50 MG PO ×2 (08:34→21:02)
[2025-03-06] MEDS: cefTRIAXone/D5w 1gm IV premix 1 GM/50 ML BAG IV (08:34)
--- NOTE | 2025-03-06 08:46 | ESPR_ITS ---
<Statement entered by Cristo Zhou MD - 03/06/25 14:29> Patient seen and examined at bedside. I discussed and supervised with the international manager physician who took care of this patient. I personally saw and examined the patient. I agree with most of the assessment and plan. Patient pending delivery of CPAP/BiPAP to SNF. Otherwise remains stable. As patient is unlikely to d/c today, will plan for liver biopsy prior to discharge tomorrow. Plan of care discussed with attending Dr. Malik. Cristo Zhou MD PGY-2 Documentation for date of: 03/06/25 Subjective Subjective Interval history: No acute event overnight. Patient endorsed general body ache and abdominal pain. Last BM 2 days ago. Will give Miralax and Sandwich. Pending BiPAP for rehab center. If not discharge today, plan to NPO, hold heparin, repeat coagulation panel, proceed with CT guided liver biopsy tomorrow. Exam Vital Signs Temp Pulse Resp BP Pulse Ox O2 Del Method O2 Flow Rate 97.7 F 96 24 H 137/80 H 94 L Nasal Cannula 2 03/06/25 07:43 03/06/25 07:43 03/06/25 07:43 03/06/25 07:43 03/06/25 07:43 03/06/25 07:43 03/06/25 07:43 FiO2 30 03/05/25 20:33 Narrative Exam GENERAL APPEARANCE: awake and oriented x 3, well-developed, well-nourished, obese, comfortable on NC HEENT: Normocephalic, atraumatic; pupils equal, round, reactive to light; EOMI; mucous membranes pink, moist; oropharynx clear NECK: Supple, large neck circumference LUNGS: Wheezes bilaterally, breath sound equal bilaterally HEART: Regular rate, regular rhythm; normal S1, S2; no murmur ABDOMEN: diastasis recti abdominis; umbilical hernia that is reducible, mild tenderness to palpation; normal BS; soft, no guarding, no rebound. Right port covered in dressing. Left mastectomy scar. EXTREMITIES: atraumatic; trace bilateral pitting edema NEUROLOGIC: awake; alert and oriented x3; cranial nerves II-XII grossly intact; no focal sensory or motor deficits PSYCHIATRIC: appropriate mood and affect SKIN: warm, dry, normal color; no rashes Objective Labs 03/06/25 05:28 03/06/25 05:28 Labs: Laboratory Results - last 24 hr 03/06/25 05:28 WBC 11.0 RBC 3.47 L Hgb 12.0 Hct 37.2 MCV 107 H MCH 34.6 MCHC 32.3 RDW Std Deviation 56.4 H Plt Count 133 L Neut % (Auto) 79 Lymph % (Auto) 11 Loup % (Auto) 8 Eos % (Auto) 1 Baso % (Auto) 0 Neut # (Auto) 8.7 H Lymph # (Auto) 1.2 Loup # (Auto) 0.9 H Eos # (Auto) 0.1 Baso # (Auto) 0.0 Immature Gran # (Auto) 0.05 H Absolute Nucleated RBC 0.00 Immature Gran % 1 H Nucleated RBC % 0 Sodium 146 H Potassium 3.3 L Chloride 96 L Carbon Dioxide 37.1 H Anion Gap 13 BUN 22 Creatinine 0.7 Estim Creat Clear Calc 79.2 eGFR > 60 BUN/Creatinine Ratio 31 H Glucose 105 Calculated Osmolality 293 Calcium 9.5 ABG Interpretation ABG results: 03/01/25 03/01/25 16:22 18:16 ABG pH 7.38 ABG pCO2 60 H ABG pO2 71 L ABG HCO3 35 H ABG O2 Saturation 95 ABG Base Excess 8 H VBG pH 7.43 VBG pCO2 52 VBG pO2 49 VBG Base Excess 8 H Quality Measures Quality Measures VTE prophylaxis Advance care planning discussed with:: patient and sibling Assessment & Plan Assessment Current Active Medications: Generic Name Dose Route Start Last Admin Trade Name Moises PRN Reason Stop Dose Admin Acetaminophen 650 mg 03/01/25 17:46 Acetaminophen 325 Mg Tablet PO 03/31/25 17:45 Q6H PRN Fever >101.5 Hydrocodone Bitart/Acetaminophen 1 tab 03/01/25 17:46 03/05/25 10:01 Hydrocodone/Apap 5/325 Tablet PO 03/06/25 17:45 1 tab Q4HR PRN Administration PAIN SCALE 4-10(Mod-Sev Furosemide 40 mg 03/01/25 21:00 03/05/25 20:15 Furosemide Inj 10 Mg/Ml 4ml Vial IVP 03/31/25 20:59 40 mg BID MARY Administration Heparin Sodium (Porcine) 5,000 unit 03/01/25 21:00 03/05/25 20:15 Heparin Sod Inj 5000 Unit/Ml Vial SC 03/15/25 20:59 5,000 unit Q12HR MARY Administration Ceftriaxone Sodium/Dextrose 1 gm in 50 mls @ 100 mls/hr 03/01/25 19:18 03/05/25 09:03 Rocephin/D5w 1gm Iv Premix IV 03/08/25 19:17 100 mls/hr QDAY MARY Administration Metoprolol Tartrate 50 mg 03/01/25 21:00 03/05/25 20:16 Metoprolol Tartrate 25 Mg Tablet PO 03/31/25 20:59 50 mg BID MARY Administration Ondansetron HCl 4 mg 03/01/25 17:46 Ondansetron Inj 2 Mg/Ml Inj 2 Ml IVP 03/31/25 17:45 Q6H PRN NAUSEA OR VOMITING Protocol Sennosides 1 tab 03/01/25 17:46 Senna Tablet PO 03/31/25 17:45 QDAY PRN constipation Protocol Sertraline HCl 25 mg 03/02/25 09:00 03/05/25 09:02 Sertraline Hcl 25 Mg Tablet PO 04/01/25 08:59 25 mg DAILY MARY Administration Plan #Altered mental status (resolved) #Chronic compensated respiratory acidosis #Right upper lobe pneumonia 74-year-old female with past medical history of unspecified HF, stage IV left breast cancer presented with altered mental status, baseline waxing and waning with new lethargy for the past 2 days. Sister reported whole body swelling positive for pitting edema. ABG pH 7.38 pCO2 60 pO2 71 bicarb 35, likely chronic compensated respiratory acidosis CXR right upper lobe pneumonia, mild heart failure with layered right pleural fluid. EKG A-fib. Head CT negative. 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 Plan: -BiPAP at night only -Continue Rocephin 1g (started 03/01) #Diastolic HF #Aotic stenosis #Afib #Bilateral pitting edema Plan: -Continue home metoprolol tartrate 50 PO BID -Decrease to Lasix 20mg IV BID -Fluid restriction -NPO midnight for liver biopsy #History of Left breast cancer #Metastasis Per sister, breast cancer metastasis to liver, spleen, top of aorta, lungs, lumbar spine. 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 Status post L mastectomy, liver radiation, currently on chemotherapy. Oncologist, Dr. Reyes, consulted, appreciate recs: MRI brain, liver lesion biopsy to see if receptors are changed. MRI brain with contrast showed 7 mm enhancing lesion in the left basal ganglia most consistent with metastasis.? Inpatient IR is unable to perform liver biopsy at this time. ? Plan: -CT guided liver biopsy tomorrow if coagulation panel is normal Health Maintenance: Code status: Full DVT prophylaxis: Heparin - held GI prophylaxis: None Diet: Dysphagia step 1 [place]: None Lines: PIV, central port Supplemental O2: None Disposition: Tele bed Assessment and plan discussed with my attending physician Dr. Malik and Dr. Zhou (PGY-2). Dr. Gómez (PGY-1) ? family medicine resident Attending Provider Attestation/Addendum I, Pam Malik, DO, attest that I was physically present for the dalal portions of the service and evaluated the patient with the resident and I reviewed and discussed the case with the resident and agree with the resident's findings and plans of care as documented above Patient seen and eval this a.m. She is much less confused this morning. She is pending CPAP to be arranged at [facility] facility. However, if patient remains in-house tomorrow, will arrange for CT-guided liver biopsy. Holding heparin at this time. Patient is agreeable to undergo a liver biopsy. Sister at bedside has been inquiring about hospice given the extent of patient's metastatic disease. Reviewed images with patient's sister. She is understanding of the overall poor prognosis. However, she stated that the patient is willing to undergo further workup. She will consider hospice if patient does not want to undergo any further treatment or workup. Will follow- up with PT/INR in the a.m. Will place n.p.o. after midnight in the event that we are able to do the liver biopsy here in the hospital. Will switch Lasix to 20 mg IV twice daily. Will continue rest of management.
[2025-03-06] MEDS: HYDROcodone/APAP 5/325 TABLET 1 TAB PO ×2 (09:47→13:59)
--- NOTE | 2025-03-06 10:18 | PC.SS ---
SS update: ASW Lucy reached out to Matilda at [facility] to inquire if they received BIPAP, Matilda stated that no updates yet but will reach out to ASW once there is an update.
[2025-03-06] MEDS: LACTULOSE SYRUP 20 GM/30 ML UDC PO ×2 (13:36→21:02)
[2025-03-06] MEDS: POLYETHYLENE GLYCOL 17 GM PACKET PO (13:36)
[2025-03-06] MEDS: FUROSEMIDE INJ 10 MG/ML 4ML VIAL 20 MG IVP (17:04)
--- NOTE | 2025-03-06 18:36 | PC.NURSE ---
MD called for rectal bleeding. MD gave orders to call back if occurs again and will repeat H&H.
[2025-03-07] VITALS (14 sets, daily range): BP systolic 118–138; BP diastolic 51–82; PULSE 71–102; RESP 15–26; TEMP 36.1–36.7; O2SAT 92–98; BMI 45.0
[2025-03-07] MEDS: FUROSEMIDE INJ 10 MG/ML 4ML VIAL 20 MG IVP (05:02)
[2025-03-07 06:13] LABS: Basophils # (Auto) 0.1 Thou/mm3 (0.0-0.2); Basophils % (Auto) 1 % (0-2.5); Eosinophils # (Auto) 0.3 Thou/mm3 (0.0-0.5); Eosinophils % (Auto) 3 % (0-10); Hematocrit 35.8 % (36.0-46.0); Hemoglobin 11.3 g/dL (12.0-16.0); Immature Granulocytes Auto 0.04 Thou/mm3 (0.00-0.00); Lymphocytes # (Auto) 1.1 Thou/mm3 (1.0-4.8); Lymphocytes % (Auto) 12 % (10-50); Mean Corpuscular HGB Conc 31.6 g/dl (31.0-37.0); Mean Corpuscular Hemoglobin 34.1 pg (25.0-35.0); Mean Corpuscular Volume 108 fL (80-100); Monocytes # (Auto) 0.9 Thou/mm3 (0.0-0.8); Monocytes % (Auto) 10 % (0-12); Neutrophils # (Auto) 6.7 Thou/mm3 (1.8-7.7); Neutrophils % (Auto) 75 % (37-80); Nucleated Red Blood Cell # 0.00 Thou/mm3 (0.00-0.00); Nucleated Red Blood Cell % 0 /100 WBC (0); Platelet Count 106 Thou/mm3 (140-440); RDW Standard Deviation 57.1 fL (36.4-46.3); Red Blood Count 3.31 Miln/mm3 (4.00-5.20); White Blood Count 9.0 Thou/mm3 (3.6-11.0)
[2025-03-07 06:29] LABS: Alanine Aminotransferase 27 U/L (10-49); Albumin, Serum 3.3 gm/dL (3.4-4.8); Albumin/Globulin Ratio 1.4 (1.2-2.2); Alkaline Phosphatase 243 U/L (46-116); Anion Gap 11 (7-16); Aspartate Amino Transferase 119 U/L (0-34); BUN/Creatinine Ratio 43 Ratio (12-20); Bilirubin,Total 0.8 mg/dL (0.3-1.2); Blood Urea Nitrogen 34 mg/dL (9-23); Calcium 9.1 mg/dL (8.3-10.6); Calcium (Corrected) 9.7 mg/dL (8.5-10.1); Carbon Dioxide 39.5 mMol/L (20.0-31.0); Chloride 97 mMol/L (98-107); Creatinine (Component) 0.8 mg/dL (0.6-1.3); Estimated Creatinine Clearance 69.0 mL/min (>60); Globulin 2.4 gm/dL (2.3-3.5); Glucose 95 mg/dL (74-106); Magnesium 1.6 mg/dL (1.6-2.6); Osmolality,Calculated 300 (275-295); Potassium 3.7 mMol/L (3.4-5.1); Sodium 147 mMol/L (136-145); Total Protein 5.7 gm/dL (5.7-8.2); eGFR > 60 See Note
--- NOTE | 2025-03-07 08:09 | XR_ITS ---
Examination: CT-guided percutaneous biopsy anterior liver lesion CT abdomen without intravenous contrast INDICATIONS: Multiple liver lesions on CT chest abdomen March 01, 2025 Date and time of procedure: March 07, 2025, 0953 hours Informed consent provided. A timeout was completed verifying correct patient, procedure, site and positioning. . Technique: Axial 3 mm sections were obtained for localization of an anterior liver lesion Appropriate area is marked. The patient's site was prepped and draped in sterile fashion Maximal sterile barrier technique utilized, including hand hygiene Local anesthesia was obtained with 1% lidocaine. Low dose protocols were performed. One or more of the following dose reduction techniques were used; automated exposure control, adjustment of the mA and/or KV according to patient size, use of iterative reconstruction technique. Utilizing CT fluoroscopic guidance 2 core biopsies obtained of an anterior liver lesion Patient appears in stable condition during this procedure. At completion of the procedure, the patient is in satisfactory condition. Estimated blood loss 2 cc Complete pathology report to follow. Impression: Successful CT-guided percutaneous biopsy anterior liver lesion
[2025-03-07 08:10] LABS: INR 1.1 (0.9-1.3); Partial Thromboplastin Time 31.6 Seconds (22.0-36.0); Prothrombin Time 12.1 Seconds (9.0-12.2)
[2025-03-07] MEDS: cefTRIAXone/D5w 1gm IV premix 1 GM/50 ML BAG IV (08:33)
--- NOTE | 2025-03-07 08:57 | PC.SS ---
Follow up note: SS spoke to Matilda from [facility] who explained insurance authorization has been obtained but she is working on ordering a bipap machine. Matilda is requesting Bipap settings due to not receiving them. SS has sent Respiratory notes which contain Bipap settings pt is currently utilizing.
[2025-03-07] MEDS: fentaNYL CIT INJ 50 mCg/ML AMP 2ML IVP (10:20)
--- NOTE | 2025-03-07 10:51 | PC.NURSE ---
PT BACK IN HER ROOM 364 FROM [employer]. BROUGHT UP VIA GURHI ACCOMPANIED BY RN. FAMILY AT BEDSIDE POC DISCUSSED. PT ALERT AND ORIENTED X2
[2025-03-07] MEDS: SERTRALINE HCL 25 MG TABLET PO (11:08)
[2025-03-07] MEDS: POLYETHYLENE GLYCOL 17 GM PACKET PO (11:08)
[2025-03-07] MEDS: METOPROLOL TARTRATE 25 MG TABLET 50 MG PO (11:09)
--- NOTE | 2025-03-07 12:38 | PC.SS ---
SS met with sister who is aware insurance authorization has been obtained from [facility] [employer] [facility] [employer] [facility] is requesting transport time after 4pm due to Bipap Machine arriving later this evening.
[2025-03-07] MEDS: LACTULOSE SYRUP 20 GM/30 ML UDC PO (13:54)
[2025-03-07] MEDS: HYDROcodone/APAP 5/325 TABLET 1 TAB PO ×2 (14:10→17:57)
--- NOTE | 2025-03-07 14:45 | ESDS_ITS ---
<Statement entered by Rylee Real MD - 03/08/25 15:51> Patient was seen and examined by me personally. I have reviewed the below documentation by the team resident and agree with its findings. Discharge plan was discussed with the attending, Dr. Sean Real MD Internal Medicine, PGY-2 Planned Discharge Date 03/07/25 DS: Providers Provider Date of admission: 03/01/25 18:19 Primary care physician: Zaid Austin MD Admitting Provider: Sean Callahan MD Attending Provider on Admission: Sean Callahan MD Consults: 03/04/25 14:50 Referral Physical Therapy Routine Comment: Physician Instructions: Attending Provider on DC: Sean Callahan MD Discharging Provider: Evonne Gómez MD DS: Diagnosis Problem List Completed Was Problem List Reviewed/Reconciled?: Yes Hospital Course Hospital Course Hospital course: Hospital Course: 74-year-old female past medical history of HF, Monica disease, stage IV left breast cancer metastasis, from [facility] with weakness and AMS, admitted for acute encephalopathy secondary to fluid overload and pneumonia.?In ED, ABG showed hypercapnia, improved on BiPAP. CXR showed right upper lobe pneumonia, mild heart failure, improved with diuresis and Rocephin. CTAP showed metastasis to lungs, liver, left adrenal gland, moderate renal scarring, hernia defects. Patient improved remarkably and patient with diuresis and antibiotics. In hospital, MRI brain showed metastasis to brain. Liver biopsy done per oncology recommendations. Oncologist, Dr. Andrade, updated, will continue to follow up outpatient. Patient is stable and medically cleared for discharge. Plan to follow up with Dr. Andrade. Return precaution given. Patient responded well to hospital treatment. #Altered mental status (resolved) #Chronic compensated respiratory acidosis #Right upper lobe pneumonia #Diastolic HF #Aotic stenosis #Afib #Bilateral pitting edema #History of Left breast cancer #Metastasis Instruction: You have been started on the following medications: - Augmentin 875-125 BID for three more days to complete treatment for UTI/PNA Please continue taking all other medications as previously prescribed. Please follow up with your primary doctor in 7-10 days. Please follow up on outpatient liver biopsy result. Please follow up with Dr. Andrade. Please stop acetazolamide outpatient. Return to ED if you develop new or worsening symptoms. Please continue to use CPAP at night: FiO2 30%. EPAP 7 mmHg Assessment and plan discussed with my attending physician Dr. Callahan and Dr. Real (PGY-2) Dr. Gómez (PGY-1) - resident inspector Status at Discharge Overall status at discharge: patient is progressing back to baseline Time Spent with Patient Time attestation: Total time spent providing and/or coordinating discharge services: 39 min Time spent: Greater than 30 minutes Exam Vital Signs Temp Pulse Resp BP Pulse Ox O2 Del Method O2 Flow Rate 97.0 F 102 H 16 118/79 95 Nasal Cannula 2 03/07/25 12:00 03/07/25 12:00 03/07/25 12:00 03/07/25 12:00 03/07/25 12:00 03/07/25 12:00 03/07/25 12:00 FiO2 30 03/07/25 12:00 Narrative Exam GENERAL APPEARANCE: awake and oriented x 3, well-developed, well-nourished, obese, comfortable on NC HEENT: Normocephalic, atraumatic; pupils equal, round, reactive to light; EOMI; mucous membranes pink, moist; oropharynx clear NECK: Supple, large neck circumference LUNGS: Wheezes bilaterally, breath sound equal bilaterally HEART: Regular rate, regular rhythm; normal S1, S2; no murmur ABDOMEN: diastasis recti abdominis; umbilical hernia that is reducible, mild tenderness to palpation; normal BS; soft, no guarding, no rebound. Right port covered in dressing. Left mastectomy scar. EXTREMITIES: atraumatic; trace bilateral pitting edema NEUROLOGIC: awake; alert and oriented x3; cranial nerves II-XII grossly intact; no focal sensory or motor deficits PSYCHIATRIC: appropriate mood and affect SKIN: warm, dry, normal color; no rashes Discharge Plan Plan Patient Disposition: [facility]fer [facility]illed [facility] Fac (SNF) Patient condition on transfer: Stable Care Plan Goals: You have been started on the following medications: - Augmentin 875-125 BID for one more days to complete treatment for UTI/PNA - Hold Lasix 40 mg twice daily for 2 days, resume on 03/10/2025 after repeating a renal panel. Please continue taking all other medications as previously prescribed. Please follow up with your primary doctor in 7-10 days. Please follow up on outpatient liver biopsy. Please follow up with Dr. Andrade. Please stop acetazolamide outpatient. Return to ED if you develop new or worsening symptoms. Please continue to use CPAP at night: FiO2 30%. EPAP 7 mmHg Prescriptions/Referrals Prescriptions/Med Rec: New amoxicillin-pot clavulanate 875-125 mg tablet 1 tab PO BID Qty: 2 0RF Continued metoprolol tartrate 50 mg tablet 50 mg PO BID Patient Comments: TAKE 1 TABLET BY MOUTH TWICE A DAY WITH MEALS sertraline [Zoloft] 25 mg tablet 25 mg PO QDAY potassium chloride 20 mEq tablet,ER particles/crystals 20 meq PO QDAY Patient Comments: TAKE 1 TABLET BY MOUTH EVERY DAY alprazolam [Xanax] 0.25 mg tablet 0.25 mg PO BID docusate sodium [Colace] 100 mg capsule 100 mg PO BID magnesium oxide 400 mg magnesium capsule 400 mg PO BID multivitamin Tablet 1 tab PO QDAY hydrocodone-acetaminophen 10-325 mg tablet 1 tab PO Q6H Zofran 4 mg PO Q6HR PRN (Reason: nausea and vomiting) magnesium hydroxide 400 mg/5 mL suspension 1,200 mg PO Q72H PRN (Reason: constipation) Fleet Enema 19-7 gram/118 mL enema 118 ml SC QDAY PRN (Reason: constipation) Vitamin D3 1.25 mg PO QWEEK calcium 600 mg capsule 600 mg PO QDAY acetaminophen 325 mg capsule 650 mg PO Q4H PRN (Reason: fever) Patient Comments: give 2 tablet by mouth every 4 hours as needed for mild pain and as needed for elevated temperature acetaminophen [Tylenol] 325 mg tablet 325 mg PO Q6H PRN (Reason: pain) Patient Comments: give 1 tablet by mouth every 6 hours as needed for mild pain 1-3 Held furosemide [Lasix] 40 mg tablet 40 mg PO BID Hold Instructions: Resume on 03/10/25. Resume on 03/10/2025, repeat renal panel Referrals: Ranjit Andrade MD [Physician, Hematology & Oncology] Zaid Austin MD [Primary Care Provider] Patient/Caregiver Discharge Instructions Discharge Activity: activity as tolerated Education Materials: Normal Breathing During Sleep, Treating Pneumonia Print Language: Hebrew Stand Alone Forms: Gema Award Info., Patient Portal Info Letter Discharge Order Discharge Orders: Discharge (Routine); Ordered 03/07/25 Ordered By: Rylee Real Quality Discharge Quality Measures VTE prophylaxis Attestestation MD Attestation I have seen and examined the patient. I was physically present for the dalal portions of the services provided including history, physical exam, diagnosis, treatment plans and orders. I agree with assessment and plan of care as documented by residents. Even though this this note was carefully revised there may still be minor errors in washery boss due to voice recognition software. Sean Callahan MD
[2025-03-07 14:47] LABS: Anion Gap 9 (7-16); BUN/Creatinine Ratio 29 Ratio (12-20); Blood Urea Nitrogen 26 mg/dL (9-23); Calcium 9.4 mg/dL (8.3-10.6); Carbon Dioxide > 40.0 mMol/L (20.0-31.0); Chloride 96 mMol/L (98-107); Creatinine (Component) 0.9 mg/dL (0.6-1.3); Estimated Creatinine Clearance 61.4 mL/min (>60); Glucose 112 mg/dL (74-106); Osmolality,Calculated 294 (275-295); Potassium 3.7 mMol/L (3.4-5.1); Sodium 145 mMol/L (136-145); eGFR > 60 See Note
--- NOTE | 2025-03-07 16:15 | PC.SS ---
SS was informed by resident physician pt is ready for d/c. SS has setup transportation for 6pm to [email or web address] using [facility]. Pt is requiring 2 liters of O2. Matilda from [email or web address] is aware. Sister, Clay is aware and will inform her other sister. Bedside nurse, Yeimy is aware.
--- NOTE | 2025-03-07 17:05 | PC.NURSE ---
REPORT GIVEN TO MARSHA ROSALES AT [facility].
== END 2025-03-07 18:10 | disposition skilled nursing facility (03) | DRG 640 ==
LOC: SERX 17:08 → SERHOLD 18:19 → S2NX 20:13 → S3NX 03-04 22:14
PROVIDERS: Internal Medicine; Admitting Provider Student in an Organized Health Care Education/Training Program; Emergency Provider Emergency Medicine; PCP Hospitalist; Visit Provider Student in an Organized Health Care Education/Training Program
DX: E87.29 Other acidosis (principal); J18.9 Pneumonia, unspecified organism; C78.00 Secondary malignant neoplasm of unspecified lung; C77.9 Secondary and unspecified malignant neoplasm of lymph node, unspecified; C78.7 Secondary malignant neoplasm of liver and intrahepatic bile duct; I50.30 Unspecified diastolic (congestive) heart failure; C79.31 Secondary malignant neoplasm of brain; G93.40 Encephalopathy, unspecified; E24.0 Pituitary-dependent Cushing's disease; J96.12 Chronic respiratory failure with hypercapnia; Z90.12 Acquired absence of left breast and nipple; E78.5 Hyperlipidemia, unspecified; Z92.21 Personal history of antineoplastic chemotherapy; I10 Essential (primary) hypertension; I11.0 Hypertensive heart disease with heart failure; C50.912 Malignant neoplasm of unspecified site of left female breast; Z98.84 Bariatric surgery status; I48.91 Unspecified atrial fibrillation; R60.9 Edema, unspecified; Z79.811 Long term (current) use of aromatase inhibitors; Z79.899 Other long term (current) drug therapy; Z88.8 Allergy status to other drugs, medicaments and biological substances
CPT/HCPCS: 36415; 36600; 70450; 70551; 70552; 71045; 71250; 74176; 77012; 80048; 80053; 81001; 82140; 82607; 82803; 83690; 83735; 83880; 84100; 84443; 84484; 85025; 85610; 85730; 87502; 87635; 93005; 93225; 93306; 94660; 94762; 96365; 96366; 96375; 97162; 99285; A9577; J0456; J0696; J1644; J1938; J2405; J3010; J3475; J3490; J7050; A9270

== ENCOUNTER 2025-03-08 13:15 | Emergency (ER) | payer MEDICARE, SELFPAY ==
[2025-03-08] VITALS (7 sets, daily range): BP systolic 113–142; BP diastolic 73–85; PULSE 78–88; RESP 18–27; TEMP 36.6–37; O2SAT 92–100; BMI 43.2
--- NOTE | 2025-03-08 13:17 | XR_ITS ---
EXAMINATION: AP chest single view TECHNIQUE: AP portable semiupright chest single view Date and time: March 08, 2025, 1430 hours, comparison March 01, 2025 INDICATIONS: Chest pain shortness of breath 5 years. FINDINGS: Abnormal right mediastinum Fairly prominent pneumonia diffusely in the right lung especially right upper lobe Mild prominence left ventricle Surgical clips left axilla IMPRESSION: Significant pneumonia right lung Abnormally prominent right mediastinum Please see the CT chest report March 01, 2025
--- NOTE | 2025-03-08 13:17 | EKG_ITS ---
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
--- NOTE | 2025-03-08 13:17 | PD.EDADULT ---
ED General RME/HPI General Chief complaint: Shortness of Breath/Dyspnea Stated complaint: SOB Time Seen by Provider: 03/08/25 13:16 Arrival date/time: 03/08/25 13:15 CC: Chest pressure shortness of breath HPI patient presents to the emergency room via EMS from [facility], after rehab she was recently discharged from this facility for pneumonia shortness of breath. Patient is awake alert oriented states she had an episode of shortness of breath with chest pressure. Patient was initially assessed by EMS on BiPAP was taken off put on 6 L oxygen saturations are 100%. The patient currently has no shortness of breath and does not use oxygen under normal circumstances patient is awake alert oriented complaining of chest pressure and no other complaints. EMS expressed concern as conveyed by [facility] staff that the patient been taken off her Lasix upon discharge and this was the cause of her shortness of breath. Related Data Home Medications ?Medication ?Instructions ?Recorded ?Confirmed Vitamin D3 1.25 mg PO QWEEK 03/02/25 03/02/25 Zofran 4 mg PO Q6HR PRN nausea and 03/02/25 03/02/25 vomiting acetaminophen 325 mg capsule 650 mg PO Q4H PRN fever 03/02/25 03/02/25 acetaminophen 325 mg tablet 325 mg PO Q6H PRN pain 03/02/25 03/02/25 (Tylenol) alprazolam 0.25 mg tablet (Xanax) 0.25 mg PO BID 03/02/25 03/02/25 calcium 600 mg capsule 600 mg PO QDAY 03/02/25 03/02/25 docusate sodium 100 mg capsule 100 mg PO BID 03/02/25 03/02/25 (Colace) furosemide 40 mg tablet (Lasix) 40 mg PO BID 03/02/25 03/02/25 Held on 03/07/25. Instructions: Resume on 03/10/25. Resume on 03/10/2025, repeat renal panel hydrocodone 10 mg-acetaminophen 1 tab PO Q6H 03/02/25 03/02/25 325 mg tablet magnesium hydroxide 400 mg/5 mL 1,200 mg PO Q72H PRN constipation 03/02/25 03/02/25 oral suspension magnesium oxide 400 mg PO BID 03/02/25 03/02/25 metoprolol tartrate 50 mg tablet 50 mg PO BID 03/02/25 03/02/25 multivitamin 1 tab PO QDAY 03/02/25 03/02/25 potassium chloride 20 mEq 20 meq PO QDAY 03/02/25 03/02/25 tablet,extended release(part/cryst) sertraline 25 mg tablet (Zoloft) 25 mg PO QDAY 03/02/25 03/02/25 sodium phosphates 19 gram-7 118 ml MA QDAY PRN constipation 03/02/25 03/02/25 gram/118 mL enema (Fleet Enema) Previous Rx's ?Medication ?Instructions ?Recorded amoxicillin 875 mg-potassium 1 tab PO BID #2 tabs 03/07/25 clavulanate 125 mg tablet Allergies Allergy/AdvReac Type Severity Reaction Status Date / Time alendronate sodium (From Allergy Severe Chest Pain Verified 03/08/25 13:20 Fosamax) Iodinated Contrast Media Allergy Severe Anaphylaxis Verified 03/08/25 13:20 iodine Allergy Severe Anaphylaxis Verified 03/08/25 13:20 lisinopril Allergy Severe Cough Verified 03/08/25 13:20 nut - unspecified Allergy Severe Rash Verified 03/08/25 13:20 Review of Systems Review of Systems Narrative Review of Systems: GEN: No fever, no chills, no weight loss EYES: No discharge, no visual changes, no pain HEENT: No ear pain, no congestion, no sore throat PULM: + shortness of breath, no cough, no congestion CV: + chest pain, no dyspnea on exertion, no palpitations GI: No nausea, no vomiting, no diarrhea, no pain, no constipation : No frequency, no urgency, no dysuria MUSC/SKEL: No joint pain, no back pain SKIN: No rash PSYCH: No hallucinations, no depression HEME/LYMPH: No easy bleeding or bruising tendencies NEURO: No weakness, no headache Past Medical History Past Medical History NEUROLOGIC: Negative Neurological Disorders or Seizures CARDIAC: Positive Cardiac Disorders, Cardiac Arrhythmia, Hypercholesterolemia, Edema and Hypertension; Negative Heart Murmur or Congestive Heart Failure RESPIRATORY: Positive Asthma and Pneumonia; Negative Chronic Obstructive Pulmonary Disease (COPD) GASTROINTESTINAL: Positive Gastrointestinal Disorders, Hiatal Hernia and Obesity; Negative Hepatitis GENITOURINARY: Negative Genitourinary Disorders or Renal Disease REPRODUCTIVE: Positive Breast Cancer; Negative Endometriosis or Previous Pregnancies MUSCULOSKELETAL: Positive Musculoskeletal Disorders and Arthritis ENDOCRINE: Negative Endocrine Disorders, Diabetes Mellitus Type 1 or Diabetes Mellitus Type 2 HEMATOLOGIC: Negative Blood Disorders or Sickle Cell Disease PSYCHO/SOCIAL: Positive Anxiety OTHER HISTORY: Positive Hospitalization, Falls, Chemotherapy, Measles and Breast Cancer; Negative Autoimmune Disease, Shingles, Blood Transfusions, Blood Transfusion Reaction, Anesthesia Reactions, Radiation Therapy, MRSA or Clostridium Difficile Family History FAMILY HISTORY: Positive Family Cardiac Disorders, Family Cancer and Family Surgery; Negative Family Psychiatric Problems, Family Respiratory Disorders, Family Gastrointestinal Problems or Family Anesthesia Reaction Surgical History SURGICAL: Positive Abdominal Surgery, Gastric Bypass Surgery and Mastectomy (Left) Social History SMOKING STATUS: Never smoker SUBSTANCE USE: does not use ED Exam Narrative Physical exam: [General: Morbidly obese in mild discomfort but not in any acute distress Head normocephalic HEENT: Eyes pupils are PERRLA EOMs are intact. Within acceptable limits Neck is supple nontender Chest equal chest rise nontender to palpation Respiratory: Diminished secondary to body habitus clear to auscultation no wheezes crackles or rubs CV: Rate rhythm is regular no murmurs rubs or clicks Abdomen is grossly distended secondary to body habitus soft nontender no masses positive bowel sounds all 4 quadrants Back: No CVA tenderness no spinous process tenderness from cervical spine thoracic and lumbar spine Skin: Intact no petechiae rash induration ulceration or crepitus Extremities: Moving all extremity against resistance cap refill less than 2 seconds neurosensory intact, no significant lower extremity edema Neuro: Awake alert oriented x3 Glascow coma 15 no focal deficits] Course Quality Measures none Orders Category Date Time Status EKG (ED ONLY) *Do not use* NOW Care 03/08/25 13:17 Completed In and Out Catheter X1 Care 03/08/25 14:41 Completed EKG (ED Only) Stat Exams 03/08/25 13:17 Draft XR chest 1V Stat Exams 03/08/25 13:17 Completed B-Type Natriuretic Peptide Stat Lab 03/08/25 13:51 Completed CBC Stat Lab 03/08/25 13:51 Completed Comprehensive Metabolic Panel Stat Lab 03/08/25 13:51 Completed Drug Screen,Urine Stat Lab 03/08/25 14:33 Completed LDH (Lactate Dehydrogenase) Stat Lab 03/08/25 13:51 Completed Magnesium Stat Lab 03/08/25 13:51 Completed Partial Thromboplastin Time Stat Lab 03/08/25 13:51 Completed Prothrombin Time with INR Stat Lab 03/08/25 13:51 Completed Troponin I Stat Lab 03/08/25 13:51 Completed Urinalysis, C/S if Indicated Stat Lab 03/08/25 14:33 Completed cefTRIAXone/D5w 1gm IV premix [Rocephin/D5w 1gm IV Med 03/08/25 14:57 Discontinued premix] 1 gm in 50 ml IV X1 Vital Signs Vital signs: Vital Signs Temperature 97.9 F 03/08/25 13:25 Pulse Rate 79 03/08/25 13:25 Respiratory Rate 18 03/08/25 13:25 Blood Pressure 133/73 H 03/08/25 13:25 Pulse Oximetry (%) 100 03/08/25 13:25 Oxygen Delivery Method Nasal Cannula 03/08/25 13:25 Oxygen Flow Rate 6 03/08/25 13:25 Discharge Plan Plan Patient Disposition: HOME (Self Care) Patient condition on transfer: Stable Prescriptions/Referrals Prescriptions/Med Rec: No Action metoprolol tartrate 50 mg tablet 50 mg PO BID Patient Comments: TAKE 1 TABLET BY MOUTH TWICE A DAY WITH MEALS sertraline [Zoloft] 25 mg tablet 25 mg PO QDAY potassium chloride 20 mEq tablet,ER particles/crystals 20 meq PO QDAY Patient Comments: TAKE 1 TABLET BY MOUTH EVERY DAY alprazolam [Xanax] 0.25 mg tablet 0.25 mg PO BID docusate sodium [Colace] 100 mg capsule 100 mg PO BID furosemide [Lasix] 40 mg tablet 40 mg PO BID magnesium oxide 400 mg magnesium capsule 400 mg PO BID multivitamin Tablet 1 tab PO QDAY hydrocodone-acetaminophen 10-325 mg tablet 1 tab PO Q6H Zofran 4 mg PO Q6HR PRN (Reason: nausea and vomiting) magnesium hydroxide 400 mg/5 mL suspension 1,200 mg PO Q72H PRN (Reason: constipation) Fleet Enema 19-7 gram/118 mL enema 118 ml MA QDAY PRN (Reason: constipation) Vitamin D3 1.25 mg PO QWEEK calcium 600 mg capsule 600 mg PO QDAY acetaminophen 325 mg capsule 650 mg PO Q4H PRN (Reason: fever) Patient Comments: give 2 tablet by mouth every 4 hours as needed for mild pain and as needed for elevated temperature acetaminophen [Tylenol] 325 mg tablet 325 mg PO Q6H PRN (Reason: pain) Patient Comments: give 1 tablet by mouth every 6 hours as needed for mild pain 1-3 amoxicillin-pot clavulanate 875-125 mg tablet 1 tab PO BID Qty: 2 0RF Problem List Clinical Impression: Shortness of breath, Chest pressure Patient/Caregiver Discharge Instructions Education Materials: Shortness of Breath Coping, ED Chest Pain, Uncertain Cause Additional Instructions: All your labs are showing no acute finding. The pneumonia is unchanged will discharge you back to [facility]. Please continue to take all your medications as prescribed. Print Language: Irish Stand Alone Forms: Gema Award Info., Patient Portal Info Letter PA/RADIOLOGIC TECHNOLOGY PROGRAM DIRECTOR Supervising Physician PA/RADIOLOGIC TECHNOLOGY PROGRAM DIRECTOR Supervising Physician: Dave Maya ENP MDM Clinical Information Provided by: patient and EMS Medical Records reviewed [facility] and EMS Medical Records additional comments: Patient was discharged from this facility on 1114. 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 Mckinley. 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 Recent pneumonia diagnosis EKG Interpretation EKG #1: EKG Interpretation: EKG performed at 1407 shows a ventricular rate of 75 MA interval 145 QRS of 98 QTc of 418 this is sinus rhythm. Labs Labs: interpreted by fl Lab(s) Interpretation(s): CBC shows no leukocytosis anemia but there is a mild thrombocytopenia Coags within excepted limits CMP shows chloride of 96 CO2 of 38 BUN of 28 no other electrolyte imbalances no T. bili elevation alk phos is 256 LDH at 386 AST at 131. Magnesium 1.8 T. bili at 0.9 Urine is negative for any UTI. Tox is positive for opiates fentanyl and benzos. Imaging Imaging interpretation: interpreted by fl Imaging Interpretation(s): Prominent right pneumonia consistent with discharged chest x-ray. Appears no worsening. Medication Administration(s) Medication Administration History Discontinued Medications Ceftriaxone Sodium/Dextrose (Rocephin/D5w 1gm Iv Premix) 1 gm in 50 mls @ 100 mls/hr IV X1 ONE Stop: 03/08/25 15:26 Last Admin: 03/08/25 15:35 Dose: 100 mls/hr Documented By: BY
[2025-03-08 14:17] LABS: Basophils # (Auto) 0.1 Thou/mm3 (0.0-0.2); Basophils % (Auto) 1 % (0-2.5); Eosinophils # (Auto) 0.2 Thou/mm3 (0.0-0.5); Eosinophils % (Auto) 2 % (0-10); Hematocrit 38.5 % (36.0-46.0); Hemoglobin 12.2 g/dL (12.0-16.0); Immature Granulocytes Auto 0.04 Thou/mm3 (0.00-0.00); Lymphocytes # (Auto) 1.1 Thou/mm3 (1.0-4.8); Lymphocytes % (Auto) 11 % (10-50); Mean Corpuscular HGB Conc 31.7 g/dl (31.0-37.0); Mean Corpuscular Hemoglobin 34.5 pg (25.0-35.0); Mean Corpuscular Volume 109 fL (80-100); Monocytes # (Auto) 1.0 Thou/mm3 (0.0-0.8); Monocytes % (Auto) 10 % (0-12); Neutrophils # (Auto) 7.5 Thou/mm3 (1.8-7.7); Neutrophils % (Auto) 76 % (37-80); Nucleated Red Blood Cell # 0.00 Thou/mm3 (0.00-0.00); Nucleated Red Blood Cell % 0 /100 WBC (0); Platelet Count 114 Thou/mm3 (140-440); RDW Standard Deviation 58.4 fL (36.4-46.3); Red Blood Count 3.54 Miln/mm3 (4.00-5.20); White Blood Count 9.9 Thou/mm3 (3.6-11.0)
[2025-03-08 14:24] LABS: B-Type Natriuretic Peptide 75 pg/mL (0-100)
[2025-03-08 14:27] LABS: INR 1.1 (0.9-1.3); Partial Thromboplastin Time 28.9 Seconds (22.0-36.0); Prothrombin Time 11.7 Seconds (9.0-12.2)
[2025-03-08 14:28] LABS: Alanine Aminotransferase 27 U/L (10-49); Albumin, Serum 3.8 gm/dL (3.4-4.8); Albumin/Globulin Ratio 1.3 (1.2-2.2); Alkaline Phosphatase 256 U/L (46-116); Anion Gap 8 (7-16); Aspartate Amino Transferase 131 U/L (0-34); BUN/Creatinine Ratio 31 Ratio (12-20); Bilirubin,Total 0.9 mg/dL (0.3-1.2); Blood Urea Nitrogen 28 mg/dL (9-23); Calcium 9.7 mg/dL (8.3-10.6); Calcium (Corrected) 9.9 mg/dL (8.5-10.1); Carbon Dioxide 38.3 mMol/L (20.0-31.0); Chloride 96 mMol/L (98-107); Creatinine (Component) 0.9 mg/dL (0.6-1.3); Estimated Creatinine Clearance 59.9 mL/min (>60); Globulin 3.0 gm/dL (2.3-3.5); Glucose 103 mg/dL (74-106); LDH (Lactate Dehydrogenase) 386 U/L (120-246); Magnesium 1.8 mg/dL (1.6-2.6); Osmolality,Calculated 288 (275-295); Potassium 4.1 mMol/L (3.4-5.1); Sodium 142 mMol/L (136-145); Total Protein 6.8 gm/dL (5.7-8.2); Troponin I < 0.020 ng/mL (0.0-0.045); eGFR > 60 See Note
[2025-03-08 14:43] LABS: Collection Type, Urine Clean Catch; Squamous Epithelial Cell,Urine 0 /hpf (0-5)
[2025-03-08 14:47] LABS: Bilirubin,Urine Negative (Negative); Blood,Urine Negative (Negative); Clarity,Urine Clear (Clear/Hazy); Color,Urine Yellow (Lt Yel-Yel); Culture Indicated,Urine Not Indicated; Glucose, Urine Negative (Negative); Hyaline Casts,Urine < 1 /hpf (0-1); Ketones,Urine Negative (Negative); Leukocyte Esterase,Urine Negative (Negative); Nitrite,Urine Negative (Negative); PH,Urine 5.0 (5.0-7.0); Protein,Urine Negative (Neg - Trace); RBC,Urine 1 /hpf (0-3); Specific Gravity,Urine 1.022 (1.001-1.035); Urobilinogen,Urine Negative mg/dL (0.0-1.0); WBC,Urine 2 /hpf (0-5)
[2025-03-08 15:09] LABS: Amphetamine/Methamp Scrn,U Negative (Negative); Barbiturate Screen,Urine Negative (Negative); Benzodiazepines Screen,Urine Positive (Negative); Benzoylecgonine Screen, Ur Negative (Negative); Fentanyl Screen,Urine Positive (Negative); Opiate Screen,Urine Positive (Negative); THC Screen,Urine Negative (Negative)
[2025-03-08] MEDS: cefTRIAXone/D5w 1gm IV premix 1 GM/50 ML BAG IV (15:35)
[2025-03-08] MEDS: HYDROcodone/APAP 5/325 TABLET 1 TAB PO (16:39)
[2025-03-08] MEDS: AMOXICILLIN/POT CLAV 875 TABLET 1 TAB PO (17:22)
--- NOTE | 2025-03-08 18:14 | PC.NURSE ---
spoke to luca at [facility], per MD patient is to continue Augmentin for another 7 days
== END 2025-03-08 19:35 | disposition home or self-care (01) ==
LOC: SERX 16:06
PROVIDERS: Registered Nurse General Practice; Emergency Provider Emergency Medicine; PCP Internal Medicine
DX: R06.02 Shortness of breath (principal); R07.89 Other chest pain; E66.01 Morbid (severe) obesity due to excess calories; Z68.41 Body mass index [BMI] 40.0-44.9, adult; E24.0 Pituitary-dependent Cushing's disease; Z90.12 Acquired absence of left breast and nipple; Z85.3 Personal history of malignant neoplasm of breast; Z87.01 Personal history of pneumonia (recurrent)
CPT/HCPCS: 36415; 51701; 71045; 80053; 80307; 81001; 83615; 83735; 83880; 84484; 85025; 85610; 85730; 93005; 96365; 99284; J0696; A9270

== ENCOUNTER 2025-03-10 08:22 | Outpatient (RCR) | payer MEDICARE, SELFPAY ==
[2025-03-09 15:28] LABS: Basophils # (Auto) 0.1 Thou/mm3 (0.0-0.2); Basophils % (Auto) 1 % (0-2.5); Eosinophils # (Auto) 0.1 Thou/mm3 (0.0-0.5); Eosinophils % (Auto) 1 % (0-10); Hematocrit 37.1 % (36.0-46.0); Hemoglobin 11.7 g/dL (12.0-16.0); Immature Granulocytes Auto 0.05 Thou/mm3 (0.00-0.00); Lymphocytes # (Auto) 0.9 Thou/mm3 (1.0-4.8); Lymphocytes % (Auto) 10 % (10-50); Mean Corpuscular HGB Conc 31.5 g/dl (31.0-37.0); Mean Corpuscular Hemoglobin 33.6 pg (25.0-35.0); Mean Corpuscular Volume 107 fL (80-100); Monocytes # (Auto) 1.0 Thou/mm3 (0.0-0.8); Monocytes % (Auto) 10 % (0-12); Neutrophils # (Auto) 7.4 Thou/mm3 (1.8-7.7); Neutrophils % (Auto) 78 % (37-80); Nucleated Red Blood Cell # 0.00 Thou/mm3 (0.00-0.00); Nucleated Red Blood Cell % 0 /100 WBC (0); Platelet Count 112 Thou/mm3 (140-440); RDW Standard Deviation 57.8 fL (36.4-46.3); Red Blood Count 3.48 Miln/mm3 (4.00-5.20); White Blood Count 9.5 Thou/mm3 (3.6-11.0)
[2025-03-09 15:41] LABS: Alanine Aminotransferase 25 U/L (10-49); Albumin, Serum 3.7 gm/dL (3.4-4.8); Albumin/Globulin Ratio 1.3 (1.2-2.2); Alkaline Phosphatase 253 U/L (46-116); Anion Gap 8 (7-16); Aspartate Amino Transferase 124 U/L (0-34); BUN/Creatinine Ratio 41 Ratio (12-20); Bilirubin,Total 0.8 mg/dL (0.3-1.2); Blood Urea Nitrogen 33 mg/dL (9-23); Calcium 9.8 mg/dL (8.3-10.6); Calcium (Corrected) 10.0 mg/dL (8.5-10.1); Carbon Dioxide 38.4 mMol/L (20.0-31.0); Chloride 96 mMol/L (98-107); Creatinine (Component) 0.8 mg/dL (0.6-1.3); Globulin 2.9 gm/dL (2.3-3.5); Glucose 137 mg/dL (74-106); Osmolality,Calculated 292 (275-295); Potassium 4.2 mMol/L (3.4-5.1); Sodium 142 mMol/L (136-145); Total Protein 6.6 gm/dL (5.7-8.2); eGFR > 60 See Note
[2025-03-09 16:00] LABS: Carcinoembryonic Antigen 255.7 ng/mL (0.0-5.0)
[2025-03-15 06:38] LABS: CA 27.29* 569 U/mL (LESS THAN 38)
== END 2025-03-20 23:59 | disposition home or self-care (01) ==
LOC: SCTC 08:22
PROVIDERS: PCP Internal Medicine; Referring Provider Internal Medicine; Visit Provider Internal Medicine Hematology & Oncology
DX: Z51.11 Encounter for antineoplastic chemotherapy (principal); C50.212 Malignant neoplasm of upper-inner quadrant of left female breast; Z17.0 Estrogen receptor positive status [ER+]; Z17.21 Progesterone receptor positive status; Z17.31 Human epidermal growth factor receptor 2 positive status; Z90.12 Acquired absence of left breast and nipple; N28.9 Disorder of kidney and ureter, unspecified; R97.0 Elevated carcinoembryonic antigen [CEA]
CPT/HCPCS: 36591; 80053; 82378; 85025; 86300; 96402; 96413; A4216; J1642; J7050; J9395; Q5117; A9270

== ENCOUNTER 2025-03-13 16:38 | Inpatient (IN) | payer MEDICARE, SELFPAY ==
[2025-03-13] VITALS (8 sets, daily range): BP systolic 126–147; BP diastolic 58–118; PULSE 78–96; RESP 12–25; TEMP 37.2; O2SAT 94–99
--- NOTE | 2025-03-13 16:43 | EKG_ITS ---
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
--- NOTE | 2025-03-13 16:44 | PD.EDADULT ---
ED General RME/HPI General Chief complaint: Altered Mental Status Stated complaint: ALTERED Time Seen by Provider: 03/13/25 16:42 Arrival date/time: 03/13/25 16:38 CC: Altered mental status , HPI patient presents to the ER via this complaint by staff at care facility where she resides. EMS report oxygen saturations of 93%. Related Data Home Medications ?Medication ?Instructions ?Recorded ?Confirmed Vitamin D3 1.25 mg PO QWEEK 03/02/25 03/02/25 Zofran 4 mg PO Q6HR PRN nausea and 03/02/25 03/02/25 vomiting acetaminophen 325 mg capsule 650 mg PO Q4H PRN fever 03/02/25 03/02/25 acetaminophen 325 mg tablet 325 mg PO Q6H PRN pain 03/02/25 03/02/25 (Tylenol) alprazolam 0.25 mg tablet (Xanax) 0.25 mg PO BID 03/02/25 03/02/25 calcium 600 mg capsule 600 mg PO QDAY 03/02/25 03/02/25 docusate sodium 100 mg capsule 100 mg PO BID 03/02/25 03/02/25 (Colace) furosemide 40 mg tablet (Lasix) 40 mg PO BID 03/02/25 03/02/25 Held on 03/07/25. Instructions: Resume on 03/10/25. Resume on 03/10/2025, repeat renal panel hydrocodone 10 mg-acetaminophen 1 tab PO Q6H 03/02/25 03/02/25 325 mg tablet magnesium hydroxide 400 mg/5 mL 1,200 mg PO Q72H PRN constipation 03/02/25 03/02/25 oral suspension magnesium oxide 400 mg PO BID 03/02/25 03/02/25 metoprolol tartrate 50 mg tablet 50 mg PO BID 03/02/25 03/02/25 multivitamin 1 tab PO QDAY 03/02/25 03/02/25 potassium chloride 20 mEq 20 meq PO QDAY 03/02/25 03/02/25 tablet,extended release(part/cryst) sertraline 25 mg tablet (Zoloft) 25 mg PO QDAY 03/02/25 03/02/25 sodium phosphates 19 gram-7 118 ml VA QDAY PRN constipation 03/02/25 03/02/25 gram/118 mL enema (Fleet Enema) Previous Rx's ?Medication ?Instructions ?Recorded amoxicillin 875 mg-potassium 1 tab PO BID #2 tabs 03/07/25 clavulanate 125 mg tablet Allergies Allergy/AdvReac Type Severity Reaction Status Date / Time alendronate sodium (From Allergy Severe Chest Pain Verified 03/13/25 16:52 Fosamax) Iodinated Contrast Media Allergy Severe Anaphylaxis Verified 03/13/25 16:52 iodine Allergy Severe Anaphylaxis Verified 03/13/25 16:52 lisinopril Allergy Severe Cough Verified 03/13/25 16:52 nut - unspecified Allergy Severe Rash Verified 03/13/25 16:52 Review of Systems Review of Systems ROS Unobtainable: unobtainable due to mental status Past Medical History Past Medical History NEUROLOGIC: Negative Neurological Disorders or Seizures CARDIAC: Positive Cardiac Disorders, Cardiac Arrhythmia, Hypercholesterolemia, Edema and Hypertension; Negative Heart Murmur or Congestive Heart Failure RESPIRATORY: Positive Asthma and Pneumonia; Negative Chronic Obstructive Pulmonary Disease (COPD) GASTROINTESTINAL: Positive Gastrointestinal Disorders, Hiatal Hernia and Obesity; Negative Hepatitis GENITOURINARY: Negative Genitourinary Disorders or Renal Disease REPRODUCTIVE: Positive Breast Cancer; Negative Endometriosis or Previous Pregnancies MUSCULOSKELETAL: Positive Musculoskeletal Disorders and Arthritis ENDOCRINE: Negative Endocrine Disorders, Diabetes Mellitus Type 1 or Diabetes Mellitus Type 2 HEMATOLOGIC: Negative Blood Disorders or Sickle Cell Disease PSYCHO/SOCIAL: Positive Anxiety OTHER HISTORY: Positive Hospitalization, Falls, Chemotherapy, Measles and Breast Cancer; Negative Autoimmune Disease, Shingles, Blood Transfusions, Blood Transfusion Reaction, Anesthesia Reactions, Radiation Therapy, MRSA or Clostridium Difficile Family History FAMILY HISTORY: Positive Family Cardiac Disorders, Family Cancer and Family Surgery; Negative Family Psychiatric Problems, Family Respiratory Disorders, Family Gastrointestinal Problems or Family Anesthesia Reaction Surgical History SURGICAL: Positive Abdominal Surgery, Gastric Bypass Surgery and Mastectomy (Left) Social History SMOKING STATUS: Never smoker SUBSTANCE USE: does not use ED Exam Narrative Physical exam: [General: Morbidly obese, requires prompting for questions. Not in any acute distress Head normocephalic HEENT: Eyes pupils are PERRLA EOMs are intact and tracking, mouth pink dry membranes uvula is midline. All other subsystems of HEENT are within acceptable limits Neck is supple nontender Chest equal chest rise nontender to palpation Respiratory: Poor inspiratory effort. Clear to auscultation no wheezes crackles or rubs CV: Rate rhythm is regular no murmurs rubs or clicks Abdomen is grossly distended secondary to body habitus soft nontender no masses positive bowel sounds all 4 quadrants Back: No CVA tenderness no spinous process tenderness from cervical spine thoracic and lumbar spine Skin: Intact no petechiae rash induration ulceration or crepitus Extremities: Moving all extremity against resistance cap refill less than 2 seconds neurosensory intact Neuro: Awake alert oriented x1, self, Glascow coma 14 no focal deficits] Course Course Course Narrative: Patient's showing of CO2 retention placed on BiPAP prior to that we also give her small amount of Narcan as the patient has been known to come in before with polypharmacy including narcotics and benzos. She did not change her disposition after the Narcan. At this time with the BiPAP on we will admit her to the hospital. Chest x-ray shows right base pneumonia which is persistent for which she had been treated for 3 weeks ago and was seen last week for it it also mentions bilateral pleural effusions although I think this is a poor quality x-ray him not sure that they are large if they are at all. Patient's case clinical presentation laboratory findings and imaging discussed with resident for Dr. Shannon, who agrees to accept the patient for admission Quality Measures none Orders Category Date Time Status Bedside COVID-19 Antigen Test NOW Care 03/13/25 20:36 Active COVID-19 Screening Questionnaire NOW Care 03/13/25 20:19 Active Decision to Admit X1 Care 03/13/25 20:19 Completed EKG (ED ONLY) *Do not use* NOW Care 03/13/25 16:43 Completed EKG (ED Only) Stat Exams 03/13/25 16:43 Draft XR chest 1V Stat Exams 03/13/25 16:48 Completed B-Type Natriuretic Peptide Stat Lab 03/13/25 16:52 Completed BNP [B-Type Natriuretic Peptide] Stat Lab 03/13/25 09:57 Completed CBC Stat Lab 03/13/25 16:52 Completed Comprehensive Metabolic Panel Stat Lab 03/13/25 16:52 Completed Drug Screen,Urine Stat Lab 03/13/25 17:00 Completed LDH (Lactate Dehydrogenase) Stat Lab 03/13/25 16:52 Completed Magnesium Stat Lab 03/13/25 16:52 Completed Partial Thromboplastin Time Stat Lab 03/13/25 16:52 Completed Prothrombin Time with INR Stat Lab 03/13/25 16:52 Completed Troponin I Stat Lab 03/13/25 16:52 Completed Troponin I Stat Lab 03/13/25 19:42 Completed Urinalysis, C/S if Indicated Stat Lab 03/13/25 17:00 Completed VBG [Venous Blood Gas] Stat Lab 03/13/25 16:52 Completed NALOXONE INJ (Vial) [Narcan Inj (Vial)] Med 03/13/25 18:52 Discontinued 0.2 mg IV X1 ONE BiPAP / CPAP NOW RT 03/13/25 19:37 Active Vital Signs Vital signs: Vital Signs Temperature 98.9 F 03/13/25 18:07 Respiratory Rate 20 03/13/25 18:07 Blood Pressure 147/118 H 03/13/25 18:07 Pulse Oximetry (%) 98 03/13/25 18:07 Oxygen Delivery Method Oxy Mask 03/13/25 18:07 Oxygen Flow Rate 5 03/13/25 18:07 Discharge Plan Plan Patient Disposition: Other Care w/in Hosp (SDC/ESHA) Patient condition on transfer: Stable Problem List Clinical Impression: Altered behavior, Hypercapnia, Pneumonia, Pleural effusion PA/SENIOR UX DESIGNER Supervising Physician PA/SENIOR UX DESIGNER Supervising Physician: Dave Maya ENP [facility] Clinical Information Provided by: patient and EMS Medical Records [facility] and EMS Meds/Rx considered, not ordered None Labs/Rad/Tests considered, not ordered None Labs Labs: interpreted by tx Lab(s) Interpretation(s): CBC shows no leukocytosis patient is stable anemia with a hemoglobin 11.5 and HCT of Medication Administration(s) Medication Administration History Acetaminophen (Acetaminophen 325 Mg Tablet) 650 mg PO Q6H PRN PRN Reason: Fever >100.4 or pain 1-3 Stop: 04/12/25 21:15 Hydrocodone Bitart/Acetaminophen (Hydrocodone/Apap 5/325 Tablet) 1 tab PO Q4HR PRN PRN Reason: PAIN SCALE 4-6 (Moderate Stop: 03/18/25 21:15 Albuterol/Ipratropium (Albuterol/Ipratropium (Duoneb) Rt Sara 3 Ml Nebu) 3 ml INH Q4HRRT PRN PRN Reason: wheezing or SOB Stop: 04/12/25 22:59 Alprazolam (Alprazolam 0.25 Mg Tablet) 0.25 mg PO BID MARY Stop: 03/19/25 08:59 Docusate Sodium (Docusate Sod 100 Mg Capsule) 100 mg PO QDAY [facility]; Protocol Stop: 04/13/25 08:59 Furosemide (Furosemide Inj 10 Mg/Ml 4ml Vial) 40 mg IVP QDAY [facility] Stop: 04/13/25 08:59 Heparin Sodium (Porcine) (Heparin Sod Inj 5000 Unit/Ml Vial) 5,000 unit SC Q12HR [facility] Stop: 03/28/25 08:59 Metoprolol Tartrate (Metoprolol Tartrate 25 Mg Tablet) 25 mg PO QDAY [facility] Stop: 04/13/25 08:59 Morphine Sulfate (Morphine Sulf Inj 4 Mg/Ml Vial) 2 mg IVP Q2HR MARY Stop: 03/19/25 00:00 Ondansetron HCl (Ondansetron Inj 2 Mg/Ml Inj 2 Ml) 4 mg IVP Q6H PRN; Protocol PRN Reason: NAUSEA OR VOMITING Stop: 04/12/25 21:15 Pantoprazole Sodium (Pantoprazole Inj 40 Mg Vial) 40 mg IVP QDAY [facility] Stop: 04/13/25 08:59 Sertraline HCl (Sertraline Hcl 25 Mg Tablet) 25 mg PO QDAY [facility] Stop: 04/13/25 08:59 Discontinued Medications Hydromorphone HCl (Hydromorphone Inj 2 Mg/Ml Vial) 1 mg IVP Q4HR PRN PRN Reason: PAIN Stop: 03/18/25 21:15 Naloxone HCl (Naloxone Inj 0.4 Mg/Ml Vial) 0.2 mg IV X1 ONE Stop: 03/13/25 18:53 Last Admin: 03/13/25 19:02 Dose: 0.2 mg Documented By: TM Co-signed By: ROSELYN Sodium Chloride (Sodium Chloride Rt 10% 15 Ml Nebu) 5 ml INH X1 ONE Stop: 03/13/25 21:22
--- NOTE | 2025-03-13 16:48 | XR_ITS ---
EXAMINATION: AP chest single view TECHNIQUE: AP portable semiupright chest single view Date and time: March 13, 2025, 1712 hours, comparison March 08, 2025 INDICATIONS: Altered mental status shortness of breath today, breast carcinoma diagnosis FINDINGS: More prominent abnormal right mediastinum Mild enlargement cardiac contour Prominent vascular congestion Enlarged ectatic thoracic aorta Bilateral significant pleural effusions Severe osteopenia Right subclavian Port-A-Cath tip satisfactory position IMPRESSION: Mild heart failure Pneumonia bilaterally especially right base Significant bilateral pleural effusions More prominent right mediastinum, clinical correlation advised, differential would include tumor, hematoma
[2025-03-13 17:00] LABS: Base Excess, Venous 12 (-3-3); O2 Saturation, Venous 79 % (96-97); PCO2, Venous 85 mmHg (36-56); PO2, Venous 46 mmHg (15-58); pH, Venous 7.30 (7.33-7.66)
[2025-03-13 17:06] LABS: Basophils # (Auto) 0.0 Thou/mm3 (0.0-0.2); Basophils % (Auto) 1 % (0-2.5); Eosinophils # (Auto) 0.3 Thou/mm3 (0.0-0.5); Eosinophils % (Auto) 4 % (0-10); Hematocrit 37.7 % (36.0-46.0); Hemoglobin 11.5 g/dL (12.0-16.0); Immature Granulocytes Auto 0.04 Thou/mm3 (0.00-0.00); Lymphocytes # (Auto) 0.8 Thou/mm3 (1.0-4.8); Lymphocytes % (Auto) 9 % (10-50); Mean Corpuscular HGB Conc 30.5 g/dl (31.0-37.0); Mean Corpuscular Hemoglobin 33.6 pg (25.0-35.0); Mean Corpuscular Volume 110 fL (80-100); Monocytes # (Auto) 0.9 Thou/mm3 (0.0-0.8); Monocytes % (Auto) 11 % (0-12); Neutrophils # (Auto) 6.6 Thou/mm3 (1.8-7.7); Neutrophils % (Auto) 76 % (37-80); Nucleated Red Blood Cell # 0.00 Thou/mm3 (0.00-0.00); Nucleated Red Blood Cell % 0 /100 WBC (0); Platelet Count 109 Thou/mm3 (140-440); RDW Standard Deviation 60.1 fL (36.4-46.3); Red Blood Count 3.42 Miln/mm3 (4.00-5.20); White Blood Count 8.7 Thou/mm3 (3.6-11.0)
[2025-03-13 17:25] LABS: B-Type Natriuretic Peptide 64 pg/mL (0-100)
[2025-03-13 17:27] LABS: Collection Type, Urine Clean Catch; Squamous Epithelial Cell,Urine 0 /hpf (0-5)
[2025-03-13 17:28] LABS: Alanine Aminotransferase 27 U/L (10-49); Albumin, Serum 3.9 gm/dL (3.4-4.8); Anion Gap 6 (7-16); Aspartate Amino Transferase 120 U/L (0-34); BUN/Creatinine Ratio 42 Ratio (12-20); Bilirubin,Total 0.8 mg/dL (0.3-1.2); Blood Urea Nitrogen 42 mg/dL (9-23); Calcium 10.2 mg/dL (8.3-10.6); Carbon Dioxide > 40.0 mMol/L (20.0-31.0); Chloride 96 mMol/L (98-107); Creatinine (Component) 1.0 mg/dL (0.6-1.3); Glucose 122 mg/dL (74-106); LDH (Lactate Dehydrogenase) 299 U/L (120-246); Magnesium 1.8 mg/dL (1.6-2.6); Osmolality,Calculated 294 (275-295); Potassium 4.4 mMol/L (3.4-5.1); Sodium 142 mMol/L (136-145); Total Protein 7.2 gm/dL (5.7-8.2); Troponin I < 0.020 ng/mL (0.0-0.045); eGFR 59 See Note
[2025-03-13 17:29] LABS: Albumin/Globulin Ratio 1.2 (1.2-2.2); Alkaline Phosphatase 229 U/L (46-116); Calcium (Corrected) 10.3 mg/dL (8.5-10.1); Globulin 3.3 gm/dL (2.3-3.5); INR 1.1 (0.9-1.3); Partial Thromboplastin Time 30.2 Seconds (22.0-36.0); Prothrombin Time 11.8 Seconds (9.0-12.2)
[2025-03-13 17:33] LABS: Bilirubin,Urine Negative (Negative); Blood,Urine Negative (Negative); Clarity,Urine Clear (Clear/Hazy); Color,Urine Yellow (Lt Yel-Yel); Culture Indicated,Urine Not Indicated; Glucose, Urine Negative (Negative); Hyaline Casts,Urine 2 /hpf (0-1); Ketones,Urine Negative (Negative); Leukocyte Esterase,Urine Negative (Negative); Nitrite,Urine Negative (Negative); PH,Urine 5.0 (5.0-7.0); Protein,Urine Negative (Neg - Trace); RBC,Urine < 1 /hpf (0-3); Specific Gravity,Urine 1.017 (1.001-1.035); Urobilinogen,Urine Negative mg/dL (0.0-1.0); WBC,Urine 2 /hpf (0-5)
[2025-03-13 17:42] LABS: Amphetamine/Methamp Scrn,U Negative (Negative); Barbiturate Screen,Urine Negative (Negative); Benzodiazepines Screen,Urine Positive (Negative); Benzoylecgonine Screen, Ur Negative (Negative); Fentanyl Screen,Urine Negative (Negative); Opiate Screen,Urine Positive (Negative); THC Screen,Urine Negative (Negative)
[2025-03-13 20:27] LABS: Troponin I < 0.020 ng/mL (0.0-0.045)
[2025-03-13 20:27] LABS: B-Type Natriuretic Peptide 50 pg/mL (0-100)
--- NOTE | 2025-03-13 21:25 | EVENTNT_ITS ---
<Statement entered by Tarsha Dacosta MD - 03/14/25 05:49> Patient has history of stage four triple-positive left breast cancer with mets to liver, lungs, and brain. Health status has slowly been declining. Recent biopsy of liver from 03/01 shows metastatic carcinoma. Per Dr. Andrade note, Patient has been noncompliant. Some injections were canceled by nursing after patient was found to be unfit for interim muscular injection secondary to poor hygiene. CXR showed bilateral pleural effusions. Patient was on BiPAP, arousable. Conversation held with two sisters at bedside in regards to CODE STATUS. Stated that at this point, respiratory status may decline leading to thoracentesis for tx of effusions or intubation. Due to the malignancy, pleural effusions can reaccumulate rapidly again. They expressed understanding and decided to change patient to DNR/DNI wanting her to be comfortable. Advisable that day team have goals of care discussion in regards to persuing hospice. POLST form was filled out. Family was made aware of hospice as potential option. Tarsha Dacosta, PGY-2 Documentation for date of: 03/13/25 Event Note Event Note: On 03/13/2025 around 21:00 upon admission patient was improving but still somnolent due to CO2 retention. She was unable to effectively communicate due to confusion. Both of her sisters were present, and stated her code wishes as to do everything if she has a chance of recovering when prognosis was explained the sisters agreed that the patient's wishes would be served best by placing her on DNR/DNI. It was explained to the family that all treatments to improve the patient's symptoms will still be done, withstanding CPR and intubation, and if patient's mentation improved or if sister's changed their mind the code status can be altered again. Discussion done in presence of attending Dr. Shannon. Note written by Johnny Lucio MD PGY-1
--- NOTE | 2025-03-13 21:30 | ESHP_ITS ---
<Statement entered by Tarsha Dacosta MD - 03/14/25 06:07> 74-year-old female with past medical history of unspecified HF, pituitary- dependent Monica disease, stage IV left breast cancer with mets to liver, brain, lungs status post left mastectomy, radiation, on chemotherapy with aubrie Oakley BIBA from [facility] presented to ED obtunded, admitted for acute on chronic hypercapnic respiratory failure. She was on Bipap at bedside, tolerating well. VBG pH 7.32 pCO2 78 pO2 47 HCO3 40 O2 sat 80. CXR: Mild heart failure, pna, significant bilateral pleural effusions, more prominent right mediastinum. IR consulted for thoracenteisis if family amenable. Continue Bipap HS with breathing treatments and IV diuresis for effusions. Code status was changed to DNR/DNI. The patient's management plan was discussed with my attending physician Dr. Shannon. Tarsha Dacosta, PGY-2 Documentation for date of: 03/13/25 HPI History of Present Illness History of present illness: A 74-year-old female with past medical history of unspecified HF, pituitary- dependent [place] disease, stage IV left breast cancer with mets to liver, brain, lungs status post left mastectomy, radiation, on chemotherapy with aubrie Oakley BIBA from [facility] presented to ED obtunded, admitted for acute on chronic hypercapnic respiratory failure. ED Course Summary Vitals: BP 147/118 HR 87 RR 20 T 98.9F O2 98% oxy mask 5L Labs: Hgb 11.5 MCV 110 coag wnl Cl- 96 HCO3 >40, BUN 42 Cr 1.0, AST 120 ALT 27 ALP 229 LDH 299 VBG pH 7.3 pCO2 85 pO2 46 O2 sat 79% VBG pH 7.32 pCO2 78 pO2 47 HCO3 40 O2 sat 80 UA unremarkable Imaging: EKG sinus rhythm with supraventricular premature complexes HR 90 QTc 450 CXR: Mild heart failure, pneumonia bilaterally (r base especially), significant bilateral pleural effusions, more prominent right mediastinum Treatment: Naloxone 0.2 mg IV Patient was recently admitted for similar presentation (03/01 -03/07) with altered mental status and pneumonia. GCS 14, patient is on BIPAP upon initial examination, two sisters present to assist with interview. Presenting obtunded from [facility]. Per family patient was not obtunded and acting completely normally yesterday. She has home oxygen and is on CPAP at night 3L. Family denies history of COPD or asthma, states she had an episode of bronchitis years ago, where she was given an inhaler. Recently her cancer has progressed to the brain, liver, and lung metastases. Family is unaware of [place] disease diagnosis. Current oncologist is Dr. Andrade. POLST form signed by sister. Patient is DNR/DNI, no tube feeds. 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 Exam Vital Signs Temp Pulse Resp BP Pulse Ox O2 Del Method O2 Flow Rate 98.9 F 85 20 134/67 H 99 BiPAP 5 03/13/25 18:07 03/13/25 21:26 03/13/25 21:26 03/13/25 20:42 03/13/25 21:26 03/13/25 20:42 03/13/25 18:07 FiO2 50 03/13/25 19:52 Narrative Exam GENERAL APPEARANCE: AOx1. Obese, increased work of breathing while on Bipap, unable to communicate due to confusion, intermittent periods attempting to speak. GCS 14 (open eyes spontaneously, follows commands, confused/inappropriate words). R sided chest port HEENT: Normocephalic atraumatic, no facial trauma, neck is supple. Lids/conjunctiva normal. Mucous membranes moist, nares normal, lips/teeth normal uvula midline without oral pharyngeal erythema, exudate or swelling TMs normal bilaterally. No lymphangitis/lymphedema. CARDIAC: Regular rate and rhythm, S1+S2 heard. No murmurs, rubs, or gallops noted RESPIRATORY: Increased work of breathing while on Bipap. poor inspiratory effort, bilateral wheezes. ABDOMINAL: NBS. soft/firm enlarged abdomen, massive midline abdominal hernia with umbilical hernia. Diffusely TTP without signs of acute abdomen (no rebound pain, no guarding). No evidence of fluid wave. No pulsatile masses on exam, rebound tenderness, Ayala sign or pain over Mcburney's point. MUSCLES/EXTREMITIES: No abnormal range of motion, no swelling. No pedal edema DERM: Warm, pink and dry. No rashes, dermatoses, petechiae or lesions. NEUROLOGICAL: Speech is clear and appropriate. Normal level of consciousness. Gait and coordination are normal. 5/5 strength in all extremities. PSYCH: Normal mood and affect. Judgement/competence is appropriate Results: Labs 03/14/25 05:30 03/14/25 05:30 Labs: Short CBC 03/13/25 Range/Units 16:52 WBC 8.7 (3.6-11.0) Thou/mm3 Hgb 11.5 L (12.0-16.0) g/dL Hct 37.7 (36.0-46.0) % Plt Count 109 L (140-440) Thou/mm3 BMP 03/13/25 16:52 Sodium 142 Potassium 4.4 Chloride 96 L Carbon Dioxide > 40.0 H BUN 42 H Creatinine 1.0 Glucose 122 H Calcium 10.2 Cardiac Enzymes 03/13/25 03/13/25 Range/Units 16:52 19:42 Troponin I < 0.020 < 0.020 (0.0-0.045) ng/mL Liver Function 03/13/25 Range/Units 16:52 Total Bilirubin 0.8 (0.3-1.2) mg/dL AST 120 H (0-34) U/L ALT 27 (10-49) U/L Alkaline Phosphatase 229 H (46-116) U/L Albumin 3.9 (3.4-4.8) gm/dL Urine 03/13/25 Range/Units 17:00 Urine Color Yellow (Lt Yel-Yel) Urine Clarity Clear (Clear/Hazy) Urine pH 5.0 (5.0-7.0) Ur Specific [place] 1.017 (1.001-1.035) Urine Protein Negative (Neg - Trace) Urine Glucose (UA) Negative (Negative) ABG Interpretation ABG results: 03/13/25 16:52 VBG pH 7.30 L VBG pCO2 85 H VBG pO2 46 VBG Base Excess 12 H Quality Measures Quality Measures VTE prophylaxis Advance care planning discussed with:: sibling Medications Home Medications and Allergies Home Medications ?Medication ?Instructions ?Recorded ?Confirmed ?Type Vitamin D3 1.25 mg PO QWEEK 03/02/25 History Zofran 4 mg PO Q6HR PRN nausea and 03/02/25 03/14/25 History vomiting acetaminophen 325 mg capsule 650 mg PO Q4H PRN fever 1 05/02/24 03/14/25 History alprazolam 0.25 mg tablet (Xanax) 0.25 mg PO BID 03/0203/14/25 History calcium 600 mg capsule 600 mg PO QDAY 03/02/2502/20 History docusate sodium 100 mg capsule 100 mg PO BID 03/02/25 03/14/25 History (Colace) furosemide 40 mg tablet (Lasix) 40 mg PO BID 03/02/25 03/14/25 History hydrocodone 10 mg-acetaminophen 1 tab PO Q6H 03/02/25 03/14/25 History 325 mg tablet magnesium hydroxide 400 mg/5 mL 2,400 mg PO Q72H PRN c onstipation 03/02/25 03/14/25 History oral suspension magnesium oxide 400 mg PO BID 03/02/2503/14 History metoprolol tartrate 50 mg tablet 50 mg PO BID 03/02/25 03/14/25 History multivitamin 1 tab PO QDAY 03/02/2503/14 History potassium chloride 20 mEq 20 meq PO QDAY 03/02/2502/20 History tablet,extended release(part/cryst) sertraline 25 mg tablet (Zoloft) 25 mg PO QDAY 5 03/14/25 History sodium phosphates 19 gram-7 118 ml DE QDAY PRN constip ation 03/02/25 03/14/25 History gram/118 mL enema (Fleet Enema) Allergies Allergy/AdvReac Type Severity Reaction Status Date / Time alendronate sodium (From Allergy Severe Chest Pain Verified 03/13/25 16:52 Fosamax) Iodinated Contrast Media Allergy Severe Anaphylaxis Verified 03/13/25 16:52 iodine Allergy Severe Anaphylaxis Verified 03/13/25 16:52 lisinopril Allergy Severe Cough Verified 03/13/25 16:52 nut - unspecified Allergy Severe Rash Verified 03/13/25 16:52 Visit Medications Acetaminophen (Acetaminophen 325 Mg Tablet) 650 mg PO Q6H PRN PRN Reason: Fever >100.4 or pain 1-3 Stop: 04/12/25 21:15 Hydrocodone Bitart/Acetaminophen (Hydrocodone/Apap 5/325 Tablet) 1 tab PO Q4HR PRN PRN Reason: PAIN SCALE 4-6 (Moderate Stop: 03/18/25 21:15 Albuterol/Ipratropium (Albuterol/Ipratropium (Duoneb) Rt Sara 3 Ml Nebu) 3 ml INH Q4HRRT PRN PRN Reason: wheezing or SOB Stop: 04/12/25 22:59 Docusate Sodium (Docusate Sod 100 Mg Capsule) 100 mg PO QDAY MARY; Protocol Stop: 04/13/25 08:59 Furosemide (Furosemide Inj 10 Mg/Ml 4ml Vial) 40 mg IVP QDAY MARY Stop: 04/13/25 08:59 Heparin Sodium (Porcine) (Heparin Sod Inj 5000 Unit/Ml Vial) 5,000 unit SC Q12HR MARY Stop: 03/28/25 08:59 Hydromorphone HCl (Hydromorphone Inj 2 Mg/Ml Vial) 1 mg IVP Q4HR PRN PRN Reason: PAIN Stop: 03/18/25 21:15 Ondansetron HCl (Ondansetron Inj 2 Mg/Ml Inj 2 Ml) 4 mg IVP Q6H PRN; Protocol PRN Reason: NAUSEA OR VOMITING Stop: 04/12/25 21:15 Pantoprazole Sodium (Pantoprazole Inj 40 Mg Vial) 40 mg IVP QDAY MARY Stop: 04/13/25 08:59 Discontinued Medications Naloxone HCl (Naloxone Inj 0.4 Mg/Ml Vial) 0.2 mg IV X1 ONE Stop: 03/13/25 18:53 Last Admin: 03/13/25 19:02 Dose: 0.2 mg Sodium Chloride (Sodium Chloride Rt 10% 15 Ml Nebu) 5 ml INH X1 ONE Stop: 03/13/25 21:22 Assessment & Plan Plan A 74-year-old female with past medical history of unspecified HF, pituitary- dependent [place] disease, stage IV left breast cancer with mets to liver, brain, lungs status post left mastectomy, radiation, on chemotherapy with aubrie Oakley BIBA from [facility] presented to ED obtunded, admitted for acute on chronic hypercapnic respiratory failure. POLST form signed by sister. Patient is DNR/DNI, no tube feeds. #Acute metabolic encephalopathy #Acute on chronic hypercapnic respiratory failure most likely 2/2 #Breast cancer metastases to lungs, liver, brain Recent admission for similar presentation. She was found to be obtunded and hypercapnic at [facility] facility. 98% oxy mask 5L, VBG pH 7.3 pCO2 85 pO2 46 O2 sat 79%, RT unable to stick patient, repeat VBG pH 7.32 pCO2 78 pO2 47 HCO3 40 O2 sat 80. CXR: Mild heart failure, pneumonia bilaterally (r base especially), significant bilateral pleural effusions, more prominent right mediastinum. On physical exam patient had poor inspiratory effort, no crackles heard, but bilateral wheezes were auscultated. No fever or elevated WBCs, therefore less likely due to pneumonia. Patient also just received antibiotics treatment for pneumonia and was on augmentin making pneumonia less likely, as well as, no significant change from CXR only change may be from poor inspiratory effort. Plan: -IR consulted for US guided thoracentesis if procedure is appropriate and window is acceptable. -FUP ABG: pH 7.37 pCO2 69 pO2 84 HCO3 39 O2 sat 97 -O2 delivery NC, oxymask, CPAP, BIPAP (at night) prn -FUP sputum cx:___ -PT referral:____ -FUP swallow eval:___ -FUP speech therapy:____ -Duonebs 3mL INH Q4HRRT PRN -ISS #Prerenal azotemia #Hyperuremia Stage 1 IVORY Cr>0.3 mg/dL in 2d or increase Cr>50% or UOP <0.5mL/kg/h for >6hr, criteria not met for IVORY, increase of creatinine only 0.2 increase. Cr 1.0 BUN 42. 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 No pedal edema, no crackles on exam, patient is not clinically volume overloaded, fluid in lungs is most likely secondary to malignancy. Plan: -Hold IVF at the moment while diuresing fluid from lungs -Day team please consider IVF upon repeat renal panel #Acute liver injury #Hx of breast mets to liver No signs of jaundice, mucosal darkening, or asterixis on exam. AST 120 ALT 27 ALP 229. Recent liver biopsy (03/07/2025) with Dr. Andrade confirms hepatic mets. Plan: -Consider FUP with Dr. Andrade outpatient #Afib Patient does not seem to be in heart failure exacerbation at the moment trops negative. EKG unremarkable, not showing signs of heart strain. Plan: -Restart home metoprolol tartrate PO BID but can consider IV 2.5 Q6H if failed swallow screen -Lasix 40mg IV -Fluid restriction: 1.5 L -Daily weights #Hx of Anxiety Plan: -Alprazolam 0.25 mg PO BID -Sertraline (ZOLOFT) 25mg PO QD #Hx of [place] Disease Patient's sisters are not aware of any current treatment or [place] diagnosis. Family says she was only on steroids for breathing treatments Plan: -FUP in AM #Goals of care discussion Extensive goals of care discussion was held with patient's sisters present by bedside, patient's clinical condition was explained in details with very poor prognosis and likely continuation of worsening medical condition, patient's siblings were in agreement to change patient's CODE STATUS to DNR as they did not want patient to suffer if prognosis was deemed poor. Health Maintenance: Code status: DNR/DNI DVT prophylaxis: Heparin subq GI prophylaxis: Protonix Diet: NPO pending swallow eval Damico: Purewick Lines: PIV Supplemental O2: NC, Oxy mask, CPAP, BIPAP Disposition: Admit to [facility] for Acute on chronic hypercapnic respiratory failure Patient seen and reviewed with attending Dr. Shannon, and supervising resident Dr. Tarsha Dacosta. Note written by Johnny Lucio MD PGY-1 Attending Provider Attestation/Addendum After examination of the patient and review of the clinical data I feel that this patient needs admission to the hospital for further treatment/evaluation. Plan of care discussed with patient and is in agreement. I Hans Shannon MD, attest that I was physically present for dalal portions of evaluation, and examined patient, labs and imagings and plan of care were discussed with IM residents team, and I agree with the findings and plans documented above.
[2025-03-13 22:37] LABS: Base Excess 11 (-3-3); HCO3 40 mEq/L (20-26); O2 Saturation 80 % (91-98); PCO2 78 mmHg (32.0-48.0); pH, Arterial 7.32 (7.35-7.45)
[2025-03-13 22:42] LABS: PO2 47 mmHg (83-108)
[2025-03-13 22:43] LABS: Allen Test Performed/OK; Inspired Oxygen, FIO2 50 %; Puncture Site Right Radial
[2025-03-13 23:25] LABS: Base Excess 11 (-3-3); HCO3 39 mEq/L (20-26); O2 Saturation 97 % (91-98); PCO2 69 mmHg (32.0-48.0); PO2 84 mmHg (83-108); pH, Arterial 7.37 (7.35-7.45)
[2025-03-13 23:26] LABS: Allen Test Performed/OK; Inspired Oxygen, FIO2 50 %; Puncture Site Right Radial
[2025-03-14] VITALS (15 sets, daily range): BP systolic 123–143; BP diastolic 51–79; PULSE 20–103; RESP 12–88; TEMP 36.3–36.7; O2SAT 96–100; BMI 45.8
--- NOTE | 2025-03-14 01:02 | PC.RT ---
Per Dr. Lucio sputum culture to be held until AM due to patient being on BIPAP at this time.
--- NOTE | 2025-03-14 02:58 | PC.NURSE ---
pt awake,alert to self and place, multiple times pt took off BIPAP mask and stated she don't want to wear it. explained risk and benefit of BIPAP, pt verbalized understanding and stated she will use oxygen but not BIPAP now. Dr. Dacosta notified pf pt's condition and ordered to switch O2 to oxymask and carried out. switched O2 to oxymask 6 lpm, , SPO2 100%, RR 20, HR 92, SR. pt stated feels much better. call light within reach. RT made aware.
[2025-03-14 06:33] LABS: Alanine Aminotransferase 25 U/L (10-49); Albumin, Serum 3.6 gm/dL (3.4-4.8); Albumin/Globulin Ratio 1.1 (1.2-2.2); Alkaline Phosphatase 212 U/L (46-116); Anion Gap 8 (7-16); Aspartate Amino Transferase 122 U/L (0-34); BUN/Creatinine Ratio 38 Ratio (12-20); Bilirubin,Total 1.0 mg/dL (0.3-1.2); Blood Urea Nitrogen 30 mg/dL (9-23); Calcium 10.4 mg/dL (8.3-10.6); Calcium (Corrected) 10.7 mg/dL (8.5-10.1); Carbon Dioxide 35.9 mMol/L (20.0-31.0); Chloride 98 mMol/L (98-107); Creatinine (Component) 0.8 mg/dL (0.6-1.3); Globulin 3.2 gm/dL (2.3-3.5); Glucose 97 mg/dL (74-106); Magnesium 1.7 mg/dL (1.6-2.6); Osmolality,Calculated 289 (275-295); Phosphorous 3.1 mg/dL (2.4-5.1); Potassium 4.4 mMol/L (3.4-5.1); Sodium 142 mMol/L (136-145); Total Protein 6.8 gm/dL (5.7-8.2); eGFR > 60 See Note
[2025-03-14 06:42] LABS: Basophils # (Auto) 0.0 Thou/mm3 (0.0-0.2); Basophils % (Auto) 1 % (0-2.5); Eosinophils # (Auto) 0.3 Thou/mm3 (0.0-0.5); Eosinophils % (Auto) 4 % (0-10); Hematocrit 38.7 % (36.0-46.0); Hemoglobin 12.0 g/dL (12.0-16.0); Immature Granulocytes Auto 0.03 Thou/mm3 (0.00-0.00); Lymphocytes # (Auto) 0.8 Thou/mm3 (1.0-4.8); Lymphocytes % (Auto) 9 % (10-50); Mean Corpuscular HGB Conc 31.0 g/dl (31.0-37.0); Mean Corpuscular Hemoglobin 33.8 pg (25.0-35.0); Mean Corpuscular Volume 109 fL (80-100); Monocytes # (Auto) 1.0 Thou/mm3 (0.0-0.8); Monocytes % (Auto) 12 % (0-12); Neutrophils # (Auto) 6.2 Thou/mm3 (1.8-7.7); Neutrophils % (Auto) 74 % (37-80); Nucleated Red Blood Cell # 0.00 Thou/mm3 (0.00-0.00); Nucleated Red Blood Cell % 0 /100 WBC (0); RDW Standard Deviation 59.4 fL (36.4-46.3); Red Blood Count 3.55 Miln/mm3 (4.00-5.20); White Blood Count 8.4 Thou/mm3 (3.6-11.0)
[2025-03-14 06:49] LABS: Platelet Count 75 Thou/mm3 (140-440)
[2025-03-14 07:47] LABS: Slide Review Platelets confirmed
[2025-03-14] MEDS: SERTRALINE HCL 25 MG TABLET PO (08:32)
[2025-03-14] MEDS: METOPROLOL TARTRATE 25 MG TABLET 50 MG PO ×2 (08:32→20:25)
[2025-03-14] MEDS: DOCUSATE SOD 100 MG CAPSULE PO (08:32)
[2025-03-14] MEDS: FUROSEMIDE INJ 10 MG/ML 4ML VIAL 40 MG IVP (08:33)
[2025-03-14] MEDS: HYDROcodone/APAP 5/325 TABLET 1 TAB PO (08:34)
--- NOTE | 2025-03-14 10:22 | PCS.ST ---
Swallow Evaluation completed. See report for details. No s/s of aspiration. Difficulty d/t breath/swallow coordination. Will need puree diet when cleared for PO today.
--- NOTE | 2025-03-14 12:14 | PD.RESPRO ---
Documentation for date of: 03/14/25 Subjective Subjective Interval history: Patient is seen and examined at bedside. Admitted overnight in view of acute on chronic hypoxic hypercapnic respiratory failure, likely multifactorial from encephalopathy, suspected obstructive sleep apnea, metastasis from breast abscess. Noted to have waning and waxing of mentation. Family is at the bedside and had goals of care discussion and they want to explore more hospice options. Explained about the poor prognosis in the setting of stage IV breast cancer. Tried to reach oncologist, Dr. Mckinley. Will try to call her again tomorrow. Currently there is less suspicion of infection as patient does not have any fever, elevated white count. On chest x-ray, patient noted to have right pleural effusion for which ultrasound-guided thoracentesis is ordered but not done in view of insufficient fluid. Will continue CPAP. Held alprazolam and sertraline in view of mentation. Exam Vital Signs Temp Pulse Resp BP Pulse Ox O2 Del Method O2 Flow Rate 97.9 F 100 18 128/69 96 Oxy Mask 5 03/14/25 08:00 03/14/25 09:15 03/14/25 09:15 03/14/25 08:33 03/14/25 09:15 03/14/25 08:00 03/14/25 09:15 FiO2 50 03/14/25 02:19 Narrative Exam General: Awake. Obese HEENT: Normocephalic, atraumatic, mucous membranes moist. Heart: Regular rate and rhythm, no murmurs. Lungs: Clear to auscultation with no wheezing or crackles. Decreased breath sounds bilaterally Abdomen: Soft, nondistended, nontender, positive bowel sounds. ?No guarding or rebound tenderness. Neurologic: Alert and oriented x 2, no gross neurological deficit, and patient able to move all 4 extremities. Extremities: No edema. Skin: No rash or ecchymoses. Objective Labs 03/16/25 04:30 03/16/25 04:30 Labs: Laboratory Results - last 24 hr 03/13/25 03/13/25 03/13/25 09:57 16:52 17:00 WBC 8.7 RBC 3.42 L Hgb 11.5 L Hct 37.7 MCV 110 H MCH 33.6 MCHC 30.5 L RDW Std Deviation 60.1 H Plt Count 109 L Neut % (Auto) 76 Lymph % (Auto) 9 L [place] % (Auto) 11 Eos % (Auto) 4 Baso % (Auto) 1 Neut # (Auto) 6.6 Lymph # (Auto) 0.8 L [place] # (Auto) 0.9 H Eos # (Auto) 0.3 Baso # (Auto) 0.0 Immature Gran # (Auto) 0.04 H Absolute Nucleated RBC 0.00 Immature Gran % 1 H Nucleated RBC % 0 PT 11.8 INR 1.1 APTT 30.2 Puncture Site ABG pH ABG pCO2 ABG pO2 ABG HCO3 ABG O2 Saturation ABG Base Excess VBG pH 7.30 L VBG pCO2 85 H VBG pO2 46 VBG O2 Sat (Dominic) 79 L VBG Base Excess 12 H FiO2 Sodium 142 Potassium 4.4 Chloride 96 L Carbon Dioxide > 40.0 H Anion Gap 6 L BUN 42 H Creatinine 1.0 Estim Creat Clear Calc Not Performed. eGFR 59 L BUN/Creatinine Ratio 42 H Glucose 122 H Calculated Osmolality 294 Calcium 10.2 Corrected Calcium 10.3 H Phosphorus Magnesium 1.8 Total Bilirubin 0.8 AST 120 H ALT 27 Alkaline Phosphatase 229 H Lactate Dehydrogenase 299 H Troponin I < 0.020 B-Natriuretic Peptide 50 64 Total Protein 7.2 Albumin 3.9 Globulin 3.3 Albumin/Globulin Ratio 1.2 Ur Collection Type Clean Catch Urine Color Yellow Urine Clarity Clear Urine pH 5.0 Ur Specific [place] 1.017 Urine Protein Negative Urine Glucose (UA) Negative Urine Ketones Negative Urine Blood Negative Urine Nitrite Negative Urine Bilirubin Negative Urine Urobilinogen (Auto) Negative Ur Leukocyte Esterase Negative Urine RBC < 1 Urine WBC 2 Ur Squamous Epith Cells 0 Urine Bacteria None Hyaline Casts 2 H Ur Culture Indicated? Not Indicated Urine Opiates Screen Positive A Urine Fentanyl Screen Negative Ur Barbiturates Screen Negative U Amphetamin/Meth Scrn Negative U Benzodiazepines Scrn Positive A U Cocaine Metab Screen Negative U Marijuana (THC) Screen Negative Misc Test Result 03/13/25 03/13/25 03/13/25 19:42 22:34 23:16 WBC RBC Hgb Hct MCV MCH MCHC RDW Std Deviation Plt Count Neut % (Auto) Lymph % (Auto) [place] % (Auto) Eos % (Auto) Baso % (Auto) Neut # (Auto) Lymph # (Auto) [place] # (Auto) Eos # (Auto) Baso # (Auto) Immature Gran # (Auto) Absolute Nucleated RBC Immature Gran % Nucleated RBC % PT INR APTT Puncture Site Right Radial Right Radial ABG pH 7.32 L 7.37 ABG pCO2 78 H* 69 H ABG pO2 47 L* 84 D ABG HCO3 40 H 39 H ABG O2 Saturation 80 L 97 ABG Base Excess 11 H 11 H VBG pH VBG pCO2 VBG pO2 VBG O2 Sat (Dominic) VBG Base Excess FiO2 50 50 Sodium Potassium Chloride Carbon Dioxide Anion Gap BUN Creatinine Estim Creat Clear Calc eGFR BUN/Creatinine Ratio Glucose Calculated Osmolality Calcium Corrected Calcium Phosphorus Magnesium Total Bilirubin AST ALT Alkaline Phosphatase Lactate Dehydrogenase Troponin I < 0.020 B-Natriuretic Peptide Total Protein Albumin Globulin Albumin/Globulin Ratio Ur Collection Type Urine Color Urine Clarity Urine pH Ur Specific [place] Urine Protein Urine Glucose (UA) Urine Ketones Urine Blood Urine Nitrite Urine Bilirubin Urine Urobilinogen (Auto) Ur Leukocyte Esterase Urine RBC Urine WBC Ur Squamous Epith Cells Urine Bacteria Hyaline Casts Ur Culture Indicated? Urine Opiates Screen Urine Fentanyl Screen Ur Barbiturates Screen U Amphetamin/Meth Scrn U Benzodiazepines Scrn U Cocaine Metab Screen U Marijuana (THC) Screen Misc Test Result 03/14/25 05:30 WBC 8.4 RBC 3.55 L Hgb 12.0 Hct 38.7 MCV 109 H MCH 33.8 MCHC 31.0 RDW Std Deviation 59.4 H Plt Count 75 L D Neut % (Auto) 74 Lymph % (Auto) 9 L [place] % (Auto) 12 Eos % (Auto) 4 Baso % (Auto) 1 Neut # (Auto) 6.2 Lymph # (Auto) 0.8 L [place] # (Auto) 1.0 H Eos # (Auto) 0.3 Baso # (Auto) 0.0 Immature Gran # (Auto) 0.03 H Absolute Nucleated RBC 0.00 Immature Gran % 0 Nucleated RBC % 0 PT INR APTT Puncture Site ABG pH ABG pCO2 ABG pO2 ABG HCO3 ABG O2 Saturation ABG Base Excess VBG pH VBG pCO2 VBG pO2 VBG O2 Sat (Dominic) VBG Base Excess FiO2 Sodium 142 Potassium 4.4 Chloride 98 Carbon Dioxide 35.9 H Anion Gap 8 BUN 30 H Creatinine 0.8 Estim Creat Clear Calc Not Performed. eGFR > 60 BUN/Creatinine Ratio 38 H Glucose 97 Calculated Osmolality 289 Calcium 10.4 Corrected Calcium 10.7 H Phosphorus 3.1 Magnesium 1.7 Total Bilirubin 1.0 AST 122 H ALT 25 Alkaline Phosphatase 212 H Lactate Dehydrogenase Troponin I B-Natriuretic Peptide Total Protein 6.8 Albumin 3.6 Globulin 3.2 Albumin/Globulin Ratio 1.1 L Ur Collection Type Urine Color Urine Clarity Urine pH Ur Specific [place] Urine Protein Urine Glucose (UA) Urine Ketones Urine Blood Urine Nitrite Urine Bilirubin Urine Urobilinogen (Auto) Ur Leukocyte Esterase Urine RBC Urine WBC Ur Squamous Epith Cells Urine Bacteria Hyaline Casts Ur Culture Indicated? Urine Opiates Screen Urine Fentanyl Screen Ur Barbiturates Screen U Amphetamin/Meth Scrn U Benzodiazepines Scrn U Cocaine Metab Screen U Marijuana (THC) Screen Misc Test Result Platelets confirmed ABG Interpretation ABG results: 03/13/25 03/13/25 03/13/25 16:52 22:34 23:16 ABG pH 7.32 L 7.37 ABG pCO2 78 H* 69 H ABG pO2 47 L* 84 D ABG HCO3 40 H 39 H ABG O2 Saturation 80 L 97 ABG Base Excess 11 H 11 H VBG pH 7.30 L VBG pCO2 85 H VBG pO2 46 VBG Base Excess 12 H Quality Measures Quality Measures VTE prophylaxis Advance care planning discussed with:: child and legal surragate Assessment & Plan Assessment Current Active Medications: Generic Name Dose Route Start Last Admin Trade Name Freq PRN Reason Stop Dose Admin Acetaminophen 650 mg 03/13/25 21:16 Acetaminophen 325 Mg Tablet PO 04/12/25 21:15 Q6H PRN Fever >100.4 or pain 1-3 Hydrocodone Bitart/Acetaminophen 1 tab 03/13/25 21:16 03/14/25 08:34 Hydrocodone/Apap 5/325 Tablet PO 03/18/25 21:15 1 tab Q4HR PRN Administration PAIN SCALE 4-6 (Moderate Albuterol/Ipratropium 3 ml 03/13/25 21:16 Albuterol/Ipratropium (Duoneb) Rt Sara 3 Ml Nebu INH 04/12/25 22:59 Q4HRRT PRN wheezing or SOB Alprazolam 0.25 mg 03/14/25 09:00 03/14/25 08:32 Alprazolam 0.25 Mg Tablet PO 03/19/25 08:59 0.25 mg BID MARY Administration Docusate Sodium 100 mg 03/14/25 09:00 03/14/25 08:32 Docusate Sod 100 Mg Capsule PO 04/13/25 08:59 100 mg QDAY MARY Administration Protocol Furosemide 40 mg 03/14/25 09:00 03/14/25 08:33 Furosemide Inj 10 Mg/Ml 4ml Vial IVP 04/13/25 08:59 40 mg QDAY MARY Administration Heparin Sodium (Porcine) 5,000 unit 03/14/25 09:00 03/14/25 09:00 Heparin Sod Inj 5000 Unit/Ml Vial SC 03/28/25 08:59 Not Given Q12HR MARY Metoprolol Tartrate 50 mg 03/14/25 09:00 03/14/25 08:32 Metoprolol Tartrate 25 Mg Tablet PO 04/13/25 08:59 50 mg BID MARY Administration Morphine Sulfate 2 mg 03/13/25 22:42 Morphine Sulf Inj 4 Mg/Ml Vial IVP 03/19/25 00:00 Q2HR PRN pain 7-10 Ondansetron HCl 4 mg 03/13/25 21:16 Ondansetron Inj 2 Mg/Ml Inj 2 Ml IVP 04/12/25 21:15 Q6H PRN NAUSEA OR VOMITING Protocol Pantoprazole Sodium 40 mg 03/14/25 09:00 03/14/25 08:35 Pantoprazole Inj 40 Mg Vial IVP 04/13/25 08:59 40 mg QDAY MARY Administration Sertraline HCl 25 mg 03/14/25 09:00 03/14/25 08:32 Sertraline Hcl 25 Mg Tablet PO 04/13/25 08:59 25 mg QDAY MARY Administration Plan A 74-year-old female with past medical history of unspecified HF, pituitary-dependent Monica disease, 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 POLST form signed by sister. Patient is DNR/DNI, no tube feeds. #Acute Encephalopathy 2/2 #Acute on chronic hypercapnic respiratory failure most likely 2/2 #Breast cancer metastases to lungs, liver, brain #Underlying Sleep apnea Recent admission for similar presentation. She was found to be obtunded at [facility] facility. 98% oxy mask 5L, VBG pH 7.3 pCO2 85 pO2 46 O2 sat 79%, RT unable to stick patient, repeat VBG pH 7.32 pCO2 78 pO2 47 HCO3 40 O2 sat 80. CXR: Mild heart failure, pneumonia bilaterally (r base especially), significant bilateral pleural effusions, more prominent right mediastinum. On physical exam, patient had poor inspiratory effort, no crackles heard, but bilateral wheezes were auscultated. No fever or elevated WBCs, therefore less likely due to pneumonia. Patient also just received antibiotics treatment for pneumonia and was on augmentin making pneumonia less likely, as well as, no significant change from CXR only change may be from poor inspiratory effort. Plan: -IR consulted for US guided thoracentesis - Procedure not done due to inadequate fluid -O2 delivery NC, oxymask, CPAP, BIPAP (at night) prn -FUP sputum cx: -PT referral: -FUP speech therapy: Pureed diet -Duonebs 3mL INH Q4HRRT PRN -ISS -CPAP HS #Prerenal azotemia, resolving #Hyperuremia Stage 1 IVORY Cr>0.3 mg/dL in 2d or increase Cr>50% or UOP <0.5mL/kg/h for >6hr, criteria not met for IVORY, increase of creatinine only 0.2 increase. Cr 1.0 BUN 42. 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 No pedal edema, no crackles on exam, patient is not clinically volume overloaded, fluid in lungs is most likely secondary to malignancy. 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 AST 120 ALT 27 ALP 229 at the time of admission. Recent liver biopsy (03/07/2025) with Dr. Andrade confirms hepatic mets. Plan: -Consider FUP with Dr. Andrade outpatient -Monitor LFT #Hx of Afib Patient does not seem to be in heart failure exacerbation at the moment trops negative. EKG unremarkable, not showing signs of heart strain. Plan: -Metoprolol tartrate PO BID -Lasix 40mg IV -Fluid restriction: 1.5 L -Daily weights #Hx of Anxiety Plan: -Alprazolam 0.25 mg PO BID and Sertraline (ZOLOFT) 25mg PO QD - Held for now in view of altered mentation #Hx of Monica Disease Patient's sisters are not aware of any current treatment or Cushings diagnosis. Family says she was only on steroids for breathing treatments Health Maintenance: Code status: DNR/DNI DVT prophylaxis: Heparin subq GI prophylaxis: Protonix Diet: Pureed [place]: Purewick Lines: PIV Supplemental O2: NC, Oxy mask, CPAP, BIPAP Disposition: Admit to tele for Acute on chronic hypercapnic respiratory failure Patient plan of care was discussed with the attending physician, Dr. Terrance Singh, PGY2 Attending Provider Attestation/Addendum I have discussed and was present for the essential components of the history, physical examination, diagnosis, and treatment plan with the resident. I agree with the patient's care as documented by the resident and amended herein by me. Sohail Carlos DO. Although this document has been carefully reviewed, there may still be some phonetic and other typographical errors. These errors are purely grammatical due to imperfections in the software program and should not be construed in any way to compromise the substance of the patient's medical care during this visit.
--- NOTE | 2025-03-14 16:02 | PC.SS ---
Follow up note: SS spoke to physician team who states that patient and patient's family requested hospice info. and wanted to speak with site safety representative. SS contacted [facility] hospice to inform. [place] [facility] [facility] oncology consultant hospice today. Family undecided.
[2025-03-14] MEDS: HEPARIN SOD INJ 5000 UNIT/ML VIAL SC (20:25)
--- NOTE | 2025-03-14 21:23 | XR_ITS ---
Examination: Abdomen sonogram, Limited Date and time of exam: March 14, 2025, 1045 hours INDICATIONS: Cirrhosis with distention today Technique: Real-time johnston scale transabdominal sonographic images of the upper abdomen obtained. Findings: Minimal ascitic fluid IMPRESSION: Minimal ascitic fluid
[2025-03-15] VITALS (15 sets, daily range): BP systolic 105–168; BP diastolic 66–96; PULSE 75–110; RESP 12–24; TEMP 36–36.6; O2SAT 94–100; BMI 47.0
[2025-03-15 06:07] LABS: Basophils # (Auto) 0.1 Thou/mm3 (0.0-0.2); Basophils % (Auto) 1 % (0-2.5); Eosinophils # (Auto) 0.3 Thou/mm3 (0.0-0.5); Eosinophils % (Auto) 3 % (0-10); Hematocrit 36.8 % (36.0-46.0); Hemoglobin 11.5 g/dL (12.0-16.0); Immature Granulocytes Auto 0.04 Thou/mm3 (0.00-0.00); Lymphocytes # (Auto) 1.0 Thou/mm3 (1.0-4.8); Lymphocytes % (Auto) 12 % (10-50); Mean Corpuscular HGB Conc 31.3 g/dl (31.0-37.0); Mean Corpuscular Hemoglobin 34.7 pg (25.0-35.0); Mean Corpuscular Volume 111 fL (80-100); Monocytes # (Auto) 0.9 Thou/mm3 (0.0-0.8); Monocytes % (Auto) 12 % (0-12); Neutrophils # (Auto) 5.8 Thou/mm3 (1.8-7.7); Neutrophils % (Auto) 72 % (37-80); Nucleated Red Blood Cell # 0.00 Thou/mm3 (0.00-0.00); Nucleated Red Blood Cell % 0 /100 WBC (0); RDW Standard Deviation 61.3 fL (36.4-46.3); Red Blood Count 3.31 Miln/mm3 (4.00-5.20); White Blood Count 8.1 Thou/mm3 (3.6-11.0)
[2025-03-15 06:08] LABS: Ammonia 30 uMol/L (11-32)
[2025-03-15 06:31] LABS: Platelet Count 77 Thou/mm3 (140-440)
[2025-03-15 07:24] LABS: Alanine Aminotransferase 25 U/L (10-49); Albumin, Serum 3.6 gm/dL (3.4-4.8); Alkaline Phosphatase 204 U/L (46-116); Anion Gap 8 (7-16); Aspartate Amino Transferase 120 U/L (0-34); BUN/Creatinine Ratio 49 Ratio (12-20); Bilirubin,Total 1.0 mg/dL (0.3-1.2); Blood Urea Nitrogen 39 mg/dL (9-23); Calcium 10.3 mg/dL (8.3-10.6); Calcium (Corrected) 10.6 mg/dL (8.5-10.1); Carbon Dioxide 37.8 mMol/L (20.0-31.0); Chloride 98 mMol/L (98-107); Creatinine (Component) 0.8 mg/dL (0.6-1.3); Estimated Creatinine Clearance 70.9 mL/min (>60); Glucose 99 mg/dL (74-106); Osmolality,Calculated 296 (275-295); Phosphorous 3.5 mg/dL (2.4-5.1); Potassium 4.4 mMol/L (3.4-5.1); Sodium 144 mMol/L (136-145); eGFR > 60 See Note
[2025-03-15 07:51] LABS: Albumin/Globulin Ratio 1.2 (1.2-2.2); Globulin 3.0 gm/dL (2.3-3.5); Magnesium 1.6 mg/dL (1.6-2.6); Total Protein 6.6 gm/dL (5.7-8.2)
[2025-03-15] MEDS: FUROSEMIDE INJ 10 MG/ML 4ML VIAL 40 MG IVP (08:56)
[2025-03-15] MEDS: METOPROLOL TARTRATE 25 MG TABLET 50 MG PO ×2 (08:57→20:40)
[2025-03-15] MEDS: HEPARIN SOD INJ 5000 UNIT/ML VIAL SC ×2 (08:57→20:40)
[2025-03-15] MEDS: MORPHINE SULF INJ 4 MG/ML VIAL 2 MG IVP ×2 (09:03→17:40)
[2025-03-15 10:22] LABS: Slide Review Platelets confirmed
--- NOTE | 2025-03-15 10:32 | ESPR_ITS ---
<Statement entered by Maddie Murillo MD - 03/15/25 15:48> Patient was seen and examined by me personally. I have directly supervised and reviewed documentation by the team resident and agree with its findings with any exceptions or additional findings as below. Plan of care was discussed with the attending, Dr. Carlos. Patient seen at bedside, appears more lucid this morning with clearer interactions with family member. Spoke with Tonja, sister at bedside who reports that she was able to speak to the patient and it appeared that the patient wants to focus more on comfort instead of treatment now. Family is amenable to hospice and would like to hear the options, relayed to Tima on social work program coordinator. Patient's insurance will not allow hospice if she is to return to [facility], therefore currently exploring options to discharge to [facility] on comfort care. Meanwhile, will continue with CPAP at night to help with hypercapnea as it appears to improve patient's mental status. Maddie Murillo, PGY-3 Documentation for date of: 03/15/25 Subjective Subjective Interval history: No overnight events. Patient was examined at bedside; they appear A&Ox0 and in NAD. Vitals/labs today significant for platelet count 77, bicarbonate 37.8, corrected calcium 10.6. Physical exam was non-contributory. Today, patient appeared more lucid and was able to communicate that she was thirsty. Patient's sister Tonja was again present at bedside and stated that their other sister would be arriving later for a discussion with health and social care teacher Tima regarding putting the patient on hospice. At this time, patient's family seems more amenable to the option. Of note, patient's insurance will not allow hospice if she is to return to [facility], therefore currently exploring options to discharge to [facility] on comfort care. Otherwise, patient will be continued on CPAP at night as it seems to improve her mental status. Exam Vital Signs Temp Pulse Resp BP Pulse Ox O2 Del Method O2 Flow Rate 97.8 F 97 15 144/66 H 99 Oxy Mask 8 03/15/25 08:00 03/15/25 08:57 03/15/25 08:00 03/15/25 08:57 03/15/25 08:00 03/15/25 08:00 03/15/25 08:00 FiO2 50 03/15/25 02:39 Narrative Exam General: Awake. Obese HEENT: Normocephalic, atraumatic, mucous membranes moist. Heart: Regular rate and rhythm, no murmurs. Lungs: Clear to auscultation with no wheezing or crackles. Decreased breath sounds bilaterally Abdomen: Soft, nondistended, nontender, positive bowel sounds. ?No guarding or rebound tenderness. Neurologic: Alert and oriented x 1, no gross neurological deficit, and patient able to move all 4 extremities. Extremities: No edema. Skin: No rash or ecchymoses. Objective Labs 03/16/25 04:30 03/16/25 04:30 Labs: Laboratory Results - last 24 hr 03/15/25 05:39 WBC 8.1 RBC 3.31 L Hgb 11.5 L Hct 36.8 MCV 111 H MCH 34.7 MCHC 31.3 RDW Std Deviation 61.3 H Plt Count 77 L Neut % (Auto) 72 Lymph % (Auto) 12 [place] % (Auto) 12 Eos % (Auto) 3 Baso % (Auto) 1 Neut # (Auto) 5.8 Lymph # (Auto) 1.0 [place] # (Auto) 0.9 H Eos # (Auto) 0.3 Baso # (Auto) 0.1 Immature Gran # (Auto) 0.04 H Absolute Nucleated RBC 0.00 Immature Gran % 1 H Nucleated RBC % 0 Sodium 144 Potassium 4.4 Chloride 98 Carbon Dioxide 37.8 H Anion Gap 8 BUN 39 H Creatinine 0.8 Estim Creat Clear Calc 70.9 eGFR > 60 BUN/Creatinine Ratio 49 H Glucose 99 Calculated Osmolality 296 H Calcium 10.3 Corrected Calcium 10.6 H Phosphorus 3.5 Magnesium 1.6 Total Bilirubin 1.0 AST 120 H ALT 25 Alkaline Phosphatase 204 H Ammonia 30 Total Protein 6.6 Albumin 3.6 Globulin 3.0 Albumin/Globulin Ratio 1.2 Misc Test Result Platelets confirmed ABG Interpretation ABG results: 03/13/25 03/13/25 03/13/25 16:52 22:34 23:16 ABG pH 7.32 L 7.37 ABG pCO2 78 H* 69 H ABG pO2 47 L* 84 D ABG HCO3 40 H 39 H ABG O2 Saturation 80 L 97 ABG Base Excess 11 H 11 H VBG pH 7.30 L VBG pCO2 85 H VBG pO2 46 VBG Base Excess 12 H Quality Measures Quality Measures VTE prophylaxis Advance care planning discussed with:: patient Assessment & Plan Assessment Current Active Medications: Generic Name Dose Route Start Last Admin Trade Name Freq PRN Reason Stop Dose Admin Acetaminophen 650 mg 03/13/25 21:16 Acetaminophen 325 Mg Tablet PO 04/12/25 21:15 Q6H PRN Fever >100.4 or pain 1-3 Hydrocodone Bitart/Acetaminophen 1 tab 03/13/25 21:16 03/14/25 08:34 Hydrocodone/Apap 5/325 Tablet PO 03/18/25 21:15 1 tab Q4HR PRN Administration PAIN SCALE 4-6 (Moderate Albuterol/Ipratropium 3 ml 03/13/25 21:16 Albuterol/Ipratropium (Duoneb) Rt Sara 3 Ml Nebu INH 04/12/25 22:59 Q4HRRT PRN wheezing or SOB Alprazolam 0.25 mg 03/14/25 09:00 03/14/25 08:32 Alprazolam 0.25 Mg Tablet PO 03/19/25 08:59 0.25 mg On Hold: 03/14/25 17:14 BID MARY Administration Docusate Sodium 100 mg 03/14/25 09:00 03/15/25 09:21 Docusate Sod 100 Mg Capsule PO 04/13/25 08:59 Not Given QDAY [facility] Protocol Furosemide 40 mg 03/14/25 09:00 03/15/25 08:56 Furosemide Inj 10 Mg/Ml 4ml Vial IVP 04/13/25 08:59 40 mg QDAY MARY Administration Heparin Sodium (Porcine) 5,000 unit 03/14/25 09:00 03/15/25 08:57 Heparin Sod Inj 5000 Unit/Ml Vial SC 03/28/25 08:59 5,000 unit Q12HR MARY Administration Metoprolol Tartrate 50 mg 03/14/25 09:00 03/15/25 08:57 Metoprolol Tartrate 25 Mg Tablet PO 04/13/25 08:59 50 mg BID MARY Administration Morphine Sulfate 2 mg 03/13/25 22:42 03/15/25 09:03 Morphine Sulf Inj 4 Mg/Ml Vial IVP 03/19/25 00:00 2 mg Q2HR PRN Administration pain 7-10 Ondansetron HCl 4 mg 03/13/25 21:16 Ondansetron Inj 2 Mg/Ml Inj 2 Ml IVP 04/12/25 21:15 Q6H PRN NAUSEA OR VOMITING Protocol Pantoprazole Sodium 40 mg 03/14/25 09:00 03/15/25 08:56 Pantoprazole Inj 40 Mg Vial IVP 04/13/25 08:59 40 mg QDAY MARY Administration Plan A 74-year-old female with past medical history of unspecified HF, pituitary- dependent Monica disease, stage IV left breast cancer with mets to liver, brain, lungs status post left mastectomy, radiation, on chemotherapy with Dr. Andrade, JEROME alfred from [facility] presented to ED obtunded, admitted for acute on chronic hypercapnic respiratory failure. POLST form signed by sister. Patient is DNR/DNI, no tube feeds. #Acute Encephalopathy 2/2 #Acute on chronic hypercapnic respiratory failure most likely 2/2 #Breast cancer metastases to lungs, liver, brain #Underlying Sleep apnea Recent admission for similar presentation. She was found to be obtunded at [facility] facility. 98% oxy mask 5L, VBG pH 7.3 pCO2 85 pO2 46 O2 sat 79%, RT unable to stick patient, repeat VBG pH 7.32 pCO2 78 pO2 47 HCO3 40 O2 sat 80. CXR: Mild heart failure, pneumonia bilaterally (r base especially), significant bilateral pleural effusions, more prominent right mediastinum. On physical exam, patient had poor inspiratory effort, no crackles heard, but bilateral wheezes were auscultated. No fever or elevated WBCs, therefore less likely due to pneumonia. Patient also just received antibiotics treatment for pneumonia and was on augmentin making pneumonia less likely, as well as, no significant change from CXR only change may be from poor inspiratory effort. Plan: -IR consulted for US guided thoracentesis - Procedure not done due to inadequate fluid -O2 delivery NC, oxymask, CPAP, BIPAP (at night) prn -FUP sputum cx: -PT referral: -FUP speech therapy: Pureed diet -Duonebs 3mL INH Q4HRRT PRN -ISS -CPAP HS #Prerenal azotemia, resolving #Hyperuremia Stage 1 IVORY Cr>0.3 mg/dL in 2d or increase Cr>50% or UOP <0.5mL/kg/h for >6hr, criteria not met for IVORY, increase of creatinine only 0.2 increase. Cr 1.0 BUN 42. 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 No pedal edema, no crackles on exam, patient is not clinically volume overloaded, fluid in lungs is most likely secondary to malignancy. 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 AST 120 ALT 27 ALP 229 at the time of admission. Recent liver biopsy (03/07/2025) with Dr. Andrade confirms hepatic mets. Plan: -Consider FUP with Dr. Andrade outpatient -Monitor LFT #Hx of Afib Patient does not seem to be in heart failure exacerbation at the moment trops negative. EKG unremarkable, not showing signs of heart strain. Plan: -Metoprolol tartrate PO BID -Lasix 40mg IV -Fluid restriction: 1.5 L -Daily weights #Hx of Anxiety Plan: -Alprazolam 0.25 mg PO BID and Sertraline (ZOLOFT) 25mg PO QD - Held for now in view of altered mentation #Hx of [place] Disease Patient's sisters are not aware of any current treatment or Cushings diagnosis. Family says she was only on steroids for breathing treatments Health Maintenance: Code status: DNR/DNI DVT prophylaxis: Heparin subq GI prophylaxis: Protonix Diet: Pureed [place]: Purewick Lines: PIV Supplemental O2: NC, Oxy mask, CPAP, BIPAP Disposition: Admit to tele for Acute on chronic hypercapnic respiratory failure Patient plan of care was discussed with the attending physician Dr. Back and senior resident Dr. Lidia Menchaca, DO PGY-1 Attending Provider Attestation/Addendum I have examined the patient, reviewed labs and imaging findings, discussed the case with the resident(s), and reviewed entered orders. I agree with the plan of care as outlined in this note, with these additional summaries/recommendations: Patient and patient's family seen at bedside. Goals of care was held between myself and patient's family and all treatment options including prognosis was discussed at length. Patient has metastatic breast cancer to lungs, liver, and now brain with encephalopathy. Hospice referral made and family has decided to proceed with hospice. Continue treatments as desired by patient and family. Pending placement. Please see residents note for additional details and management. Dr. Wong MD
--- NOTE | 2025-03-15 16:00 | PC.SS ---
FUR CLIPPER conducted phone contact with the patient?s sister, Kenyon Landaverde to conduct initial assessment and to discuss discharge planning on behalf of the patient.? Patient is a resident of [facility].? Patient utilizes wheelchair for mobility.? Patient requires the use of oxygen at facility 3L.? Facility possesses a BI-PAP for the patient?s use.? Patient requires assistance with the completion of ADL?s.? Patient?s medical surrogate decision maker is sister, Kenyon Landaverde.? Facility PCP is Dr. Austin.? Plan is for the patient to return to [facility] at the time of discharge.? Patient to transition to hospice services, [facility].? Patient to discharge when medically stable.? Family aware of share of cost upon patient?s return to SNF.? outpatient services director to assist with arranging transportation on behalf of the patient. ?No discharge needs identified by the patient. ?No further intervention required at this time, administrator social welfare will be available to address any further concerns.? Next of Kin: Kenyon Landaverde D/C Plan: SNF
--- NOTE | 2025-03-15 16:04 | PC.PT ---
PT eval witheld. Patient has a hospice referral.
[2025-03-15] MEDS: ONDANSETRON INJ 2 MG/ML INJ 2 ML 4 MG IVP (17:40)
[2025-03-16] VITALS (13 sets, daily range): BP systolic 97–152; BP diastolic 60–89; PULSE 83–132; RESP 12–25; TEMP 36.3–36.9; O2SAT 92–99; BMI 45.0
[2025-03-16 04:51] LABS: Base Excess, Venous 11 (-3-3); O2 Saturation, Venous 96 % (96-97); PCO2, Venous 77 mmHg (36-56); PO2, Venous 73 mmHg (15-58); pH, Venous 7.33 (7.33-7.66)
[2025-03-16 05:00] LABS: Basophils # (Auto) 0.0 Thou/mm3 (0.0-0.2); Basophils % (Auto) 0 % (0-2.5); Eosinophils # (Auto) 0.1 Thou/mm3 (0.0-0.5); Eosinophils % (Auto) 1 % (0-10); Hematocrit 38.2 % (36.0-46.0); Hemoglobin 11.8 g/dL (12.0-16.0); Immature Granulocytes Auto 0.04 Thou/mm3 (0.00-0.00); Lymphocytes # (Auto) 0.7 Thou/mm3 (1.0-4.8); Lymphocytes % (Auto) 8 % (10-50); Mean Corpuscular HGB Conc 30.9 g/dl (31.0-37.0); Mean Corpuscular Hemoglobin 34.2 pg (25.0-35.0); Mean Corpuscular Volume 111 fL (80-100); Monocytes # (Auto) 0.8 Thou/mm3 (0.0-0.8); Monocytes % (Auto) 9 % (0-12); Neutrophils # (Auto) 6.8 Thou/mm3 (1.8-7.7); Neutrophils % (Auto) 80 % (37-80); Nucleated Red Blood Cell # 0.00 Thou/mm3 (0.00-0.00); Nucleated Red Blood Cell % 0 /100 WBC (0); Platelet Count 63 Thou/mm3 (140-440); RDW Standard Deviation 61.1 fL (36.4-46.3); Red Blood Count 3.45 Miln/mm3 (4.00-5.20); White Blood Count 8.5 Thou/mm3 (3.6-11.0)
--- NOTE | 2025-03-16 05:04 | PC.RT ---
pt unable to give sputum sample
[2025-03-16 05:20] LABS: Alanine Aminotransferase 26 U/L (10-49); Albumin, Serum 3.7 gm/dL (3.4-4.8); Albumin/Globulin Ratio 1.1 (1.2-2.2); Alkaline Phosphatase 206 U/L (46-116); Anion Gap 7 (7-16); Aspartate Amino Transferase 124 U/L (0-34); BUN/Creatinine Ratio 43 Ratio (12-20); Bilirubin,Total 0.8 mg/dL (0.3-1.2); Blood Urea Nitrogen 43 mg/dL (9-23); Calcium 10.1 mg/dL (8.3-10.6); Calcium (Corrected) 10.3 mg/dL (8.5-10.1); Carbon Dioxide 35.9 mMol/L (20.0-31.0); Chloride 100 mMol/L (98-107); Creatinine (Component) 1.0 mg/dL (0.6-1.3); Estimated Creatinine Clearance 56.7 mL/min (>60); Globulin 3.4 gm/dL (2.3-3.5); Glucose 114 mg/dL (74-106); Magnesium 1.7 mg/dL (1.6-2.6); Osmolality,Calculated 296 (275-295); Phosphorous 3.7 mg/dL (2.4-5.1); Potassium 5.5 mMol/L (3.4-5.1); Sodium 143 mMol/L (136-145); Total Protein 7.1 gm/dL (5.7-8.2); eGFR 59 See Note
[2025-03-16] MEDS: HEPARIN SOD INJ 5000 UNIT/ML VIAL SC (09:12)
--- NOTE | 2025-03-16 11:34 | PC.SS ---
RANGE CONSERVATIONIST informed by [facility] staff, Matilda; that patient can return to facility with hospice. Room and board to be covered by [facility]. Patient's share of cost approximately $1712.00. RANGE CONSERVATIONIST informed patient's sisters. Patient's sister stated that will make arrangements to provide [facility] with payment.
--- NOTE | 2025-03-16 11:37 | PC.SS ---
ROTARY DRIER FEEDER at bedside with attending. Attending to hold the patient's discharge due to patient's vitals being unstable. Possible D/C to SNF 1-2 days.
--- NOTE | 2025-03-16 12:59 | ESPR_ITS ---
<Statement entered by Maddie Murillo MD - 03/17/25 07:31> Patient was seen and examined by me personally. I have directly supervised and reviewed documentation by the team resident and agree with its findings with any exceptions or additional findings as below. Plan of care was discussed with the attending, Dr. Back. Maddie Murillo, PGY-3 Documentation for date of: 03/16/25 Subjective Subjective Interval history: No overnight events. Patient was examined at bedside; they appear A&Ox0 (non- responsive to questioning) and in NAD. Vitals/labs today significant for VBG pCO2 of 77, potassium 5.5, BUN 39->43, creatinine 0.8->1.0. Physical exam was non-contributory. Patient was given a 1 time treatment with albuterol for her hyperkalemia today. The decision to keep patient hospitalized today was made due to her hemodynamic instability, tachycardia, continued altered mentation, and hypoxia on 8 L NC. At this time, the prospect of appears more imminent and patient has been switched to comfort care. Pain medications will be administered through patient's chemotherapy portacath (IV slipped out and patient is a hard stick) and all other medical measures have been stopped. Exam Vital Signs Temp Pulse Resp BP Pulse Ox O2 Del Method O2 Flow Rate 97.6 F 100 24 H 139/89 H 98 Nasal Cannula 6 03/16/25 12:00 03/16/25 12:00 03/16/25 12:00 03/16/25 12:00 03/16/25 12:00 03/16/25 12:00 03/16/25 12:00 FiO2 50 03/16/25 10:33 Narrative Exam General: Somnolent. Obese HEENT: Normocephalic, atraumatic, mucous membranes moist. Heart: Regular rate and rhythm, no murmurs. Lungs: Clear to auscultation with no wheezing or crackles. Decreased breath sounds bilaterally Abdomen: Soft, nondistended, nontender, positive bowel sounds. ?No guarding or rebound tenderness. Neurologic: Alert and oriented x 1, no gross neurological deficit, and patient able to move all 4 extremities. Extremities: Edematous Skin: No rash or ecchymoses. Objective Labs 03/16/25 04:30 03/16/25 04:30 Labs: Laboratory Results - last 24 hr 03/16/25 04:30 WBC 8.5 RBC 3.45 L Hgb 11.8 L Hct 38.2 MCV 111 H MCH 34.2 MCHC 30.9 L RDW Std Deviation 61.1 H Plt Count 63 L Neut % (Auto) 80 Lymph % (Auto) 8 L Dauphin % (Auto) 9 Eos % (Auto) 1 Baso % (Auto) 0 Neut # (Auto) 6.8 Lymph # (Auto) 0.7 L Da[place]hin # (Auto) 0.8 Eos # (Auto) 0.1 Baso # (Auto) 0.0 Immature Gran # (Auto) 0.04 H Absolute Nucleated RBC 0.00 Immature Gran % 1 H Nucleated RBC % 0 VBG pH 7.33 VBG pCO2 77 H VBG pO2 73 H D VBG O2 Sat (Dominic) 96 VBG Base Excess 11 H Sodium 143 Potassium 5.5 H D Chloride 100 Carbon Dioxide 35.9 H Anion Gap 7 BUN 43 H Creatinine 1.0 Estim Creat Clear Calc 56.7 L eGFR 59 L BUN/Creatinine Ratio 43 H Glucose 114 H Calculated Osmolality 296 H Calcium 10.1 Corrected Calcium 10.3 H Phosphorus 3.7 Magnesium 1.7 Total Bilirubin 0.8 AST 124 H ALT 26 Alkaline Phosphatase 206 H Total Protein 7.1 Albumin 3.7 Globulin 3.4 Albumin/Globulin Ratio 1.1 L Misc Test Result See comment ABG Interpretation ABG results: 03/13/25 03/13/25 03/13/25 16:52 22:34 23:16 ABG pH 7.32 L 7.37 ABG pCO2 78 H* 69 H ABG pO2 47 L* 84 D ABG HCO3 40 H 39 H ABG O2 Saturation 80 L 97 ABG Base Excess 11 H 11 H VBG pH 7.30 L VBG pCO2 85 H VBG pO2 46 VBG Base Excess 12 H 03/16/25 04:30 ABG pH ABG pCO2 ABG pO2 ABG HCO3 ABG O2 Saturation ABG Base Excess VBG pH 7.33 VBG pCO2 77 H VBG pO2 73 H D VBG Base Excess 11 H Quality Measures Quality Measures VTE prophylaxis Advance care planning discussed with:: patient and sibling Assessment & Plan Assessment Current Active Medications: Generic Name Dose Route Start Last Admin Trade Name Freq PRN Reason Stop Dose Admin Acetaminophen 650 mg 03/13/25 21:16 Acetaminophen 325 Mg Tablet PO 04/12/25 21:15 Q6H PRN Fever >100.4 or pain 1-3 Hydrocodone Bitart/Acetaminophen 1 tab 03/13/25 21:16 03/14/25 08:34 Hydrocodone/Apap 5/325 Tablet PO 03/18/25 21:15 1 tab Q4HR PRN Administration PAIN SCALE 4-6 (Moderate Albuterol/Ipratropium 3 ml 03/13/25 21:16 Albuterol/Ipratropium (Duoneb) Rt Sara 3 Ml Nebu INH 04/12/25 22:59 Q4HRRT PRN wheezing or SOB Alprazolam 0.25 mg 03/14/25 09:00 03/14/25 08:32 Alprazolam 0.25 Mg Tablet PO 03/19/25 08:59 0.25 mg On Hold: 03/14/25 17:14 BID MARY Administration Docusate Sodium 100 mg 03/14/25 09:00 03/16/25 09:10 Docusate Sod 100 Mg Capsule PO 04/13/25 08:59 Not Given QDAY MARY Protocol Furosemide 40 mg 03/14/25 09:00 03/15/25 08:56 Furosemide Inj 10 Mg/Ml 4ml Vial IVP 04/13/25 08:59 40 mg QDAY MARY Administration Heparin Sodium (Porcine) 5,000 unit 03/14/25 09:00 03/16/25 09:12 Heparin Sod Inj 5000 Unit/Ml Vial SC 03/28/25 08:59 5,000 unit Q12HR MARY Administration Metoprolol Tartrate 50 mg 03/14/25 09:00 03/16/25 09:11 Metoprolol Tartrate 25 Mg Tablet PO 04/13/25 08:59 Not Given BID MARY Morphine Sulfate 2 mg 03/13/25 22:42 03/15/25 17:40 Morphine Sulf Inj 4 Mg/Ml Vial IVP 03/19/25 00:00 2 mg Q2HR PRN Administration pain 7-10 Ondansetron HCl 4 mg 03/13/25 21:16 03/15/25 17:40 Ondansetron Inj 2 Mg/Ml Inj 2 Ml IVP 04/12/25 21:15 4 mg Q6H PRN Administration NAUSEA OR VOMITING Protocol Pantoprazole Sodium 40 mg 03/14/25 09:00 03/16/25 09:12 Pantoprazole Inj 40 Mg Vial IVP 04/13/25 08:59 40 mg QDAY MARY Administration Plan A 74-year-old female with past medical history of unspecified HF, pituitary- dependent Monica disease, 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 POLST form signed by sister. Patient is DNR/DNI, no tube feeds. 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 Back and senior resident Dr. Lidia Menchaca, DO PGY-1 Attending Provider Attestation/Addendum I have examined the patient, reviewed labs and imaging findings, discussed the case with the resident(s), and reviewed entered orders. I agree with the plan of care as outlined in this note, with these additional summaries/recommendations: Patient and patient's family seen at bedside. Patient was planned for discharge today with hospice although her encephalopathy appears worsened. Tachycardia pi?a present with respiratory rate into the high 20s, worsening hypoxic respiratory failure now requiring 8 L nasal cannula, tachycardia, and electrolyte abnormalities. Findings were discussed with patient's family and in agreement to initiate comfort care now. We will continue to monitor patient's vital signs. If patient improves then we will discharge on hospice/comfort care although does appear imminent. Please see residents note for additional details and management. Dr. Wong MD
[2025-03-16] MEDS: ALBUTEROL RT 2.5 MG/0.5 ML NEBU 10 MG INH (14:45)
[2025-03-16] MEDS: SODIUM CHLORIDE RT SOL 0.9% 3 ML NEBU INH (14:46)
[2025-03-16] MEDS: MORPHINE SULF INJ 4 MG/ML VIAL 2 MG IVP (15:45)
[2025-03-16] MEDS: SCOPOLAMINE 1 MG TDSY TOP (16:46)
[2025-03-16] MEDS: Morphine IV Drip 100mg/100ml 100 ML IV (17:09)
[2025-03-16] MEDS: GLYCOPYRROLATE INJ 0.2 MG/ML VIAL IV (17:24)
--- NOTE | 2025-03-16 20:03 | PC.NURSE ---
Pt is non responsive, MD Lucio put order for sputum culture, verifed with MD Lucio per MD not to do it.
[2025-03-17 06:00] VITALS: BP 54/27; PULSE 113; RESP 9; TEMP 36.8; O2SAT 90
[2025-03-17 06:46] VITALS: PULSE 115; RESP 18; O2SAT 90
--- NOTE | 2025-03-17 08:25 | PD.DPN ---
Documentation for date of: 03/17/25 Pronouncement Note PCOD Preliminary cause of : Respiratory arrest Contributing Factors (1) Metastatic malignant neoplasm to breast: Summary Additional details: Was called to bedside by RN as patient was identified to have stopped respirations. Patient was seen and examined at the bedside, no pulses could be felt, no cardiac sounds were heard after 2 continuous minutes of auscultation, no breath sounds heard, and pupils were fixed and dilated. Patient pronounced at 8:21 am. Notified the attending physician, Dr. Back. Maddie Murillo, PGY-3 Additional Data Confirmation of : no pulse, no respirations, no heart sounds and pupils fixed and dilated Family: at bedside Attending/PCP notified?: Yes Attending physician: Terrance Back MD Was code activated?: No Autopsy requested?: No architectural examiner notified?: No Organ bank notified?: No Advance directives: No
--- NOTE | 2025-03-17 11:51 | PC.NURSE ---
[employer] was called at 1120 to set up pick up truck driver of patient. They called back with an ETA of [phone].
== END 2025-03-17 13:00 | disposition expired | DRG 189 ==
LOC: SERX 20:19 → SERHOLD 21:48 → S2NX 22:48 → S3NX 03-16 18:36
PROVIDERS: Registered Nurse General Practice; Admitting Provider Student in an Organized Health Care Education/Training Program; Emergency Provider Emergency Medicine; Visit Provider Student in an Organized Health Care Education/Training Program
DX: J96.22 Acute and chronic respiratory failure with hypercapnia (principal); J18.9 Pneumonia, unspecified organism; G93.41 Metabolic encephalopathy; E24.0 Pituitary-dependent Cushing's disease; C79.31 Secondary malignant neoplasm of brain; C78.00 Secondary malignant neoplasm of unspecified lung; C78.7 Secondary malignant neoplasm of liver and intrahepatic bile duct; N17.9 Acute kidney failure, unspecified; E87.29 Other acidosis; F41.9 Anxiety disorder, unspecified; I50.9 Heart failure, unspecified; Z90.12 Acquired absence of left breast and nipple; C50.919 Malignant neoplasm of unspecified site of unspecified female breast; Z98.84 Bariatric surgery status; Z66 Do not resuscitate; K74.60 Unspecified cirrhosis of liver; I48.91 Unspecified atrial fibrillation; E86.9 Volume depletion, unspecified; G47.33 Obstructive sleep apnea (adult) (pediatric); K75.81 Nonalcoholic steatohepatitis (NASH); Z91.199 Patient's noncompliance with other medical treatment and regimen due to unspecified reason; Z79.899 Other long term (current) drug therapy; E87.5 Hyperkalemia; Z51.5 Encounter for palliative care
CPT/HCPCS: 36415; 36600; 71045; 76705; 80053; 80307; 81001; 82140; 82803; 83615; 83735; 83880; 84100; 84484; 85025; 85610; 85730; 87081; 87205; 87635; 92526; 92610; 93005; 94640; 94660; 96374; 96375; 99284; A9270; J1644; J1938; J2270; J2312; J2405; J2470; J3490; J1596